=== PATIENT | male | born 1930 | race Caucasian/White ===

== ENCOUNTER 2017-02-18 16:49 | Inpatient (IN) ==
[2017-02-18] MEDS ORDERED: Aspirin 81 MG TAB.CHEW PO ONE (16:57)
[2017-02-18] MEDS ORDERED: *HR* Heparin 5,000 UNIT/ML VIAL ONE (17:02)
[2017-02-18] MEDS ORDERED: *HR* Ticagrelor 90 MG TABLET ONE (17:02)
[2017-02-18] MEDS ORDERED: 0.9 % Sodium Chloride 1,000 ML ONE ×3 (17:02→18:04)
[2017-02-18] MEDS ORDERED: *HR* Metoprolol 5 MG/5 ML VIAL IVP ONE (17:06)
[2017-02-18] MEDS ORDERED: 0.9 % Sodium Chloride 1,000 ML IVC ONE (17:07)
[2017-02-18 17:15] LABS: Basophils % 0.3 %; Eosinophils % 0.1 %; Hematocrit 43.7 % (37.5-50.1); Hemoglobin 13.9 g/dL (12.9-16.9); Immature Granulocytes % 0.3 % (0-4); Lymphocytes % 10.2 %; Mean Corpuscular HGB Conc 31.8 g/dL (31.6-35.5); Mean Corpuscular Hemoglobin 31.2 pg (28.0-33.3); Mean Platelet Volume 9.6 fL (9.4-12.4); Monocytes # 0.7 K/mcL (0.0-1.3); Monocytes % 7.3 %; Neutrophils # 8.2 K/mcL (1.6-8.9); Platelet Count 174 K/mcL (140-400); Red Blood Count 4.46 M/mcL (4.19-5.50); Red Cell Distribution Width 11.8 % (11.5-14.5); Segmented Neutrophils % 81.8 %
[2017-02-18 17:20] LABS: INR 1.4; Prothrombin Time 15.5 Seconds (9.4-12.1)
[2017-02-18 17:22] LABS: Activated Partial Thrombo Time 30.4 Seconds (26.0-36.0)
[2017-02-18 17:26] LABS: BUN/Creatinine Ratio 28 (6-26); Blood Urea Nitrogen 33 mg/dL (8-26); Carbon Dioxide 23 mEq/L (19-29); Chloride 110 mEq/L (98-109); Glucose 102 mg/dL (70-99); Osmolality,Calculated 299 (280-300); Potassium 4.6 mEq/L (3.5-4.5); Sodium 141 mEq/L (136-145); eGFR For African Americans > 60 (> 60); eGFR For Non-African Americans 60 (> 60)
[2017-02-18] MEDS ORDERED: Heparin 1,000 UNITS/500 mL NS 500 ML ONE (17:30)
[2017-02-18] MEDS ORDERED: *HR* Heparin 10,000 UNIT/10 ML VIAL ONE (17:30)
[2017-02-18] MEDS ORDERED: Nitroglycerin 1,000 MCG/10 ML VIAL IV ONE (17:39)
--- NOTE | 2017-02-18 17:52 | Emergency Department Note ---
Disposition Clinical Impression: Myocardial infarction Qualifiers: Myocardial infarction ST status: non-ST elevation myocardial infarction Qualified Code(s): I21.4 - Non-ST elevation (NSTEMI) myocardial infarction Disposition: Admitted As Inpatient Condition: Fair Chest Pain HPI - General Chief Complaint: ED Chest Pain Stated Complaint: chest pain Source: EMS Limitations: age Vital Signs Reviewed: Yes Nursing Notes Reviewed: Yes - History of Present Illness HPI Narrative: Patient here for evaluation of chest pain. Patient's chest pain started after proximally 2 hours of trying to weed eat his property. Patient went in the house and took a nitroglycerin with resolution of pain after approximately an hour and one half. Patient states the pain was described as a discomfort in his chest that was slightly different than his previous NV. Associated diaphoresis and radiation to both shoulders. Previous history of stent placement approximately 20 years ago. Patient has a history of A. fib and is on Eliquis. No history of diabetes or kidney disease. Severity scale (1-10): 0 - Related Data Home Medications Medication Instructions Recorded Confirmed Albuterol Neb [Proventil Neb] 2.5 mg IH Q4HR 07/30/15 05/31/16 Apixaban [Eliquis] 5 mg PO BID 07/30/15 05/31/16 Aspirin [Adult Low Dose Aspirin EC] 81 mg PO DAILY 07/30/15 05/31/16 B2/Vits A,C,E/Lut/Zeaxanth/Min 1 each PO DAILY 07/30/15 05/31/16 [Icaps Tablet] Calcium Carbonate/Vitamin D3 1 each PO DAILY 07/30/15 05/31/16 [Calcium 600 + Vit D Tablet] Cyclobenzaprine [Flexeril] 10 mg PO HS 07/30/15 05/31/16 Famotidine [Pepcid] 20 mg PO DAILY 07/30/15 05/31/16 Furosemide [Lasix] 20 mg PO Q48H 07/30/15 05/31/16 Gluc/Alan-MSM#1/C/Navdeep/Amandeep/Bor 1 each PO DAILY 07/30/15 05/31/16 [Osteo Bi-Flex Caplet] Metoprolol XL (24 HR) Succ [Toprol 75 mg PO DAILY 07/30/15 05/31/16 Xl] Multivitamin [Flintstones] 1 each PO DAILY 07/30/15 05/31/16 [place]-3S/Dha/Epa/Fish Oil [Fish 1 each PO DAILY 07/30/15 05/31/16 Oil 1,200 mg Softgel] Potassium Chloride [K-Tab ER] 20 meq PO Q48H 07/30/15 05/31/16 Pravastatin Sodium [Pravachol] 80 mg PO DAILY 07/30/15 05/31/16 Tiotropium [Spiriva] 18 mcg IH DAILY 07/30/15 05/31/16 Budesonide/Formoterol 160/4.5 1 puff IH BIDR 05/31/16 05/31/16 [Symbicort 160/4.5] Previous Rx's Medication Instructions Recorded Lactobacillus [Culturelle] 1 each PO BID #10 cap.sprink 01/18/16 Allergies Allergy/AdvReac Type Severity Reaction Status Date / Time No Known Allergies Allergy Unverified 07/19/15 10:47 Review of Systems: CONSTITUTIONAL: No weight loss, fever, chills, weakness or fatigue. HEENT: Eyes: No visual changes. Ears, Nose, Throat: No hearing loss, difficulty talking or unable to swallow. SKIN: No rash or itching. CARDIOVASCULAR: Chest pain resolved RESPIRATORY: No shortness of breath, cough or sputum. GASTROINTESTINAL: No anorexia, nausea, vomiting or diarrhea. No abdominal pain or blood. GENITOURINARY: No burning on urination or hematuria. NEUROLOGICAL: No headache, dizziness, syncope, paralysis, ataxia, numbness or tingling in the extremities. No change in bowel or bladder control. MUSCULOSKELETAL: No muscle pain, back pain, joint pain or stiffness. Chest Pain PMH - Past Medical History Medical history: Reports: COPD, coronary artery disease, GERD, hyperlipidemia, hypertension, myocardial infarction, other Surgical history: Reports: pacemaker/AICD Psychiatric history: Reports: no psych history - Social History Smoking Status: Former smoker Alcohol use: Reports: none Drug use: Reports: none Physical Exam General appearance: NAD, conversant Eyes: anicteric sclerae, moist conjunctivae; PERRL HENT: Atraumatic; oropharynx clear with moist mucous membranes and no mucosal ulcerations Neck: Normal inspection; Trachea midline; FROM, supple Lungs: CTA, with normal respiratory effort and no intercostal retractions CV: RRR, no MRGs Abdomen: Soft, non-tender; no rebound or gaurding Extremities: No peripheral edema or extremity lymphadenopathy Skin: Normal temperature; no rash, ulcers or lesions Psych: Appropriate mood and affect Neuro: alert and oriented to person, place and time - General Limitations: age General appearance: alert, in no apparent distress Course - Reevaluation(s) Reevaluation #1: Patient remains chest pain-free during his ED visit. - Consultations Consultation #1: Discussed with interventional cardiology. Initial EKGs sent to cardiology at 1705. Repeat EKGs at 1719 and 1731. Initial EKG with concern for significant ST elevation in the setting of hyperacute T waves and reciprocal depressions in the lateral leads. Peak T waves elevations have began resolving with initial fluids and beta dorian. Heart rate continues to be in the 130s after initial Lopressor dose of 5 mg. Discussed with cardiology Cardizem bolus as well as a IV drip. Vital Signs Temperature 98.8 F 02/18/17 16:55 Pulse Rate 131 02/18/17 16:55 Respiratory Rate 18 02/18/17 16:55 Blood Pressure 103/80 02/18/17 16:55 O2 Sat by Pulse Oximetry 95 02/18/17 16:55 Temperature 97.6 F 02/18/17 19:00 Pulse Rate 100 02/18/17 19:30 Respiratory Rate 16 02/18/17 19:30 Blood Pressure 111/92 02/18/17 19:30 O2 Sat by Pulse Oximetry 94 02/18/17 19:30 Oxygen Delivery Oxygen Delivery Nasal Cannula Chest Pain - Medical Records Medical records reviewed: Yes I reviewed the patient's medical records. - Lab Data Lab results reviewed: Yes I reviewed the patient's lab results. Result diagrams: 02/18/17 17:08 02/18/17 17:08 Lab Results 02/18/17 02/18/17 02/18/17 Range/Units 17:08 17:08 17:08 WBC 10.0 (4.3-11.1) K/mcL RBC 4.46 (4.19-5.50) M/mcL Hgb 13.9 (12.9-16.9) g/dL Hct 43.7 (37.5-50.1) % MCV 98.0 (83.0-100.0) fL MCH 31.2 (28.0-33.3) pg MCHC 31.8 (31.6-35.5) g/dL RDW 11.8 (11.5-14.5) % Plt Count 174 (140-400) K/mcL MPV 9.6 (9.4-12.4) fL Immature Gran % 0.3 (0-4) % Seg Neutrophils % 81.8 % Lymphocytes % 10.2 % Monocytes % 7.3 % Eosinophils % 0.1 % Basophils % 0.3 % Neutrophils # 8.2 (1.6-8.9) K/mcL Lymphocytes # 1.0 (0.6-4.6) K/mcL Monocytes # 0.7 (0.0-1.3) K/mcL Eosinophils # 0.0 (0.0-0.6) K/mcL Basophils # 0.0 (0.0-0.2) K/mcL PT 15.5 H (9.4-12.1) Seconds INR 1.4 APTT 30.4 (26.0-36.0) Seconds Sodium 141 (136-145) mEq/L Potassium 4.6 H (3.5-4.5) mEq/L Chloride 110 H (98-109) mEq/L Carbon Dioxide 23 (19-29) mEq/L BUN 33 H (8-26) mg/dL Creatinine 1.16 (0.72-1.25) mg/dL Est GFR ( Amer) > 60 (> 60) Est GFR (Non-Af Amer) 60 (> 60) BUN/Creatinine Ratio 28 H (6-26) Glucose 102 H (70-99) mg/dL Calculated Osmolality 299 (280-300) Calcium 10.0 (8.6-10.8) mg/dL Troponin I (0-0.03) ng/mL 02/18/17 Range/Units 17:08 WBC (4.3-11.1) K/mcL RBC (4.19-5.50) M/mcL Hgb (12.9-16.9) g/dL Hct (37.5-50.1) % MCV (83.0-100.0) fL MCH (28.0-33.3) pg MCHC (31.6-35.5) g/dL RDW (11.5-14.5) % Plt Count (140-400) K/mcL MPV (9.4-12.4) fL Immature Gran % (0-4) % Seg Neutrophils % % Lymphocytes % % Monocytes % % Eosinophils % % Basophils % % Neutrophils # (1.6-8.9) K/mcL Lymphocytes # (0.6-4.6) K/mcL Monocytes # (0.0-1.3) K/mcL Eosinophils # (0.0-0.6) K/mcL Basophils # (0.0-0.2) K/mcL PT (9.4-12.1) Seconds INR APTT (26.0-36.0) Seconds Sodium (136-145) mEq/L Potassium (3.5-4.5) mEq/L Chloride (98-109) mEq/L Carbon Dioxide (19-29) mEq/L BUN (8-26) mg/dL Creatinine (0.72-1.25) mg/dL Est GFR ( Amer) (> 60) Est GFR (Non-Af Amer) (> 60) BUN/Creatinine Ratio (6-26) Glucose (70-99) mg/dL Calculated Osmolality (280-300) Calcium (8.6-10.8) mg/dL Troponin I 9.03 H* (0-0.03) ng/mL - Radiology Data Radiology results reviewed: Yes I reviewed the patient's radiology results. - EKG Data EKG attestation: Yes I reviewed and interpreted this EKG. EKG results narrative: Initial EKG performed at 1649. A. fib with RVR in concern of ST elevation of approximately 3 mm in V2 and 3 as well as depressions in V6 and V5 of 2 mm. Inverted T waves in 1 and aVL. Significantly changed from previous EKG of . Repeat EKG at [address]16 with continued concern for ST elevations as well as continue depressions. Somewhat decreased from previous. EKG on 1728 shows continued mild improvements of elevations as well as depressions. Critical Care Time Critical Care Time: Yes Total Critical Care Time: 35 Attestation: Critical care time managing patient STEMI was 35 minutes. Attestation Statement - Attestation Attestation: Patient was seen with resident physician. I reviewed the history, physical, assessment and plan, and agree with the findings. I also personally evaluated this patient and had [id number] time with this patient. A 6-year-old male presents to the emergency department cute onset of chest pain. Patient was apparently tempted to weed at his house when he developed chest pain in the middle of his chest rating to both shoulders bilaterally. He took a nitroglycerin which resolved his discomfort but he came in for evaluation as well. He did have diaphoresis with the pain. He has a history of cardiac disease including a pacemaker atrial fibrillation for which he takes a blood thinner, and history stents which she thinks was about 20 years ago. She denies nausea vomiting or diarrhea. He is chest pain-free at time of evaluation. On examination vital signs patient is tachycardic with a heart rate in the 130s, blood pressure is low systolic in the upper 90s respiratory rate is normal. ENT is unremarkable. Heart tachycardic with regular rhythm lungs were clear to auscultation abdomen soft and nontender extremity show no swelling neurologically the patient is intact. ED course EKG showed STEMI and when compared with prior EKG was highly concerning as well. The interventional cardiology was contacted immediately. They wanted to try to reduce his heart rate repeated an EKG we attempted to do this with Lopressor with limited success. Repeat EKG was also very concerning he continued have some morphology changes that were consistent with acute myocardial infarction. 2 to be moving towards a left bundle branch block which was new for him. All the EKGs and cardiac management were incoordination in cooperation with interventional cardiology. Because his rate did not respond well with Lopressor. He was given Cardizem. Though it appeared to be working we did not have a formal vital sign set when the patient was taken to the catheter lab. In the process of trying to determine if his EKG changes were new or old his troponin came back at 9, which conclusively determined that he needed to be in the catheter lab. He was taken by the catheter team in guarded condition. He was alert and oriented at the time. He was chest pain-free throughout his stay. Critical care time for this patient was 35 minutes. Agree with the resident physician assessment and plan.
[2017-02-18] MEDS ORDERED: Verapamil 5 MG/2 ML VIAL ONE (17:55)
[2017-02-18] MEDS ORDERED: *HR* Midazolam HCl 2 MG/2 ML VIAL ONE (18:00)
[2017-02-18] MEDS ORDERED: *HR* FentaNYL (PF) 100 MCG/2 ML VIAL ONE (18:01)
--- NOTE | 2017-02-18 18:02 | Cardiology History & Physical ---
Date of Encounter: 02/18/17 Time of Encounter: 18:02 Assessment and Plan (1) CAD (coronary artery disease) Current Visit: No Status: Chronic History of CAD with remote stent. Presenting with acute myocardial infarction as evidenced by history and troponin. ECG with new abnormalities but not clearly diagnostic for STEMI. Due to the ECG (not clearly diagnostic for STEMI as well as A. 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 The assessment and plan as outlined above was discussed with the patient and/or family members who expressed understanding and agreement. All questions were answered. Qualifiers: Coronary Disease-Associated Artery/Lesion type: [place] artery [place] vs. transplanted heart: [place] heart Associated angina: with unstable angina Qualified Code(s): I25.110 - Atherosclerotic heart disease of [place] coronary artery with unstable angina pectoris (2) Non-STEMI (non-ST elevated myocardial infarction) Current Visit: Yes Status: Acute Presenting with acute myocardial infarction as evidenced by history and troponin. ECG with new abnormalities but not clearly diagnostic for STEMI. Due to the ECG (not clearly diagnostic for STEMI as well as A. 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 Patient at increased risk of bleeding due to Eliquis. The assessment and plan as outlined above was discussed with the patient and/or family members who expressed understanding and agreement. All questions were answered. History of Present Illness Chief complaint: Chest pain HPI: Mr. Almendarez is a 86 year old male who presents with complaints of chest discomfort. He has a history of CAD status post remote stent placement approximately 20 years ago per the patient. He also has a history of COPD, chronic atrial fibrillation and pacemaker placement. He was outside [employer] today when he experienced chest discomfort which he described as an ache with radiation into the arms. His arms became very heavy. This lasted for approximately an hour to an hour and a half and then resolved. He had another episode and took nitroglycerin. His family then called 911. In the ER he was noted to be in atrial fibrillation with rapid ventricular response. ECG does show new changes from 2016. There is concern for possible STEMI. The patient was chest discomfort free. Troponin did come back elevated in the range of 9. Past Med Surg Social Fam HX - Past Medical History Medical history: COPD, coronary artery disease, GERD, hyperlipidemia, hypertension, myocardial infarction, other Psychiatric history: no psych history - Past Surgical History Surgical History: pacemaker/AICD - Social History Smoking Status: Former smoker Smokeless Tobacco Status: Yes Alcohol use: none Drug use: none - Family History Brother Hx Family Cancer: Yes Medications and Allergies Albuterol Neb [Proventil Neb] 2.5 mg IH Q4HR 07/30/15 [History] Apixaban [Eliquis] 5 mg PO BID 07/30/15 [History] Aspirin [Adult Low Dose Aspirin EC] 81 mg PO DAILY 07/30/15 [History] B2/Vits A,C,E/Lut/Zeaxanth/Min [Icaps Tablet] 1 each PO DAILY 07/30/15 [History] Calcium Carbonate/Vitamin D3 [Calcium 600 + Vit D Tablet] 1 each PO DAILY [History] Cyclobenzaprine [Flexeril] 10 mg PO HS 07/30/15 [History] Famotidine [Pepcid] 20 mg PO DAILY 07/30/15 [History] Furosemide [Lasix] 20 mg PO Q48H 07/30/15 [History] Gluc/Alan-MSM#1/C/Navdeep/Amandeep/Bor [Osteo Bi-Flex Caplet] 1 each PO DAILY 07/30/15 [ History] Metoprolol XL (24 HR) Succ [Toprol Xl] 75 mg PO DAILY 07/30/15 [History] Multivitamin [Flintstones] 1 each PO DAILY 07/30/15 [History] [place]-3S/Dha/Epa/Fish Oil [Fish Oil 1,200 mg Softgel] 1 each PO DAILY 07/30/15 [ History] Potassium Chloride [K-Tab ER] 20 meq PO Q48H 07/30/15 [History] Pravastatin Sodium [Pravachol] 80 mg PO DAILY 07/30/15 [History] Tiotropium [Spiriva] 18 mcg IH DAILY 07/30/15 [History] Lactobacillus [Culturelle] 1 each PO BID #10 cap.sprink 01/18/16 [Rx] Budesonide/Formoterol 160/4.5 [Symbicort 160/4.5] 1 puff IH BIDR 05/31/16 [ History] Allergies No Known Allergies Allergy (Unverified 07/19/15 10:47) All Systems Review: A 10-system review of systems was performed and is negative for pertinent findings except as documented above in the HPI. Physical Examination Vital Signs, Last 4 Hours Temp Pulse Resp BP Pulse Ox 02/18/17 17:18 112 16 90/73 97 02/18/17 17:09 125 18 103/70 96 02/18/17 16:55 98.8 F 131 18 103/80 95 General: Conversant, No Apparent Distress HEENT: Atraumatic, Normocephaly, Mucus Membranes Moist Neck: No JVD, Normal carotid pulses Cardiac: Other (Tachycardic, Irregularly irregular S1-S2, no significant murmur) Lungs: Normal Breath Sounds, No Wheeze, Rales, Rhonchi Neuro: Alert and responsive, No focal deficits noted Abdomen: Soft, Non-Tender Skin: No rashes noted on visualized skin Musculoskeletal: No Chest Wall Tenderness Extremities: No Clubbing, No Cyanosis, No Edema, Normal Pulses Results 02/18/17 17:08 02/18/17 17:08 Lab Results 02/18/17 02/18/17 02/18/17 17:08 17:08 17:08 WBC 10.0 Hgb 13.9 Hct 43.7 Plt Count 174 INR 1.4 APTT 30.4 Sodium 141 Potassium 4.6 H Chloride 110 H Carbon Dioxide 23 BUN 33 H Creatinine 1.16 Glucose 102 H Calcium 10.0 Troponin I 02/18/17 17:08 WBC Hgb Hct Plt Count INR APTT Sodium Potassium Chloride Carbon Dioxide BUN Creatinine Glucose Calcium Troponin I 9.03 H* - EKG Interpretation EKG results cardiology: other (Atrial fibrillation with rapid ventricular response, IVCD, ST and T-wave abnormality consider ischemia)
--- NOTE | 2017-02-18 18:03 | Pre-Sedation Evaluation ---
Pre-sedation evaluation - Pre-sedation checklist Date of procedure: 02/18/17 Recent Vitals: Last Vital Signs Temp 98.8 F 02/18/17 16:55 Pulse 112 02/18/17 17:18 Resp 16 02/18/17 17:18 BP 90/73 02/18/17 17:18 Pulse Ox 97 02/18/17 17:18 H&P (including ROS) documented in medical record: Yes Previous reaction to sedatives/anesthetics: No Dietary Status: unknown Airway Assessment: Patient can open mouth completely, TMJ function normal Possible difficult airway: No ASA Classification *see protocol: CLASS II-Mild systemic disease Plan of Care: Pt appropriate candidate for procedure/moderate/conscious sedation
[2017-02-18] MEDS ORDERED: Tirofiban 12.5 MG/250ML 12.5 MG/250 ML BAG ONE (18:27)
--- NOTE | 2017-02-18 19:16 | Invasive Diagnostic Lab Proc ---
Name: Enmanuel Almendarez Date of Study: 02/18/2017 Date: 1930 Ht: 70.9in Medical Record#: [id number] Age: 86 Wt: 183.87lb Gender: Male BSA: 2.03 Order #: [id number] BMI: 25.74 Physicians Procedure Physician: Andi Alvarez MD Referring MD: Referring MD: Staff Name Position Time In [facility], [facility] RT (R) Monitor 06:01 PM Emir Spence RN Dry Cleaner 06:01 PM Rita Florence RT (R) Scrub 06:01 PM Adrienne Lagunas RN Dry Cleaner 06:01 PM Indications Indication Non-Stemi Procedures Performed Procedure L HRT ARTERY/VENTRICLE ANGIO PRQ CARD JOSE STENT W/ANGIO 1 VSL Pre-Procedure Checklist Informed consent is complete signed and on chart. H&P is on chart. ID band is on and ID verified with patient. Patient NPO for procedure The procedure was described for the patient and questions were answered. Blood Pressure: 114/62 ECG is on chart. Rhythm: Atrial Fibrillation Plan of Care Patient will tolerate the procedure without complications. Adequate level of comfort will be maintained. Hemodynamics will remain stable Patient will recover from procedure without complications. Respiratory function will be maintained. Cardiac rhythm will remain stable. Patient temperature will be maintained. Patient and/or family have verbalized understanding of the procedure. Patient Education Chief Complaint/Reason for Test: Cardiac Cath Developmental Category: Geriatric (65+ years) Developmentally Appropriate for Age: Yes Learning Barriers: None Education Needs: Procedure Education Method: Verbal Information Taught: Cardiac Cath Educational Evaluation: Able to repeat information Intravenous Access Time IV Size Location DC'd Fluid/Drip Rate Units RN 20g 1 1/4" Patent On Arrival Lt Antecubital 0.9NaCl 25 ml/hr Emir Spence RN 18g 1 1/4" Peripheral-Lock On Arrival Rt Antecubital Allergies No Known Allergies Vital Signs Time BP (mmHg) HR (bpm) O2 Sat. RR (bpm) LOC 114 / 62 77 97 % 16 5 = Fully awake and oriented or at pre-proc level 06:05 PM / % 4 = Oriented but drowsy 06:05 PM / % 4 = Oriented but drowsy 06:20 PM / % 4 = Oriented but drowsy 05:57 PM 114 / 62 77 98 % 20 06:02 PM 92 / 59 76 99 % 20 06:03 PM 96 / 66 66 98 % 16 06:07 PM 102 / 62 73 98 % 24 06:12 PM 105 / 61 86 96 % 22 06:17 PM 106 / 60 95 96 % 19 06:18 PM 109 / 60 106 96 % 21 06:22 PM 99 / 71 77 96 % 21 06:27 PM 97 / 63 102 96 % 21 06:31 PM 105 / 55 78 96 % 18 06:37 PM 116 / 74 90 96 % 10 06:42 PM 108 / 72 107 95 % 22 06:47 PM 115 / 77 96 96 % 19 Procedural Medications Time Medication Dose Units Method Given By 06:04 PM Oxygen 2 L/min nasal cannula Emir Spence RN 06:04 PM Versed 1 mg Intravenous Emir Spence RN 06:05 PM Fentanyl 25 mcg Intravenous Emir Spence RN 06:06 PM Lidocaine 2% 1 ml Subcutaneous Andi Alvarez MD 06:13 PM Lidocaine 2% 17 ml Subcutaneous Andi Alvarez MD 06:28 PM Aggrastat Bolus: 42 ml Intravenous Emir Spence RN 06:28 PM Aggrastat 5mg/100ml 7.5 ml Intravenous Emir Spence RN 06:54 PM Brilinta 180 mg Orally Emir Spence RN ASA Classification: Emergent Procedure: ASA score is assumed Ciera Score Preprocedure Postprocedure Activity 2- Moves 4 extremities sustained head lift Activity 2- Moves 4 extremities sustained head lift Circulation 2- SBP +/= 20 points of pre-anesthetic level Circulation 2- SBP +/= 20 points of pre-anesthetic level Consciousness 2- Awake and alert oriented x 3 Consciousness 2- Awake and alert oriented x 3 O2 Saturation 2- Able to maintain O2 satruation of 92% on room air O2 Saturation 2- Able to maintain O2 satruation of 92% on room air Respiratory 2- Able to deep breathe and cough well Respiratory 2- Able to deep breathe and cough well Total Score 10 Total Score 10 Contrast Agent: Isovue Diagnostic Contrast: 87 ml Total Contrast: 87 ml Fluoro Dose: 609 mGy Activated Clotting Time Time Seconds to Clot 06:38 PM 222 Procedure Log Time Note Enter By 05:29 PM CathStat 05:49 PM Pt arrived to film laboratory technician 2 at 17:49 [email or web address] 05:49 PM Rita Smith RT (R) Position: Monitor Time in: 17:49 [place] 05:49 PM Emir Spence RN Position: Dry Cleaner Time in: 17:49 [place] 05:49 PM Rita Florence RT (R) Position: Scrub [facility]:17:[email or web address] 05[facility] PM Adrienne Lagunas RN Position: Dry Cleaner Time in: 17:49 [place] 05:53 PM Physician arrived 17:53 [place] 05:53 PM Vitals capture started with the following parameters, Patient=Adult, Interval=5 min, Initial Acbvffun=920 mmHg, Deflation Rate=5 mmHg, Cuff placed on Left Arm 05:56 PM Vitals capture started with the following parameters, Patient=Adult, Interval=5 min, Initial Brnapzhy=725 mmHg, Deflation Rate=5 mmHg, Cuff placed on Left Arm 05:56 PM Recorded ECG: HR=88 Condition=Condition 1 05:57 PM HR=77 bpm, MIMQ=142/62 mmhg, SpO2=98 %, Resp=20 B/min 06:00 PM Meet and greet completed [facility] 06:00 PM Hair removed from procedure site in holding area using clippers. Right wrist and bilateral groin prepped with Chloraprep by Rita Smith (R), safety strap applied then patient was draped. Skin intact. ts 06:02 PM HR=76 bpm, NIBP=92/59 mmhg, SpO2=99 %, Resp=20 B/min 06:02 PM NIBP STAT measurement started. 06:02 PM Patient charges- Angio tray pack, Navilyst 3mm J, Pulse Oximetry and ACIST tubing and transducer [facility] 06:02 PM Case Delayed No allan 06:03 PM HR=66 bpm, NIBP=96/66 mmhg, SpO2=98.0 %, Resp=16 B/min 06:03 PM Recorded ECG: HR=77 Condition=Condition 1 06:04 PM Pressure channel 1 zeroed. 06:04 PM Time: 18:04 Oxygen on at 2 L/min per nasal cannula by Emir Spence RN 06:05 PM Time: 18:04 Versed 1 mg Intravenous Given by Emir Sepnce RN 06:05 PM Time: 18:05 Fentanyl 25 mcg Intravenous Given by Jordy, Emir RN tsites 06:05 PM Time: 18:05 Patient comfortable and pain free: Yes tsites 06:05 PM Time: 18:05LOC: 4 = Oriented but drowsy tsites 06:05 PM Clinical Presentation: STEMI or equivalent tsites 06:05 PM Time out performed according to hospital policy tsites 06:05 PM Procedure start 18:05 tsites 06:06 PM Time: 18:06 1 ml Lidocaine 2% to right radial Subcutaneous Given by Andi Alvarez MD tsites 06:07 PM HR=73 bpm, HUQH=066/62 mmhg, SpO2=98.0 %, Resp=24 B/min 06:07 PM Unsuccessful access attempt # 1 into the right Radial artery. Manual pressure applied to achieve hemostasis.. tsites 06:09 PM Unsuccessful access attempt # 2 into the right Radial artery. Manual pressure applied to achieve hemostasis.. tsites 06:12 PM HR=86 bpm, SZWY=355/61 mmhg, SpO2=96.0 %, Resp=22 B/min 06:13 PM unable to get radial access . tsites 06:13 PM Time: 18:13 17 ml Lidocaine 2% to right groin Subcutaneous Given by Andi Alvarez MD tsites 06:15 PM Micro-Introducer Kit utilized for sheath placement tsites 06:15 PM Access obtained by percutaneous puncture. 6Fr 10cm Terumo Gans sheath placed in right Femoral artery. [id number] tsites 06:16 PM Site status No bleeding/hematoma - Rt Wrist as reported by Adrienne Lagunas RN at 18:16 tsites 06:16 PM Manual pressure was held to Rt radial per Adrienne Lagunas Rn tsites 06:17 PM HR=95 bpm, IKMT=610/60 mmhg, SpO2=96 %, Resp=19 B/min 06:17 PM 5Fr FL 4 catheter inserted over the wire [facility] tsites 06:17 PM 0.035 145cm Navilyst 3mmJ wire [id number] tsites 06:17 PM LCA angiography performed in multiple views. tsites 06:17 PM Recorded Pressure: Ao, HR=82, Condition=Condition 1 (Aorta) Ao 74/51/62 06:17 PM NIBP STAT measurement started. 06:18 PM QC=081 bpm, ABTZ=256/60 mmhg, SpO2=96 %, Resp=21 B/min 06:19 PM wire reinserted catheter removed tsites 06:19 PM 5Fr FR 4 catheter inserted over the wire DNC tsites 06:20 PM RCA angiography performed in multiple views. tsites 06:20 PM Time: 18:05LOC: 4 = Oriented but drowsy tsites 06:21 PM wire reinserted catheter removed tsites 06:21 PM 5Fr Pigtail catheter inserted over the wire DNC tsites 06:22 PM HR=77 bpm, NIBP=99/71 mmhg, SpO2=96 %, Resp=21 B/min 06:22 PM Recorded Pressure: LV, HR=75, Condition=Condition 1 (Left Ventricle) LV 91/7/20 06:23 PM Recorded Pressure: LV, Ao, HR=74, Condition=Condition 1 (Left Ventricle) LV 97/6/18, (Aorta) Ao 96/52/70 06:26 PM Physician reviewing films looking at the prox LAD lesion CABG vs stent tsites 06:27 PM wire reinserted catheter removed tsites 06:27 PM PCI Status Emergency tsites 06:27 PM PCI Indication: Immediate PCI for STEMI tsites 06:27 PM PCI lesion in Mid RCA. tsites 06:27 PM 6Fr JR 4 Runway guide catheter was used to cannulate the PCI vessel successfully. reused? No tsites 06:27 PM Inflation device was opened. tsites 06:27 PM IY=640 bpm, NIBP=97/63 mmhg, SpO2=96.0 %, Resp=21 B/min 06:28 PM Time: 18:28 Aggrastat 5mg/100ml 7.5 ml Intravenous Given by Emir Spence RN Zarate pump tsites 06:28 PM Time: 18:28 Aggrastat Bolus: 42 ml Intravenous Given by Emir Spence RN Zarate pump tsites 06:29 PM Coronary Dominance: right tsites 06:29 PM Lesion found in Mid RCA. Pre Stenosis: 99 Pre YANETH Flow: tsites 06:29 PM Right Coronary, Right Posterior Descending Arteries with Right Posterolateral and Acute Marginal branches with 99 % stenosis. If graft is supplying this area, 0 % stenosis tsites 06:30 PM .014 [employer] [place] 190cm guide wire across target lesion- successful. reused? No tsites 06:30 PM 2.5 mm x 15 mm Emerge Monorail balloon across target lesion- successful. reused? No tsites 06:31 PM Balloon inflated @ 14 jennifer for 15 seconds tsites 06:31 PM NIBP STAT measurement started. 06:31 PM HR=78 bpm, ZFZV=904/55 mmhg, SpO2=96 %, Resp=18 B/min 06:32 PM Balloon catheter removed intact. tsites 06:34 PM 3.0mm x 28mm Synergy drug-eluting stent across target lesion- successful Lot #[id number] tsites 06:34 PM Stent deployed @ 16 jennifer for 15 seconds tsites 06:34 PM Stent delivery system removed intact. tsites 06:35 PM Time: 18:20LOC: 4 = Oriented but drowsy tsites 06:35 PM Time: 18:20 Patient comfortable and pain free: Yes tsites 06:36 PM 3.5 mm x 15mm NC Emerge balloon across target lesion- successful. reused? No tsites 06:36 PM ACT drawn tsites 06:37 PM HR=90 bpm, JKVY=703/74 mmhg, SpO2=96 %, Resp=10 B/min 06:37 PM Balloon inflated @ 12 jennifer for 8 seconds tsites 06:37 PM Balloon inflated @ 14 jennifer for 10 seconds tsites 06:37 PM Balloon inflated @ 14 jennifer for 8 seconds tsites 06:38 PM Recorded Pressure: Ao, HR=86, Condition=Condition 1 (Aorta) Ao 96/54/72 06:38 PM Balloon catheter removed intact. tsites 06:38 PM At 18:38 the ACT was 222 seconds. tsites 06:38 PM Guide wire removed intact. tsites 06:39 PM Lesion found in Proximal LAD. Pre Stenosis: 80 Pre YANETH Flow: tsites 06:39 PM Catheter removed tsites 06:40 PM Bolus angiogram of right Femoral complete: 2 ml/sec for a total of 4 mls tsites 06:41 PM sheath sutured into place tsites 06:41 PM Procedure completed at 18:41 tsites 06:41 PM Sign out completed: Radiation Dose 609 mGy Fluoro Time: 4.2 Isovue 370 - 500ml contrast 87 ml given by Andi Alvarez MD. Complications: NoneCardiac Rehab Consult needed: YesConfirmed administered medications: Yes tsites 06:41 PM Isovue 370 - 500ml,1 Bottle(s) used. tsites 06:41 PM Sheath left in place to be pulled on floor/holding areaV+Pad tsites 06:42 PM TQ=678 bpm, SYZG=633/72 mmhg, SpO2=95 %, Resp=22 B/min 06:42 PM Post ECG Atrial Fibrillation tsites 06:42 PM Post Blood Pressure 108/72 tsites 06:42 PM 18:42 Post Pulses Rt Radial 2+ tsites 06:42 PM 18:42 Post Pulses Bilateral DP & PT 1+ tsites 06:42 PM Information taught Cardiac Cath and PCI tsites 06:43 PM Education needs Procedure, Plan of Care, and Responsibilities of Patient in Care tsites 06:43 PM Learning barriers :None tsites 06:43 PM Education Methods Verbal tsites 06:43 PM Education evaluation Able to repeat information tsites 06:43 PM Site status No bleeding/hematoma - Rt Groin as reported by Rita Florence RT (R) at 18:43 tsites 06:43 PM Recorded ECG: HR=99 Condition=Condition 1 06:47 PM HR=96 bpm, CEKJ=585/77 mmhg, SpO2=96 %, Resp=19 B/min 06:55 PM Time: 18:54 Brilinta 180 mg Orally Given by Emir Spence RN tsites 06:57 PM Lesion found in Proximal LAD. Pre Stenosis: 80 Pre YANETH Flow: tsites 06:57 PM Lesion found in Mid Circumflex. Pre Stenosis: 50 Pre YANETH Flow: tsites 06:57 PM Lesion found in Mid LAD. Pre Stenosis: 50 Pre YANETH Flow: tsites 06:58 PM Proximal Left Anterior Descending Coronary Artery with 80% stenosis. If graft is supplying this territory, 0 % stenosis. tsites 06:58 PM Mid/Distal Left Anterior Descending Coronary Artery and diagonal branches with 50% stenosis. If graft is supplying this area, 0 % stenosis tsites 06:58 PM Circumflex, Obtuse Marginal, Left Posterior Descending, and Left Posterolateral Coronary Arteries with 50 % stenosis. If graft is supplying this area, 0 % stenosis tsites 06:59 PM Lesion found in LMCA. Pre Stenosis: 45 Pre YANETH Flow: tsites 06:59 PM Left Main Coronary Artery with 45% stenosis tsites 07:00 PM Report given to nikhil SERRANO Pt taken to ICU Room #5. 18:59 tsites 07:00 PM Plavix, Effient or Brilinta given Yes tsites 07:00 PM Delay to floor No tsites 07:00 PM Patient out of room: 19:00 tsites 07:00 PM Family placed in consult room. tsites Complications Complication None Hemodynamics Pressures Site Systolic/A Wave Diastolic/V Wave Mean AO 74 51 62 LV 91 7 20 LV 97 6 18 AO 96 52 70 AO 96 54 72 Post Procedure Information Blood Pressure: 108/72 mmHg Rhythm: Atrial Fibrillation Post procedural instructions were given Closure Device Time Device Success/Fail 02/18/2017 7:00:00 PM Manual Compression Site Checks Time Location Status Staff Sheath In? Note 06:16 PM Rt Wrist No bleeding/hematoma Adrienne Lagunas RN 06:43 PM Rt Groin No bleeding/hematoma Rita Florence RT (R) Pulses Time Site Pre-Procedure Post-Procedure Note 02/18/2017 5:59:00 PM Bilateral DP & PT 1+ Bilateral radial 2+ 6:42:00 PM Rt Radial 2+ 6:42:00 PM Bilateral DP & PT 1+ Updated by Riat Smith RT (R) on 02/18/2017 7:10:53 PM Rita Smith RT electronically signed on 02/18/2017 7:11:24 PM with status of Final
--- NOTE | 2017-02-18 19:56 | Procedure Note ---
Date of procedure: 02/18/17 Pre-op diagnosis: Acute myocardial infarction Post-op diagnosis: same Procedure: Cardiac cath: LM-40-50% proximal with proximal ectasia versus ulcerated plaque versus poststenotic dilatation? LAD-80% ostial, 50% mid, CX-50% mid, RCA-99% mid, LVEF-15-20% with global hypokinesis and 1+ to 2+ MR, PCI of RCA 99% to 0% with a 3.0 mm x 28 mm Synergy JOSE. Right external iliac artery 40-50%. Right radial artery attempted but not accessed and due to concerns regarding time it was aborted. Right femoral, femoral artery approach was used with a single front wall puncture. Impression: 1. Critical stenosis of the RCA with successful PCI using JOSE. 2. Severe stenosis of the proximal LAD estimated at 80%. 3. Borderline to severe stenosis of the left main. Certain views looked less significant and other views more significant. Dilatation concerning for ectasia , ulcerated plaque, poststenotic dilatation. 4. Severe LV systolic dysfunction. 5. Decision to proceed with PCI was made as patient would be high surgical risk given her advanced age, other comorbidities as well as severe cardiomyopathy. The LAD stenosis appears to likely have the ability to revascularize with PCI although would be high risk. The left main stenosis did not appear angiographically critical but may be underestimated. Plan: 1. Aspirin 81 mg by mouth daily. 2. Brilinta 90 mg by mouth twice daily. 3. Coreg and digoxin for rate control. May need to use Cardizem if rate control not adequately achieved with Coreg and digoxin. 4. Begin ELAINE inhibitor if renal function is stable tomorrow. 5. Discontinue Eliquis. 6. Will need further decision making regarding the left main and LAD (stress testing, repeat cath with IVUS, CABG). 7. Arterial sheath to remain until tomorrow given Eliquis today. Interventional cardiology to make further recommendations regarding its removal. 8. Aggrastat for 12 hours. 9. Discussed in detail with patient and family. Anesthesia: IV sedation Surgeon: Andi Alvarez Estimated blood loss (cc): 20 Pathology: none sent Condition: critical Disposition: ICU
[2017-02-18] MEDS ORDERED: *HR* HYDROcodone/Acet 5/325 mg TABLET PO PRN (19:57)
[2017-02-18] MEDS ORDERED: 0.9 % Sodium Chloride 1,000 ML IVC SCH (20:00)
[2017-02-18] MEDS ORDERED: Tirofiban 12.5 MG/250ML 12.5 MG/250 ML BAG IVC SCH (20:00)
--- NOTE | 2017-02-18 20:43 | Invasive Diagnostic Lab ---
Name: Enmanuel Almendarez Date of Study: 02/18/2017 Date: 1930 Ht: 180.0 cm /70.9 in Medical Record#: [id number] Age: 86 Wt: 83.4 kg / 183.87 lb Account/Order#: [id number] Gender: Male BSA: 2.03 Order #: [id number] Fluoro Dose: 609 mGy BMI: 25.74 Procedure Physician: Andi Alvarez MD Referring MD: Referring MD: Procedures Performed: LEFT HEART CATH Stent w/ PTCA Single Major Vessel Indications: Non-Stemi Impressions: There is severe two vessel coronary artery disease. LV- EF 15-20%, 1+ to 2+ MR Patient had successful PTCA/Drug-Eluting Stent placement in the mid RCA. Recommendations: Aggressive risk factor modification. Dual antiplatelet therapy. Patient recommended for possible PCI of the LAD after evaluation of Left Main History/Risk Factors: Hypertension CHF within 2 weeks Chronic Lung Disease Prior [place] Procedure Access obtained in the right Femoral artery by percutaneous puncture Patient had successful PTCA/Drug-Eluting Stent placement in the mid RCA. Complications: None Contrast: Isovue 87ml Closure Device: Manual Compression Hemodynamics: Pressures Site Systolic/ A Wave Diastolic/ V Wave End Diastolic/ Mean HR AO 74 51 62 82 LV 91 7 20 75 LV 97 6 18 51 AO 96 52 70 88 AO 96 54 72 86 LV Ventriculography Ejection Method: LV Gram Ejection Fraction: 15-20%, 1+ to 2+ MR Wall Motion: KIM Anterobasal Severe Hypokinesis Anterolateral Severe Hypokinesis Apical: Severe Hypokinesis Inferoapical Severe Hypokinesis Inferobasal Severe Hypokinesis Coronary Dominance: right Lesion Findings/Interventions * Left Main Coronary Artery There is a 40-50% stenosis in the LMCA. Ectasia vs ulcerated plaque vs poststenotic dilatation * Left Anterior Descending There is a 80% stenosis in the Proximal LAD. There is a 50% stenosis in the Mid LAD. * Circumflex There is a 50% stenosis in the Mid Circumflex. * Right Coronary Artery There is a 28 mm long, 99% stenosis in the Mid RCA. The lesion has a YANETH flow of 2 and has no thrombus present. An intervention was performed on the Mid RCA with a final stenosis of 0%. There were no lesion complications. The final YANETH flow was 3. Interventional Device(s) Vessel Segment Type Name Diameter (mm) Length (mm) Mid RCA Balloon Emerge Monorail 2.5 15 Mid RCA Drug Eluting Stent Synergy 3 28 Mid RCA Balloon NC Emerge 3.5 15 Updated by Rita Smith, RT (R) on 02/18/2017 7:09:29 PM Andi Alvarez MD electronically signed on 02/18/2017 8:38:08 PM with status of Final
[2017-02-18] MEDS: *HR* Morphine 2 MG/ML SYRINGE IVP PRN (22:25)
[2017-02-19] MEDS ORDERED: Ipratropium/Albuterol Neb 3 ML IH PRN (01:57)
[2017-02-19] MEDS: *HR* Morphine 2 MG/ML SYRINGE IVP PRN (01:59)
[2017-02-19 04:07] LABS: Basophils % 0.3 %; Eosinophils % 0.4 %; Hemoglobin 12.5 g/dL (12.9-16.9); Immature Granulocytes % 0.4 % (0-4); Lymphocytes # 0.9 K/mcL (0.6-4.6); Lymphocytes % 8.5 %; Mean Corpuscular HGB Conc 32.1 g/dL (31.6-35.5); Mean Corpuscular Hemoglobin 31.2 pg (28.0-33.3); Mean Corpuscular Volume 97.3 fL (83.0-100.0); Mean Platelet Volume 9.6 fL (9.4-12.4); Monocytes # 1.1 K/mcL (0.0-1.3); Monocytes % 10.7 %; Neutrophils # 8.2 K/mcL (1.6-8.9); Platelet Count 152 K/mcL (140-400); Red Blood Count 4.01 M/mcL (4.19-5.50); Segmented Neutrophils % 79.7 %
[2017-02-19 04:21] LABS: BUN/Creatinine Ratio 32 (6-26); Blood Urea Nitrogen 30 mg/dL (8-26); Calcium 9.1 mg/dL (8.6-10.8); Carbon Dioxide 20 mEq/L (19-29); Chloride 114 mEq/L (98-109); Glucose 105 mg/dL (70-99); Osmolality,Calculated 299 (280-300); Sodium 141 mEq/L (136-145); eGFR For African Americans > 60 (> 60); eGFR For Non-African Americans > 60 (> 60)
[2017-02-19] MEDS: Albuterol 2.5 MG/3 ML NEBULIZER IH PRN ×3 (05:31→22:11)
[2017-02-19] MEDS ORDERED: *HR* LORazepam 2 MG/ML VIAL IVP ONE (05:41)
[2017-02-19] MEDS: Tiotropium 18 MCG inhalation IH SCH (07:56)
[2017-02-19] MEDS: Budesonide/Formoterol 160/4.5 MDI IH SCH ×2 (07:56→22:09)
--- NOTE | 2017-02-19 08:47 | Pre-Sedation Evaluation ---
Pre-sedation evaluation - Pre-sedation checklist Date of procedure: 02/18/17 Procedure: [facility] Recent Vitals: Last Vital Signs Temp 97.8 F 02/19/17 04:15 Pulse 64 02/19/17 06:00 Resp 16 02/19/17 07:58 BP 105/90 02/19/17 06:00 Pulse Ox 94 02/19/17 07:58 H&P (including ROS) documented in medical record: Yes Previous reaction to sedatives/anesthetics: No Dietary Status: NPO after Midnight Airway Assessment: Patient can open mouth completely, TMJ function normal ASA Classification *see protocol: CLASS II-Mild systemic disease Plan of Care: Pt appropriate candidate for procedure/moderate/conscious sedation , Risks/benefits of procedure/sedation discussed w/ patient/family
[2017-02-19] MEDS: Aspirin 81 MG TAB.CHEW PO SCH (09:28)
[2017-02-19] MEDS: *HR* Ticagrelor 90 MG TABLET PO SCH ×4 (09:28→21:52)
--- NOTE | 2017-02-19 09:47 | Pulmonology Consult Note ---
<Asael Booker - Last Filed: 02/19/17 16:53> Date of Encounter: 02/19/17 Time of Encounter: 09:43 Assessment and Plan (1) COPD (chronic obstructive pulmonary disease) Current Visit: Yes Status: Acute Plan: We will continue the patient on Symbicort 160/4.5 2 puff BID, albuterol 2.5 every 4 hours prn and Spiriva 18mcq daily. Patient is currently on 3 L of oxygen at this time we will continue oxygen therapy and monitor the patients oxygen saturations. We will wean the patient from oxygen as tolerated. I spoke with cardiology regarding this patient due to his recent cath and chest x-ray showing patchiness in the lower lobes as well as possible effusion. They have recommended starting the patient on Lasix 40 q12h so we will begin this therapy. Qualifiers: COPD type: COPD with acute exacerbation Qualified Code(s): J44.1 - Chronic obstructive pulmonary disease with (acute) exacerbation (2) Non-STEMI (non-ST elevated myocardial infarction) Current Visit: Yes Status: Acute Patient has had a stent placed in the RCA and is being evaluated and followed by cardiology for this problem. Cardiology will be taking the patient to the Cloth Napping Supervisor again for further intervention. Patient did remove the sheath this morning and was reported to have a significant amount of bleeding. This bleeding has been controlled with pressure and currently has a sandbag placed over the catheter insertion site in the right groin (3) Anemia Current Visit: Yes Status: Acute Patient has developed a slight anemia could be due to receiving fluids as well as his recent cath. This will be followed closely by monitoring the patient's hemoglobin. Qualifiers: Anemia type: unspecified type Qualified Code(s): D64.9 - Anemia, unspecified (4) CAD (coronary artery disease) Current Visit: No Status: Chronic Currently being managed by cardiology Qualifiers: Coronary Disease-Associated Artery/Lesion type: [place] artery [place] vs. transplanted heart: [place] heart Associated angina: with unstable angina Qualified Code(s): I25.110 - Atherosclerotic heart disease of [place] coronary artery with unstable angina pectoris (5) CHF (congestive heart failure) Current Visit: No Status: Chronic Currently being managed by cardiology Qualifiers: Congestive heart failure type: systolic Congestive heart failure chronicity : chronic Qualified Code(s): I50.22 - Chronic systolic (congestive) heart failure (6) DVT prophylaxis Current Visit: Yes Status: Acute We have placed SCDs on the patient for DVT prophylaxis History of Present Illness Consult date: 02/18/17 Requesting physician: Andi Alvarez Reason for consult: dyspnea, COPD Chief complaint: Shortness of breath History of present illness: Patient is a 86-year-old male with a past medical history of CHF, CAD, CKD, anemia and myocardial infarction. We have been consulted by Dr. Alvarez for this patient's COPD. Mr. Almendarez was having chest pain while he was weed eating and presented to the emergency department on 02/18/17 and was determined to be having a myocardial infarction (NSTEMI) by history and elevated troponin. Patient was sent to the Cloth Napping Supervisor where he was found to have RCA stenosis of 99% and a JOSE was placed. The patient states that he is no longer having chest pain. He states that his breathing has improved since last night but he still feels a little short of breath. Patient states he is still not at his baseline for his breathing. Patient states that he normally takes Spiriva and Advair at home but has not taken these yesterday. Patient denies any use of home oxygen. Past Med Surg Social Fam HX - Past Medical History Attestation: Yes The following information was validated with the patient. Source: old records reviewed Medical history: COPD, coronary artery disease, GERD, hyperlipidemia, hypertension, myocardial infarction, other Psychiatric history: no psych history - Past Surgical History Surgical History: pacemaker/AICD - Social History Smoking Status: Former smoker Smokeless Tobacco Status: Yes Alcohol use: none Drug use: none - Family History Brother Hx Family Cancer: Yes Medications and Allergies Albuterol Neb [Proventil Neb] 2.5 mg IH Q4HR 07/30/15 [History] Apixaban [Eliquis] 5 mg PO BID 07/30/15 [History] Aspirin [Adult Low Dose Aspirin EC] 81 mg PO DAILY 07/30/15 [History] B2/Vits A,C,E/Lut/Zeaxanth/Min [Icaps Tablet] 1 tab PO DAILY 07/30/15 [History] Calcium Carbonate/Vitamin D3 [Calcium 600 + Vit D Tablet] 1 tab PO DAILY [History] Cyclobenzaprine [Flexeril] 10 mg PO HS 07/30/15 [History] Famotidine [Pepcid] 20 mg PO DAILY 07/30/15 [History] Furosemide [Lasix] 20 mg PO Q48H 07/30/15 [History] Gluc/Alan-MSM#1/C/Navdeep/Amandeep/Bor [Osteo Bi-Flex Caplet] 1 cap PO DAILY 07/30/15 [ History] Metoprolol XL (24 HR) Succ [Toprol Xl] 75 mg PO DAILY 07/30/15 [History] Multivitamin [Flintstones] 1 cap PO DAILY 07/30/15 [History] [place]-3S/Dha/Epa/Fish Oil [Fish Oil 1,200 mg Softgel] 1,200 mg PO DAILY [History] Potassium Chloride [K-Tab ER] 20 meq PO Q48H 07/30/15 [History] Pravastatin Sodium [Pravachol] 80 mg PO DAILY 07/30/15 [History] Tiotropium [Spiriva] 1 cap IH DAILY 07/30/15 [History] Budesonide/Formoterol 160/4.5 [Symbicort 160/4.5] 1 puff IH BIDR 05/31/16 [ History] Acetaminophen [Tylenol] 1,000 mg PO Q6HR PRN 02/19/17 [History] HYDROcodone/Acet 5/325 mg [[place] 5-325 mg] 1 tab PO Q6H PRN 02/19/17 [History] Lisinopril [Zestril] 5 mg PO DAILY 02/19/17 [History] Oxybutynin Chloride [Ditropan Xl] 5 mg PO DAILY 02/19/17 [History] Allergies No Known Allergies Allergy (Unverified 07/19/15 10:47) All Systems: A 10-system review of systems was performed and is negative for pertinent findings except as documented above in the HPI. - Respiratory Respiratory: dyspnea (improved from yesterday but still has some shortness of breath) Physical Examination Vital Signs: Vital Signs, Last 4 Hours Temp Pulse Pulse Resp BP Pulse Ox 02/19/17 09:15 67 68 94/63 02/19/17 09:00 73 67 16 131/69 94 02/19/17 08:54 64 94 02/19/17 08:45 66 66 96/55 02/19/17 08:35 69 02/19/17 08:00 97.8 F 68 71 18 113/68 93 02/19/17 07:58 16 94 02/19/17 06:00 64 18 105/90 94 General appearance: no acute distress, alert Eyes: nonicteric ENT: oropharynx moist Neck: supple, no JVD Effort: normal Inspection: normal Auscultation: bilateral: clear (In anterior [place]. Unable to listen posteriorly due to the patient having a sandbag on the groin to control bleeding ) Cardiovascular: irregular rhythm (With a regular rate) Gastrointestinal: normoactive bowel sounds, soft, non-tender, non-distended Integumentary: other (Diffuse ecchymosis of the upper extremities) Extremities: no edema, no clubbing, cool (Bilateral feet), other (Stasis dermatitis in the lower extremities, normal cap refill, toenail fungus bilateral ) Musculoskeletal: no deformities non-focal exam, pupils equal and round, other (He was oriented to time and person but was unsure of where he was) mood appropriate, affect normal Results - Laboratory Findings CBC and BMP: 02/19/17 03:55 02/19/17 03:55 PT/INR, D-dimer PT 15.5 Seconds (9.4-12.1) H 02/18/17 17:08 Abnormal lab findings: Abnormal lab results RBC 4.01 M/mcL (4.19-5.50) L 02/19/17 03:55 Hgb 12.5 g/dL (12.9-16.9) L 02/19/17 03:55 PT 15.5 Seconds (9.4-12.1) H 02/18/17 17:08 Chloride 114 mEq/L (98-109) H 02/19/17 03:55 BUN 30 mg/dL (8-26) H 02/19/17 03:55 BUN/Creatinine Ratio 32 (6-26) H 02/19/17 03:55 Glucose 105 mg/dL (70-99) H 02/19/17 03:55 Troponin I 38.66 ng/mL (0-0.03) H* 02/19/17 03:55 - Diagnostic Findings Chest x-ray: report reviewed, image reviewed - Clinical Findings Intake & Output: Intake & Output 02/18/17 02/19/17 02/19/17 23:59 07:59 15:59 Intake Total 0 / 0 237 / 237 Output Total 450 / 450 Balance 0 / 0 -213 / -213 Consult Discharge Plan - Plan Referrals: NONE,PCP [Primary Care Provider] - <JimmyshuphiMargarita - Last Filed: 02/19/17 17:19> Date of Encounter: 02/19/17 All Systems: A 10-system review of systems was performed and is negative for pertinent findings except as documented above in the HPI. Physical Examination Vital Signs: Vital Signs, Last 4 Hours Temp Pulse BP Pulse Ox 02/19/17 15:48 97.6 F 02/19/17 14:00 66 105/61 94 Results - Laboratory Findings CBC and BMP: 02/19/17 03:55 02/19/17 03:55 PT/INR, D-dimer PT 15.5 Seconds (9.4-12.1) H 02/18/17 17:08 Abnormal lab findings: Abnormal lab results RBC 4.01 M/mcL (4.19-5.50) L 02/19/17 03:55 Hgb 12.5 g/dL (12.9-16.9) L 02/19/17 03:55 PT 15.5 Seconds (9.4-12.1) H 02/18/17 17:08 Chloride 114 mEq/L (98-109) H 02/19/17 03:55 BUN 30 mg/dL (8-26) H 02/19/17 03:55 BUN/Creatinine Ratio 32 (6-26) H 02/19/17 03:55 Glucose 105 mg/dL (70-99) H 02/19/17 03:55 Troponin I 38.66 ng/mL (0-0.03) H* 02/19/17 03:55 - Clinical Findings Intake & Output: Intake & Output 02/19/17 02/19/17 02/19/17 07:59 15:59 23:59 Intake Total 237 / 237 Output Total 450 / 450 525 / 525 150 / 150 Balance -213 / -213 -525 / -525 -150 / -150 - Attending Attestation I examined this patient and my medical decision-making was reviewed with the Resident Physician. I agree with the documented findings, disposition and treatment plan as described except to the extent set forth below. Patient seen and examined. Labs, radiology, chart personally reviewed. Agree with resident's history and physical, assessment, plan with following comments: CLINICAL MANAGER: Patient follows commands, Pulmonary: Acceptable oxygenation and ventilation there is no evidence of COPD exacerbation and resume his bronchodilators. I feel he has pulmonary edema mainly from his underlying cardiomyopathy. Cardiovascular: Discussed with the jewelry jobber and patient will have repeat catheter. Prognosis overall is poor. GI: Nutrition per dietary and GI prophylaxis per routine Heme: DVT prophylaxis per routine ID: No evidence of infection Renal; urine out put and renal funtion reviewed Endorcine: blood glucose is monitored Lines: all lines checked and no evidence of infections Skin: skin care to prevent pressure ulcers per nursing routine care Thank you for the consultation.
[2017-02-19] MEDS: Pantoprazole 40 MG VIAL IVP SCH (12:26)
[2017-02-19] MEDS: Furosemide 40 MG/4 ML VIAL IVP SCH ×2 (12:26→17:59)
[2017-02-19] MEDS ORDERED: Heparin 1,000 UNITS/500 mL NS 500 ML ONE (15:41)
[2017-02-19] MEDS ORDERED: 0.9 % Sodium Chloride 1,000 ML ONE ×3 (15:41→21:10)
[2017-02-19] MEDS ORDERED: Nitroglycerin 1,000 MCG/10 ML VIAL IV ONE (15:41)
[2017-02-19] MEDS ORDERED: *HR* Heparin 10,000 UNIT/10 ML VIAL ONE (15:41)
[2017-02-19] MEDS ORDERED: *HR* FentaNYL (PF) 100 MCG/2 ML VIAL ONE (16:17)
[2017-02-19] MEDS ORDERED: *HR* Midazolam HCl 2 MG/2 ML VIAL ONE (16:17)
--- NOTE | 2017-02-19 17:20 | Invasive Diagnostic Lab Proc ---
Name: Enmanuel Almendarez Date of Study: 02/19/2017 Date: 1930 Ht: 70.9in Medical Record#: [id number] Age: 86 Wt: 182.98lb Gender: Male BSA: 2.03 Order #: [id number] BMI: 25.62 Physicians Procedure Physician: Bacilio Daley MD, [facility] Referring MD: Referring MD: Staff Name Position Time In Adrienne Lagunas RN Monitor 04:25 PM Brittanie Booker RN Meat Hanger 04:25 PM Rhona Ogden RT (R) Scrub 04:25 PM Maine Mendiola RN Meat Hanger 04:26 PM Emir Spence RN Meat Hanger 04:26 PM Indications Indication Coronary Artery Disease Procedures Performed Procedure IV Doppler BLD Flow 1st Vessel Pre-Procedure Checklist Informed consent is complete signed and on chart. H&P is on chart. ID band is on and ID verified with patient. Patient NPO for procedure The procedure was described for the patient and questions were answered. Blood Pressure: 103/58 ECG is on chart. Rhythm: Sr with PVCs Plan of Care Patient will tolerate the procedure without complications. Adequate level of comfort will be maintained. Hemodynamics will remain stable Patient will recover from procedure without complications. Respiratory function will be maintained. Cardiac rhythm will remain stable. Patient temperature will be maintained. Patient and/or family have verbalized understanding of the procedure. Patient Education Chief Complaint/Reason for Test: Cardiac Cath Developmental Category: Geriatric (65+ years) Developmentally Appropriate for Age: Yes Learning Barriers: None Education Needs: Procedure Education Method: Verbal Information Taught: Cardiac Cath Educational Evaluation: Able to repeat information Intravenous Access Time IV Size Location DC'd Fluid/Drip Rate Units RN 04:32 PM 18g 1 1/4" Patent On Arrival Rt upper arml 04:32 PM 20g 1 1/4" Patent On Arrival Lt Antecubital 0.9NaCl 25 ml/hr Brittanie Booker RN Allergies No Known Allergies Vital Signs Time BP (mmHg) HR (bpm) O2 Sat. RR (bpm) LOC 04:24 PM 161 / 82 76 96 % 16 5 = Fully awake and oriented or at pre-proc level 04:25 PM / % 4 = Oriented but drowsy 04:22 PM 161 / 82 76 96 % 16 04:27 PM 103 / 58 77 100 % 16 04:33 PM 142 / 75 68 100 % 16 04:37 PM 134 / 75 79 100 % 20 04:43 PM 153 / 78 67 100 % 18 04:47 PM 123 / 89 57 96 % 38 04:52 PM 137 / 62 75 98 % 39 Procedural Medications Time Medication Dose Units Method Given By 04:23 PM Oxygen 2 L/min nasal cannula Maine Mendiola RN 04:28 PM Versed 1 mg Intravenous Maine Mendiola RN 04:29 PM Fentanyl 25 mcg Intravenous Maine Mendiola RN 04:38 PM Fentanyl 25 mcg Intravenous Maine Mendiola RN 04:40 PM Lidocaine 2% 13 ml Subcutaneous Bacilio Daley MD, FAC 04:44 PM Nitroglycerin 200 mcg Intracoronary Bacilio Daley MD 04:47 PM Heparin 4000 units Intravenous Maine Mendiola RN ASA Classification: CLASS II- Mild systemic disease (i.e. well-controlled diabetes, hypertension, asthma, cigarette smoking) Ciera Score Preprocedure Postprocedure Activity 2- Moves 4 extremities sustained head lift Activity 2- Moves 4 extremities sustained head lift Circulation 2- SBP +/= 20 points of pre-anesthetic level Circulation 2- SBP +/= 20 points of pre-anesthetic level Consciousness 2- Awake and alert oriented x 3 Consciousness 2- Awake and alert oriented x 3 O2 Saturation 2- Able to maintain O2 satruation of 92% on room air O2 Saturation 2- Able to maintain O2 satruation of 92% on room air Respiratory 2- Able to deep breathe and cough well Respiratory 2- Able to deep breathe and cough well Total Score 10 Total Score 10 Contrast Agent: Isovue Diagnostic Contrast: 29 ml Total Contrast: 29 ml Fluoro Dose: 180 mGy Activated Clotting Time Time Seconds to Clot 05:03 PM 236 Procedure Log Time Note Enter By 04:22 PM CathStat 04:22 PM Vitals capture started with the following parameters, Patient=Adult, Interval=5 min, Initial Gxxlxbag=608 mmHg, Deflation Rate=5 mmHg, Cuff placed on Left Arm 04:22 PM HR=76 bpm, JWOL=752/82 mmhg, SpO2=96.0 %, Resp=16 B/min, Comment=sr w/ pvcs 04:23 PM Pt arrived to laboratory sample carrier 2 at 16:23 scoates 04:23 PM Physician arrived 16:23 scoates 04:23 PM ASA Class CLASS II- Mild systemic disease (i.e. well-controlled diabetes, hypertension, asthma, cigarette smoking) scoates 04:23 PM Meet and greet completed scoates 04:23 PM Sign in performed according to hospital policy. scoates 04:23 PM Procedure start 16:23 scoates 04:24 PM Time: 16:23 Oxygen on at 2 L/min per nasal cannula by Maine Mendiola RN scoates 04:24 PM Time: 16:24 Patient comfortable and pain free: Yes scoates 04:25 PM Time: 16:24LOC: 5 = Fully awake and oriented or at pre-proc level scoates 04:25 PM Adrienne Lagunas RN Position: Monitor Time in: 16: scoates 04:25 PM Brittanie Booker RN Position: Meat Hanger Time in: 16: scoates 04: PM Rhona Ogden RT (R) Position: Scrub Time in: 16: scoates 04: PM Maine Mendiola RN Position: Meat Hanger Time in: 16: scoates 04: PM Emir Spence RN Position: Meat Hanger Time in: 16: scoates 04: PM Patient charges- Angio tray pack, Navilyst 3mm J, Pulse Oximetry and ACIST tubing and transducer scoates 04: PM Case Delayed No, inpatient scoates 04: PM Hair removed from procedure site in procedure lab using clippers. Left groin and rt groin prepped with Chloraprep by Emir Spence RN, patient was draped. Skin intact. scoates 04:27 PM HR=77 bpm, NAYP=374/58 mmhg, OvC1=639.0 %, Resp=16 B/min, Comment=sr w/ pvcs 04:29 PM Time: 16:28 Versed 1 mg Intravenous Given by Maine Mendiola RN scoates 04:29 PM Time: 16:29 Fentanyl 25 mcg Intravenous Given by Maine Mendiola RN scoates 04:33 PM HR=68 bpm, YIMT=599/75 mmhg, MpT8=840.0 %, Resp=16 B/min, Comment=sr w/ pvcs 04:37 PM HR=79 bpm, AVLM=654/75 mmhg, VdW1=051.0 %, Resp=20 B/min, Comment=sr w/ pvcs 04:38 PM Time: 16:38 Fentanyl 25 mcg Intravenous Given by Maine Mendiola RN scoates 04:39 PM Time out performed according to hospital policy scoates 04:39 PM Time: 16:24 Patient comfortable and pain free: Yes scoates 04:40 PM Time: 16:25LOC: 4 = Oriented but drowsy scoates 04:40 PM Clinical Presentation: Non-STEMI scoates 04:40 PM Time: 16:40 13 ml Lidocaine 2% to left groin Subcutaneous Given by Bacilio Daley MD, [facility] scoates 04:41 PM Access obtained by percutaneous puncture. 5Fr 10cm Terumo Fisher sheath placed in left Femoral artery. [id number] scoates 04:42 PM 5Fr JL4 Convey guide catheter was used to cannulate the PCI vessel successfully. reused? No scoates 04:42 PM .014 PT Graphix 182cm guide wire across target lesion- successful. reused? No scoates 04:43 PM HR=67 bpm, PQXR=537/78 mmhg, UfK5=293.0 %, Resp=18 B/min, Comment=sr w/ pvcs 04:44 PM Time: 16:44 Nitroglycerin 200 mcg Intracoronary Given by Bacilio Daley MD scoates 04:44 PM Recorded Pressure: Ao, HR=83, Condition=Condition 1 (Aorta) Ao 113/56/78 04:46 PM 3.0Fr/40mHz [employer] Opt[employer] Cross IVUS catheter was inserted into guide catheter and advanced to lesion. IVUS study was done and the catheter was removed. scoates 04:47 PM Time: 16:47 Heparin 4000 units Intravenous Given by Maine Mendiola RN scoates 04:47 PM HR=57 bpm, FGPZ=205/89 mmhg, SpO2=96.0 %, Resp=38 B/min, Comment=sr w/ pvcs 04:49 PM Recorded Pressure: Ao, HR=72, Condition=Condition 1 (Aorta) Ao 71/62/66 04:52 PM IVUS catheter removed intact scoates 04:52 PM Guide wire removed intact. scoates 04:52 PM Guide catheter removed intact. scoates 04:52 PM HR=75 bpm, IMIR=862/62 mmhg, SpO2=98.0 %, Resp=39 B/min 04:53 PM Bolus angiogram of left Femoral complete: 4 ml/sec for a total of 7 mls scoates 04:54 PM Procedure completed at 16:54 scoates 04:54 PM Isovue 370 - 200ml,1 Bottle(s) used. scoates 04:55 PM Time: 16:39 Patient comfortable and pain free: Yes scoates 04:55 PM Sign out completed: Radiation Dose 180 mGy Fluoro Time: 2.5 Isovue 370 - 200ml contrast 29 ml given by Bacilio Daley MD, FACC. Complications: NoneCardiac Rehab Consult needed: YesConfirmed administered medications: Yes scoates 04:55 PM Sheath left in place to be pulled on floor/holding area scoates 04:55 PM Post ECG Sr with PVCs scoates 04:55 PM Post Blood Pressure 137/62 scoates 04:55 PM 16:55 Post Pulses Bilateral DP & PT 1+ scoates 04:55 PM Information taught Cardiac Cath and IVUS/Flowire scoates 04:56 PM Education needs Procedure, Plan of Care, and Responsibilities of Patient in Care scoates 04:56 PM Learning barriers :None scoates 04:56 PM Education Methods Verbal scoates 04:56 PM Education evaluation Able to repeat information scoates 04:56 PM Site status No bleeding/hematoma - Lt Groin as reported by Rhona Ogden RT (R) at 16:56 scoates 04:57 PM Opsite applied scoates 04:57 PM Plavix, Effient or Brilinta given No scoates 04:57 PM Delay to floor No scoates 04:57 PM Family placed in consult room. scoates 05:02 PM Complications: None scoates 05:02 PM Fluoro Time: 2.5 scoates 05:02 PM Isovue 370 - 200ml contrast 29 ml given by Bacilio Daley MD, FACC. scoates 05:03 PM At 17:03 the ACT was 236 seconds. scoates 05:04 PM Patient out of room: 17:04 scoates 05:09 PM Report given to Adrienne SERRANO Pt taken to ICU Room #5. 17:09 scoates 05:09 PM Plavix, Effient or Brilinta given No scoates Complications Complication None None Hemodynamics Pressures Site Systolic/A Wave Diastolic/V Wave Mean AO 113 56 78 AO 71 62 66 Post Procedure Information Blood Pressure: 137/62 mmHg Rhythm: Sr with PVCs Post procedural instructions were given Closure Device Time Device Success/Fail 02/19/2017 5:04:00 PM Manual Compression - sheath to be pulled in ICU Site Checks Time Location Status Staff Sheath In? Note 04:56 PM Lt Groin No bleeding/hematoma Rhona Ogden RT (R) Pulses Time Site Pre-Procedure Post-Procedure Note 02/19/2017 4:32:00 PM Bilateral DP & PT 1+ 4:55:00 PM Bilateral DP & PT 1+ Updated by Adrienne Sher RN on 02/19/2017 5:10:57 PM electronically signed on 02/19/2017 5:13:33 PM with status of Final
--- NOTE | 2017-02-19 17:20 | Invasive Diagnostic Lab Proc ---
Name: Enmanuel Almendarez Date of Study: 02/19/2017 Date: 1930 Ht: 70.9in Medical Record#: [id number] Age: 86 Wt: 182.98lb Gender: Male BSA: 2.03 Order #: [id number] BMI: 25.62 Physicians Procedure Physician: Bacilio Daley MD, [facility] Referring MD: Referring MD: Staff Name Position Time In Adrienne Lagunas RN Monitor 04:25 PM Brittanie Booker RN Manager Ambulatory 04:25 PM Rhona Ogden RT (R) Scrub 04:25 PM Maine Mendiola RN Manager Ambulatory 04:26 PM Emir Spence RN Manager Ambulatory 04:26 PM Indications Indication Coronary Artery Disease Procedures Performed Procedure IV Doppler BLD Flow 1st Vessel Pre-Procedure Checklist Informed consent is complete signed and on chart. H&P is on chart. ID band is on and ID verified with patient. Patient NPO for procedure The procedure was described for the patient and questions were answered. Blood Pressure: 103/58 ECG is on chart. Rhythm: Sr with PVCs Plan of Care Patient will tolerate the procedure without complications. Adequate level of comfort will be maintained. Hemodynamics will remain stable Patient will recover from procedure without complications. Respiratory function will be maintained. Cardiac rhythm will remain stable. Patient temperature will be maintained. Patient and/or family have verbalized understanding of the procedure. Patient Education Chief Complaint/Reason for Test: Cardiac Cath Developmental Category: Geriatric (65+ years) Developmentally Appropriate for Age: Yes Learning Barriers: None Education Needs: Procedure Education Method: Verbal Information Taught: Cardiac Cath Educational Evaluation: Able to repeat information Intravenous Access Time IV Size Location DC'd Fluid/Drip Rate Units RN 04:32 PM 18g 1 1/4" Patent On Arrival Rt upper arml 04:32 PM 20g 1 1/4" Patent On Arrival Lt Antecubital 0.9NaCl 25 ml/hr Brittanie Booker RN Allergies No Known Allergies Vital Signs Time BP (mmHg) HR (bpm) O2 Sat. RR (bpm) LOC 04:24 PM 161 / 82 76 96 % 16 5 = Fully awake and oriented or at pre-proc level 04:25 PM / % 4 = Oriented but drowsy 04:22 PM 161 / 82 76 96 % 16 04:27 PM 103 / 58 77 100 % 16 04:33 PM 142 / 75 68 100 % 16 04:37 PM 134 / 75 79 100 % 20 04:43 PM 153 / 78 67 100 % 18 04:47 PM 123 / 89 57 96 % 38 04:52 PM 137 / 62 75 98 % 39 Procedural Medications Time Medication Dose Units Method Given By 04:23 PM Oxygen 2 L/min nasal cannula Maine Mendiola RN 04:28 PM Versed 1 mg Intravenous Maine Mendiola RN 04:29 PM Fentanyl 25 mcg Intravenous Maine Mendiola RN 04:38 PM Fentanyl 25 mcg Intravenous Maine Mendiola RN 04:40 PM Lidocaine 2% 13 ml Subcutaneous Bacilio Daley MD, FAC 04:44 PM Nitroglycerin 200 mcg Intracoronary Bacilio Daley MD 04:47 PM Heparin 4000 units Intravenous Maine Mendiola RN ASA Classification: CLASS II- Mild systemic disease (i.e. well-controlled diabetes, hypertension, asthma, cigarette smoking) Ciera Score Preprocedure Postprocedure Activity 2- Moves 4 extremities sustained head lift Activity 2- Moves 4 extremities sustained head lift Circulation 2- SBP +/= 20 points of pre-anesthetic level Circulation 2- SBP +/= 20 points of pre-anesthetic level Consciousness 2- Awake and alert oriented x 3 Consciousness 2- Awake and alert oriented x 3 O2 Saturation 2- Able to maintain O2 satruation of 92% on room air O2 Saturation 2- Able to maintain O2 satruation of 92% on room air Respiratory 2- Able to deep breathe and cough well Respiratory 2- Able to deep breathe and cough well Total Score 10 Total Score 10 Contrast Agent: Isovue Diagnostic Contrast: 29 ml Total Contrast: 29 ml Fluoro Dose: 180 mGy Activated Clotting Time Time Seconds to Clot 05:03 PM 236 Procedure Log Time Note Enter By 04:22 PM CathStat 04:22 PM Vitals capture started with the following parameters, Patient=Adult, Interval=5 min, Initial Cevahhdo=697 mmHg, Deflation Rate=5 mmHg, Cuff placed on Left Arm 04:22 PM HR=76 bpm, MIGF=545/82 mmhg, SpO2=96.0 %, Resp=16 B/min, Comment=sr w/ pvcs 04:23 PM Pt arrived to computer laboratory technician 2 at 16:23 scoates 04:23 PM Physician arrived 16:23 scoates 04:23 PM ASA Class CLASS II- Mild systemic disease (i.e. well-controlled diabetes, hypertension, asthma, cigarette smoking) scoates 04:23 PM Meet and greet completed scoates 04:23 PM Sign in performed according to hospital policy. scoates 04:23 PM Procedure start 16:23 scoates 04:24 PM Time: 16:23 Oxygen on at 2 L/min per nasal cannula by Maine Mendiola RN scoates 04:24 PM Time: 16:24 Patient comfortable and pain free: Yes scoates 04:25 PM Time: 16:24LOC: 5 = Fully awake and oriented or at pre-proc level scoates 04:25 PM Adrienne Lagunas RN Position: Monitor Time in: 16: scoates 04:25 PM Brittanie Booker RN Position: Manager Ambulatory Time in: 16: scoates 04: PM Rhona Ogden RT (R) Position: Scrub Time in: 16: scoates 04: PM Maine Mendiola RN Position: Manager Ambulatory Time in: 16: scoates 04: PM Emir Spence RN Position: Manager Ambulatory Time in: 16: scoates 04: PM Patient charges- Angio tray pack, Navilyst 3mm J, Pulse Oximetry and ACIST tubing and transducer scoates 04: PM Case Delayed No, inpatient scoates 04: PM Hair removed from procedure site in procedure lab using clippers. Left groin and rt groin prepped with Chloraprep by Emir Spence RN, patient was draped. Skin intact. scoates 04:27 PM HR=77 bpm, WVVW=500/58 mmhg, MpZ0=463.0 %, Resp=16 B/min, Comment=sr w/ pvcs 04:29 PM Time: 16:28 Versed 1 mg Intravenous Given by Maine Mendiola RN scoates 04:29 PM Time: 16:29 Fentanyl 25 mcg Intravenous Given by Maine Mendiola RN scoates 04:33 PM HR=68 bpm, SMLL=890/75 mmhg, AaY8=796.0 %, Resp=16 B/min, Comment=sr w/ pvcs 04:37 PM HR=79 bpm, WJLJ=238/75 mmhg, UhT8=392.0 %, Resp=20 B/min, Comment=sr w/ pvcs 04:38 PM Time: 16:38 Fentanyl 25 mcg Intravenous Given by Maine Mendiola RN scoates 04:39 PM Time out performed according to hospital policy scoates 04:39 PM Time: 16:24 Patient comfortable and pain free: Yes scoates 04:40 PM Time: 16:25LOC: 4 = Oriented but drowsy scoates 04:40 PM Clinical Presentation: Non-STEMI scoates 04:40 PM Time: 16:40 13 ml Lidocaine 2% to left groin Subcutaneous Given by Bacilio Daley MD, [facility] scoates 04:41 PM Access obtained by percutaneous puncture. 5Fr 10cm Terumo Mereta sheath placed in left Femoral artery. [id number] scoates 04:42 PM 5Fr JL4 Convey guide catheter was used to cannulate the PCI vessel successfully. reused? No scoates 04:42 PM .014 PT Graphix 182cm guide wire across target lesion- successful. reused? No scoates 04:43 PM HR=67 bpm, EEXW=710/78 mmhg, XiA0=436.0 %, Resp=18 B/min, Comment=sr w/ pvcs 04:44 PM Time: 16:44 Nitroglycerin 200 mcg Intracoronary Given by Bacilio Daley MD scoates 04:44 PM Recorded Pressure: Ao, HR=83, Condition=Condition 1 (Aorta) Ao 113/56/78 04:46 PM 3.0Fr/40mHz [employer] Opti Cross IVUS catheter was inserted into guide catheter and advanced to lesion. IVUS study was done and the catheter was removed. scoates 04:47 PM Time: 16:47 Heparin 4000 units Intravenous Given by Maine Mendiola RN scoates 04:47 PM HR=57 bpm, CZUC=616/89 mmhg, SpO2=96.0 %, Resp=38 B/min, Comment=sr w/ pvcs 04:49 PM Recorded Pressure: Ao, HR=72, Condition=Condition 1 (Aorta) Ao 71/62/66 04:52 PM IVUS catheter removed intact scoates 04:52 PM Guide wire removed intact. scoates 04:52 PM Guide catheter removed intact. scoates 04:52 PM HR=75 bpm, FGFF=310/62 mmhg, SpO2=98.0 %, Resp=39 B/min 04:53 PM Bolus angiogram of left Femoral complete: 4 ml/sec for a total of 7 mls scoates 04:54 PM Procedure completed at 16:54 scoates 04:54 PM Isovue 370 - 200ml,1 Bottle(s) used. scoates 04:55 PM Time: 16:39 Patient comfortable and pain free: Yes scoates 04:55 PM Sign out completed: Radiation Dose 180 mGy Fluoro Time: 2.5 Isovue 370 - 200ml contrast 29 ml given by Bacilio Daley MD, FACC. Complications: NoneCardiac Rehab Consult needed: YesConfirmed administered medications: Yes scoates 04:55 PM Sheath left in place to be pulled on floor/holding area scoates 04:55 PM Post ECG Sr with PVCs scoates 04:55 PM Post Blood Pressure 137/62 scoates 04:55 PM 16:55 Post Pulses Bilateral DP & PT 1+ scoates 04:55 PM Information taught Cardiac Cath and IVUS/Flowire scoates 04:56 PM Education needs Procedure, Plan of Care, and Responsibilities of Patient in Care scoates 04:56 PM Learning barriers :None scoates 04:56 PM Education Methods Verbal scoates 04:56 PM Education evaluation Able to repeat information scoates 04:56 PM Site status No bleeding/hematoma - Lt Groin as reported by Rhona Ogden RT (R) at 16:56 scoates 04:57 PM Opsite applied scoates 04:57 PM Plavix, Effient or Brilinta given No scoates 04:57 PM Delay to floor No scoates 04:57 PM Family placed in consult room. scoates 05:02 PM Complications: None scoates 05:02 PM Fluoro Time: 2.5 scoates 05:02 PM Isovue 370 - 200ml contrast 29 ml given by Bacilio Daley MD, FACC. scoates 05:03 PM At 17:03 the ACT was 236 seconds. scoates 05:04 PM Patient out of room: 17:04 scoates 05:09 PM Report given to Adrienne SERRANO Pt taken to ICU Room #5. 17:09 scoates 05:09 PM Plavix, Effient or Brilinta given No scoates Complications Complication None None Hemodynamics Pressures Site Systolic/A Wave Diastolic/V Wave Mean AO 113 56 78 AO 71 62 66 Post Procedure Information Blood Pressure: 137/62 mmHg Rhythm: Sr with PVCs Post procedural instructions were given Closure Device Time Device Success/Fail 02/19/2017 5:04:00 PM Manual Compression - sheath to be pulled in ICU Site Checks Time Location Status Staff Sheath In? Note 04:56 PM Lt Groin No bleeding/hematoma Rhona Ogden RT (R) Pulses Time Site Pre-Procedure Post-Procedure Note 02/19/2017 4:32:00 PM Bilateral DP & PT 1+ 4:55:00 PM Bilateral DP & PT 1+ Updated by Adrienne Sher RN on 02/19/2017 5:12:10 PM electronically signed on 02/19/2017 5:13:46 PM with status of Final
--- NOTE | 2017-02-19 17:49 | Electrocardiograph Report ---
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
--- NOTE | 2017-02-19 17:50 | Electrocardiograph Report ---
[address] [address] Test Date: 2017-02-18 Pat Name: Enmanuel Almendarez Department: 104 Room: [facility] Gender: M Nurse General Duty: PAULINA : 1930 Requested By: Vinicius Maldonado Order Number: [id number] Reading MD: Eva Escalera Measurements Intervals [place] Rate: 133 P: [place]: 0 QRS: -52 QRSD: 126 T: 114 QT: 331 QTc: 409 Interpretive Statements ATRIAL FIBRILLATION WITH RAPID VENTRICULAR RESPONSE LEFT BUNDLE BRANCH BLOCK Electronically Signed On 02-19-2017 17:48:32 EDT by Eva Escalera
--- NOTE | 2017-02-19 17:50 | Electrocardiograph Report ---
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
--- NOTE | 2017-02-19 17:52 | Electrocardiograph Report ---
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
--- NOTE | 2017-02-19 18:28 | Electrocardiograph Report ---
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
[2017-02-19] MEDS ORDERED: *HR* Atropine Sulfate 1 MG/10 ML SYRINGE ONE (21:10)
[2017-02-20 07:04] LABS: Basophils % 0.3 %; Hematocrit 39.5 % (37.5-50.1); Hemoglobin 12.7 g/dL (12.9-16.9); Immature Granulocytes % 0.3 % (0-4); Lymphocytes # 0.8 K/mcL (0.6-4.6); Lymphocytes % 6.8 %; Mean Corpuscular HGB Conc 32.2 g/dL (31.6-35.5); Mean Corpuscular Hemoglobin 31.6 pg (28.0-33.3); Mean Corpuscular Volume 98.3 fL (83.0-100.0); Mean Platelet Volume 10.2 fL (9.4-12.4); Monocytes # 1.4 K/mcL (0.0-1.3); Monocytes % 11.9 %; Neutrophils # 9.3 K/mcL (1.6-8.9); Platelet Count 146 K/mcL (140-400); Red Blood Count 4.02 M/mcL (4.19-5.50); Red Cell Distribution Width 11.9 % (11.5-14.5); Segmented Neutrophils % 80.7 %
[2017-02-20 07:09] LABS: BUN/Creatinine Ratio 29 (6-26); Blood Urea Nitrogen 34 mg/dL (8-26); Calcium 9.5 mg/dL (8.6-10.8); Carbon Dioxide 22 mEq/L (19-29); Chloride 110 mEq/L (98-109); Glucose 111 mg/dL (70-99); Osmolality,Calculated 302 (280-300); Sodium 142 mEq/L (136-145); eGFR For African Americans > 60 (> 60); eGFR For Non-African Americans 60 (> 60)
--- NOTE | 2017-02-20 07:41 | Pulmonology Progress Note ---
<Asael Booker - Last Filed: 02/20/17 13:10> Date of Encounter: 02/20/17 Time of Encounter: 07:37 Assessment and Plan (1) COPD (chronic obstructive pulmonary disease) Current Visit: Yes Status: Acute From a pulmonology standpoint the patients respiratory status has been improving. Patient is no longer requiring oxygen and is maintaining his oxygen saturations at 99-100%. We will be signing off on this case and recommended that the patient continue on his home medications for his COPD. We believe that the pulmonary edema seen on chest x-ray is likely due to congestive heart failure rather than COPD and be managed by cardiology. Cardiology has been notified that we will be signing off and they will continue to manage the patient and determine when to discharge. (2) Non-STEMI (non-ST elevated myocardial infarction) Current Visit: Yes Status: Acute This is being managed by cardiology (3) Anemia Current Visit: Yes Status: Acute Patient's hemoglobin is now 12.7 up from 12.5 yesterday. Patient's hemoglobin appears to be stable at this time. (4) CAD (coronary artery disease) Current Visit: No Status: Chronic This is being managed by cardiology (5) CHF (congestive heart failure) Current Visit: No Status: Chronic This is being managed by cardiology (6) DVT prophylaxis Current Visit: Yes Status: Acute We have ordered SCDs for the patient for DVT prophylaxis Subjective Principal diagnosis: COPD Interval history: Patient states that he is feeling better this morning but has improved since yesterday. He said he is not quite back to his base line but his shortness of breath is significantly decreased. According to the nursing staff the patient has been tolerating not wearing any oxygen and is being on room air. He is maintaining his oxygen saturations at 99-100%. He also had his sheath removed from his catheter yesterday. Patient's also mentioned that there is some slight confusion during the night but has been very pleasant. Objective PUL Vital signs: Last Vital Signs Temp 98.4 F 02/19/17 23:00 Pulse 76 02/20/17 07:00 Resp 16 02/20/17 07:00 BP 147/82 02/20/17 07:00 Pulse Ox 100 02/20/17 07:00 General appearance: no acute distress, alert Eyes: nonicteric ENT: oropharynx moist Neck: supple, no lymphadenopathy, no JVD Auscultation: left: clear, right: other (Mild crackles in the right lower lobe) Cardiovascular: irregular rhythm (With a regular rate) Gastrointestinal: normoactive bowel sounds, soft, non-tender, non-distended Integumentary: other (Diffuse ecchymosis of the upper extremities. Appears to be stasis dermatitis on the lower extremities bilaterally) Extremities: no cyanosis, no edema, no clubbing, cool (Bilateral feet) Musculoskeletal: no deformities normal mental status, non-focal exam, pupils equal and round mood appropriate, affect normal Results - Laboratory Findings CBC and BMP: 02/20/17 06:33 02/20/17 06:33 PT/INR, D-dimer PT 15.5 Seconds (9.4-12.1) H 02/18/17 17:08 Abnormal lab findings: Abnormal lab results WBC 11.5 K/mcL (4.3-11.1) H 02/20/17 06:33 RBC 4.02 M/mcL (4.19-5.50) L 02/20/17 06:33 Hgb 12.7 g/dL (12.9-16.9) L 02/20/17 06:33 Neutrophils # 9.3 K/mcL (1.6-8.9) H 02/20/17 06:33 Monocytes # 1.4 K/mcL (0.0-1.3) H 02/20/17 06:33 PT 15.5 Seconds (9.4-12.1) H 02/18/17 17:08 Chloride 110 mEq/L (98-109) H 02/20/17 06:33 BUN 34 mg/dL (8-26) H 02/20/17 06:33 BUN/Creatinine Ratio 29 (6-26) H 02/20/17 06:33 Glucose 111 mg/dL (70-99) H 02/20/17 06:33 Calculated Osmolality 302 (280-300) H 02/20/17 06:33 Troponin I 20.38 ng/mL (0-0.03) H* 02/20/17 06:33 - Diagnostic Findings Chest x-ray: report reviewed, image reviewed - Clinical Findings Intake & Output: Intake & Output 02/19/17 02/19/17 02/20/17 15:59 23:59 07:59 Intake Total 0 / 0 0 / 0 Output Total 525 / 525 900 / 900 500 / 500 Balance -525 / -525 -900 / -900 -500 / -500 Weight 81.448 kg Consult Discharge Plan - Plan Instructions: Heart Failure (DC), Left Heart Catheterization (DC) Additional Instructions: RISK FACTORS: STOP SMOKING: If you smoke, STOP. Smoking or tobacco use significantly increases your risk of heart disease because nicotine causes the arteries to narrow or constrict. It also causes fats to stick to the artery. Your chances of having a heart attack are greatly increased if you continue to smoke. For more information, call the education line for smoking cessation 9-305-QOYWDTD EAT A LOW FAT/CHOLESTEROL/SODIUM DIET: This diet may help reduce your chances of having a heart attack. LIFTING: Avoid lifting anything more than 10 pounds for 5-7 days Prior to straining, laughing, sneezing and/or coughing, apply manual pressure directly over insertion site. ACTIVITY: You may walk or climb stairs as tolerated You can resume sexual activity as tolerated In general, you are encouraged to engage in a minimum of 30 minutes or more of moderate intensity physical activity, such as brisk walking, daily or at least 3 -4 times weekly BATHING Do not submerge the site into water (bath tub, hot tub, swimming pool) for 1 week. This can be a source for infection into the blood stream. You may shower after 24 hours SITE CARE: After 24 hours, you may remove the dressing and leave the site open to air. Keep the site clean and dry. Clean gently and pat dry. You can expect bruising and tenderness that gradually resolve within a week or two. Return to work as instructed per your physician Resume driving as instructed per physician Keep all scheduled follow up appointments Resume medications as instructed IMPORTANT: If prescribed a Platelet Aggregation Inhibitor such as, Plavix, Brilinta or Effient: Duration of therapy is minimum one year These medications are often used in combination with Aspirin in prevention of future heart attacks Never discontinue unless consult with your Automatic Splicing Machine Operator STROKE (CVA) Risk factors for a stroke are: Age, cigarette smoking, diabetes, excessive alcohol consumption, family history, high blood pressure, overweight, physical inactivity, prior stroke, heart attack, diagnosis of carotid artery stenosis or other artery disease. Warning signs: Sudden numbness or weakness of the face, arm or leg; especially on one side of the body, sudden confusion, trouble speaking or understanding, sudden trouble seeing in one or both eyes, sudden trouble walking, dizziness, loss of balance or coordination, sudden severe headache with no cause. Call 911 or go to the Emergency Room. CONGESTIVE HEART FAILURE: If you have been diagnosed with Congestive Heart Failure (CHF) and your symptoms return, make an appointment with your physician Weigh yourself daily. Notify your physician if you have a weight gain of two or more pounds in one day or five or more pounds in one week. If you experience any difficulty breathing, please call 911 BLEEDING: Although the risk of bleeding is minimal, it can happen. If you have any bleeding from the site, apply firm pressure above the puncture site for 10-15 minutes. If the bleeding does not stop, continue manual pressure and call 911 Contact your physician if: You develop a fever greater than 101 degrees Fahrenheit Your site becomes reddened or has any drainage You have an increase in pain or burning at the site or if a large knot forms at the site. If you experience chest pain, shortness of breath, dizziness, or extreme tiredness, stop the activity and rest. Please notify your physicians office if you experience any of these symptoms and they are not relieved by rest please call 911! Referrals: NONE,PCP [Primary Care Provider] - Prescriptions: Atorvastatin [Lipitor] 40 mg PO HS #30 tab Carvedilol [Coreg] 3.125 mg PO BIDWM #60 tab Furosemide [Lasix] 20 mg PO DAILY #30 tablet Ticagrelor [Brilinta] 90 mg PO BID #60 tab <Margarita Skinner M - Last Filed: 02/20/17 15:29> Date of Encounter: 02/20/17 Objective PUL Vital signs: Last Vital Signs Temp 97.5 F L 02/20/17 12:25 Pulse 73 02/20/17 12:00 Resp 16 02/20/17 07:54 BP 128/80 02/20/17 12:00 Pulse Ox 100 02/20/17 12:00 Results - Laboratory Findings CBC and BMP: 02/20/17 06:33 02/20/17 06:33 PT/INR, D-dimer PT 15.5 Seconds (9.4-12.1) H 02/18/17 17:08 Abnormal lab findings: Abnormal lab results WBC 11.5 K/mcL (4.3-11.1) H 02/20/17 06:33 RBC 4.02 M/mcL (4.19-5.50) L 02/20/17 06:33 Hgb 12.7 g/dL (12.9-16.9) L 02/20/17 06:33 Neutrophils # 9.3 K/mcL (1.6-8.9) H 02/20/17 06:33 Monocytes # 1.4 K/mcL (0.0-1.3) H 02/20/17 06:33 PT 15.5 Seconds (9.4-12.1) H 02/18/17 17:08 Chloride 110 mEq/L (98-109) H 02/20/17 06:33 BUN 34 mg/dL (8-26) H 02/20/17 06:33 BUN/Creatinine Ratio 29 (6-26) H 02/20/17 06:33 Glucose 111 mg/dL (70-99) H 02/20/17 06:33 Calculated Osmolality 302 (280-300) H 02/20/17 06:33 Troponin I 20.38 ng/mL (0-0.03) H* 02/20/17 06:33 - Clinical Findings Intake & Output: Intake & Output 02/19/17 02/20/17 02/20/17 23:59 07:59 15:59 Intake Total 0 / 0 0 / 0 520 / 520 Output Total 900 / 900 500 / 500 1050 / 1050 Balance -900 / -900 -500 / -500 -530 / -530 Weight 81.448 kg - Attending Attestation I examined this patient and my medical decision-making was reviewed with the Resident Physician. I agree with the documented findings, disposition and treatment plan as described except to the extent set forth below. Patient seen and examined. Labs, radiology, chart personally reviewed. Agree with resident's history and physical, assessment, plan with following comments: MANAGER HYDRAULIC: Patient follows commands, Pulmonary: Acceptable oxygenation and ventilation Cardiovascular: per wash house worker management GI: Nutrition per dietary and GI prophylaxis per routine Heme: DVT prophylaxis per routine Patient is clear from pulmonary standpoint to be transferred to the floor or even discharged home. Thank you for the consultation.
[2017-02-20] MEDS: Tiotropium 18 MCG inhalation IH SCH (07:51)
[2017-02-20] MEDS: Budesonide/Formoterol 160/4.5 MDI IH SCH (07:52)
[2017-02-20] MEDS: Aspirin 81 MG TAB.CHEW PO SCH (09:07)
[2017-02-20] MEDS: Furosemide 40 MG/4 ML VIAL IVP SCH (09:08)
[2017-02-20] MEDS: Pantoprazole 40 MG VIAL IVP SCH (09:08)
[2017-02-20] MEDS: *HR* Ticagrelor 90 MG TABLET PO SCH (09:08)
--- NOTE | 2017-02-20 12:45 | Discharge Summary ---
Date of Encounter: 02/20/17 Time of Encounter: 12:36 - Discharge Diagnosis (1) NSTEMI (non-ST elevated myocardial infarction) Priority: Primary Status: Acute (2) Coronary artery disease Priority: Secondary Status: Acute Qualifiers: Qualified Code(s): I25.10 - Atherosclerotic heart disease of [place] coronary artery without angina pectoris (3) Cardiomyopathy Priority: Secondary Status: Acute Qualifiers: Qualified Code(s): I42.9 - Cardiomyopathy, unspecified - Discharge Medications Prescriptions: Atorvastatin [Lipitor] 40 mg PO HS #30 tab Carvedilol [Coreg] 3.125 mg PO BIDWM #60 tab Furosemide [Lasix] 20 mg PO DAILY #30 tablet Ticagrelor [Brilinta] 90 mg PO BID #60 tab Home Medications: Albuterol Neb [Proventil Neb] 2.5 mg IH Q4HR 07/30/15 [History] Apixaban [Eliquis] 5 mg PO BID 07/30/15 [History] Aspirin [Adult Low Dose Aspirin EC] 81 mg PO DAILY 07/30/15 [History] B2/Vits A,C,E/Lut/Zeaxanth/Min [Icaps Tablet] 1 tab PO DAILY 07/30/15 [History] Calcium Carbonate/Vitamin D3 [Calcium 600 + Vit D Tablet] 1 tab PO DAILY [History] Cyclobenzaprine [Flexeril] 10 mg PO HS 07/30/15 [History] Famotidine [Pepcid] 20 mg PO DAILY 07/30/15 [History] Gluc/Alan-MSM#1/C/Navdeep/Amandeep/Bor [Osteo Bi-Flex Caplet] 1 cap PO DAILY 07/30/15 [ History] [place]-3S/Dha/Epa/Fish Oil [Fish Oil 1,200 mg Softgel] 1,200 mg PO DAILY [History] Potassium Chloride [K-Tab ER] 20 meq PO Q48H 07/30/15 [History] Tiotropium [Spiriva] 1 cap IH DAILY 07/30/15 [History] Acetaminophen [Tylenol] 1,000 mg PO Q6HR PRN 02/19/17 [History] HYDROcodone/Acet 5/325 mg [[place] 5-325 mg] 1 tab PO Q6H PRN 02/19/17 [History] Lisinopril [Zestril] 5 mg PO DAILY 02/19/17 [History] Oxybutynin Chloride [Ditropan Xl] 5 mg PO DAILY 02/19/17 [History] Albuterol Neb [Proventil Neb] 2.5 mg IH [id number] PRN inh 02/20/17 [Rx] Aspirin 81 mg PO DAILY 02/20/17 [Rx] Atorvastatin [Lipitor] 40 mg PO HS #30 tab 02/20/17 [Rx] Budesonide/Formoterol 160/4.5 [Symbicort 160/4.5] 2 puff IH BIDR 02/20/17 [Rx] Carvedilol [Coreg] 3.125 mg PO BIDWM #60 tab 02/20/17 [Rx] Furosemide [Lasix] 20 mg PO DAILY #30 tablet 02/20/17 [Rx] Ticagrelor [Brilinta] 90 mg PO BID #60 tab 02/20/17 [Rx] Allergies/Adverse Reactions: Allergies No Known Allergies Allergy (Unverified 07/19/15 10:47) Procedures/tests Complete & Pending: Procedures Performed prior 72 hours Category Date Time Status Left Heart Cath [CL Cardiac Catheterization] [CL] Concrete Laborer 02/19/17 15:48 Ordered Routine ECG 12 lead ECG [ECG] Routine Y 02/18/17 17:28 Completed ECG 12 lead ECG [ECG] Routine Y 02/18/17 20:14 Completed ECG 12 lead ECG [ECG] Routine Y 02/19/17 07:00 Completed ECG 12 lead ECG [ECG] Stat Y 02/18/17 20:14 Completed EV echocardiogram Routine Y 02/19/17 20:14 Completed Date of admission: 02/18/17 18:24 Primary care physician: PCP NONE Consults: 02/18/17 20:14 Consult to Cardiac Rehabilitation-Phase1 [CONS] Routine Comment: Reason for Consult: AMI Call Completed: Yes Consult to Nurse Navigator [CONS] Routine Comment: 02/18/17 20:28 Consult to Pulmonology [CONS] Routine Consulting Provider: Pulm [facility] Reason for Consult: COPD and severe cardiomyopathy admitted with myocardial infarction Call Completed: No 02/19/17 11:12 Consult to Invasive Line Access Team [CONS] Routine Reason for Consult: poor access Line Type: Midline 02/20/17 08:46 Consult to Occupational Therapy [CONS] Routine Comment: Evaluate, develop and implement POC Reason for Consult: PAtietn with recent LHC and repeat LHC. Lives alone with at home. Please evaluate ability to ambulate and transfer and conduct ADL safely. Consult to Physical Therapy [CONS] Routine Comment: Evaluate, develop and implement POC Reason for Consult: PAtietn with recent LHC and repeat LHC. Lives alone with at home. Please evaluate ability to ambulate and transfer safely. Consult to Licensed Prosthetist/Orthotist [CONS] Routine Reason for SW Consult: discharge planning. Discharging clinician: Jose Guzmán Anticipated date of discharge: 02/20/17 - Patient Status Disposition: Home, Self-Care Condition: Fair Functional capacity at discharge: independent ambulation Overall status at discharge: patient is progressing back to baseline - Ambulatory Orders Ambulatory Orders: Basic Metabolic Panel [CHEM] Time Frame: 1 Week, Location: Any lab Magnesium [CHEM] Time Frame: 1 Week, Location: any locations - Discharge Instructions Instructions: Heart Failure (DC), Left Heart Catheterization (DC) Follow Up With: NONE,PCP [Primary Care Provider] - Additional Instructions: RISK FACTORS: STOP SMOKING: If you smoke, STOP. Smoking or tobacco use significantly increases your risk of heart disease because nicotine causes the arteries to narrow or constrict. It also causes fats to stick to the artery. Your chances of having a heart attack are greatly increased if you continue to smoke. For more information, call the education line for smoking cessation 7-830-[id number] EAT A LOW FAT/CHOLESTEROL/SODIUM DIET: This diet may help reduce your chances of having a heart attack. LIFTING: Avoid lifting anything more than 10 pounds for 5-7 days Prior to straining, laughing, sneezing and/or coughing, apply manual pressure directly over insertion site. ACTIVITY: You may walk or climb stairs as tolerated You can resume sexual activity as tolerated In general, you are encouraged to engage in a minimum of 30 minutes or more of moderate intensity physical activity, such as brisk walking, daily or at least 3 -4 times weekly BATHING Do not submerge the site into water (bath tub, hot tub, swimming pool) for 1 week. This can be a source for infection into the blood stream. You may shower after 24 hours SITE CARE: After 24 hours, you may remove the dressing and leave the site open to air. Keep the site clean and dry. Clean gently and pat dry. You can expect bruising and tenderness that gradually resolve within a week or two. Return to work as instructed per your physician Resume driving as instructed per physician Keep all scheduled follow up appointments Resume medications as instructed IMPORTANT: If prescribed a Platelet Aggregation Inhibitor such as, Plavix, Brilinta or Effient: Duration of therapy is minimum one year These medications are often used in combination with Aspirin in prevention of future heart attacks Never discontinue unless consult with your Heavy Equipment Service Technician STROKE (CVA) Risk factors for a stroke are: Age, cigarette smoking, diabetes, excessive alcohol consumption, family history, high blood pressure, overweight, physical inactivity, prior stroke, heart attack, diagnosis of carotid artery stenosis or other artery disease. Warning signs: Sudden numbness or weakness of the face, arm or leg; especially on one side of the body, sudden confusion, trouble speaking or understanding, sudden trouble seeing in one or both eyes, sudden trouble walking, dizziness, loss of balance or coordination, sudden severe headache with no cause. Call 911 or go to the Emergency Room. CONGESTIVE HEART FAILURE: If you have been diagnosed with Congestive Heart Failure (CHF) and your symptoms return, make an appointment with your physician Weigh yourself daily. Notify your physician if you have a weight gain of two or more pounds in one day or five or more pounds in one week. If you experience any difficulty breathing, please call 911 BLEEDING: Although the risk of bleeding is minimal, it can happen. If you have any bleeding from the site, apply firm pressure above the puncture site for 10-15 minutes. If the bleeding does not stop, continue manual pressure and call 911 Contact your physician if: You develop a fever greater than 101 degrees Fahrenheit Your site becomes reddened or has any drainage You have an increase in pain or burning at the site or if a large knot forms at the site. If you experience chest pain, shortness of breath, dizziness, or extreme tiredness, stop the activity and rest. Please notify your physicians office if you experience any of these symptoms and they are not relieved by rest please call 911! - Diet and Activity Activity: increase activity as tolerated Diet: low fat, low cholesterol - Hospital Course Hospital course: Mr. Almendarez is a 86 year old male who was admitted to [facility] to the cardiology service on 02/18/17 for a NSTEMI. He would undergoe a LHC on 02/18/17 and was found to have severe 2 vessel disease. He would have a JOSE plced to the mid RCA. He was also found to have severe vessel disease to the LAD. A stage PTCA was performed and patietn would have a stent placed on 02/19/17. Patient did have some some mild confusion during his hospitalization with some hallucinations. However this has resolved and today he is alert and orientated to person place time and situation. Patient will need to follow up with cardiology in 5-7 days. He had JOSE paced and will need to be on dual antiplatet therapy at least for one year. We will hav him resume his eliquis for anticoagulation for atrial fribrilation. He will be discharged on a beta dorian, lisinopril, high intensity statin as well. I did discuss possible rehab with the patient. He states he has been through this before and would like to go home. He was seen and evaluated by PT/OT who stated he did not have any home requirements. Discharge plan was discussed with patient and his daughter who are in agreement with the above plan. I did provide a discount card for brilinta and asked them t fill it today to avoid missed dosages. Currently the patient is on room air. No major lab or vital signs at this time ( other than expected TN elevation which is trending down.). He is tolerating a diet as well. We will discharge him home today to follow up with cardiology in 5-7 days. - Time Spent with Patient Total time spent providing and/or coordinating discharge services: Greater than 30 minutes Physical Examination Vital Signs, Last 4 Hours Temp Pulse BP Pulse Ox 02/20/17 12:25 97.5 F L 02/20/17 09:00 91 167/67 100 General: Conversant, No Apparent Distress, Other (patient is alert he can tell me his date of , todays date and time, season and that we are currently in the ICU at [facility]. ) HEENT: Atraumatic, Normocephaly, Mucus Membranes Moist Neck: No JVD, Normal carotid pulses Cardiac: Reg Rate and Rhythm, Normal S1 and S2, Other (irrgular irregular ) Lungs: Normal Breath Sounds, No Wheeze, Rales, Rhonchi Neuro: Alert and responsive, No focal deficits noted Abdomen: Soft, Non-Tender Skin: No rashes noted on visualized skin, Other (The cath site in the right groin has some mild echymosis small hematoma. No bruit or mass present. No erythema or signs of infection at this time. The left groin is clean and well dressed. No mass or bruit present. the right wrist is clean and well dressed ) Musculoskeletal: No Chest Wall Tenderness Extremities: No Clubbing, No Cyanosis, No Edema, Normal Pulses
[2017-02-20 12:49] VITALS: BP 128/80
--- NOTE | 2017-02-21 18:44 | Invasive Diagnostic Lab ---
Name: Enmanuel Almendarez Date of Study: 02/19/2017 Date: 1930 Ht: 180.0 cm /70.9 in Medical Record#: [id number] Age: 86 Wt: 83. kg / 182.98 lb Account/Order#: [id number] Gender: Male BSA: 2.03 Order #: [id number] Fluoro Dose: 180 mGy BMI: 25.62 Procedure Physician: Bacilio Daley MD, FACC Referring MD: Referring MD: Procedures Performed: IVUS left main Selective coronary angiography Indications: Coronary Artery Disease s/p STEMI. Evaluation of left main Impressions: There is severe one vessel coronary artery disease - ostial proximal LAD Left main not significant by IVUS - 8.3mm2 JOHNATHAN Recommendations: Optimal medical therapy of patient's disease. Aggressive risk factor modification. History/Risk Factors: STEMI 02/18/17 AICD/Pacer Hypertension Dyslipidemia Family History of CAD Chronic Lung Disease Procedure Access obtained in the left Femoral artery by percutaneous puncture A intravascular ultrasound catheter was fully inserted through the sheath into the distal part of the vessel. Image recording was initiated and coronary ultrasound images were acquired during slow pullback. Complications: None, None Contrast: Isovue 29ml Closure Device: Manual Compression - sheath to be pulled in ICU Hemodynamics: Pressures Site Systolic/ A Wave Diastolic/ V Wave End Diastolic/ Mean HR AO 113 56 78 83 AO 71 62 66 72 Coronary Dominance: right Lesion Findings/Interventions See cath from 02/18/17 * Left Main Coronary Artery There is a 40-50% stenosis in the LMCA. * Left Anterior Descending There is a 80% stenosis in the Proximal LAD. There is a 50% stenosis in the Mid LAD. * Circumflex There is a 50% stenosis in the Mid Circumflex. RCA -Sp PCI with no severe residual stenosis. angiographic evaluation yesterday. Updated by Adrienne Sher RN on 02/19/2017 5:12:39 PM Bacilio Daley MD, FACC electronically signed on 02/21/2017 6:41:13 PM with status of Final
== END 2017-02-20 16:01 | disposition home or self-care (01) | DRG 247 ==
LOC: EMEROO 16:49 → ICNU 17:44
PROVIDERS: ADMIT Internal Medicine Interventional Cardiology; ATTEND Internal Medicine Interventional Cardiology

== ENCOUNTER 2017-02-25 13:15 | Inpatient (IN) ==
--- NOTE | 2017-02-25 14:03 | Emergency Department Note ---
Disposition Clinical Impression: Pulmonary embolism Qualifiers: Pulmonary embolism type: other Chronicity: acute Acute cor pulmonale presence: with acute cor pulmonale Qualified Code(s): I26.09 - Other pulmonary embolism with acute cor pulmonale Disposition: Admitted As Inpatient Condition: Fair General Adult HPI - General Chief complaint: ED Shortness of Breath/Dyspnea Stated complaint: Coughing up Blood Time Seen by Provider: 02/25/17 13:21 Source: patient, family, EMS Limitations: no limitations Nursing Notes Reviewed: Yes Vital Signs Reviewed: Yes - History of Present Illness HPI Narrative: Patient has a recent history of 2 stents placed from a IN. States that since then he has been short of breath and having hemoptysis. The hemoptysis, worse today. It is a rust colored sputum. Denies any chest pain. States he is taking his medication as prescribed. Has not missed any Plavix or aspirin doses. He is on oxygen chronically for COPD. Pain Scale: 0 - Related Data Home Medications Medication Instructions Recorded Confirmed Albuterol Neb [Proventil Neb] 2.5 mg IH Q4HR 07/30/15 02/25/17 Apixaban [Eliquis] 5 mg PO BID 07/30/15 02/25/17 Aspirin [Adult Low Dose Aspirin EC] 81 mg PO DAILY 07/30/15 02/25/17 B2/Vits A,C,E/Lut/Zeaxanth/Min 1 tab PO DAILY 07/30/15 02/25/17 [Icaps Tablet] Calcium Carbonate/Vitamin D3 1 tab PO DAILY 07/30/15 02/25/17 [Calcium 600 + Vit D Tablet] Cyclobenzaprine [Flexeril] 10 mg PO HS 07/30/15 02/25/17 Famotidine [Pepcid] 20 mg PO DAILY 07/30/15 02/25/17 Gluc/Alan-MSM#1/C/Navdeep/Amandeep/Bor 1 cap PO DAILY 07/30/15 02/25/17 [Osteo Bi-Flex Caplet] [place]-3S/Dha/Epa/Fish Oil [Fish 1,200 mg PO DAILY 07/30/15 02/25/17 Oil 1,200 mg Softgel] Potassium Chloride [K-Tab ER] 20 meq PO DAILY 07/30/15 02/25/17 Tiotropium [Spiriva] 18 mcg IH DAILY 07/30/15 02/25/17 Acetaminophen [Tylenol] 500 mg PO BID PRN 02/19/17 02/25/17 Lisinopril [Zestril] 5 mg PO DAILY 02/19/17 02/25/17 Metoprolol XL (24 HR) Succ [Toprol 75 mg PO DAILY 02/25/17 02/25/17 XL] Previous Rx's Medication Instructions Recorded Atorvastatin [Lipitor] 40 mg PO HS #30 tab 02/20/17 Budesonide/Formoterol 160/4.5 2 puff IH BIDR 02/20/17 [Symbicort 160/4.5] Furosemide [Lasix] 20 mg PO DAILY #30 tablet 02/20/17 Ticagrelor [Brilinta] 90 mg PO BID #60 tab 02/20/17 Allergies Allergy/AdvReac Type Severity Reaction Status Date / Time No Known Allergies Allergy Unverified 07/19/15 10:47 All systems ED: reviewed and negative except as stated. Constitutional: Denies: fever, chills Cardiovascular: Reports: dyspnea on exertion. Denies: chest pain, palpitations , syncope Respiratory: Reports: cough, dyspnea, hemoptysis. Denies: wheezes Gastrointestinal: Denies: abdominal pain, nausea, vomiting, diarrhea, hematemesis, melena, hematochezia Genitourinary: Denies: urgency, dysuria, frequency Musculoskeletal: Denies: back pain, neck pain Integumentary: Denies: rash, abrasion Neurological: Denies: headache, weakness Past Medical History - Past Medical History Attestation: Yes The following information was validated with the patient. Source: patient Medical history: Reports: COPD, coronary artery disease, GERD, hyperlipidemia, hypertension, myocardial infarction, other Surgical history: Reports: pacemaker/AICD Psychiatric history: Reports: no psych history - Social History Smoking Status: Former smoker Smokeless Tobacco Status: Yes Alcohol use: Reports: none Drug use: Reports: none Physical Exam - General Limitations: no limitations General appearance: alert, in distress (Does appear mildly dyspneic.) - Head Head exam: atraumatic, normocephalic, normal inspection - Eye Eye exam: Present: normal appearance, PERRL, EOMI. Absent: scleral icterus - ENT ENT exam: normal exam, normal oropharynx, mucous membranes moist - Neck Neck exam: Present: normal inspection, full ROM, trachea midline. Absent: tenderness - Chest Chest inspection: Present: normal inspection, symmetric chest wall rise. Absent : tenderness - Respiratory Respiratory exam: Present: normal lung sounds bilaterally, respiratory distress (Patient is not using accessory muscles is on oxygen.) - Cardiovascular Cardiovascular exam: Present: irregular rhythm, normal heart sounds - Abdominal Exam Abdominal exam: Present: soft, Non-Tender. Absent: organomegaly - Extremities Exam Extremities exam: Present: normal inspection, full ROM, other (Ecchymosis to bilateral arms. Appears chronic.). Absent: tenderness, pedal edema - Back Exam Back exam: Present: normal inspection - Neurological Exam Neurological exam: Present: alert, oriented X3 - Psychiatric Psychiatric exam: Present: normal affect, normal mood - Skin Skin exam: Present: warm, dry, intact, normal color Course Course Narrative: The patient presents immersed from complaining of a several-day history of shortness of breath. He recently had stents placed in his chest and states he has been short of breath since. States that he has had some mild hemoptysis. He does have some sputum with him that is a rust colored. Never had this happen to him before. He has a COPD patient is chronically on oxygen. He states he is taking his Plavix and aspirin as prescribed. He denies any chest pain at this time but states he is mildly short of breath. His lung sounds are relatively clear. He does have a pacemaker. His EKG shows multifocal QRS complexes. He is perfusing throughout all of these complexes. There is an irregular rhythm at a rate of 90. QRS duration is 164. QT is 410. QTC is 457. His previous EKG dated 02/19/2017 is very similar. We will get a cardiac workup on patient and a CTA of patient's chest. I anticipate admission for the patient. - Reevaluation(s) Reevaluation #1: Patient has bilateral pulmonary embolism. He has signs of cardiac strain. His BNP is elevated. His EKG is a paced rhythm. He did have some episodes on the monitor where it appeared he was bradycardic however on a repeat EKG his rate was 78. He is still atrially and ventricularly paced. Although the heart rate was reading low his pressure has been stable and the patient has been mentating appropriately. Start patient on heparin drip for his PEs. Will admit patient to the floor. We have recommended ICU however the hospitalist will come down and evaluate patient for placement. - Consultations Consultation #1: Dr Rojas accepted Pt in stable condition Time: 16:46 Vital Signs Temperature 97.9 F 02/25/17 13:17 Pulse Rate 80 02/25/17 13:17 Respiratory Rate 20 02/25/17 13:17 Blood Pressure 128/60 02/25/17 13:17 O2 Sat by Pulse Oximetry 97 02/25/17 13:17 Temperature 97.9 F 02/25/17 13:17 Pulse Rate 66 02/25/17 16:16 Respiratory Rate 20 02/25/17 17:19 Blood Pressure 136/68 02/25/17 17:19 O2 Sat by Pulse Oximetry 93 02/25/17 16:16 Oxygen Delivery Oxygen Delivery Nasal Cannula Medical Decision Making - Medical Records Medical records reviewed: Yes I reviewed the patient's medical records. - Lab Data Lab results reviewed: Yes I reviewed the patient's lab results. Result diagrams: 02/25/17 14:06 02/25/17 14:06 Lab Results 02/25/17 02/25/17 02/25/17 Range/Units 14:06 14:06 14:06 WBC 9.6 (4.3-11.1) K/mcL RBC 3.87 L (4.19-5.50) M/mcL Hgb 12.0 L (12.9-16.9) g/dL Hct 38.3 (37.5-50.1) % MCV 99.0 (83.0-100.0) fL MCH 31.0 (28.0-33.3) pg MCHC 31.3 L (31.6-35.5) g/dL RDW 11.9 (11.5-14.5) % Plt Count 213 (140-400) K/mcL MPV 10.0 (9.4-12.4) fL Immature Gran % 0.3 (0-4) % Seg Neutrophils % 78.2 % Lymphocytes % 9.0 % Monocytes % 9.9 % Eosinophils % 2.2 % Basophils % 0.4 % Neutrophils # 7.5 (1.6-8.9) K/mcL Lymphocytes # 0.9 (0.6-4.6) K/mcL Monocytes # 1.0 (0.0-1.3) K/mcL Eosinophils # 0.2 (0.0-0.6) K/mcL Basophils # 0.0 (0.0-0.2) K/mcL Immature Plt Fraction 3.1 (1.1-6.1) % PT (9.4-12.1) Seconds INR APTT (26.0-36.0) Seconds Sodium 140 (136-145) mEq/L Potassium 4.6 H (3.5-4.5) mEq/L Chloride 112 H (98-109) mEq/L Carbon Dioxide 19 (19-29) mEq/L BUN 47 H (8-26) mg/dL Creatinine 1.14 (0.72-1.25) mg/dL Est GFR ( Amer) > 60 (> 60) Est GFR (Non-Af Amer) > 60 (> 60) BUN/Creatinine Ratio 41 H (6-26) Glucose 97 (70-99) mg/dL Calculated Osmolality 302 H (280-300) Lactic Acid 1.0 (0.5-2.2) mmol/L Calcium 9.7 (8.6-10.8) mg/dL Troponin I (0-0.03) ng/mL B-Natriuretic Peptide (0-100) pg/mL 02/25/17 02/25/17 02/25/17 Range/Units 14:06 14:06 14:06 WBC (4.3-11.1) K/mcL RBC (4.19-5.50) M/mcL Hgb (12.9-16.9) g/dL Hct (37.5-50.1) % MCV (83.0-100.0) fL MCH (28.0-33.3) pg MCHC (31.6-35.5) g/dL RDW (11.5-14.5) % Plt Count (140-400) K/mcL MPV (9.4-12.4) fL Immature Gran % (0-4) % Seg Neutrophils % % Lymphocytes % % Monocytes % % Eosinophils % % Basophils % % Neutrophils # (1.6-8.9) K/mcL Lymphocytes # (0.6-4.6) K/mcL Monocytes # (0.0-1.3) K/mcL Eosinophils # (0.0-0.6) K/mcL Basophils # (0.0-0.2) K/mcL Immature Plt Fraction (1.1-6.1) % PT 21.3 H (9.4-12.1) Seconds INR 1.9 APTT 35.8 (26.0-36.0) Seconds Sodium (136-145) mEq/L Potassium (3.5-4.5) mEq/L Chloride (98-109) mEq/L Carbon Dioxide (19-29) mEq/L BUN (8-26) mg/dL Creatinine (0.72-1.25) mg/dL Est GFR ( Amer) (> 60) Est GFR (Non-Af Amer) (> 60) BUN/Creatinine Ratio (6-26) Glucose (70-99) mg/dL Calculated Osmolality (280-300) Lactic Acid (0.5-2.2) mmol/L Calcium (8.6-10.8) mg/dL Troponin I 1.04 H* (0-0.03) ng/mL B-Natriuretic Peptide 1947 H (0-100) pg/mL - Radiology Data Radiology results reviewed: Yes I reviewed the patient's radiology results. Chest X-Ray 02/25/17 13:36 IMPRESSION: 1. No significant change. D/ / Jesus Bonilla MD / Jesus Bonilla MD Interpreting Provider: Jesus Bonilla MD - EKG Data EKG #1 EKG attestation: Yes I reviewed and interpreted this EKG. EKG results narrative: There is an irregular rhythm at a rate of 90. QRS duration is 164. QT is 410. QTC is 457. His previous EKG dated 02/19/2017 is very similar. Attestation Statement - Attestation Attestation: I examined this patient and my medical decision-making was reviewed with the Resident Physician. I agree with the documented findings, disposition and treatment plan as described except to the extent set forth below. In summary 86 -year-old male with history of recent cardiac catheterization and ultimately found today to have arrhythmia with concurrent hypoxia. Also reports mild hemoptysis. On a bilateral pulmonary embolisms with concurrent elevation of proBNP as well as troponin. This concern for right heart strain. The patient will be admitted to the intensive care unit. Discussed case with the hospitalist team. Patient was stable time of admission after initiation of heparin drip. Greater than 35 minutes of critical care time was spent providing resuscitation to this acutely male patient suffering from pulmonary embolism with heart strain and concurrent hypoxia. This is excluding billable procedures.
[2017-02-25 14:13] LABS: Basophils % 0.4 %; Eosinophils # 0.2 K/mcL (0.0-0.6); Eosinophils % 2.2 %; Hematocrit 38.3 % (37.5-50.1); Immature Granulocytes % 0.3 % (0-4); Immature Platelets 3.1 % (1.1-6.1); Lymphocytes # 0.9 K/mcL (0.6-4.6); Mean Corpuscular HGB Conc 31.3 g/dL (31.6-35.5); Monocytes % 9.9 %; Neutrophils # 7.5 K/mcL (1.6-8.9); Platelet Count 213 K/mcL (140-400); Red Blood Count 3.87 M/mcL (4.19-5.50); Red Cell Distribution Width 11.9 % (11.5-14.5); Segmented Neutrophils % 78.2 %
[2017-02-25 14:24] LABS: BUN/Creatinine Ratio 41 (6-26); Blood Urea Nitrogen 47 mg/dL (8-26); Calcium 9.7 mg/dL (8.6-10.8); Carbon Dioxide 19 mEq/L (19-29); Chloride 112 mEq/L (98-109); Glucose 97 mg/dL (70-99); Osmolality,Calculated 302 (280-300); Potassium 4.6 mEq/L (3.5-4.5); Sodium 140 mEq/L (136-145); eGFR For African Americans > 60 (> 60); eGFR For Non-African Americans > 60 (> 60)
[2017-02-25 14:39] LABS: INR 1.9; Prothrombin Time 21.3 Seconds (9.4-12.1)
[2017-02-25 14:41] LABS: Activated Partial Thrombo Time 35.8 Seconds (26.0-36.0)
[2017-02-25] MEDS ORDERED: *HR* Heparin 5,000 UNIT/ML VIAL IVP PRN ×2 (15:43)
[2017-02-25] MEDS ORDERED: *HR* Heparin 5,000 UNIT/ML VIAL IVP ONE (15:43)
[2017-02-25] MEDS: Heparin 25,000 UNIT/500 ML D5W 25,000 UNIT/500 ML MLS IVC SCH (16:13)
--- NOTE | 2017-02-25 19:13 | Internal Med History&Physical ---
Date of Encounter: 02/25/17 Time of Encounter: 19:11 Assessment and Plan (1) Pulmonary embolism Current visit: Yes Status: Acute Patient has sub massive pulmonary embolism. As evidence of right parts train. His appointment is also elevated. His blood pressure is stable. It is surprising that the patient had pulmonary embolism despite being on eliquis for at least a year according to daughter. No prior history of DVT/PE Tory suspicion or HyperCard. And he is also 86 years old. We will start the patient on anticoagulation with heparin drip. Consider changing anticoagulant on discharge. Watch for worsening hemoptysis while he is on anticoagulation. Amount of blood in hemoptysis is minimal. Cardiology consultation Qualifiers: Pulmonary embolism type: other Chronicity: acute Acute cor pulmonale presence: with acute cor pulmonale Qualified Code(s): I26.09 - Other pulmonary embolism with acute cor pulmonale (2) Non-STEMI (non-ST elevated myocardial infarction) Current visit: No Status: Acute Likely due to pulmonary embolism. He denies any chest pain. (3) Bradycardia Current visit: Yes Status: Acute Episodes of bradycardia and emergency room likely related to the frequency of PVCs is having frequent PVCs and couplets. His pacemaker was actually interrogated in the emergency room and pacemaker well functional. He has been having non-sustained ventricular tachycardia episodes up till 02/18. I will continue his beta blockers. Check magnesium and replace accordingly. Internal Medicine - H&P: HPI Chief complaint: sob, hemoptysis History of present illness: Mr. Almendarez is a 86 year old male patient with history of coronary artery disease status post PCI most recent was a week ago with PCI to the RCA on dual antiplatelet therapy aspirin and Berlinta, on into correlation with eliquis ( doesnt recall cause) recently discharged from the hospital 5 days ago presents with emergency room today with incomplete shortness of breath coughing up blood. Since hospital discharge patient has been having shortness of breath with minimal exertion. Has been coughing dark blood. He started coughing small amounts of fresh blood and was therefore advised to come to emergency room. Imaging in the emergency room was suggestive of some massive pulmonary embolism. Patient denies any prior history of PE. Patient has been pretty functional and was forming his land up until he had the recent heart attack a week ago. Denies any fevers chills. He denies any lower extremity swelling. Past Med Surg Social Fam HX - Past Medical History Medical history: atrial fibrillation, COPD, coronary artery disease, GERD, hyperlipidemia, hypertension, myocardial infarction, other Psychiatric history: no psych history - Past Surgical History Surgical History: cholecystectomy, pacemaker/AICD - Social History Smoking Status: Former smoker Smokeless Tobacco Status: Yes (CHEW) Alcohol use: none Drug use: none - Family History Mother Hx Family Cancer: Yes Hx Family Neurologic Disorders: Yes (CVA) Brother Hx Family Cancer: Yes Internal Medicine - H&P: Meds Albuterol Neb [Proventil Neb] 2.5 mg IH Q4HR 07/30/15 [History] Apixaban [Eliquis] 5 mg PO BID 07/30/15 [History] Aspirin [Adult Low Dose Aspirin EC] 81 mg PO DAILY 07/30/15 [History] B2/Vits A,C,E/Lut/Zeaxanth/Min [Icaps Tablet] 1 tab PO DAILY 07/30/15 [History] Calcium Carbonate/Vitamin D3 [Calcium 600 + Vit D Tablet] 1 tab PO DAILY [History] Cyclobenzaprine [Flexeril] 10 mg PO HS 07/30/15 [History] Famotidine [Pepcid] 20 mg PO DAILY 07/30/15 [History] Gluc/Alan-MSM#1/C/Navdeep/Amandeep/Bor [Osteo Bi-Flex Caplet] 1 cap PO DAILY 07/30/15 [ History] [place]-3S/Dha/Epa/Fish Oil [Fish Oil 1,200 mg Softgel] 1,200 mg PO DAILY [History] Potassium Chloride [K-Tab ER] 20 meq PO DAILY 07/30/15 [History] Tiotropium [Spiriva] 18 mcg IH DAILY 07/30/15 [History] Acetaminophen [Tylenol] 500 mg PO BID PRN 02/19/17 [History] Lisinopril [Zestril] 5 mg PO DAILY 02/19/17 [History] Atorvastatin [Lipitor] 40 mg PO HS #30 tab 02/20/17 [Rx] Budesonide/Formoterol 160/4.5 [Symbicort 160/4.5] 2 puff IH BIDR 02/20/17 [Rx] Furosemide [Lasix] 20 mg PO DAILY #30 tablet 02/20/17 [Rx] Ticagrelor [Brilinta] 90 mg PO BID #60 tab 02/20/17 [Rx] Metoprolol XL (24 HR) Succ [Toprol XL] 75 mg PO DAILY 02/25/17 [History] Allergies No Known Allergies Allergy (Unverified 07/19/15 10:47) All Systems PM: A 10-system review of systems was performed and is negative for pertinent findings except as documented above in the HPI. Review of systems: 10 point review systems is negative except for HPI - Constitutional Vitals: Temp Pulse Resp BP Pulse Ox 97.8 F 78 18 152/74 98 02/25/17 17:46 02/25/17 17:46 02/25/17 17:46 02/25/17 17:46 02/25/17 17:49 Exam: Gen.: patient is alert oriented times 3 cardiac: normal S1 S2 no additional sounds or murmurs chest: few crackles in bases abdomen soft nontender nondistended normal bowel sounds lower extremity no swelling. Neuro: no new focal deficits Internal Med - H&P Results - Labs CBC & Chem 7: 02/25/17 14:06 02/25/17 14:06
[2017-02-25] MEDS: Albuterol 2.5 MG/3 ML NEBULIZER IH SCH ×2 (20:16→23:19)
[2017-02-25] MEDS: Budesonide/Formoterol 160/4.5 MDI IH SCH (20:16)
[2017-02-25 20:25] LABS: Magnesium 1.9 mg/dL (1.6-2.6)
[2017-02-25] MEDS ORDERED: Furosemide 20 MG/2 ML VIAL IVP SCH (21:00)
[2017-02-25] MEDS: *HR* Ticagrelor 90 MG TABLET PO SCH (21:04)
[2017-02-26 01:11] LABS: Basophils # 0.1 K/mcL (0.0-0.2); Basophils % 0.6 %; Eosinophils # 0.2 K/mcL (0.0-0.6); Eosinophils % 2.1 %; Hematocrit 40.5 % (37.5-50.1); Hemoglobin 12.7 g/dL (12.9-16.9); Immature Granulocytes % 0.3 % (0-4); Lymphocytes # 1.1 K/mcL (0.6-4.6); Lymphocytes % 11.7 %; Mean Corpuscular HGB Conc 31.4 g/dL (31.6-35.5); Mean Corpuscular Volume 98.8 fL (83.0-100.0); Mean Platelet Volume 10.1 fL (9.4-12.4); Monocytes # 0.8 K/mcL (0.0-1.3); Monocytes % 8.3 %; Platelet Count 204 K/mcL (140-400); Red Cell Distribution Width 11.8 % (11.5-14.5)
[2017-02-26 01:24] LABS: BUN/Creatinine Ratio 35 (6-26); Blood Urea Nitrogen 43 mg/dL (8-26); Calcium 10.1 mg/dL (8.6-10.8); Carbon Dioxide 23 mEq/L (19-29); Chloride 107 mEq/L (98-109); Glucose 99 mg/dL (70-99); Magnesium 2.3 mg/dL (1.6-2.6); Osmolality,Calculated 301 (280-300); Sodium 140 mEq/L (136-145); eGFR For African Americans > 60 (> 60); eGFR For Non-African Americans 56 (> 60)
[2017-02-26 01:25] LABS: Potassium 4.8 mEq/L (3.5-4.5)
[2017-02-26] MEDS ORDERED: Magnesium Sulfate 1 GM in D5% in Water 100 ML IVPB ONE (01:32)
[2017-02-26] MEDS: Albuterol 2.5 MG/3 ML NEBULIZER IH SCH ×5 (03:47→20:16)
[2017-02-26] MEDS: Budesonide/Formoterol 160/4.5 MDI IH SCH ×2 (07:46→20:16)
[2017-02-26] MEDS: Tiotropium 18 MCG inhalation IH SCH (07:46)
[2017-02-26] MEDS ORDERED: *HR* Morphine 2 MG/ML SYRINGE IVP PRN (08:53)
[2017-02-26] MEDS ORDERED: *HR* OxyCODONE/APAP 5/325 TABLET PO PRN (08:54)
[2017-02-26] MEDS ORDERED: Nitroglycerin 0.4 MG TAB.SUBL SL PRN (08:56)
[2017-02-26] MEDS ORDERED: Furosemide 20 MG TABLET PO SCH (09:00)
[2017-02-26] MEDS ORDERED: Metoprolol XL (24 HR) Succ 50 MG TAB.ER.24H PO SCH (09:00)
[2017-02-26] MEDS ORDERED: Furosemide 40 MG/4 ML VIAL IVP ONE (09:10)
--- NOTE | 2017-02-26 09:13 | Cardiology Consult Note ---
Addendum entered and electronically signed by Jose Guzmán DO 14:43: In addition to the below Assessment and plan would add the following: Hemoptysis: This appears to be only minimal. Patient did have some blood tinged sputum at bedside. Hg is stable Patient is hemodynamically stable. Continue to monitor closely. Consider pulmonology consult as he is on both anticoagulation and DAPT. Original Note: <Jose Guzmán - Last Filed: 02/26/17 10:07> Date of Encounter: 02/26/17 Time of Encounter: 09:11 Assessment and Plan (1) Pulmonary embolism Current Visit: Yes Status: Acute CTA of the chest reveals: "Acute pulmonary emboli within right and left lower lobe segmental and subsegmental pulmonary arteries. RV:LV ratio is approximately 0.9. Mild reflux of contrast within the IVC and dilation of the main pulmonary artery is present concerning for some degree of right heart strain, however, no evidence for paradoxical interventricular septal bowing." Patient was on eliquis at home. 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 During last admission patient had some confusion and hallucinations. Questionable as to whether he has been compliant with his medications. Currently he is comfortable on 4L of oxygen via NC. He is hemodynamically stable. Questionable Right heart strain. Elevated troponins but these are trending down significantly from previous labs. He dose have an elevated BNP but has a history of systolic heart failure as well. TTE is pending. PESI score is 137. currently on heparin gtt. We Will defer which oral anticoagulation patient will be discharged on to primary team. Recent JOSE placed. Recommend continuing DAPT. Would also consider consulting pulmonary as he is having hemoptysis in the setting of anticoagulation and DAPT. Thank you for the consultation and the opportunity to participate in this patients care. Qualifiers: Qualified Code(s): I26.99 - Other pulmonary embolism without acute cor pulmonale (2) Elevated troponin Current Visit: Yes Status: Acute Trending down significantly since last admission. Patient had recent admission for NSTEMI. Patient had recent PTCA on 02/18/17 with JOSE placed to RCA. This was followed by selective coronary angiography with IVUS on 02/19/17 Tn on 02/20/17 was 20.36. On readmission 02/25/17 it was 1.04 and continues to trend down. Patient has had no chest pain. I would not classify this as NSTEMI but rather his troponin elevation is from prior NSTEMI and trending down. Patient is asymptomatic. Patient declined cardiac rehab at last visit and continues to decline rehab at this time. (3) CAD (coronary artery disease) Current Visit: Yes Status: Acute From [facility] on 02/18/17 adn selective angiography from 02/19/17 * Left Main Coronary Artery There is a 40-50% stenosis in the LMCA. * Left Anterior Descending There is a 80% stenosis in the Proximal LAD. There is a 50% stenosis in the Mid LAD. * Circumflex There is a 50% stenosis in the Mid Circumflex. There was 28mm long 99% stenosis of the mid RCA prior to JOSE being placed. YANETH flow was 3 after inervention. Recommend continuing DAPT. He will need at least a year prior to interruption. continue Lipitor. Qualifiers: Qualified Code(s): I25.10 - Atherosclerotic heart disease of [place] coronary artery without angina pectoris (4) Paroxysmal atrial fibrillation Current Visit: Yes Status: Acute Currently patient is rate controlled. Continue Toprol. CHADSVASC score is 5 ( age, CHF, HTN, CAD) currently on heparin gtt. Will need nursing home AC for stroke prevention. Will defer which oral anticoagulation to discharge patient on to primary team. (5) Non-sustained ventricular tachycardia Current Visit: Yes Status: Acute Reviewed Telemetry. longest run of SVT was 10 beats. Total PVCs were 3394 so he is not in PVC storm. This is in the setting of recent NSTEMI and PE. Recommendations: increase Toprol to 100 mg daily. continue telemetry. (6) Systolic heart failure Current Visit: Yes Status: Acute HFrEF Last echo shows EF of 30%. Mildly volume overloaded with pleurel effusions seen on CTA. increase Lasix to 40 mg IV. we will reassess his volume status in the AM. He dose have a eMar BVICD in place. continue beta dorian. Lisinopril currently being held. patient did have some hyperkalemia on admission. recommend restarting Lisinopril at lower dose. Increased dosage of lasix should also help to lower potassium. Qualifiers: Heart failure chronicity: acute on chronic Qualified Code(s): I50.23 - Acute on chronic systolic (congestive) heart failure (7) Acute on chronic respiratory failure with hypoxemia Current Visit: Yes Status: Acute patient is on chronic O2 at home for COPD. Now patient has increased O2 requirements with his PE. Also has some pleural effusions as well. We will increase lasix dosage. Patient currently on Heparin gtt. patient is currently comfortable on 4L NC. (8) Hyperkalemia Current Visit: Yes Status: Acute Mild. We will decrease dosage of Lisinopril. should also improve with increased dose of lasix. continue to monitor. (9) Presence of biventricular cardiac pacemaker Current Visit: Yes Status: Acute patient has BVICD This was interrogated at 1341 on 02/25/17. device appears to be functioning properly at this time. 43 episodes of NSVT were noted. Average rate was 100. Discussion w patient/family: The assessment and plan as outlined above was discussed with the patient and/or family members who expressed understanding and agreement. All questions were answered. Thank you for involving us in the care of your patient. Please call with any questions. History of Present Illness Consult date: 02/26/17 Requesting physician: Domo Rojas Consult reason: NSVT adn frequent PVCs Chief complaint: dyspnea. History of present illness: Mr. Almendarez is a 86 year old male who is known to the cardiology service. He was admitted to [facility] recently for NSTEMI and had JOSE placed to RCA on 02/18/17. He would also have selective coronary angiography with IVUS on 02/19/17. He was admitted on 02/25/17 with a right lower lobe PE. Cardiology is consulted on 02/05 for NSVT and frequent PVCs. Today Mr. Almendarez states he came to the hospital for dyspnea and hemoptyisis. He states that he has had streaking of blood in his sputum. He describes the color as brown/red. He has not had any larger amounts of hemoptysis. He states he has developed dypnea at rest as well. He denies leg swelling or calf pain. He admits to recent hospitalization. He denies chest pain, syncope, presyncope, orthopnea, lower extremity edema, or weight gain. He has had no chest pain or discomfort. He denies any palpitations. He states that he feels much better after having placed on oxygen. At this time he has no further complaints or concerns. Past Med Surg Social Fam HX - Past Medical History Medical history: atrial fibrillation, COPD, coronary artery disease, GERD, hyperlipidemia, hypertension, myocardial infarction, other Psychiatric history: no psych history - Past Surgical History Surgical History: cholecystectomy, pacemaker/AICD - Social History Smoking Status: Former smoker Smokeless Tobacco Status: Yes (CHEW) Alcohol use: none Drug use: none - Family History Mother Hx Family Cancer: Yes Hx Family Neurologic Disorders: Yes (CVA) Brother Hx Family Cancer: Yes Medications and Allergies Albuterol Neb [Proventil Neb] 2.5 mg IH Q4HR 07/30/15 [History] Apixaban [Eliquis] 5 mg PO BID 07/30/15 [History] Aspirin [Adult Low Dose Aspirin EC] 81 mg PO DAILY 07/30/15 [History] B2/Vits A,C,E/Lut/Zeaxanth/Min [Icaps Tablet] 1 tab PO DAILY 07/30/15 [History] Calcium Carbonate/Vitamin D3 [Calcium 600 + Vit D Tablet] 1 tab PO DAILY [History] Cyclobenzaprine [Flexeril] 10 mg PO HS 07/30/15 [History] Famotidine [Pepcid] 20 mg PO DAILY 07/30/15 [History] Gluc/Alan-MSM#1/C/Navdeep/Amandeep/Bor [Osteo Bi-Flex Caplet] 1 cap PO DAILY 07/30/15 [ History] Leonard-3S/Dha/Epa/Fish Oil [Fish Oil 1,200 mg Softgel] 1,200 mg PO DAILY [History] Potassium Chloride [K-Tab ER] 20 meq PO DAILY 07/30/15 [History] Tiotropium [Spiriva] 18 mcg IH DAILY 07/30/15 [History] Acetaminophen [Tylenol] 500 mg PO BID PRN 02/19/17 [History] Lisinopril [Zestril] 5 mg PO DAILY 02/19/17 [History] Atorvastatin [Lipitor] 40 mg PO HS #30 tab 02/20/17 [Rx] Budesonide/Formoterol 160/4.5 [Symbicort 160/4.5] 2 puff IH BIDR 02/20/17 [Rx] Furosemide [Lasix] 20 mg PO DAILY #30 tablet 02/20/17 [Rx] Ticagrelor [Brilinta] 90 mg PO BID #60 tab 02/20/17 [Rx] Metoprolol XL (24 HR) Succ [Toprol XL] 75 mg PO DAILY 02/25/17 [History] Allergies No Known Allergies Allergy (Unverified 07/19/15 10:47) All Systems Review: A 10-system review of systems was performed and is negative for pertinent findings except as documented above in the HPI. - Constitutional Constitutional: no anorexia, no chills, no fever(s), no frequent falls, no malaise, no weight gain, no weight loss - EENT Eyes: no blurred vision, no loss of vision - Cardiovascular Cardiovascular: as per HPI, dyspnea at rest, dyspnea on exertion, no chest pain at rest, no chest pain with exertion, no leg edema, no lightheadedness, no orthopnea, no palpitations, no paroxysmal nocturnal dyspnea, no rapid heart rate , no syncope - Respiratory Respiratory: cough, dyspnea, hemoptysis, no wheezing - Gastrointestinal Gastrointestinal: no abdominal pain, no diarrhea, no dysphagia, no hematemesis, no hematochezia, no melena, no nausea - Genitourinary Genitourinary: no dysuria, no hematuria - Musculoskeletal Musculoskeletal: no arthralgias, no muscle weakness, no myalgias - Integumentary Integumentary: unusual bruising (uper extremitites. states it is chronic with his eliquis), no erythema, no rash - Neurological Neurological: no abnormal speech, no dizziness, no focal weakness - Hematological/Lymphatic Hematologic/Lymphatic: easy bruising, no easy bleeding Physical Examination Vital Signs, Last 4 Hours Temp Pulse Resp BP Pulse Ox 02/26/17 07:47 16 100 02/26/17 07:42 98 F 74 18 135/58 95 General: Conversant, No Apparent Distress, Other (patient is aware of person place time and situation) HEENT: Atraumatic, Normocephaly, Mucus Membranes Moist Neck: No JVD, Normal carotid pulses Cardiac: Reg Rate and Rhythm, Normal S1 and S2, No Murmur, Other (BVICD in place in left upper chest wall. No swelling or tenderness. ) Lungs: Normal Breath Sounds, No Wheeze, Rales, Rhonchi, Other (on 4L NC at this time. ) Neuro: Alert and responsive, No focal deficits noted Abdomen: Soft, Non-Tender, Other (He dose have bruising and a small hematoma of the right groin. Mild echymosis of the left groin. ) Skin: No rashes noted on visualized skin Musculoskeletal: No Chest Wall Tenderness Extremities: No Clubbing, No Cyanosis, No Edema, Normal Pulses, Other (He has echymosis of the upper extremitites bilaterally. ) Results 02/26/17 01:03 02/26/17 01:03 Lab Results 02/25/17 02/25/17 02/26/17 19:55 19:55 01:03 WBC Hgb Hct Plt Count APTT 64.1 H D Sodium Potassium Chloride Carbon Dioxide BUN Creatinine Glucose Calcium Magnesium 1.9 Troponin I 0.91 H* 02/26/17 02/26/17 02/26/17 01:03 01:03 01:23 WBC 9.1 Hgb 12.7 L Hct 40.5 Plt Count 204 APTT Sodium 140 Potassium 4.8 H Chloride 107 Carbon Dioxide 23 BUN 43 H Creatinine 1.23 Glucose 99 Calcium 10.1 Magnesium 2.3 Troponin I 0.73 H* - Imaging and Cardiology Chest Xray: report reviewed, image reviewed - EKG Interpretation EKG results cardiology: personally reviewed, ventricular paced rhythm, other ( Multiple PVCs) Consult Discharge Plan - Plan Referrals: Homero Love MD [Primary Care Provider] - 03/07/17 11:30 am <Eva Escalera - Last Filed: 02/26/17 15:30> Date of Encounter: 02/26/17 Assessment and Plan Discussion w patient/family: The assessment and plan as outlined above was discussed with the patient and/or family members who expressed understanding and agreement. All questions were answered. Thank you for involving us in the care of your patient. Please call with any questions. History of Present Illness History of present illness: Mr. Almendarez is a 86 year old male All Systems Review: A 10-system review of systems was performed and is negative for pertinent findings except as documented above in the HPI. Physical Examination Vital Signs, Last 4 Hours Temp Pulse Resp BP Pulse Ox 02/26/17 12:05 98 F 113 18 121/67 97 02/26/17 11:16 12 98 Results 02/26/17 01:03 02/26/17 01:03 Lab Results 02/25/17 02/25/17 02/26/17 19:55 19:55 01:03 WBC Hgb Hct Plt Count APTT 64.1 H D Sodium Potassium Chloride Carbon Dioxide BUN Creatinine Glucose Calcium Magnesium 1.9 Troponin I 0.91 H* 02/26/17 02/26/17 02/26/17 01:03 01:03 01:23 WBC 9.1 Hgb 12.7 L Hct 40.5 Plt Count 204 APTT Sodium 140 Potassium 4.8 H Chloride 107 Carbon Dioxide 23 BUN 43 H Creatinine 1.23 Glucose 99 Calcium 10.1 Magnesium 2.3 Troponin I 0.73 H* 02/26/17 09:35 WBC Hgb Hct Plt Count APTT 108.5 H D Sodium Potassium Chloride Carbon Dioxide BUN Creatinine Glucose Calcium Magnesium Troponin I - Attending Attestation I examined this patient and my medical decision-making was reviewed with the Resident Physician. I agree with the documented findings, disposition and treatment plan. Mr. Almendarez presents with dyspnea and hemoptysis and had a CTA suspicious for PE. He was recently hospitalized last week for NSTEMI and underwent PCI with JOSE to RCA. He was placed on Brilinta in addition to aspirin. He also was on eliquis for anticoagulation in setting of AFIB. Presently, eliquis was stopped and primary team placed patient on heparin. We've been asked to evaluate the patient and make recommendations. 1. Pulmonary embolism: It is reasonable to have the patient evaluated by Pulmonary to help determine whether findings on CT are a confirmed PE. This will help guide management of blood thinners. If no evidence for PE, recommend stopping heparin. 2. Systolic heart failure: Recommend gentle diuresis. Continue ACEI, BB. 3. CAD: Recent PCI. Recommend continuing asa/brilinta at this time. Pulmonary to evaluate symptoms of hemoptysis. Blood count is stable. 4. Troponin elevation: Represents a downtrend from last week (was ~20 last week, now 0.94). No further troponins are needed. If patient were to have an in stent thrombosis, his presentation would be more dramatic. 5. PVCs: Frequent PVCs noted on monitor and short runs of NSVT (10 beats overnight). Recommend increasing Toprol to 100mg daily. 6. PAF: On BB for rate control. Await pulmonary findings before making further recommendations for eliquis. The clinical presentation and plan of care was discussed with the patient and his 2 daughters present in the room. They expressed understanding.
[2017-02-26] MEDS: Aspirin Enteric Coated 81 MG Tablet PO SCH (09:32)
[2017-02-26] MEDS: *HR* Ticagrelor 90 MG TABLET PO SCH ×2 (09:32→21:13)
[2017-02-26] MEDS: Famotidine 20 MG TABLET PO SCH (09:32)
--- NOTE | 2017-02-26 12:18 | Internal Med Progress Note ---
Date of Encounter: 02/26/17 Time of Encounter: 12:15 - Assessment and plan (1) Pulmonary embolism Current Visit: Yes Status: Acute Assessment and plan: Reviewed CTA of chest showing Rt and Left lower lobe segmental and sub segmental PE Unclear etiology will get venous doppler of Legs holding Eliquis for now con Heparin gtt ordered 2 D echo - to assess RV strain cont duoneb and O2 cont pain meds PRN consulted Pulmonary for further evaluation regarding his PE and Hemoptysis Consulted Heme Onc to help us regarding PO meds Qualifiers: Qualified Code(s): I26.99 - Other pulmonary embolism without acute cor pulmonale (2) Acute on chronic respiratory failure with hypoxemia Current Visit: Yes Status: Acute Assessment and plan: Due to b/l PE no signs of inf no need of abx cont duoneb and o2 (3) Cough with hemoptysis Current Visit: Yes Status: Acute Assessment and plan: Cont close monitoring stable Hb no gross bleeding noticed (4) NSTEMI (non-ST elevated myocardial infarction) Current Visit: No Status: Acute Assessment and plan: Elevated troponin due to demand ischemia with PE no acute EKG changes 2 D Echo ordered Troponin started trending down Card is on board (5) CAD (coronary artery disease) Current Visit: Yes Status: Acute Assessment and plan: recent LHC on 02/18/17 and selective angioplasty from 02/19/17- 40-50% stenosis in the LMCA. 80% stenosis in the Proximal LAD. 50% stenosis in the Mid LAD. 50% stenosis in the Mid Circumflex. There was 28mm long 99% stenosis of the mid RCA prior to JOSE being placed Cont ASA and Brilinta ( DAPT ) as per card recommendation he does have frequent PVC Card inc his Metoprolol dose to 100mg cont close monitoring Qualifiers: Qualified Code(s): I25.10 - Atherosclerotic heart disease of [place] coronary artery without angina pectoris (6) Paroxysmal atrial fibrillation Current Visit: Yes Status: Chronic Assessment and plan: not in RVR rate controlled cont home med Metoprolol on heparin gtt for anticoag (7) COPD (chronic obstructive pulmonary disease) Current Visit: No Status: Chronic Assessment and plan: not in exacerbation Qualifiers: COPD type: COPD with acute exacerbation Qualified Code(s): J44.1 - Chronic obstructive pulmonary disease with (acute) exacerbation (8) Systolic heart failure Current Visit: Yes Status: Chronic Assessment and plan: not in exacerbation cont close monitoring Qualifiers: Heart failure chronicity: acute on chronic Qualified Code(s): I50.23 - Acute on chronic systolic (congestive) heart failure - Subjective Interval history: Mr. Almendarez is a 86 year old male patient with history of coronary artery disease status post PCI most recent was a week ago with PCI to the RCA on dual anti platelet therapy aspirin and Brilinta, with eliquis for A fib recently discharged from the hospital 5 days ago, now he presented to emergency room on 02/25/17 with worsening shortness of breath, Left pleurisy chest pain and coughing up blood. He was admitted for b/l PE and elevated troponin. Pt denied any active chest pain at this moment. Pt is alert, awake and O x 3. Denied any leg pain b/l - Constitutional Vitals: Temp Pulse Resp BP Pulse Ox 98 F 113 18 121/67 97 02/26/17 12:05 02/26/17 12:05 02/26/17 12:05 02/26/17 12:05 02/26/17 12:05 General appearance: Present: A&O X 3, no acute distress, answers questions appropriately - Head Head exam: Present: atraumatic, normal inspection - Respiratory Respiratory exam: Present: decreased breath sounds, wheezes. Absent: rales, respiratory distress, rhonchi, tachypnea - Cardiovascular Cardiovascular exam: Present: RRR, +S1, +S2, systolic murmur - GI/Abdominal GI/Abdominal exam: Present: soft. Absent: distended, guarding, rebound, rigid, tenderness - Additional comments: large echymosis area over Rt groin region extending into scrotum - from recent cardiac cath - Extremities Exam Extremities exam: Absent: calf tenderness, pedal edema, tenderness - Neurological Exam Neurological exam: Present: alert, oriented X3 Internal Medicine: Result - Labs CBC & Chem 7: 02/26/17 01:03 02/26/17 01:03 Labs: Short CBC 02/26/17 Range/Units 01:03 WBC 9.1 (4.3-11.1) K/mcL Hgb 12.7 L (12.9-16.9) g/dL Hct 40.5 (37.5-50.1) % Plt Count 204 (140-400) K/mcL Neutrophils # 7.0 (1.6-8.9) K/mcL BMP 02/26/17 01:03 Sodium 140 Potassium 4.8 H Chloride 107 Carbon Dioxide 23 BUN 43 H Creatinine 1.23 Glucose 99 Calcium 10.1 Cardiac Enzymes 02/25/17 02/26/17 Range/Units 19:55 01:23 Troponin I 0.91 H* 0.73 H* (0-0.03) ng/mL - ABG Interpretation ABG results: PT/INR, D-dimer PT 21.3 Seconds (9.4-12.1) H 02/25/17 14:06 Consult Discharge Plan - Plan Referrals: Homero Love MD [Primary Care Provider] -
--- NOTE | 2017-02-26 13:41 | Pulmonology Consult Note ---
Date of Encounter: 02/26/17 Time of Encounter: 13:35 Assessment and Plan (1) Acute on chronic respiratory failure with hypoxemia Current Visit: Yes Status: Acute This 86-year-old patient with a history of chronic systolic heart failure atrial fibrillation on long-term anticoagulation therapy coronary artery disease status post recent and STEMI on dual antiplatelet therapy who presents with increasing shortness of breath and cough along with evidence of minor hemoptysis. CT angiogram was initially remarkable for concern of right segmental and subsegmental pulmonary embolus. I personally reviewed reviewed the films and I did not see evidence of clear filling defect on as is the right or left side but it appears that the bolus itself did not does not extend (and this is demonstrated bilaterally) into the segmental or subsegmental pulmonary arteries. There is no large central filling defects that were notable I think that a diagnosis of acute pulmonary embolus is equivocal at best I did discuss the case with the on-call radiologist who had a similar opinion. What I feel is an alternative and likely more likely explanation is a gentleman on long- term anticoagulation with dual antiplatelet therapy with mild bronchitis and volume overload secondary to CHF as the most likely etiology to both shortness of breath and minor hemoptysis My recommendations would be to continue to treat CHF with loop diuretic for goal -1-2 L over next 24-48 hours with daily monitoring of renal function and electrolyte replacement including potassium and magnesium as needed Ideally patient could not be kept on dual antiplatelet therapy and heparin anticoagulation (or other anticoagulation) could be held. To further buttress diagnosis and make need for acute anticoagulation less likely would recommend b/ l LE Duplex. I understand and agree with Hematology consultation. I would treat underlying airway disease with doxycycline 100 mg twice a day 5 days and would give him 40 mg prednisone for at least the next 48 hours. Cont scheduled MDIs and can continue Duonebs on an as needed basis. Patient will need to have quantification of hemoptysis recommend bedside basin or urinalysis cup to aid with this. While reviewing his CT scan I did not see any clear evidence of malignancy or lymphadenopathy although he has had unexplained weight loss. If hemoptysis were continuing after treatment as above for the next 24-48 hrs. after stopping anticoagulation I would advise proceeding with bronchoscopy for airway examination given his high risk for malignancy underlying age and smoking history. To this and I feel that is reasonable keep patient nothing by mouth at midnight (2) CAD (coronary artery disease) Current Visit: Yes Status: Acute Qualifiers: Qualified Code(s): I25.10 - Atherosclerotic heart disease of [place] coronary artery without angina pectoris (3) Cough with hemoptysis Current Visit: Yes Status: Acute (4) Pulmonary embolism Current Visit: Yes Status: Acute Qualifiers: Pulmonary embolism type: other Chronicity: acute Acute cor pulmonale presence: with acute cor pulmonale Qualified Code(s): I26.09 - Other pulmonary embolism with acute cor pulmonale (5) Paroxysmal atrial fibrillation Current Visit: Yes Status: Chronic (6) Systolic heart failure Current Visit: Yes Status: Chronic Qualifiers: Heart failure chronicity: acute on chronic Qualified Code(s): I50.23 - Acute on chronic systolic (congestive) heart failure (7) COPD (chronic obstructive pulmonary disease) Current Visit: No Status: Chronic Qualifiers: COPD type: COPD with acute exacerbation Qualified Code(s): J44.1 - Chronic obstructive pulmonary disease with (acute) exacerbation History of Present Illness Consult date: 02/26/17 Requesting physician: Polo Esposito Reason for consult: pulmonary embolism Chief complaint: Shortness of Breath History of present illness: This is an 86-year-old gentleman with a history of CHF COPD recent diagnosis of CAD status post PCI last week on dual antiplatelet therapy for this also atrial fibrillation and apparently receiving long-term anticoagulation in the form of a NOAC (eliquis). He presented with shortness of breath and minor hemoptysis had CTA performed which was initially read as positive for right-sided filling defects consistent with pulmonary embolism and was started on heparin infusion as a result of this. Patient is a bit hard of hearing and is a we will full but at times incomplete historian encouragingly his family which include daughters who are registered nurses and other family members in the room or able to fill in some of the details of what has been going on for sounds like he was coughing up "brown phlegm for a few days prior to admission to the hospital. This seemed to started with increasing dyspnea and productive cough after discharge and got worse to the point that he was having difficulty breathing and so they brought him to the emergency department. Yesterday he had several episodes of coughing up increasingly reddish clots mixed with phlegm. He denies fevers chills he has had a weight loss over the last 6 months or so that has been unintentional. 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 He denies sick contacts or recent travel. During the course of our conversation he was very comfortable and had quite acceptable oxygen saturation in the mid 90s on couple of liters O2 via nasal cannula Past Med Surg Social Fam HX - Past Medical History Medical history: atrial fibrillation, COPD, coronary artery disease, GERD, hyperlipidemia, hypertension, myocardial infarction, other Psychiatric history: no psych history - Past Surgical History Surgical History: cholecystectomy, pacemaker/AICD - Social History Smoking Status: Former smoker Smokeless Tobacco Status: Yes (CHEW) Alcohol use: none Drug use: none - Family History Mother Hx Family Cancer: Yes Hx Family Neurologic Disorders: Yes (CVA) Brother Hx Family Cancer: Yes Medications and Allergies Albuterol Neb [Proventil Neb] 2.5 mg IH Q4HR 07/30/15 [History] Apixaban [Eliquis] 5 mg PO BID 07/30/15 [History] Aspirin [Adult Low Dose Aspirin EC] 81 mg PO DAILY 07/30/15 [History] B2/Vits A,C,E/Lut/Zeaxanth/Min [Icaps Tablet] 1 tab PO DAILY 07/30/15 [History] Calcium Carbonate/Vitamin D3 [Calcium 600 + Vit D Tablet] 1 tab PO DAILY [History] Cyclobenzaprine [Flexeril] 10 mg PO HS 07/30/15 [History] Famotidine [Pepcid] 20 mg PO DAILY 07/30/15 [History] Gluc/Alan-MSM#1/C/Navdeep/Amandeep/Bor [Osteo Bi-Flex Caplet] 1 cap PO DAILY 07/30/15 [ History] [place]-3S/Dha/Epa/Fish Oil [Fish Oil 1,200 mg Softgel] 1,200 mg PO DAILY [History] Potassium Chloride [K-Tab ER] 20 meq PO DAILY 07/30/15 [History] Tiotropium [Spiriva] 18 mcg IH DAILY 07/30/15 [History] Acetaminophen [Tylenol] 500 mg PO BID PRN 02/19/17 [History] Lisinopril [Zestril] 5 mg PO DAILY 02/19/17 [History] Atorvastatin [Lipitor] 40 mg PO HS #30 tab 02/20/17 [Rx] Budesonide/Formoterol 160/4.5 [Symbicort 160/4.5] 2 puff IH BIDR 02/20/17 [Rx] Furosemide [Lasix] 20 mg PO DAILY #30 tablet 02/20/17 [Rx] Ticagrelor [Brilinta] 90 mg PO BID #60 tab 02/20/17 [Rx] Metoprolol XL (24 HR) Succ [Toprol XL] 75 mg PO DAILY 02/25/17 [History] Allergies No Known Allergies Allergy (Unverified 07/19/15 10:47) All Systems: A 10-system review of systems was performed and is negative for pertinent findings except as documented above in the HPI. Physical Examination Vital Signs: Vital Signs, Last 4 Hours Temp Pulse Resp BP Pulse Ox 02/26/17 12:05 98 F 113 18 121/67 97 02/26/17 11:16 12 98 General appearance: no acute distress Eyes: nonicteric ENT: oropharynx moist Neck: supple Auscultation: bilateral: rales, rhonchi Cardiovascular: irregular rhythm Gastrointestinal: normoactive bowel sounds, non-tender Integumentary: normal Extremities: no edema, pink and warm, other (Scattered areas of purpura related to anticoagulation) Musculoskeletal: no deformities normal mental status, non-focal exam mood appropriate Results - Laboratory Findings CBC and BMP: 02/26/17 01:03 02/26/17 01:03 PT/INR, D-dimer PT 21.3 Seconds (9.4-12.1) H 02/25/17 14:06 Abnormal lab findings: Abnormal lab results RBC 4.10 M/mcL (4.19-5.50) L 02/26/17 01:03 Hgb 12.7 g/dL (12.9-16.9) L 02/26/17 01:03 MCHC 31.4 g/dL (31.6-35.5) L 02/26/17 01:03 PT 21.3 Seconds (9.4-12.1) H 02/25/17 14:06 APTT 108.5 Seconds (26.0-36.0) H D 02/26/17 09:35 Potassium 4.8 mEq/L (3.5-4.5) H 02/26/17 01:03 BUN 43 mg/dL (8-26) H 02/26/17 01:03 Est GFR (Non-Af Amer) 56 (> 60) L 02/26/17 01:03 BUN/Creatinine Ratio 35 (6-26) H 02/26/17 01:03 Calculated Osmolality 301 (280-300) H 02/26/17 01:03 Troponin I 0.73 ng/mL (0-0.03) H* 02/26/17 01:23 B-Natriuretic Peptide 1947 pg/mL (0-100) H 02/25/17 14:06 - Diagnostic Findings Chest x-ray: report reviewed, image reviewed CT scan - chest: report reviewed, image reviewed - Clinical Findings Intake & Output: Intake & Output 02/25/17 02/26/17 02/26/17 23:59 07:59 15:59 Intake Total 0 / 0 260 / 260 220 / 220 Output Total 520 / 520 500 / 500 400 / 400 Balance -520 / -520 -240 / -240 -180 / -180 Weight 76 kg Consult Discharge Plan - Plan Referrals: Homero Love MD [Primary Care Provider] -
--- NOTE | 2017-02-26 15:23 | Electrocardiograph Report ---
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
--- NOTE | 2017-02-26 18:35 | Oncology Inp Consult Note ---
Date of Encounter: 02/26/17 Time of Encounter: 17:00 Assessment and Plan (1) Pulmonary embolism Status: Acute Assessment and plan: 86-year-old male with history of CAD, low ejection fraction, atrial fibrillation on long-term anticoagulation, and antiplatelet therapy reports compliance with medications at home, hospitalized with acute shortness of breath with hypoxemia CT imaging. Acute pulmonary embolism, wedge shaped consolidative changes, questionable as contrast not extended distally-per Pulmonary-shown improvement with diuresis, treatment of COPD. Due to hemoptysis, possible bronchoscopy to rule out acute bleeding, other abnormalities prior to resuming anticoagulation seems reasonable. He appears comfortable on oxygen currently. Echo from 02/19/17 reviewed, may need to rpt to r/o cardiac thrombus in the interim and nasreen venous doppler. For the snf he is at risk for PE and stroke and continued anticoagulation with eliquis suggested at dose recommended by cardiology/+- anti platelet therapy. Paln is discussed with aptient and family bedside. Qualifiers: Qualified Code(s): I26.99 - Other pulmonary embolism without acute cor pulmonale - Data of Consult Requesting Physician: Royce Lee DO Primary Care Provider: Homero Love MD - Consult Narrative Reason for consult: pe, a fib, hemoptysis History of present illness: Mr. Almendarez is a 86 year old male with medical history significant for COPD, atrial fibrillation, coronary artery disease, gastroesophageal reflux disease, myocardial infarction, hypertension, hospitalization and discharge for STEMI recently has been on antiplatelet therapy, this is an outpatient, hospitalized with acute shortness of breath and hypoxemia, CT angiogram showed filling defect in bilateral segmental, subsegmental pulmonary arteries, read as acute pulmonary embolism, patient hospitalized and started heparin. Patient reports blood mixed with sputum when he coughs. Heparin has been held hemoptysis was more pronounced this AM. Cardiogram in June 2016 and repeat echo test January 2017 did not show any cardiac thrombus. Patient reports his breathing has improved since he has been admitted, after diuresis, breathing Rx. Pulmonary note reviewed, possible bronchitis exacerbating SOB. Patient has COPD on home oxygen. He reports compliance with eliquis. Past Med Surg Social Fam HX - Past Medical History Medical history: atrial fibrillation, COPD, coronary artery disease, GERD, hyperlipidemia, hypertension, myocardial infarction, other Psychiatric history: no psych history - Past Surgical History Surgical History: cholecystectomy, pacemaker/AICD - Social History Smoking Status: Former smoker Smokeless Tobacco Status: Yes (CHEW) Alcohol use: none Drug use: none - Family History Mother Hx Family Cancer: Yes Hx Family Neurologic Disorders: Yes (CVA) Brother Hx Family Cancer: Yes Medications and Allergies Albuterol Neb [Proventil Neb] 2.5 mg IH Q4HR 07/30/15 [History] Apixaban [Eliquis] 5 mg PO BID 07/30/15 [History] Aspirin [Adult Low Dose Aspirin EC] 81 mg PO DAILY 07/30/15 [History] B2/Vits A,C,E/Lut/Zeaxanth/Min [Icaps Tablet] 1 tab PO DAILY 07/30/15 [History] Calcium Carbonate/Vitamin D3 [Calcium 600 + Vit D Tablet] 1 tab PO DAILY [History] Cyclobenzaprine [Flexeril] 10 mg PO HS 07/30/15 [History] Famotidine [Pepcid] 20 mg PO DAILY 07/30/15 [History] Gluc/Alan-MSM#1/C/Navdeep/Amandeep/Bor [Osteo Bi-Flex Caplet] 1 cap PO DAILY 07/30/15 [ History] [place]-3S/Dha/Epa/Fish Oil [Fish Oil 1,200 mg Softgel] 1,200 mg PO DAILY [History] Potassium Chloride [K-Tab ER] 20 meq PO DAILY 07/30/15 [History] Tiotropium [Spiriva] 18 mcg IH DAILY 07/30/15 [History] Acetaminophen [Tylenol] 500 mg PO BID PRN 02/19/17 [History] Lisinopril [Zestril] 5 mg PO DAILY 02/19/17 [History] Atorvastatin [Lipitor] 40 mg PO HS #30 tab 02/20/17 [Rx] Budesonide/Formoterol 160/4.5 [Symbicort 160/4.5] 2 puff IH BIDR 02/20/17 [Rx] Furosemide [Lasix] 20 mg PO DAILY #30 tablet 02/20/17 [Rx] Ticagrelor [Brilinta] 90 mg PO BID #60 tab 02/20/17 [Rx] Metoprolol XL (24 HR) Succ [Toprol XL] 75 mg PO DAILY 02/25/17 [History] Allergies No Known Allergies Allergy (Unverified 07/19/15 10:47) Review of systems: as in HPI Oncology - Exam - Constitutional Vitals: Temp Pulse Resp BP Pulse Ox 97.8 F 73 16 131/62 99 02/26/17 16:31 02/26/17 16:31 02/26/17 16:48 02/26/17 16:31 02/26/17 16:48 General appearance: average body habitus, no acute distress - Head Head exam: Present: atraumatic, normal inspection - Eye Eye exam: Present: sclera anicteric - ENT Additional comments: On O2 NC, no bleeding - Neck Neck exam: Present: full ROM - Respiratory Respiratory exam: Present: CTAB - Cardiovascular Cardiovascular exam: Present: +S1, +S2 - GI/Abdominal GI/Abdominal exam: Present: normal bowel sounds, soft - Extremities Exam Extremities exam: Present: normal inspection - Neurological Exam Neurological exam: Present: alert, CN II-XII intact, oriented X3 Oncology - Results - Labs Labs: Short CBC 02/26/17 Range/Units 01:03 WBC 9.1 (4.3-11.1) K/mcL Hgb 12.7 L (12.9-16.9) g/dL Hct 40.5 (37.5-50.1) % Plt Count 204 (140-400) K/mcL Neutrophils # 7.0 (1.6-8.9) K/mcL BMP 02/26/17 01:03 Sodium 140 Potassium 4.8 H Chloride 107 Carbon Dioxide 23 BUN 43 H Creatinine 1.23 Glucose 99 Calcium 10.1 Cardiac Enzymes 02/25/17 02/26/17 Range/Units 19:55 01:23 Troponin I 0.91 H* 0.73 H* (0-0.03) ng/mL - Imaging and Cardiology CT scan - chest Status: image reviewed by me Consult Discharge Plan - Plan Referrals: Homero Love MD [Primary Care Provider] - 03/07/17 11:30 am
[2017-02-26 18:56] LABS: BUN/Creatinine Ratio 35 (6-26); Blood Urea Nitrogen 46 mg/dL (8-26); Calcium 9.9 mg/dL (8.6-10.8); Carbon Dioxide 27 mEq/L (19-29); Chloride 104 mEq/L (98-109); Glucose 110 mg/dL (70-99); Osmolality,Calculated 305 (280-300); Sodium 141 mEq/L (136-145); eGFR For African Americans > 60 (> 60); eGFR For Non-African Americans 52 (> 60)
--- NOTE | 2017-02-26 20:43 | Electrocardiograph Report ---
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
--- NOTE | 2017-02-26 20:52 | Electrocardiograph Report ---
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
[2017-02-26] MEDS: Heparin 25,000 UNIT/500 ML D5W 25,000 UNIT/500 ML MLS IVC SCH (21:13)
[2017-02-27] MEDS: Albuterol 2.5 MG/3 ML NEBULIZER IH SCH ×7 (00:08→23:41)
[2017-02-27 00:41] LABS: Basophils % 0.5 %; Eosinophils # 0.2 K/mcL (0.0-0.6); Hematocrit 37.4 % (37.5-50.1); Immature Granulocytes % 0.6 % (0-4); Immature Platelets 3.7 % (1.1-6.1); Lymphocytes # 0.9 K/mcL (0.6-4.6); Lymphocytes % 10.1 %; Mean Corpuscular HGB Conc 32.1 g/dL (31.6-35.5); Mean Corpuscular Hemoglobin 31.5 pg (28.0-33.3); Mean Corpuscular Volume 98.2 fL (83.0-100.0); Mean Platelet Volume 10.3 fL (9.4-12.4); Monocytes # 0.8 K/mcL (0.0-1.3); Monocytes % 9.3 %; Neutrophils # 6.7 K/mcL (1.6-8.9); Platelet Count 219 K/mcL (140-400); Red Blood Count 3.81 M/mcL (4.19-5.50); Red Cell Distribution Width 11.8 % (11.5-14.5); Segmented Neutrophils % 77.5 %
[2017-02-27 00:53] LABS: Calcium 9.3 mg/dL (8.6-10.8); Magnesium 2.2 mg/dL (1.6-2.6)
[2017-02-27 00:54] LABS: Potassium 4.3 mEq/L (3.5-4.5)
--- NOTE | 2017-02-27 06:45 | Pulmonology Progress Note ---
Date of Encounter: 02/27/17 Time of Encounter: 06:45 Assessment and Plan (1) Acute on chronic respiratory failure with hypoxemia Current Visit: Yes Status: Acute Impression: 1. Acute Hypoxic Respiratory Failure 2. Minor Hemoptysis 3. Possible VTE 4. CAD with Recent PCI on DAPT 5. HFrEF 6. COPD with bronchitis Recs. -Wean Fio2 to keep Sao2 >88%, OOBTC , Incentive [place] -Resolving. Likely s/t to bronchitis while on LA and DAPT, Will d/w Patient but tentatively plan on Bronchoscopy tomorrow AM KEEP NPO at [place]. -Equivocal CTA for PE LE duplex pending read prelim negative. If negative would favor holding anticoagulation until at least bronchoscopy performed. Subseqeunt to that if no further hemoptysis defer to cardiology and hematology regarding absolute need for LTA and DAPT. -Cardiology following cont DAPT at present -Slight elevation in creatinine today. Would favor holding additional aggressive diuresis and consider holding ACEi -Cont MDIs recommend short course of enteral steroids and ABx as outlined in yesterday's note. (2) CAD (coronary artery disease) Current Visit: Yes Status: Acute Qualifiers: Coronary Disease-Associated Artery/Lesion type: unspecified vessel or lesion type [place] vs. transplanted heart: unspecified whether [place] or transplanted heart Associated angina: angina presence unspecified Qualified Code(s): I25.10 - Atherosclerotic heart disease of [place] coronary artery without angina pectoris (3) Cough with hemoptysis Current Visit: Yes Status: Acute (4) Pulmonary embolism Current Visit: Yes Status: Acute Qualifiers: Pulmonary embolism type: other Chronicity: acute Acute cor pulmonale presence: with acute cor pulmonale Qualified Code(s): I26.09 - Other pulmonary embolism with acute cor pulmonale (5) Paroxysmal atrial fibrillation Current Visit: Yes Status: Chronic (6) Systolic heart failure Current Visit: Yes Status: Chronic Qualifiers: Heart failure chronicity: acute on chronic Qualified Code(s): I50.23 - Acute on chronic systolic (congestive) heart failure (7) COPD (chronic obstructive pulmonary disease) Current Visit: No Status: Chronic Qualifiers: COPD type: COPD with acute exacerbation Qualified Code(s): J44.1 - Chronic obstructive pulmonary disease with (acute) exacerbation Subjective Principal diagnosis: Acute Respiratory Failure Interval history: Patient did well overnight much less short of breath and one more episode of minor hemoptysis last evening otherwise no further hemoptysis overnight heparin infusion continues to run pending official lower extremity duplex interpretation. Objective PUL Vital signs: Last Vital Signs Temp 98.2 F 02/27/17 04:00 Pulse 71 02/27/17 04:10 Resp 15 02/27/17 04:00 BP 106/50 02/27/17 04:00 Pulse Ox 92 02/27/17 04:00 General appearance: no acute distress Eyes: nonicteric Neck: supple Auscultation: bilateral: diminished breath sounds Cardiovascular: irregular rhythm Gastrointestinal: normoactive bowel sounds Extremities: edema normal mental status, non-focal exam Results - Laboratory Findings CBC and BMP: 02/27/17 00:28 02/27/17 00:28 PT/INR, D-dimer PT 21.3 Seconds (9.4-12.1) H 02/25/17 14:06 Abnormal lab findings: Abnormal lab results RBC 3.81 M/mcL (4.19-5.50) L 02/27/17 00:28 Hgb 12.0 g/dL (12.9-16.9) L 02/27/17 00:28 Hct 37.4 % (37.5-50.1) L 02/27/17 00:28 PT 21.3 Seconds (9.4-12.1) H 02/25/17 14:06 APTT 61.4 Seconds (26.0-36.0) H 02/27/17 00:28 BUN 49 mg/dL (8-26) H 02/27/17 00:28 Creatinine 1.52 mg/dL (0.72-1.25) H 02/27/17 00:28 Est GFR ( Amer) 53 (> 60) L 02/27/17 00:28 Est GFR (Non-Af Amer) 44 (> 60) L 02/27/17 00:28 BUN/Creatinine Ratio 32 (6-26) H 02/27/17 00:28 Glucose 116 mg/dL (70-99) H 02/27/17 00:28 Calculated Osmolality 302 (280-300) H 02/27/17 00:28 Troponin I 0.35 ng/mL (0-0.03) H* 02/27/17 00:28 B-Natriuretic Peptide 1947 pg/mL (0-100) H 02/25/17 14:06 - Diagnostic Findings U/S of Legs: pending (Prelim Negative for DVT ) - Clinical Findings Intake & Output: Intake & Output 02/26/17 02/26/17 02/27/17 15:59 23:59 07:59 Intake Total 460 / 460 500 / 500 Output Total 400 / 400 120 / 120 Balance 60 / 60 380 / 380 Weight 75.8 kg Consult Discharge Plan - Plan Referrals: Homero Love MD [Primary Care Provider] - 03/07/17 11:30 am
[2017-02-27] MEDS: Budesonide/Formoterol 160/4.5 MDI IH SCH ×2 (08:20→19:45)
[2017-02-27] MEDS: Metoprolol XL (24 HR) Succ 50 MG TAB.ER.24H PO SCH (08:52)
[2017-02-27] MEDS: Famotidine 20 MG TABLET PO SCH (08:52)
[2017-02-27] MEDS: Aspirin Enteric Coated 81 MG Tablet PO SCH (08:52)
[2017-02-27] MEDS: *HR* Ticagrelor 90 MG TABLET PO SCH ×2 (08:52→20:03)
--- NOTE | 2017-02-27 09:55 | Cardiology Progress Note ---
<Jose Guzmán - Last Filed: 02/27/17 13:00> Date of Encounter: 02/27/17 Time of Encounter: 09:15 Assessment and Plan (1) Pulmonary embolism Current Visit: Yes Status: Acute Discussed the case with pulmonology and reviewed there note. Appears patient may not have had a PE. Defect noted by radiologist may have been from timing of contrast. US of the LE preliminarily is negative for DVT. There is a superficial venous thrombosis present. I have also reviewed hematologies recommendations. Currently he is comfortable on 4L of oxygen via NC. He is hemodynamically stable. Echo reveals EF of 30 %. Normal size and function of the RV. Patient will have bronchoscopy in the AM. Recomendations: Discontinue heparin gtt. Recent JOSE placed. Recommend continuing DAPT. Qualifiers: Qualified Code(s): I26.99 - Other pulmonary embolism without acute cor pulmonale (2) Hemoptysis Current Visit: Yes Status: Acute continues to have mild hemoptysis. Hg trended down slightly. Hemodynamically stable. Likley from bronchitis in the setting of triple therapy. Recommend discontinuing Heparin gtt. continue DAPT. He will need snf anticoagulation for Atrial fibrillation and stroke prevention. Given that it is unlikely a PE could resume eliquis after bronchoscopy and hemoptyisis have resolved. (3) Elevated troponin Current Visit: Yes Status: Acute Trending down significantly since last admission. Patient had recent admission for NSTEMI. Patient had recent PTCA on 02/18/17 with JOSE placed to RCA. This was followed by selective coronary angiography with IVUS on 02/19/17 Tn on 02/20/17 was 20.36. On readmission 02/25/17 it was 1.04 and continues to trend down. Patient has had no chest pain. I would not classify this as NSTEMI but rather his troponin elevation is from prior NSTEMI and trending down. Patient is asymptomatic. Patient declined cardiac rehab at last visit and continues to decline rehab at this time. (4) CAD (coronary artery disease) Current Visit: Yes Status: Acute From [facility] on 02/18/17 and selective angiography from 02/19/17 * Left Main Coronary Artery There is a 40-50% stenosis in the LMCA. * Left Anterior Descending There is a 80% stenosis in the Proximal LAD. There is a 50% stenosis in the Mid LAD. * Circumflex There is a 50% stenosis in the Mid Circumflex. There was 28mm long 99% stenosis of the mid RCA prior to JOSE being placed. YANETH flow was 3 after inervention. Recommend continuing DAPT. He will need at least a year prior to interruption. continue Lipitor. Qualifiers: Coronary Disease-Associated Artery/Lesion type: unspecified vessel or lesion type [place] vs. transplanted heart: unspecified whether [place] or transplanted heart Associated angina: angina presence unspecified Qualified Code(s): I25.10 - Atherosclerotic heart disease of [place] coronary artery without angina pectoris (5) Paroxysmal atrial fibrillation Current Visit: Yes Status: Chronic Currently patient is rate controlled. Continue Toprol. CHADSVASC score is 5 ( age, CHF, HTN, CAD) currently on heparin gtt. recommend discontinuing for hemoptysis. Can resume eliquis once resolved. Will need snf AC for stroke prevention. (6) Non-sustained ventricular tachycardia Current Visit: Yes Status: Acute Reviewed 24 hour Telemetry. lpatient continues to have numerous PVCs. He had just over 5000 in the past 24 hours. Spoke with daughter. Patient also has long history of PVCs patient also has recent NSTEMI and hypoxemia. Recommendations: continue Toprol to 100 mg daily. continue telemetry. (7) Systolic heart failure Current Visit: Yes Status: Chronic HFrEF Last echo shows EF of 30%. Mildly volume overloaded with pleurel effusions seen on CTA. continue duresis. He dose have a [employer] BVICD in place. continue beta dorian. continue lisinopril. patient developing Nia. May be secondary to volume overload. Would continue diuresis. Repeat renal function studies in AM. Qualifiers: Heart failure chronicity: acute on chronic Qualified Code(s): I50.23 - Acute on chronic systolic (congestive) heart failure (8) Acute on chronic respiratory failure with hypoxemia Current Visit: Yes Status: Acute patient is on chronic O2 at home for COPD. patient currently on 4L but saturating 100%. would recommend titrating O2 down if tolerated. (9) Hyperkalemia Current Visit: Yes Status: Acute resolved (10) Presence of biventricular cardiac pacemaker Current Visit: Yes Status: Acute patient has BVICD This was interrogated at 1341 on 02/25/17. device appears to be functioning properly at this time. 43 episodes of NSVT were noted. Average rate was 100. Discussion w patient/family: The assessment and plan as outlined above was discussed with the patient and/or family members who expressed understanding and agreement. All questions were answered. Thank you for involving us in the care of your patient. Please call with any questions. Subjective Principal diagnosis: Acute Respiratory Failure Interval history: No major events overnight. Patient continues to have small amounts of hemoptysis. PAtietn and daughter states that it is " slowing down". He has a container at the bed side with 3 small blood clots ( dime size) present. He states that his dyspnea is improving. He denies any chest pain or discomfort. No syncope presyncope of palpitations. He has no further complaints at this time. Objective Vital Signs, Last 4 Hours Temp Pulse Resp BP Pulse Ox 02/27/17 08:22 16 100 02/27/17 08:00 90 02/27/17 07:23 98.3 F 83 16 145/63 100 General: Conversant, No Apparent Distress HEENT: Atraumatic, Normocephaly, Mucus Membranes Moist Neck: No JVD, Normal carotid pulses Cardiac: Reg Rate and Rhythm, Normal S1 and S2, Other (He has a 2/6 systolic murmur heard at the left lower sternal border. ) Lungs: Normal Breath Sounds, No Wheeze, Rales, Rhonchi Neuro: Alert and responsive, No focal deficits noted Abdomen: Soft, Non-Tender Skin: No rashes noted on visualized skin Musculoskeletal: No Chest Wall Tenderness Extremities: No Clubbing, No Cyanosis, No Edema Results 02/27/17 00:28 02/27/17 00:28 Lab Results 02/26/17 02/26/17 02/26/17 09:35 18:07 18:07 WBC Hgb Hct Plt Count APTT 108.5 H D 89.4 H Sodium 141 Potassium 4.0 Chloride 104 Carbon Dioxide 27 BUN 46 H Creatinine 1.31 H Glucose 110 H Calcium 9.9 Magnesium 2.0 Troponin I 02/27/17 02/27/17 02/27/17 00:28 00:28 00:28 WBC 8.6 Hgb 12.0 L Hct 37.4 L Plt Count 219 APTT Sodium 139 Potassium 4.3 Chloride 106 Carbon Dioxide 23 BUN 49 H Creatinine 1.52 H Glucose 116 H Calcium 9.3 Magnesium 2.2 Troponin I 0.35 H* 02/27/17 00:28 WBC Hgb Hct Plt Count APTT 61.4 H Sodium Potassium Chloride Carbon Dioxide BUN Creatinine Glucose Calcium Magnesium Troponin I Consult Discharge Plan - Plan Referrals: Homero Love MD [Primary Care Provider] - 03/07/17 11:30 am <LaliEva - Last Filed: 02/27/17 15:15> Date of Encounter: 02/27/17 Assessment and Plan Discussion w patient/family: Mr. Almendarez has no new symptoms to report. He is accompanied by his daughter. His CT scan is not definitive of a PE and hospitalist is waiting for LE US to return to stop heparin. He continues to have hemoptysis and there is plan for bronchoscopy tomorrow. Hgb is stable. I recommend continuing DAPT for recent PCI. Once heparin is hemoptysis workup is complete, will need to consider and discuss anticoagulation with the patient and family for AFIB. Otherwise, he would benefit from diuresis - renal function declining and home lasix has been stopped. Daughters questions were answered. Objective Vital Signs, Last 4 Hours Temp Pulse Resp BP Pulse Ox 02/27/17 11:39 16 100 02/27/17 11:29 77 02/27/17 11:28 97.7 F 76 16 128/59 97 Results 02/27/17 00:28 02/27/17 00:28 Lab Results 02/26/17 02/26/17 02/27/17 18:07 18:07 00:28 WBC 8.6 Hgb 12.0 L Hct 37.4 L Plt Count 219 APTT 89.4 H Sodium 141 Potassium 4.0 Chloride 104 Carbon Dioxide 27 BUN 46 H Creatinine 1.31 H Glucose 110 H Calcium 9.9 Magnesium 2.0 Troponin I 02/27/17 02/27/17 02/27/17 00:28 00:28 00:28 WBC Hgb Hct Plt Count APTT 61.4 H Sodium 139 Potassium 4.3 Chloride 106 Carbon Dioxide 23 BUN 49 H Creatinine 1.52 H Glucose 116 H Calcium 9.3 Magnesium 2.2 Troponin I 0.35 H*
--- NOTE | 2017-02-27 10:53 | Internal Med Progress Note ---
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 There is global hypokinesis with regional variations. Mild left ventricular diastolic dysfunction. cont duoneb and O2 cont pain meds PRN Pulmonary and Hem Onc on board Qualifiers: Qualified Code(s): I26.99 - Other pulmonary embolism without acute cor pulmonale (2) Acute on chronic respiratory failure with hypoxemia Current Visit: Yes Status: Acute Assessment and plan: Improving no signs of inf no need of abx cont duoneb and o2 (3) Cough with hemoptysis Current Visit: Yes Status: Acute Assessment and plan: Cont close monitoring stable Hb no gross bleeding noticed Will hold Heparin if venous doppler negative (4) NSTEMI (non-ST elevated myocardial infarction) Current Visit: No Status: Acute Assessment and plan: Elevated troponin due to demand ischemia with PE no acute EKG changes Troponin started trending down Card is on board (5) CAD (coronary artery disease) Current Visit: Yes Status: Acute Assessment and plan: recent LHC on 02/18/17 and selective angioplasty from 02/19/17- 40-50% stenosis in the LMCA. 80% stenosis in the Proximal LAD. 50% stenosis in the Mid LAD. 50% stenosis in the Mid Circumflex. There was 28mm long 99% stenosis of the mid RCA prior to JOSE being placed Cont ASA and Brilinta ( DAPT ) as per card recommendation he does have frequent PVC Currently on Metoprolol dose to 100mg cont close monitoring Qualifiers: Coronary Disease-Associated Artery/Lesion type: unspecified vessel or lesion type [place] vs. transplanted heart: unspecified whether [place] or transplanted heart Associated angina: angina presence unspecified Qualified Code(s): I25.10 - Atherosclerotic heart disease of [place] coronary artery without angina pectoris (6) Paroxysmal atrial fibrillation Current Visit: Yes Status: Chronic Assessment and plan: not in RVR rate controlled cont home med Metoprolol on heparin gtt for anticoag (7) COPD (chronic obstructive pulmonary disease) Current Visit: No Status: Chronic Assessment and plan: not in exacerbation Qualifiers: COPD type: COPD with acute exacerbation Qualified Code(s): J44.1 - Chronic obstructive pulmonary disease with (acute) exacerbation (8) Systolic heart failure Current Visit: Yes Status: Chronic Assessment and plan: started him IV lasix 20mg BID resumed other medications cont close monitoring Qualifiers: Heart failure chronicity: acute on chronic Qualified Code(s): I50.23 - Acute on chronic systolic (congestive) heart failure (9) DENNIS (acute kidney injury) Current Visit: Yes Status: Acute Assessment and plan: ?? Cardio renal syndrome will start him on low dose of Lasix cont close monitoring - Subjective Interval history: Mr. Almendarez is a 86 year old male patient with history of coronary artery disease status post PCI most recent was a week ago with PCI to the RCA on dual anti platelet therapy aspirin and Brilinta, with eliquis for A fib recently discharged from the hospital 5 days ago, now he presented to emergency room on 02/25/17 with worsening shortness of breath, Left pleurisy chest pain and coughing up blood. He was admitted for b/l PE and elevated troponin. Pt denied any active chest pain at this moment. Pt is alert, awake and O x 3. Denied any leg pain b/l. He still has hemoptysis but over all better today. - Constitutional Vitals: Temp Pulse Resp BP Pulse Ox 98.3 F 90 16 145/63 94 02/27/17 07:23 02/27/17 08:00 02/27/17 08:22 02/27/17 07:23 02/27/17 10:08 General appearance: Present: A&O X 3, no acute distress, answers questions appropriately - Head Head exam: Present: atraumatic, normal inspection - Neck Neck exam general surgery: Present: supple. Absent: tenderness - Respiratory Respiratory exam: Present: decreased breath sounds, wheezes. Absent: rales, respiratory distress, rhonchi - Cardiovascular Cardiovascular exam: Present: RRR, +S1, +S2. Absent: systolic murmur - GI/Abdominal GI/Abdominal exam: Present: normal bowel sounds, soft. Absent: distended, guarding, rebound, rigid, tenderness - Extremities Exam Extremities exam: Absent: calf tenderness, pedal edema, tenderness - Neurological Exam Neurological exam: Present: alert, oriented X3 - Psychiatric Psychiatric exam: Present: normal affect, normal mood Internal Medicine: Result - Labs CBC & Chem 7: 02/27/17 00:28 02/27/17 00:28 Labs: Short CBC 02/27/17 Range/Units 00:28 WBC 8.6 (4.3-11.1) K/mcL Hgb 12.0 L (12.9-16.9) g/dL Hct 37.4 L (37.5-50.1) % Plt Count 219 (140-400) K/mcL Neutrophils # 6.7 (1.6-8.9) K/mcL BMP 02/26/17 02/27/17 18:07 00:28 Sodium 141 139 Potassium 4.0 4.3 Chloride 104 106 Carbon Dioxide 27 23 BUN 46 H 49 H Creatinine 1.31 H 1.52 H Glucose 110 H 116 H Calcium 9.9 9.3 Cardiac Enzymes 02/27/17 Range/Units 00:28 Troponin I 0.35 H* (0-0.03) ng/mL - ABG Interpretation ABG results: PT/INR, D-dimer PT 21.3 Seconds (9.4-12.1) H 02/25/17 14:06 Consult Discharge Plan - Plan Referrals: Homero Love MD [Primary Care Provider] - 03/07/17 11:30 am
[2017-02-27] MEDS: Furosemide 20 MG/2 ML VIAL IVP SCH ×2 (11:18→17:08)
[2017-02-27] MEDS: Tiotropium 18 MCG inhalation IH SCH (11:37)
[2017-02-27] MEDS: Heparin 25,000 UNIT/500 ML D5W 25,000 UNIT/500 ML MLS IVC SCH (18:37)
--- NOTE | 2017-02-27 21:40 | Venous Imaging Report ---
LE Venous Duplex Patient Name:Enmanuel Almendarez Order Number:[id number] Procedure Date:02/26/2017 Date:1930ge:86 yrs Gender:Male Location:[facility] Room #: 2N12 Pin Worker:Marquita Sanchez RDCS Referring MD:Polo Esposito MD ship scaler:Homero Love MD Reading MD:Mamadou Galeas MD , FACS Primary Indications:Pulmonary embolus Secondary Indications: Impressions: Lower extremity abnormal superficial exam: right lesser saphenous vein demonstrates acute thrombosis. Right lower extremity: normal deep exam. Left lower extremity: normal superficial and deep exam. Recommendations: Preliminary noted in pt EMR. Findings Venous Duplex Results: Right: Venous imaging of the lower extremity reveals full patency and normal vessel compressibility of the right distal iliac, right common femoral, right superficial femoral, right popliteal, right posterior tibial, right peroneal and right great saphenous. Doppler signals in the evaluated veins were normal. The right lesser saphenous demonstrates an incompressible vein. Flow was continuous and it did not augment. Left: Venous imaging of the lower extremity reveals full patency and normal vessel compressibility of the left distal iliac, left common femoral, left superficial femoral, left popliteal, left posterior tibial, left peroneal, left great saphenous and left lesser saphenous. Doppler signals in the evaluated veins were normal. Prior Study: No prior study available for comparison. Lower Extremity Venous Duplex Side Vein Compress Spontaneous Flow Augment Diameter (cm) Depth (cm) Right Distal Iliac Normal Yes Phasic Yes Right Common Femoral Normal Yes Phasic Yes Right Superficial Femoral Normal Yes Phasic Yes Right Popliteal Normal Yes Phasic Yes Right Posterior Tibial Normal Yes Phasic Yes Right Peroneal Normal Yes Phasic Yes Right Great Saphenous Normal Yes Phasic Yes Right Lesser Saphenous None no Continuous no Left Distal Iliac Normal Yes Phasic Yes Left Common Femoral Normal Yes Phasic Yes Left Superficial Femoral Normal Yes Phasic Yes Left Popliteal Normal Yes Phasic Yes Left Posterior Tibial Normal Yes Phasic Yes Left Peroneal Normal Yes Phasic Yes Left Great Saphenous Normal Yes Phasic Yes Left Lesser Saphenous Normal Yes Phasic Yes Updated by Mamadou Galeas MD, FACS on 02/27/2017 9:34:42 PM Mamadou Galeas MD electronically signed on 02/27/2017 9:35:04 PM with status of Final
[2017-02-28] MEDS: Albuterol 2.5 MG/3 ML NEBULIZER IH SCH ×6 (03:53→23:59)
--- NOTE | 2017-02-28 06:45 | Pulmonology Progress Note ---
Date of Encounter: 02/28/17 Time of Encounter: 06:45 Assessment and Plan (1) Acute on chronic respiratory failure with hypoxemia Current Visit: Yes Status: Acute Impression: 1. Acute Hypoxic Respiratory Failure 2. Minor Hemoptysis 3. Acute Pulmonary Embolus 4. CAD with Recent PCI on DAPT 5. HFrEF 6. COPD with bronchitis Recs. 1. This is multifactorial continue to wean FiO2 to keep saturation around 89-92 % would encourage out of bed to chair and ambulation as the patient tolerates under monitored supervision 2. This is likely secondary to acute pulmonary embolus with possible infarct versus bronchitis while on dual antiplatelet therapy and anticoagulation we will continue to monitor favor continuation of anticoagulation for acute pulmonary embolism if increasing amounts of hemoptysis or massive hemoptysis clearly anticoagulation should be held patient should receive a IVC filter 3. Continue heparin infusion; recommend Heme/Onc determine if this represents a failure of [place] or medication noncompliance can be invoked defer to their judgment about home-going anticoagulant 4. Cardiology following the patient defer to their management for this issue 5. slight bump in creatinine during course of hospitalization given the stability of respiratory status would favor against ongoing aggressive diuresis 6. Recommend prednisone 5 days with antimicrobial for bronchitis for 5 days as outlined in previous note. Continue metered-dose inhalers as scheduled and as needed albuterol (2) CAD (coronary artery disease) Current Visit: Yes Status: Acute Qualifiers: Coronary Disease-Associated Artery/Lesion type: unspecified vessel or lesion type [place] vs. transplanted heart: unspecified whether [place] or transplanted heart Associated angina: angina presence unspecified Qualified Code(s): I25.10 - Atherosclerotic heart disease of [place] coronary artery without angina pectoris (3) Cough with hemoptysis Current Visit: Yes Status: Acute (4) Pulmonary embolism Current Visit: Yes Status: Acute Qualifiers: Pulmonary embolism type: other Chronicity: acute Acute cor pulmonale presence: with acute cor pulmonale Qualified Code(s): I26.09 - Other pulmonary embolism with acute cor pulmonale (5) Paroxysmal atrial fibrillation Current Visit: Yes Status: Chronic (6) Systolic heart failure Current Visit: Yes Status: Chronic Qualifiers: Heart failure chronicity: acute on chronic Qualified Code(s): I50.23 - Acute on chronic systolic (congestive) heart failure (7) COPD (chronic obstructive pulmonary disease) Current Visit: No Status: Chronic Qualifiers: COPD type: COPD with acute exacerbation Qualified Code(s): J44.1 - Chronic obstructive pulmonary disease with (acute) exacerbation Subjective Principal diagnosis: Acute Respiratory Failure Interval history: Was restarted on heparin drip yesterday evening, not hemoptysis has nearly resolved he had about a half a teaspoon of old blood that he coughed up next to his bedside. He generally feels okay and denies shortness of breath. Objective PUL Vital signs: Last Vital Signs Temp 97.2 F L 02/28/17 04:03 Pulse 71 02/28/17 04:24 Resp 18 02/28/17 04:03 BP 104/58 02/28/17 04:03 Pulse Ox 98 02/28/17 04:03 General appearance: no acute distress Auscultation: bilateral: diminished breath sounds, rales Cardiovascular: regular rate and rhythm normal mental status, non-focal exam mood appropriate Results - Laboratory Findings CBC and BMP: 02/27/17 00:28 02/27/17 00:28 PT/INR, D-dimer PT 21.3 Seconds (9.4-12.1) H 02/25/17 14:06 Abnormal lab findings: Abnormal lab results RBC 3.81 M/mcL (4.19-5.50) L 02/27/17 00:28 Hgb 12.0 g/dL (12.9-16.9) L 02/27/17 00:28 Hct 37.4 % (37.5-50.1) L 02/27/17 00:28 PT 21.3 Seconds (9.4-12.1) H 02/25/17 14:06 APTT 58.3 Seconds (26.0-36.0) H 02/28/17 00:35 BUN 49 mg/dL (8-26) H 02/27/17 00:28 Creatinine 1.52 mg/dL (0.72-1.25) H 02/27/17 00:28 Est GFR ( Amer) 53 (> 60) L 02/27/17 00:28 Est GFR (Non-Af Amer) 44 (> 60) L 02/27/17 00:28 BUN/Creatinine Ratio 32 (6-26) H 02/27/17 00:28 Glucose 116 mg/dL (70-99) H 02/27/17 00:28 Calculated Osmolality 302 (280-300) H 02/27/17 00:28 Troponin I 0.35 ng/mL (0-0.03) H* 02/27/17 00:28 B-Natriuretic Peptide 1947 pg/mL (0-100) H 02/25/17 14:06 - Clinical Findings Intake & Output: Intake & Output 02/27/17 02/27/17 02/28/17 15:59 23:59 07:59 Intake Total 740 / 740 240 / 240 0 / 0 Output Total 450 / 450 Balance 740 / 740 -210 / -210 0 / 0 Weight 75.7 kg Consult Discharge Plan - Plan Referrals: Homero Love MD [Primary Care Provider] - 03/07/17 11:30 am
[2017-02-28] MEDS: Famotidine 20 MG TABLET PO SCH (07:37)
[2017-02-28] MEDS: Metoprolol XL (24 HR) Succ 50 MG TAB.ER.24H PO SCH (07:37)
[2017-02-28] MEDS: Aspirin Enteric Coated 81 MG Tablet PO SCH (07:37)
[2017-02-28] MEDS: *HR* Ticagrelor 90 MG TABLET PO SCH ×2 (07:37→20:35)
[2017-02-28] MEDS: Furosemide 20 MG/2 ML VIAL IVP SCH (07:37)
[2017-02-28] MEDS: Budesonide/Formoterol 160/4.5 MDI IH SCH ×2 (07:38→20:14)
[2017-02-28] MEDS: Tiotropium 18 MCG inhalation IH SCH (07:39)
[2017-02-28 08:09] LABS: INR 1.3; Prothrombin Time 13.6 Seconds (9.4-12.1)
[2017-02-28 08:11] LABS: Activated Partial Thrombo Time 72.1 Seconds (26.0-36.0)
[2017-02-28 08:17] LABS: BUN/Creatinine Ratio 36 (6-26); Blood Urea Nitrogen 49 mg/dL (8-26); Calcium 9.2 mg/dL (8.6-10.8); Carbon Dioxide 28 mEq/L (19-29); Chloride 106 mEq/L (98-109); Glucose 101 mg/dL (70-99); Osmolality,Calculated 305 (280-300); Potassium 4.1 mEq/L (3.5-4.5); Sodium 141 mEq/L (136-145); eGFR For African Americans > 60 (> 60); eGFR For Non-African Americans 50 (> 60)
[2017-02-28 08:33] LABS: Basophils # 0.1 K/mcL (0.0-0.2); Basophils % 0.6 %; Eosinophils # 0.3 K/mcL (0.0-0.6); Eosinophils % 4.1 %; Hematocrit 36.1 % (37.5-50.1); Hemoglobin 11.5 g/dL (12.9-16.9); Immature Granulocytes % 0.5 % (0-4); Lymphocytes % 12.8 %; Mean Corpuscular HGB Conc 31.9 g/dL (31.6-35.5); Mean Corpuscular Hemoglobin 31.4 pg (28.0-33.3); Mean Corpuscular Volume 98.6 fL (83.0-100.0); Mean Platelet Volume 10.1 fL (9.4-12.4); Monocytes # 0.7 K/mcL (0.0-1.3); Monocytes % 9.5 %; Neutrophils # 5.7 K/mcL (1.6-8.9); Platelet Count 200 K/mcL (140-400); Red Blood Count 3.66 M/mcL (4.19-5.50); Red Cell Distribution Width 11.9 % (11.5-14.5); Segmented Neutrophils % 72.5 %
--- NOTE | 2017-02-28 09:03 | Internal Med Progress Note ---
Date of Encounter: 02/28/17 Time of Encounter: 09:01 - Assessment and plan (1) Pulmonary embolism Current Visit: Yes Status: Acute Assessment and plan: Spoke to pulmonologst - who confirmed that pt did have Rt and Left lower lobe segmental and sub segmental PE His current hemoptysis also due to PE and possible pulmonary infarction So will cont heparin at low dose now..to keep PTT @ 50-60 Venous doppler in both legs -showed No DVT, however he does superficial thrombus in Rt lesser saphenous vein 2 D echo - severe LV systolic dysfunction, LVEF 30%. There is global hypokinesis with regional variations. Mild left ventricular diastolic dysfunction. cont duoneb and O2 cont pain meds PRN Will talk to Heme Onc about home anti coag options Met with pt's daughter at bed side and explained to her about current care and answered all her questions Qualifiers: Qualified Code(s): I26.99 - Other pulmonary embolism without acute cor pulmonale (2) Acute on chronic respiratory failure with hypoxemia Current Visit: Yes Status: Acute Assessment and plan: Improving no signs of inf - normal WBC, remained afebrile no need of abx he does have moderate wheezing will start him steroids today cont duoneb and o2 (3) Cough with hemoptysis Current Visit: Yes Status: Acute Assessment and plan: Cont close monitoring stable Hb little better today cont heparin gtt at low dose (4) NSTEMI (non-ST elevated myocardial infarction) Current Visit: No Status: Acute Assessment and plan: Elevated troponin due to demand ischemia with PE no acute EKG changes Troponin started trending down Card is on board (5) CAD (coronary artery disease) Current Visit: Yes Status: Acute Assessment and plan: recent LHC on 02/18/17 and selective angioplasty from 02/19/17- 40-50% stenosis in the LMCA. 80% stenosis in the Proximal LAD. 50% stenosis in the Mid LAD. 50% stenosis in the Mid Circumflex. There was 28mm long 99% stenosis of the mid RCA prior to JOSE being placed Cont ASA and Brilinta ( DAPT ) as per card recommendation he does have frequent PVC Currently on Metoprolol dose to 100mg cont close monitoring Qualifiers: Coronary Disease-Associated Artery/Lesion type: unspecified vessel or lesion type [place] vs. transplanted heart: unspecified whether [place] or transplanted heart Associated angina: angina presence unspecified Qualified Code(s): I25.10 - Atherosclerotic heart disease of [place] coronary artery without angina pectoris (6) Paroxysmal atrial fibrillation Current Visit: Yes Status: Chronic Assessment and plan: not in RVR rate controlled cont home med Metoprolol on heparin gtt for anticoag (7) COPD (chronic obstructive pulmonary disease) Current Visit: No Status: Chronic Assessment and plan: Pt might be in mild exacerbation with moderate wheezing will start him on IV steroids today for short course Qualifiers: COPD type: COPD with acute exacerbation Qualified Code(s): J44.1 - Chronic obstructive pulmonary disease with (acute) exacerbation (8) Systolic heart failure Current Visit: Yes Status: Chronic Assessment and plan: change to PO Lasix resumed other medications cont close monitoring Qualifiers: Heart failure chronicity: acute on chronic Qualified Code(s): I50.23 - Acute on chronic systolic (congestive) heart failure (9) DENNIS (acute kidney injury) Current Visit: Yes Status: Acute Assessment and plan: ?? Cardio renal syndrome started trending down switched to PO Lasix cont close monitoring - Subjective Interval history: Mr. Almendarez is a 86 year old male patient with history of coronary artery disease status post PCI most recent was a week ago with PCI to the RCA on dual anti platelet therapy aspirin and Brilinta, with eliquis for A fib recently discharged from the hospital 5 days ago, now he presented to emergency room on 02/25/17 with worsening shortness of breath, Left pleurisy chest pain and coughing up blood. He was admitted for b/l PE and elevated troponin. Pt denied any active chest pain at this moment. Pt is alert, awake and O x 3. Denied any leg pain b/l. He did have more frequent episodes of hemoptysis y/d, but since last night it got better. - Constitutional Vitals: Temp Pulse Resp BP Pulse Ox 97.7 F 74 17 122/50 97 02/28/17 07:31 02/28/17 07:48 02/28/17 07:41 02/28/17 07:31 02/28/17 07:41 General appearance: Present: A&O X 3, no acute distress, answers questions appropriately - Head Head exam: Present: atraumatic, normal inspection - Respiratory Respiratory exam: Present: decreased breath sounds, wheezes (moderate wheezing) . Absent: rales, respiratory distress, rhonchi - Cardiovascular Cardiovascular exam: Present: RRR, +S1, +S2. Absent: systolic murmur - GI/Abdominal GI/Abdominal exam: Present: soft. Absent: firm, rebound, rigid, tenderness - Extremities Exam Extremities exam: Absent: calf tenderness, pedal edema, tenderness - Neurological Exam Neurological exam: Present: alert, oriented X3 - Psychiatric Psychiatric exam: Present: normal affect, normal mood Internal Medicine: Result - Labs CBC & Chem 7: 02/28/17 07:50 02/28/17 07:50 Labs: Short CBC 02/28/17 Range/Units 07:50 WBC 7.8 (4.3-11.1) K/mcL Hgb 11.5 L (12.9-16.9) g/dL Hct 36.1 L (37.5-50.1) % Plt Count 200 (140-400) K/mcL Neutrophils # 5.7 (1.6-8.9) K/mcL BMP 02/28/17 07:50 Sodium 141 Potassium 4.1 Chloride 106 Carbon Dioxide 28 BUN 49 H Creatinine 1.36 H Glucose 101 H Calcium 9.2 - ABG Interpretation ABG results: PT/INR, D-dimer PT 13.6 Seconds (9.4-12.1) H 02/28/17 07:50 Consult Discharge Plan - Plan Referrals: Homero Love MD [Primary Care Provider] - 03/07/17 11:30 am
[2017-02-28] MEDS: MethylPREDNISolone 40 MG/ML VIAL IVP SCH ×2 (09:46→17:18)
--- NOTE | 2017-02-28 10:20 | Cardiology Progress Note ---
<Jose Guzmán - Last Filed: 02/28/17 13:07> Date of Encounter: 02/28/17 Time of Encounter: 09:10 Assessment and Plan (1) Pulmonary embolism Current Visit: Yes Status: Acute Imaging was reviewed again by pulmonology and radiology. Appears at this time that he dose in fact have bilateral basilar PEs. Currently he is hemodynamically stable. Currently he is comfortable on 4L of oxygen via NC. Echo reveals EF of 30 %. Normal size and function of the RV. troponins continue to trend down. Recomendations: currently on heparin gtt. 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 Appears that the patient had PE while on eliquis. May consider a different agent. We will defer choice of oral AC to primary and hematology. Recent JOSE placed. Recommend continuing DAPT. At this time Cardiology will sign off. Please call for any additional questions or if we can be of further assistance. Thank you for the consultation. Qualifiers: Qualified Code(s): I26.99 - Other pulmonary embolism without acute cor pulmonale (2) Hemoptysis Current Visit: Yes Status: Acute continues to have mild hemoptysis. improving. Hg trended down slightly. Hemodynamically stable. Continue to monitor closely. Would disontinue heparin and consider filter if patient develops worsening hemoptysis. continue DAPT. (3) Elevated troponin Current Visit: Yes Status: Acute Trending down significantly since last admission. Patient had recent admission for NSTEMI. Patient had recent PTCA on 02/18/17 with JOSE placed to RCA. This was followed by selective coronary angiography with IVUS on 02/19/17 Tn on 02/20/17 was 20.36. On readmission 02/25/17 it was 1.04 and continues to trend down. Patient has had no chest pain. I would not classify this as NSTEMI but rather his troponin elevation is from prior NSTEMI and trending down. Patient is asymptomatic. Patient declined cardiac rehab at last visit and continues to decline rehab at this time. (4) CAD (coronary artery disease) Current Visit: Yes Status: Acute From [facility] on 02/18/17 and selective angiography from 02/19/17 * Left Main Coronary Artery There is a 40-50% stenosis in the LMCA. * Left Anterior Descending There is a 80% stenosis in the Proximal LAD. There is a 50% stenosis in the Mid LAD. * Circumflex There is a 50% stenosis in the Mid Circumflex. There was 28mm long 99% stenosis of the mid RCA prior to JOSE being placed. YANETH flow was 3 after inervention. Recommend continuing DAPT. He will need at least a year prior to interruption. continue Lipitor. Qualifiers: Coronary Disease-Associated Artery/Lesion type: unspecified vessel or lesion type [place] vs. transplanted heart: unspecified whether [place] or transplanted heart Associated angina: angina presence unspecified Qualified Code(s): I25.10 - Atherosclerotic heart disease of [place] coronary artery without angina pectoris (5) Paroxysmal atrial fibrillation Current Visit: Yes Status: Chronic Currently patient is rate controlled. Continue Toprol. CHADSVASC score is 5 ( age, CHF, HTN, CAD) currently on heparin gtt. Will need residential for suspected PE. Possible failure on Eliquis. Will defer choice of oral AC to primary team and hematology. (6) Non-sustained ventricular tachycardia Current Visit: Yes Status: Acute Reviewed 24 hour Telemetry. patient continues to have numerous PVCs. He had just over [id number] in the past 24 hours. He did have some NSVT with longest run being 11 beats. This is in the setting of recent NSTEMI and PE. Recommendations: continue Toprol to 100 mg daily. continue to monitor and replace electrolytes as needed. continue telemetry. (7) Systolic heart failure Current Visit: Yes Status: Chronic HFrEF Last echo shows EF of 30%. Mildly volume overloaded with pleurel effusions seen on CTA. continue diuresis. He dose have a [employer] BVICD in place. continue beta dorian. continue lisinopril. renal function is improving. Qualifiers: Heart failure chronicity: acute on chronic Qualified Code(s): I50.23 - Acute on chronic systolic (congestive) heart failure (8) Acute on chronic respiratory failure with hypoxemia Current Visit: Yes Status: Acute patient is on chronic O2 at home for COPD. patient currently on 4L but saturating 100%. would recommend titrating O2 down if tolerated. continue diuresis. (9) Hyperkalemia Current Visit: Yes Status: Acute resolved (10) Presence of biventricular cardiac pacemaker Current Visit: Yes Status: Acute patient has BVICD This was interrogated at 1341 on 02/25/17. device appears to be functioning properly at this time. 43 episodes of NSVT were noted. Average rate was 100. Discussion w patient/family: The assessment and plan as outlined above was discussed with the patient and/or family members who expressed understanding and agreement. All questions were answered. Thank you for involving us in the care of your patient. Please call with any questions. Subjective Principal diagnosis: Acute Respiratory Failure Interval history: No major events overnight. Patient states that he is still coughing up blood but that it is very little now. His adult daughter is also present and agrees with this. He states that he is breathing easier. He denies any chest pain, syncope, presyncope. He denies any aches or pains He has no further complaints or concerns at this time. Objective Vital Signs, Last 4 Hours Temp Pulse Resp BP Pulse Ox 02/28/17 07:48 74 02/28/17 07:41 17 97 02/28/17 07:31 97.7 F 71 17 122/50 97 General: Conversant, No Apparent Distress HEENT: Atraumatic, Normocephaly, Mucus Membranes Moist Neck: No JVD, Normal carotid pulses Cardiac: Reg Rate and Rhythm, Normal S1 and S2, Other (2/6 systolic murmur heard at the left lower sternal border. Dose not radiate. ) Lungs: Normal Breath Sounds, No Wheeze, Rales, Rhonchi Neuro: Alert and responsive, No focal deficits noted Abdomen: Soft, Non-Tender Skin: No rashes noted on visualized skin, Other (ecchymosis of the bilateral upper extremitites. ) Extremities: No Clubbing, No Cyanosis, No Edema Results 02/28/17 07:50 02/28/17 07:50 Lab Results 02/28/17 02/28/17 02/28/17 00:35 07:50 07:50 WBC 7.8 Hgb 11.5 L Hct 36.1 L Plt Count 200 INR 1.3 APTT 58.3 H 72.1 H Sodium Potassium Chloride Carbon Dioxide BUN Creatinine Glucose Calcium Magnesium 02/28/17 07:50 WBC Hgb Hct Plt Count INR APTT Sodium 141 Potassium 4.1 Chloride 106 Carbon Dioxide 28 BUN 49 H Creatinine 1.36 H Glucose 101 H Calcium 9.2 Magnesium 2.0 Consult Discharge Plan - Plan Referrals: Homero Love MD [Primary Care Provider] - 03/07/17 11:30 am <Eva Escalera - Last Filed: 02/28/17 17:46> Date of Encounter: 02/28/17 Assessment and Plan Discussion w patient/family: I examined this patient and my medical decision-making was reviewed with the Resident Physician. I agree with the documented findings, disposition and treatment plan. Mr. Almendarez looks better today and reports feeling better. Reports less hemoptysis. Blood count stable. Imaging apparently reviewed by pulmonary and radiology - who are concerned for PE. Will defer recommendations regarding anticoagulation to them. From a cardiology standpoint, patient should remain on dual antiplatelet therapy (aspirin, brilinta) uninterrupted for at least 12 months given recent PCI. Otherwise, he diuresed with IV lasix and PO has been resumed. Recommend continuing toprol for heart failure, rate control of AFIB and PVCs. He would like to follow up with Dr. Mitchell in the outpatient cardiology office. We will sign off. Please call with questions. Objective Vital Signs, Last 4 Hours Temp Pulse Resp BP Pulse Ox 02/28/17 16:55 18 98 02/28/17 15:59 97.9 F 82 18 104/51 98 02/28/17 15:53 76 Results 02/28/17 07:50 02/28/17 07:50 Lab Results 02/28/17 02/28/17 02/28/17 00:35 07:50 07:50 WBC 7.8 Hgb 11.5 L Hct 36.1 L Plt Count 200 INR 1.3 APTT 58.3 H 72.1 H Sodium Potassium Chloride Carbon Dioxide BUN Creatinine Glucose Calcium Magnesium 02/28/17 02/28/17 07:50 14:17 WBC Hgb Hct Plt Count INR APTT 76.9 H Sodium 141 Potassium 4.1 Chloride 106 Carbon Dioxide 28 BUN 49 H Creatinine 1.36 H Glucose 101 H Calcium 9.2 Magnesium 2.0
[2017-02-28] MEDS: Furosemide 20 MG TABLET PO SCH (17:15)
[2017-02-28] MEDS: Heparin 25,000 UNIT/500 ML D5W 25,000 UNIT/500 ML MLS IVC SCH (23:53)
[2017-03-01 01:09] LABS: Hematocrit 35.3 % (37.5-50.1); Hemoglobin 11.5 g/dL (12.9-16.9); Immature Granulocytes % 0.7 % (0-4); Immature Platelets 3.6 % (1.1-6.1); Lymphocytes # 0.4 K/mcL (0.6-4.6); Lymphocytes % 3.9 %; Mean Corpuscular HGB Conc 32.6 g/dL (31.6-35.5); Mean Corpuscular Hemoglobin 31.5 pg (28.0-33.3); Mean Corpuscular Volume 96.7 fL (83.0-100.0); Mean Platelet Volume 10.1 fL (9.4-12.4); Monocytes # 0.1 K/mcL (0.0-1.3); Monocytes % 1.1 %; Neutrophils # 9.9 K/mcL (1.6-8.9); Platelet Count 216 K/mcL (140-400); Red Blood Count 3.65 M/mcL (4.19-5.50); Red Cell Distribution Width 11.6 % (11.5-14.5); Segmented Neutrophils % 94.3 %
[2017-03-01 01:23] LABS: Potassium 4.3 mEq/L (3.5-4.5)
[2017-03-01] MEDS: MethylPREDNISolone 40 MG/ML VIAL IVP SCH ×2 (05:51→16:45)
[2017-03-01] MEDS: Albuterol 2.5 MG/3 ML NEBULIZER IH SCH ×6 (06:26→23:27)
[2017-03-01 07:54] LABS: CK-MB (CK isoenzymes) 0 % (0-4); CK-MM (CK-isoenzymes) 100 % (96-100)
[2017-03-01 07:54] LABS: CK-MB (CK isoenzymes) 0 % (0-4); CK-MM (CK-isoenzymes) 100 % (96-100)
[2017-03-01] MEDS: Tiotropium 18 MCG inhalation IH SCH (07:56)
[2017-03-01] MEDS: Budesonide/Formoterol 160/4.5 MDI IH SCH ×2 (07:57→20:22)
[2017-03-01] MEDS: Aspirin Enteric Coated 81 MG Tablet PO SCH (08:41)
[2017-03-01] MEDS: Famotidine 20 MG TABLET PO SCH (08:42)
[2017-03-01] MEDS: *HR* Ticagrelor 90 MG TABLET PO SCH ×2 (08:42→19:56)
[2017-03-01] MEDS: Metoprolol XL (24 HR) Succ 50 MG TAB.ER.24H PO SCH (08:42)
[2017-03-01] MEDS: Furosemide 20 MG TABLET PO SCH (08:42)
--- NOTE | 2017-03-01 11:44 | Internal Med Progress Note ---
Date of Encounter: 03/01/17 Time of Encounter: 11:41 - Assessment and plan (1) Pulmonary embolism Current Visit: Yes Status: Acute Assessment and plan: Spoke to pulmonologst - who confirmed that pt did have Rt and Left lower lobe segmental and sub segmental PE His current hemoptysis also due to PE and possible pulmonary infarction So will cont heparin at low dose now..to keep PTT @ 50-60 Venous doppler in both legs -showed No DVT, however he does superficial thrombus in Rt lesser saphenous vein 2 D echo - severe LV systolic dysfunction, LVEF 30%. There is global hypokinesis with regional variations. Mild left ventricular diastolic dysfunction. cont duoneb and O2 cont pain meds PRN Spoke to Heme Onc - who suggested to send him home on PO Xarelto for anticoagulation possible d/c home in AM Met with pt's daughter at bed side and explained to her about current care and answered all her questions Qualifiers: Qualified Code(s): I26.99 - Other pulmonary embolism without acute cor pulmonale (2) Acute on chronic respiratory failure with hypoxemia Current Visit: Yes Status: Acute Assessment and plan: Improving no signs of inf - normal WBC, remained afebrile no need of abx Improved wheezing Cont him steroids..will switch to PO in AM cont duoneb and o2 will do over night pulse Oxy Home O2 eval in AM (3) Cough with hemoptysis Current Visit: Yes Status: Acute Assessment and plan: Cont close monitoring stable Hb improving cont heparin gtt at low dose (4) NSTEMI (non-ST elevated myocardial infarction) Current Visit: No Status: Acute Assessment and plan: Elevated troponin due to demand ischemia with PE no acute EKG changes Troponin started trending down Card is on board (5) CAD (coronary artery disease) Current Visit: Yes Status: Acute Assessment and plan: recent LHC on 02/18/17 and selective angioplasty from 02/19/17- 40-50% stenosis in the LMCA. 80% stenosis in the Proximal LAD. 50% stenosis in the Mid LAD. 50% stenosis in the Mid Circumflex. There was 28mm long 99% stenosis of the mid RCA prior to JOSE being placed Cont ASA and Brilinta ( DAPT ) as per card recommendation he does have frequent PVC Currently on Metoprolol dose to 100mg cont close monitoring Qualifiers: Coronary Disease-Associated Artery/Lesion type: unspecified vessel or lesion type [place] vs. transplanted heart: unspecified whether [place] or transplanted heart Associated angina: angina presence unspecified Qualified Code(s): I25.10 - Atherosclerotic heart disease of [place] coronary artery without angina pectoris (6) Paroxysmal atrial fibrillation Current Visit: Yes Status: Chronic Assessment and plan: not in RVR rate controlled cont home med Metoprolol on heparin gtt for anticoag (7) COPD (chronic obstructive pulmonary disease) Current Visit: No Status: Chronic Assessment and plan: Pt might be in mild exacerbation with moderate wheezing improving with Steroids and Duoneb Qualifiers: COPD type: COPD with acute exacerbation Qualified Code(s): J44.1 - Chronic obstructive pulmonary disease with (acute) exacerbation (8) Systolic heart failure Current Visit: Yes Status: Chronic Assessment and plan: change to PO Lasix resumed other medications cont close monitoring he does have AICD Qualifiers: Heart failure chronicity: acute on chronic Qualified Code(s): I50.23 - Acute on chronic systolic (congestive) heart failure (9) DENNIS (acute kidney injury) Current Visit: Yes Status: Acute Assessment and plan: He might have underline CKD started trending down Cont PO Lasix cont close monitoring - Subjective Interval history: Mr. Almendarez is a 86 year old male patient with history of coronary artery disease status post PCI most recent was a week ago with PCI to the RCA on dual anti platelet therapy aspirin and Brilinta, with eliquis for A fib recently discharged from the hospital 5 days ago, now he presented to emergency room on 02/25/17 with worsening shortness of breath, Left pleurisy chest pain and coughing up blood. He was admitted for b/l PE and elevated troponin. Pt denied any active chest pain at this moment. Pt is alert, awake and O x 3. Denied any leg pain b/l. He had only one episode of cough with light thin bloody secretions in sputum last night. Denied any new complaints. - Constitutional Vitals: Temp Pulse Resp BP Pulse Ox 98.0 F 69 18 134/53 99 03/01/17 10:36 03/01/17 11:09 03/01/17 10:36 03/01/17 10:58 03/01/17 08:05 General appearance: Present: A&O X 3, no acute distress, answers questions appropriately - Head Head exam: Present: atraumatic, normal inspection - Respiratory Respiratory exam: Present: decreased breath sounds, wheezes. Absent: rales, respiratory distress, rhonchi - Cardiovascular Cardiovascular exam: Present: +S1, +S2. Absent: systolic murmur - GI/Abdominal GI/Abdominal exam: Present: normal bowel sounds, soft. Absent: distended, firm , rebound, rigid, tenderness - Extremities Exam Extremities exam: Absent: calf tenderness, pedal edema, tenderness - Neurological Exam Neurological exam: Present: alert, oriented X3 - Psychiatric Psychiatric exam: Present: normal affect, normal mood Internal Medicine: Result - Labs CBC & Chem 7: 03/01/17 01:00 03/01/17 01:00 Labs: Short CBC 03/01/17 Range/Units 01:00 WBC 10.5 (4.3-11.1) K/mcL Hgb 11.5 L (12.9-16.9) g/dL Hct 35.3 L (37.5-50.1) % Plt Count 216 (140-400) K/mcL Neutrophils # 9.9 H (1.6-8.9) K/mcL BMP 03/01/17 01:00 Sodium 137 Potassium 4.3 Chloride 103 Carbon Dioxide 24 BUN 58 H Creatinine 1.44 H Glucose 201 H Calcium 9.0 - ABG Interpretation ABG results: PT/INR, D-dimer PT 13.6 Seconds (9.4-12.1) H 02/28/17 07:50 Consult Discharge Plan - Plan Referrals: Homero Love MD [Primary Care Provider] - 03/07/17 11:30 am
--- NOTE | 2017-03-01 12:59 | Pulmonology Progress Note ---
Date of Encounter: 03/01/17 Time of Encounter: 12:59 Assessment and Plan (1) Acute on chronic respiratory failure with hypoxemia Current Visit: Yes Status: Acute Impression: 1. Acute Hypoxic Respiratory Failure 2. Minor Hemoptysis 3. Acute Pulmonary Embolus 4. CAD with Recent PCI on DAPT 5. HFrEF 6. COPD with bronchitis Recs. 1. This is multifactorial continue to wean FiO2 to keep saturation around 89-92 % would encourage out of bed to chair and ambulation as the patient tolerates under monitored supervision 2. This is likely secondary to acute pulmonary embolus with possible infarct. It appears to have resolved 3. Continue heparin infusion; per Heme plan to d/c patient on Xarelto for LTA 4. Cardiology following the patient defer to their management for this issue 5. slight bump in creatinine during course of hospitalization given the stability of respiratory status would favor against ongoing aggressive diuresis 6. Recommend prednisone 5 days with antimicrobial for bronchitis for 5 days as outlined in previous note. Continue metered-dose inhalers as scheduled and as needed albuterol I answered all questions that he and his adult children had at bedside. I gave him my card and welcome him to follow with [facility] as an outpatient. Pulmonary Will Sign Off. Please call with any questions. (2) CAD (coronary artery disease) Current Visit: Yes Status: Acute Qualifiers: Coronary Disease-Associated Artery/Lesion type: unspecified vessel or lesion type [place] vs. transplanted heart: unspecified whether [place] or transplanted heart Associated angina: angina presence unspecified Qualified Code(s): I25.10 - Atherosclerotic heart disease of [place] coronary artery without angina pectoris (3) Cough with hemoptysis Current Visit: Yes Status: Acute (4) Pulmonary embolism Current Visit: Yes Status: Acute Qualifiers: Pulmonary embolism type: other Chronicity: acute Acute cor pulmonale presence: with acute cor pulmonale Qualified Code(s): I26.09 - Other pulmonary embolism with acute cor pulmonale (5) Paroxysmal atrial fibrillation Current Visit: Yes Status: Chronic (6) Systolic heart failure Current Visit: Yes Status: Chronic Qualifiers: Heart failure chronicity: acute on chronic Qualified Code(s): I50.23 - Acute on chronic systolic (congestive) heart failure (7) COPD (chronic obstructive pulmonary disease) Current Visit: No Status: Chronic Qualifiers: COPD type: COPD with acute exacerbation Qualified Code(s): J44.1 - Chronic obstructive pulmonary disease with (acute) exacerbation Subjective Principal diagnosis: Acute Respiratory Failure Interval history: Per patient and family he has not had significant hemoptysis overnight he is comfortable although he relates that he is "craving a chew" Objective PUL Vital signs: Last Vital Signs Temp 98.0 F 03/01/17 10:36 Pulse 69 03/01/17 11:09 Resp 18 03/01/17 10:36 BP 134/53 03/01/17 10:58 Pulse Ox 99 03/01/17 08:05 General appearance: no acute distress Auscultation: bilateral: rales Cardiovascular: regular rate and rhythm normal mental status, non-focal exam mood appropriate Results - Laboratory Findings CBC and BMP: 03/01/17 01:00 03/01/17 01:00 PT/INR, D-dimer PT 13.6 Seconds (9.4-12.1) H 02/28/17 07:50 Abnormal lab findings: Abnormal lab results RBC 3.65 M/mcL (4.19-5.50) L 03/01/17 01:00 Hgb 11.5 g/dL (12.9-16.9) L 03/01/17 01:00 Hct 35.3 % (37.5-50.1) L 03/01/17 01:00 Neutrophils # 9.9 K/mcL (1.6-8.9) H 03/01/17 01:00 Lymphocytes # 0.4 K/mcL (0.6-4.6) L 03/01/17 01:00 PT 13.6 Seconds (9.4-12.1) H 02/28/17 07:50 APTT 48.1 Seconds (26.0-36.0) H 03/01/17 06:20 BUN 58 mg/dL (8-26) H 03/01/17 01:00 Creatinine 1.44 mg/dL (0.72-1.25) H 03/01/17 01:00 Est GFR ( Amer) 56 (> 60) L 03/01/17 01:00 Est GFR (Non-Af Amer) 46 (> 60) L 03/01/17 01:00 BUN/Creatinine Ratio 40 (6-26) H 03/01/17 01:00 Glucose 201 mg/dL (70-99) H 03/01/17 01:00 Calculated Osmolality 306 (280-300) H 03/01/17 01:00 Troponin I 0.35 ng/mL (0-0.03) H* 02/27/17 00:28 B-Natriuretic Peptide 1947 pg/mL (0-100) H 02/25/17 14:06 - Clinical Findings Intake & Output: Intake & Output 02/28/17 03/01/17 03/01/17 23:59 07:59 15:59 Intake Total 740 / 740 70 / 70 120 / 120 Output Total 425 / 425 Balance 740 / 740 -355 / -355 120 / 120 Weight 75.7 kg Consult Discharge Plan - Plan Referrals: Homero Love MD [Primary Care Provider] - 03/07/17 11:30 am
[2017-03-01 13:14] LABS: CK Total (Ck Isoenzymes) 38 U/L (20-200); CK-BB (CK isoenzymes) 0 % (0-0)
[2017-03-01 13:15] LABS: CK Total (Ck Isoenzymes) 36 U/L (20-200); CK-BB (CK isoenzymes) 0 % (0-0)
[2017-03-01] MEDS ORDERED: *HR* Dextrose 50 % in Water (Syg) 50 ML SYRINGE IVP PRN (14:38)
[2017-03-01] MEDS ORDERED: D5% in Water 1,000 ML IVC PRN (14:38)
[2017-03-01] MEDS ORDERED: Dextrose Gel 15 GM PO PRN ×2 (14:38)
[2017-03-01] MEDS ORDERED: Insulin LISPRO 300 UNITS/3 ML VIAL SQ SCH ×2 (16:30→21:00)
[2017-03-02] MEDS: Albuterol 2.5 MG/3 ML NEBULIZER IH SCH ×3 (04:24→11:06)
[2017-03-02] MEDS: MethylPREDNISolone 40 MG/ML VIAL IVP SCH (05:24)
[2017-03-02 05:58] LABS: Basophils % 0.1 %; Hematocrit 34.9 % (37.5-50.1); Hemoglobin 11.3 g/dL (12.9-16.9); Immature Granulocytes % 1.4 % (0-4); Lymphocytes # 0.6 K/mcL (0.6-4.6); Mean Corpuscular HGB Conc 32.4 g/dL (31.6-35.5); Mean Corpuscular Hemoglobin 31.7 pg (28.0-33.3); Mean Corpuscular Volume 97.8 fL (83.0-100.0); Monocytes # 1.1 K/mcL (0.0-1.3); Monocytes % 5.8 %; Neutrophils # 16.8 K/mcL (1.6-8.9); Platelet Count 223 K/mcL (140-400); Red Blood Count 3.57 M/mcL (4.19-5.50); Red Cell Distribution Width 11.8 % (11.5-14.5); Segmented Neutrophils % 89.7 %
[2017-03-02 06:13] LABS: BUN/Creatinine Ratio 54 (6-26); Blood Urea Nitrogen 70 mg/dL (8-26); Calcium 9.2 mg/dL (8.6-10.8); Carbon Dioxide 22 mEq/L (19-29); Chloride 108 mEq/L (98-109); Glucose 154 mg/dL (70-99); Magnesium 2.3 mg/dL (1.6-2.6); Osmolality,Calculated 312 (280-300); Potassium 3.9 mEq/L (3.5-4.5); Sodium 139 mEq/L (136-145); eGFR For African Americans > 60 (> 60); eGFR For Non-African Americans 53 (> 60)
[2017-03-02] MEDS: Tiotropium 18 MCG inhalation IH SCH (08:10)
[2017-03-02] MEDS: Budesonide/Formoterol 160/4.5 MDI IH SCH (08:11)
[2017-03-02] MEDS: Famotidine 20 MG TABLET PO SCH (08:47)
[2017-03-02] MEDS: *HR* Ticagrelor 90 MG TABLET PO SCH (08:47)
[2017-03-02] MEDS: Metoprolol XL (24 HR) Succ 50 MG TAB.ER.24H PO SCH (08:48)
[2017-03-02] MEDS: Aspirin Enteric Coated 81 MG Tablet PO SCH (08:48)
[2017-03-02] MEDS ORDERED: Furosemide 20 MG TABLET PO SCH (09:00)
[2017-03-02] MEDS ORDERED: predniSONE 20 MG TABLET PO SCH (09:00)
[2017-03-02] MEDS ORDERED: *HR* Rivaroxaban 15 MG TABLET PO SCH (10:30)
--- NOTE | 2017-03-02 10:37 | Discharge Summary ---
Date of Encounter: 03/02/17 Time of Encounter: 08:30 - Discharge Diagnosis (1) Pulmonary embolism Priority: Primary Status: Acute Qualifiers: Qualified Code(s): I26.99 - Other pulmonary embolism without acute cor pulmonale (2) Acute on chronic respiratory failure with hypoxemia Priority: Primary Status: Acute (3) Cough with hemoptysis Priority: Primary Status: Resolved (4) NSTEMI (non-ST elevated myocardial infarction) Priority: Secondary Status: Acute (5) CAD (coronary artery disease) Priority: Secondary Status: Acute Qualifiers: Coronary Disease-Associated Artery/Lesion type: unspecified vessel or lesion type [place] vs. transplanted heart: unspecified whether [place] or transplanted heart Associated angina: angina presence unspecified Qualified Code(s): I25.10 - Atherosclerotic heart disease of [place] coronary artery without angina pectoris (6) Paroxysmal atrial fibrillation Priority: Secondary Status: Chronic (7) COPD (chronic obstructive pulmonary disease) Priority: Secondary Status: Chronic Qualifiers: COPD type: COPD with acute exacerbation Qualified Code(s): J44.1 - Chronic obstructive pulmonary disease with (acute) exacerbation (8) Systolic heart failure Priority: Secondary Status: Chronic Qualifiers: Heart failure chronicity: acute on chronic Qualified Code(s): I50.23 - Acute on chronic systolic (congestive) heart failure (9) DENNIS (acute kidney injury) Priority: Secondary Status: Acute - Discharge Medications Prescriptions: Metoprolol XL (24 HR) Succ [Toprol Xl] 100 mg PO DAILY 30 Days predniSONE [PredniSONE] 40 mg PO DAILY #2 tab Rivaroxaban [Xarelto] 15 mg PO BID 21 Days Rivaroxaban [Xarelto] 20 mg PO DAILY #30 tablet Home Medications: Albuterol Neb [Proventil Neb] 2.5 mg IH Q4HR 07/30/15 [History] Aspirin [Adult Low Dose Aspirin EC] 81 mg PO DAILY 07/30/15 [History] B2/Vits A,C,E/Lut/Zeaxanth/Min [Icaps Tablet] 1 tab PO DAILY 07/30/15 [History] Calcium Carbonate/Vitamin D3 [Calcium 600 + Vit D Tablet] 1 tab PO DAILY [History] Cyclobenzaprine [Flexeril] 10 mg PO HS 07/30/15 [History] Famotidine [Pepcid] 20 mg PO DAILY 07/30/15 [History] Gluc/Alan-MSM#1/C/Navdeep/Amandeep/Bor [Osteo Bi-Flex Caplet] 1 cap PO DAILY 07/30/15 [ History] [place]-3S/Dha/Epa/Fish Oil [Fish Oil 1,200 mg Softgel] 1,200 mg PO DAILY [History] Potassium Chloride [K-Tab ER] 20 meq PO DAILY 07/30/15 [History] Tiotropium [Spiriva] 18 mcg IH DAILY 07/30/15 [History] Acetaminophen [Tylenol] 500 mg PO BID PRN 02/19/17 [History] Lisinopril [Zestril] 5 mg PO DAILY 02/19/17 [History] Atorvastatin [Lipitor] 40 mg PO HS #30 tab 02/20/17 [Rx] Budesonide/Formoterol 160/4.5 [Symbicort 160/4.5] 2 puff IH BIDR 02/20/17 [Rx] Furosemide [Lasix] 20 mg PO DAILY #30 tablet 02/20/17 [Rx] Ticagrelor [Brilinta] 90 mg PO BID #60 tab 02/20/17 [Rx] Metoprolol XL (24 HR) Succ [Toprol Xl] 100 mg PO DAILY 30 Days 03/02/17 [Rx] Rivaroxaban [Xarelto] 15 mg PO BID 21 Days 03/02/17 [Rx] predniSONE [PredniSONE] 40 mg PO DAILY #2 tab 03/02/17 [Rx] Rivaroxaban [Xarelto] 20 mg PO DAILY #30 tablet 03/24/17 [Rx] Allergies/Adverse Reactions: Allergies No Known Allergies Allergy (Unverified 07/19/15 10:47) Date of admission: 02/25/17 16:03 Primary care physician: Homero Love MD Consults: 02/25/17 17:25 Consult to Cardiology [CONS] Routine Comment: Consulting Provider: Card[facility] [place] Reason for Consult: Frquent PVCs, couplets and NSVT Call Completed: No 02/25/17 18:06 Consult to Nutrition [CONS] Routine Comment: Consulting Provider: NUTRITION Reason for Dietary Consult: PO Supplementation Consult to [employer] [CONS] Routine Reason for SW Consult: PATIENT HELPS TAKE CARE OF SPOUSE. FROM HOME. NEED FOR BLOOD THINNERS AT DISCHARGE. 02/26/17 12:07 Consult to Pulmonology [CONS] Routine Consulting Provider: [facility] Reason for Consult: Acute hemoptysis and b/l PE Call Completed: Yes 02/26/17 12:12 Consult to Oncology Hematology [CONS] Routine Consulting Provider: Rose Guzman Reason for Consult: Acute PE.. failed the therapy on eliquis Call Completed: Yes 02/28/17 14:07 Consult to Occupational Therapy [CONS] Routine Comment: Evaluate, develop and implement POC Reason for Consult: discharge planning Consult to Physical Therapy [CONS] Routine Comment: Evaluate, develop and implement POC Reason for Consult: discharge planning - Patient Status Disposition: Home, Self-Care Condition: Good Overall status at discharge: patient is back to baseline - Discharge Instructions Follow Up With: Homero Love MD [Primary Care Provider] - 03/07/17 11:30 am Additional Instructions: Need to f/u with PCP in one week Need to f/u with Heme Onc Dr. Felix in 2-3 weeks Need to f/u with [place] [facility] in 2 weeks Need to f/u with [facility] as scheduled before stop taking Eliquis Start taking Xarelto 15mg PO BID x 21 days then continue taking 20mg PO Daily - Diet and Activity Activity: increase activity as tolerated Diet: low salt diet Hospital course: Mr. Almendarez is a 86 year old male patient with history of coronary artery disease status post PCI most recent was a week ago with PCI to the RCA on dual anti platelet therapy aspirin and Brilinta, with eliquis for A fib recently discharged from the hospital 5 days ago, now he presented to emergency room on 02/25/17 with worsening shortness of breath, Left pleurisy chest pain and coughing up blood. He was admitted for b/l PE with hemoptysis and elevated troponin. Pt was admitted to PCU and placed him on cardiac care nurse. His CTA of chest showed Rt and Left lower lobe segmental and sub segmental PE, so pt was started on heparin gtt. Regarding his NSTEMI we consulted cardiology who did evaluated the pt and did not recommend any further interventions other than increasing his Metoprolol xl to 100mg daily since he does have more frequent PVC's on monitor. We consulted records manager for further evaluation regarding his b/l PE and Hemoptysis. It looks like he might have mild pulmonary infraction with PE, which triggered his hemoptysis, recommend to continue him on low dose heparin gtt. Also asked for Heme Onc evaluation for out patient anticoagulation choice since he failed on Eliquis. We also did venous doppler of both legs - which came back as No DVT, however he does superficial thrombus in Rt lesser saphenous vein. He also had 2 D Echo done - severe LV systolic dysfunction, LVEF 30%. There is global hypokinesis with regional variations. Mild left ventricular diastolic dysfunction. Pt does have mild COPD exacerbation with wheezing, so started him on short course of steroid therapy and bronchodilator as needed. His symptoms started improving, he does not have any more hemoptysis for more than 36 hrs. At this point heme oncologist recommend to sent him home with PO Xarelto. Also we did home O2 evaluation, his SPo2 93 % with ambulation and does not required any O2. Pt did c/o diarrhea last night, but it was soft stool, so unable to sent for C. Diff. - Time Spent with Patient Total time spent providing and/or coordinating discharge services: Greater than 30 minutes (Spent 45 minutes on this patient's discharge summary due to complex medical problems and patient needed a lot of education regarding discharge instructions) - Constitutional Vitals: Temp Pulse Resp BP Pulse Ox 98.8 F 84 16 120/87 93 03/02/17 07:45 03/02/17 09:11 03/02/17 08:12 03/02/17 08:12 03/02/17 08:12 General appearance: Present: A&O X 3, no acute distress, answers questions appropriately - Head Head exam: Present: atraumatic, normal inspection - Neck Neck exam general surgery: Present: supple - Respiratory Respiratory exam: Present: decreased breath sounds, wheezes. Absent: rales, respiratory distress, rhonchi - Cardiovascular Cardiovascular exam: Present: RRR, +S1, +S2. Absent: systolic murmur - GI/Abdominal GI/Abdominal exam: Present: normal bowel sounds, soft. Absent: rebound, rigid - Extremities Exam Extremities exam: Absent: calf tenderness, pedal edema, tenderness - Psychiatric Psychiatric exam: Present: normal affect, normal mood
[2017-03-02 11:21] VITALS: BP 131/71
== END 2017-03-02 12:37 | disposition home or self-care (01) | DRG 175 ==
LOC: EMEROO 13:15 → 2ANU 16:03 → 2NNU 16:51
PROVIDERS: ADMIT Hospitalist; ATTEND Internal Medicine

== ENCOUNTER 2017-03-10 18:28 | Inpatient (IN) ==
[2017-03-10] MEDS ORDERED: Phenylephrine Nasal 0.5% 15 ML BOTTLE NS ONE (18:32)
[2017-03-10] MEDS ORDERED: Oxymetazoline Nasal SPRAY BOTTLE NS ONE (18:36)
--- NOTE | 2017-03-10 18:38 | Emergency Department Note ---
Disposition Clinical Impression: Nasal bleeding Disposition: Admitted As Inpatient Condition: Fair Referrals: NONE,PCP [Primary Care Provider] - Forms: ED Satisfaction Letter Time of Disposition: 21:01 General Adult HPI - General Chief complaint: ED Epistaxis Stated complaint: EPISTAXIS Time Seen by Provider: 03/10/17 18:30 Source: patient Limitations: no limitations Nursing Notes Reviewed: Yes Vital Signs Reviewed: Yes - History of Present Illness HPI Narrative: Patient is a 86-year-old male who presents with a complaint of a continuing nosebleed that is draining into the back of his throat. Patient was seen here on Sunday for nosebleed and he is seen by ENT and had a Rhino Rocket placed in his left nostril. The patient arrived by squad today because he has had bleeding in the back of his throat. He is on 3 different anticoagulation medications. Pain Scale: 0 - Related Data Home Medications Medication Instructions Recorded Confirmed Albuterol Neb [Proventil Neb] 2.5 mg IH Q4HR 07/30/15 03/07/17 Aspirin [Adult Low Dose Aspirin EC] 81 mg PO DAILY 07/30/15 03/07/17 B2/Vits A,C,E/Lut/Zeaxanth/Min 1 tab PO DAILY 07/30/15 03/07/17 [Icaps Tablet] Calcium Carbonate/Vitamin D3 1 tab PO DAILY 07/30/15 03/07/17 [Calcium 600 + Vit D Tablet] Cyclobenzaprine [Flexeril] 10 mg PO HS 07/30/15 03/07/17 Famotidine [Pepcid] 20 mg PO DAILY 07/30/15 03/07/17 Gluc/Alan-MSM#1/C/Navdeep/Amandeep/Bor 1 cap PO DAILY 07/30/15 03/07/17 [Osteo Bi-Flex Caplet] Potassium Chloride [K-Tab ER] 20 meq PO DAILY 07/30/15 03/07/17 Tiotropium [Spiriva] 18 mcg IH DAILY 07/30/15 03/07/17 Acetaminophen [Tylenol] 500 mg PO BID PRN 02/19/17 03/07/17 Bumetanide [Bumex] 1 mg PO DAILY 03/07/17 03/07/17 Clopidogrel [Plavix] 75 mg PO DAILY 03/07/17 03/07/17 Sacubitril/Valsartan 24/26 mg 1 tab PO DAILY 03/07/17 03/07/17 [Entresto 24 mg-26 mg Tablet] Previous Rx's Medication Instructions Recorded Atorvastatin [Lipitor] 40 mg PO HS #30 tab 02/20/17 Budesonide/Formoterol 160/4.5 2 puff IH BIDR 02/20/17 [Symbicort 160/4.5] Metoprolol XL (24 HR) Succ [Toprol 100 mg PO DAILY 30 Days 03/02/17 Xl] Rivaroxaban [Xarelto] 15 mg PO BID 21 Days 03/02/17 cephALEXin [Keflex] 500 mg PO TID #21 capsule 03/08/17 Allergies Allergy/AdvReac Type Severity Reaction Status Date / Time No Known Allergies Allergy Unverified 03/08/17 07:52 All systems ED: reviewed and negative except as stated. Hematological/Lymphatic: Reports: easy bleeding Past Medical History - Past Medical History Medical history: Reports: atrial fibrillation, CHF, COPD, coronary artery disease, GERD, hyperlipidemia, hypertension, myocardial infarction, other Surgical history: Reports: cholecystectomy, pacemaker/AICD Psychiatric history: Reports: no psych history - Social History Smoking Status: Former smoker Smokeless Tobacco Status: Yes (CHEW) Alcohol use: Reports: none Drug use: Reports: none Physical Exam Pt is in no acute distress. He is spitting blood out of his mouth into a bag. 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 Absent: tounge swelling - Neck Neck exam: Present: normal inspection, full ROM - Chest Chest inspection: Present: normal inspection, symmetric chest wall rise. Absent : tenderness - Respiratory Respiratory exam: Present: normal lung sounds bilaterally. Absent: respiratory distress, wheezes - Cardiovascular Cardiovascular exam: Present: regular rate, normal rhythm, normal heart sounds - Abdominal Exam Abdominal exam: Present: soft, Non-Tender, normal bowel sounds - Extremities Exam Extremities exam: Present: normal inspection, full ROM - Back Exam Back exam: Present: normal inspection, full ROM. Absent: tenderness - Neurological Exam Neurological exam: Present: alert, oriented X3 - Psychiatric Psychiatric exam: Present: normal affect, normal mood - Skin Skin exam: Present: warm, dry, intact, normal color, other (Patient has a skin tear that is bandaged on his right forearm. ) Course - Reevaluation(s) Reevaluation #1: Afrin - patient is presenting with a recurrent nosebleed after having a Rhino Rocket in place in his left naris. We took the Rhino Rocket out and had the patient blow his nose and I looked for a bleed I could not visualize a bleed however I did see blood coming just from the anterior portion of the bottom of the naris along the septum. The plan for now is to place one Afrin soaked cotton ball into his left nares with a nasal clamp and will recheck the patient in 15 minutes. Time: 19:00 Reevaluation #2: The patient was so actively bleeding after the nasal clamp and Afrin-soaked cotton ball was removed. Merocel sponge was applied to the nares and will recheck in 15 minutes. Time: 19:37 Reevaluation #3: The patient was rechecked and his murocel is now saturated with blood and it appears to have stopped dripping from the external nose and the patient believes it has stopped in the back of his throat. Due to the patient having a second bleed and being on 3 anticoagulants I will consult with ENT for further evaluation and treatment. Time: 20:04 - Consultations Consultation #1: Dr. Murray spoke with the monomer recovery operator ENT - see his note. States to administer a Rhino Rocket with TXA and admit the patient for observation. If necessary the hospitalist can call him and he will see the patient the hospital. Time: 20:50 Consultation #2: Patient is doing well. I applied some 2 mL of tea x-ray to the gauze in his nose. His bleeding seems to be improved. I discussed admission and possible further consult with ENT on house. Patient agrees patient Sukumar number degrees. Vital Signs Temperature 98 F 03/10/17 18:30 Pulse Rate 58 03/10/17 18:30 Respiratory Rate 16 03/10/17 18:30 Blood Pressure 124/113 03/10/17 18:30 O2 Sat by Pulse Oximetry 92 03/10/17 18:30 Temperature 98 F 03/10/17 18:30 Pulse Rate 62 03/10/17 20:23 Respiratory Rate 16 03/10/17 20:23 Blood Pressure 135/73 03/10/17 20:23 O2 Sat by Pulse Oximetry 92 03/10/17 20:23 Oxygen Delivery Oxygen Delivery Room Air Medical Decision Making - MDM Narrative Medical decision making narrative: I examined this patient and my medical decision-making was reviewed with the Resident Physician. I agree with the documented findings, disposition and treatment plan as described except to the extent set forth below. Patient evaluated and seen on arrival with EMS and Dr. Santoyo, I agree with his evaluation and management plan, supervised care the patient's stay. Patient presents today status post 3 days of nasal packing on the left for epistaxis was seen in the emergency department here and by ENT. Having some what he describes bleeding posterior from the area. He does have a little bit of blood draining in the back of his throat none outdate either nostril. He remains on Plavix and anticoagulants due to atrial fibrillation. We are going to remove this packing see what we can see in the and then reassess. 1908 hrs.: Patient's family comes in and states he has been on the on the anticoagulants due to the recent thromboembolism as well as a recent stent. So he can not go off those medicines at this time. We removed the packing from an RAC still has little bleeding anterior. We packed that with cotton balls and To-Synephrine. And then were going to check a CBC per the patient's family's request. We can compare that with one that was done on the and we will reassess. We will then determine if he needs more packing to the area. Daughter apparently talked to someone from ENT they said they would be in to see the patient. We told her the way things work in the ER, is that we see the patient, if we need them we can call them or update them on a status. She is in agreement with this plan. - Medical Records Medical records reviewed: Yes I reviewed the patient's medical records. - Lab Data Lab results reviewed: Yes I reviewed the patient's lab results. Result diagrams: 03/10/17 19:49 Lab Results 03/10/17 03/10/17 Range/Units 19:49 19:49 WBC 18.7 H (4.3-11.1) K/mcL RBC 3.89 L (4.19-5.50) M/mcL Hgb 12.3 L (12.9-16.9) g/dL Hct 39.5 (37.5-50.1) % MCV 101.5 H (83.0-100.0) fL MCH 31.6 (28.0-33.3) pg MCHC 31.1 L (31.6-35.5) g/dL RDW 12.2 (11.5-14.5) % Plt Count 257 (140-400) K/mcL MPV 9.7 (9.4-12.4) fL Immature Gran % 0.8 (0-4) % Seg Neutrophils % 80.4 % Lymphocytes % 9.2 % Monocytes % 8.5 % Eosinophils % 0.9 % Basophils % 0.2 % Neutrophils # 15.0 H (1.6-8.9) K/mcL Lymphocytes # 1.7 (0.6-4.6) K/mcL Monocytes # 1.6 H (0.0-1.3) K/mcL Eosinophils # 0.2 (0.0-0.6) K/mcL Basophils # 0.0 (0.0-0.2) K/mcL PT 22.6 H (9.4-12.1) Seconds INR 2.1 APTT 38.3 H (26.0-36.0) Seconds
--- NOTE | 2017-03-10 19:47 | Emergency Department Note ---
Disposition Clinical Impression: Nasal bleeding Disposition: Admitted As Inpatient Condition: Fair Referrals: NONE,PCP [Primary Care Provider] - Forms: ED Satisfaction Letter General Adult HPI - General Chief complaint: ED Epistaxis Stated complaint: EPISTAXIS Time Seen by Provider: 03/10/17 18:30 Source: patient Limitations: no limitations Nursing Notes Reviewed: Yes Vital Signs Reviewed: Yes - History of Present Illness Pain Scale: 0 - Related Data Home Medications Medication Instructions Recorded Confirmed Albuterol Neb [Proventil Neb] 2.5 mg IH Q4HR 07/30/15 03/07/17 Aspirin [Adult Low Dose Aspirin EC] 81 mg PO DAILY 07/30/15 03/07/17 B2/Vits A,C,E/Lut/Zeaxanth/Min 1 tab PO DAILY 07/30/15 03/07/17 [Icaps Tablet] Calcium Carbonate/Vitamin D3 1 tab PO DAILY 07/30/15 03/07/17 [Calcium 600 + Vit D Tablet] Cyclobenzaprine [Flexeril] 10 mg PO HS 07/30/15 03/07/17 Famotidine [Pepcid] 20 mg PO DAILY 07/30/15 03/07/17 Gluc/Alan-MSM#1/C/Navdeep/Amandeep/Bor 1 cap PO DAILY 07/30/15 03/07/17 [Osteo Bi-Flex Caplet] Potassium Chloride [K-Tab ER] 20 meq PO DAILY 07/30/15 03/07/17 Tiotropium [Spiriva] 18 mcg IH DAILY 07/30/15 03/07/17 Acetaminophen [Tylenol] 500 mg PO BID PRN 02/19/17 03/07/17 Bumetanide [Bumex] 1 mg PO DAILY 03/07/17 03/07/17 Clopidogrel [Plavix] 75 mg PO DAILY 03/07/17 03/07/17 Sacubitril/Valsartan 24/26 mg 1 tab PO DAILY 03/07/17 03/07/17 [Entresto 24 mg-26 mg Tablet] Previous Rx's Medication Instructions Recorded Atorvastatin [Lipitor] 40 mg PO HS #30 tab 02/20/17 Budesonide/Formoterol 160/4.5 2 puff IH BIDR 02/20/17 [Symbicort 160/4.5] Metoprolol XL (24 HR) Succ [Toprol 100 mg PO DAILY 30 Days 03/02/17 Xl] Rivaroxaban [Xarelto] 15 mg PO BID 21 Days 03/02/17 cephALEXin [Keflex] 500 mg PO TID #21 capsule 03/08/17 Allergies Allergy/AdvReac Type Severity Reaction Status Date / Time No Known Allergies Allergy Unverified 03/08/17 07:52 Past Medical History - Past Medical History Medical history: Reports: atrial fibrillation, CHF, COPD, coronary artery disease, GERD, hyperlipidemia, hypertension, myocardial infarction, other Surgical history: Reports: cholecystectomy, pacemaker/AICD Psychiatric history: Reports: no psych history - Social History Smoking Status: Former smoker Smokeless Tobacco Status: Yes (CHEW) Alcohol use: Reports: none Drug use: Reports: none Physical Exam - General Limitations: no limitations General appearance: alert Course Vital Signs Temperature 98 F 03/10/17 18:30 Pulse Rate 58 03/10/17 18:30 Respiratory Rate 16 03/10/17 18:30 Blood Pressure 124/113 03/10/17 18:30 O2 Sat by Pulse Oximetry 92 03/10/17 18:30 Temperature 98 F 03/10/17 18:30 Pulse Rate 62 03/10/17 20:23 Respiratory Rate 16 03/10/17 20:23 Blood Pressure 135/73 03/10/17 20:23 O2 Sat by Pulse Oximetry 92 03/10/17 20:23 Oxygen Delivery Oxygen Delivery Room Air Medical Decision Making - MDM Narrative Medical decision making narrative: 1944 hrs.: He still had some bleeding in the anterior right side of the nares , this is the medial aspect the left nare, so we went ahead and packed that with a Murocel. He continued to bleed despite pressure. Labs are drawn. I will speak with ENT to see if they have any other ideas that they can do for this also. Family is updated. Patient is stable at this time. 2022 hrs.: Spoke with Dr. Leal who is on for ENT. He recommended try the larger Rhino Rocket 7.5. I torments with dad in the past was still bleeding tried to see if we get some TXa in addition to this to work with this and then we will admit him with hospitalist with ENT consult in. He is in agreement with that plan total updating once we get this finished. 2057 hrs.: We were able to get TXa from pharmacy we kept the initial Murocel in place bleeding seems to be controlled at this time weight spoke with daughter about removing this placing a Rhino Rocket in place we agreed that we try this and see how this work. CBC is back and his hematocrit has not changed significantly. We will continue him in the plan for admission Yared watch him overnight ENT so they would be happy to consult so we will do that speaking with hospitalist this time for admission impression is left-sided epistaxis with failure of outpatient treatment. Patient's agreement family is in agreement. Patient's critical care time exclusive separately billable procedures is 32 minutes. - Lab Data Result diagrams: 03/10/17 19:49 Lab Results 03/10/17 03/10/17 Range/Units 19:49 19:49 WBC 18.7 H (4.3-11.1) K/mcL RBC 3.89 L (4.19-5.50) M/mcL Hgb 12.3 L (12.9-16.9) g/dL Hct 39.5 (37.5-50.1) % MCV 101.5 H (83.0-100.0) fL MCH 31.6 (28.0-33.3) pg MCHC 31.1 L (31.6-35.5) g/dL RDW 12.2 (11.5-14.5) % Plt Count 257 (140-400) K/mcL MPV 9.7 (9.4-12.4) fL Immature Gran % 0.8 (0-4) % Seg Neutrophils % 80.4 % Lymphocytes % 9.2 % Monocytes % 8.5 % Eosinophils % 0.9 % Basophils % 0.2 % Neutrophils # 15.0 H (1.6-8.9) K/mcL Lymphocytes # 1.7 (0.6-4.6) K/mcL Monocytes # 1.6 H (0.0-1.3) K/mcL Eosinophils # 0.2 (0.0-0.6) K/mcL Basophils # 0.0 (0.0-0.2) K/mcL PT 22.6 H (9.4-12.1) Seconds INR 2.1 APTT 38.3 H (26.0-36.0) Seconds
[2017-03-10 19:55] LABS: Basophils % 0.2 %; Eosinophils # 0.2 K/mcL (0.0-0.6); Eosinophils % 0.9 %; Hematocrit 39.5 % (37.5-50.1); Hemoglobin 12.3 g/dL (12.9-16.9); Immature Granulocytes % 0.8 % (0-4); Lymphocytes # 1.7 K/mcL (0.6-4.6); Lymphocytes % 9.2 %; Mean Corpuscular HGB Conc 31.1 g/dL (31.6-35.5); Mean Corpuscular Hemoglobin 31.6 pg (28.0-33.3); Mean Corpuscular Volume 101.5 fL (83.0-100.0); Mean Platelet Volume 9.7 fL (9.4-12.4); Monocytes # 1.6 K/mcL (0.0-1.3); Monocytes % 8.5 %; Platelet Count 257 K/mcL (140-400); Red Blood Count 3.89 M/mcL (4.19-5.50); Red Cell Distribution Width 12.2 % (11.5-14.5); Segmented Neutrophils % 80.4 %
[2017-03-10 20:02] LABS: INR 2.1; Prothrombin Time 22.6 Seconds (9.4-12.1)
[2017-03-10 20:04] LABS: Activated Partial Thrombo Time 38.3 Seconds (26.0-36.0)
[2017-03-10] MEDS ORDERED: Tranexamic Acid 1,000 MG/10 ML VIAL IV ONE (20:45)
[2017-03-11] MEDS ORDERED: Naloxone 0.4 MG/ML INJ IVP PRN (01:12)
[2017-03-11] MEDS ORDERED: *HR* Morphine 2 MG/ML SYRINGE IVP PRN (01:12)
[2017-03-11] MEDS ORDERED: Acetaminophen 325 MG TABLET PO PRN (01:12)
--- NOTE | 2017-03-11 01:28 | Internal Med History&Physical ---
Date of Encounter: 03/11/17 Time of Encounter: 00:50 Assessment and Plan (1) Acute blood loss anemia Current visit: Yes Status: Acute 1. Will monitor with frequent (Q8H) H/H. 2. Type and cross and hold 2 units PRBC's for possible transfusion. 3. Active bleeding currently controlled as per ER intervention. 4. Monitor on telemetry. (2) Epistaxis Current visit: No Status: Acute 1. ENT has been consulted. 2. Nasal packing and treatment per ER. 3. Will place on IV Ancef to cover nasal pathogens. 4. If patient re-bleeds significantly, will ask ENT to come in tonight; otherwise, ENT will see in morning. (3) Pulmonary embolism Current visit: No Status: Chronic 1. Continue Xarelto as currently prescribed. 2. No current pulmonary complaints. Qualifiers: Pulmonary embolism type: other Chronicity: chronic Acute cor pulmonale presence: without acute cor pulmonale Qualified Code(s): I27.82 - Chronic pulmonary embolism (4) CAD (coronary artery disease) Current visit: No Status: Chronic 1. Continue home meds, including dual anti-platelet therapy. 2. Monitor on telemetry and EKG. 3. No current anginal complaints. Qualifiers: Coronary Disease-Associated Artery/Lesion type: unspecified vessel or lesion type [place] vs. transplanted heart: unspecified whether [place] or transplanted heart Associated angina: angina presence unspecified Qualified Code(s): I25.10 - Atherosclerotic heart disease of [place] coronary artery without angina pectoris (5) DVT prophylaxis Current visit: Yes Status: Acute 1. On home dose of Xarelto. Internal Medicine - H&P: HPI Chief complaint: nosebleed Admitted From: Emergency Dept Plans for Post Hospital Care: Home History of present illness: Mr. Almendarez is a 86 year old male who [facility] failed outpatient treatment for severe epistaxis. He made 2 ER visits prior to [facility] and was treated conservatively and then aggressively with a Rhino Rocket. Despite such treatment, he continued to have worsening nosebleed and had difficulty controlling his bleeding. He therefore [facility] where [facility] had attempted repeat Rhino Rocket in the ER. This was unsuccessful, and then he had controlled bleeding performed by the ER staff as recommended by ENT physician production line mechanic. Once bleeding was controlled, patient was admitted to hospitalist service with ENT consultation. Upon my assessment of the patient, he has minimal blood oozing from his nose anteriorly and posteriorly now. Overall, he and his daughter state the bleeding has minimized now compared to earlier this evening. Complicating his nosebleed is the fact that he is on anticoagulation and dual antibiotic therapy for treatment of a recent STEMI and pulmonary embolus. As such, anti- coagulation and antiplatelet therapy cannot be discontinued at the present time. He does have some leukocytosis, but he denies any fevers, chills, or body aches. He had been on Keflex, but I will put him on IV cefazolin to help cover mucosal bacteria from his nose. Past Med Surg Social Fam HX - Past Medical History Attestation: Yes The following information was validated with the patient. Source: patient, old records reviewed, obtained from family Medical history: atrial fibrillation, CHF, COPD, coronary artery disease, GERD, hyperlipidemia, hypertension, myocardial infarction, pulmonary embolus Psychiatric history: no psych history - Past Surgical History Surgical History: cholecystectomy, hip replacement, pacemaker/AICD - Social History Smoking Status: Former smoker Smokeless Tobacco Status: No Alcohol use: none Drug use: none Current living situation: Home, With Family Activity Level: Independent ambulation - Family History Mother Hx Family Cancer: Yes Hx Family Neurologic Disorders: Yes (CVA) Brother Hx Family Cancer: Yes Internal Medicine - H&P: Meds Albuterol Neb [Proventil Neb] 2.5 mg IH Q4HR 07/30/15 [History] Aspirin [Adult Low Dose Aspirin EC] 81 mg PO DAILY 07/30/15 [History] B2/Vits A,C,E/Lut/Zeaxanth/Min [Icaps Tablet] 1 tab PO DAILY 07/30/15 [History] Calcium Carbonate/Vitamin D3 [Calcium 600 + Vit D Tablet] 1 tab PO DAILY [History] Cyclobenzaprine [Flexeril] 10 mg PO HS 07/30/15 [History] Famotidine [Pepcid] 20 mg PO DAILY 07/30/15 [History] Gluc/Alan-MSM#1/C/Navdeep/Amandeep/Bor [Osteo Bi-Flex Caplet] 1 cap PO DAILY 07/30/15 [ History] Potassium Chloride [K-Tab ER] 20 meq PO DAILY 07/30/15 [History] Tiotropium [Spiriva] 18 mcg IH DAILY 07/30/15 [History] Acetaminophen [Tylenol] 500 mg PO BID PRN 02/19/17 [History] Atorvastatin [Lipitor] 40 mg PO HS #30 tab 02/20/17 [Rx] Budesonide/Formoterol 160/4.5 [Symbicort 160/4.5] 2 puff IH BIDR 02/20/17 [Rx] Metoprolol XL (24 HR) Succ [Toprol Xl] 100 mg PO DAILY 30 Days 03/02/17 [Rx] Rivaroxaban [Xarelto] 15 mg PO BID 21 Days 03/02/17 [Rx] Bumetanide [Bumex] 1 mg PO DAILY 03/07/17 [History] Clopidogrel [Plavix] 75 mg PO DAILY 03/07/17 [History] Sacubitril/Valsartan 24/26 mg [Entresto 24 mg-26 mg Tablet] 1 tab PO DAILY 03/07 [History] cephALEXin [Keflex] 500 mg PO TID #21 capsule 03/08/17 [Rx] 3 Allergy/AdvReac Type Severity Reaction Status Date / Time No Known Allergies Allergy Unverified 03/08/17 07:52 - Constitutional Constitutional: no chills, no fever(s), no night sweats - EENT Eyes: no change in vision, no decreased night vision Ears: no ear pain, no tinnitus Nose, mouth and throat: epistaxis, no nasal congestion, no sinus pain, no sinus pressure, no sore throat - Cardiovascular Cardiovascular ROS IM: no chest pain, no dyspnea, no dyspnea on exertion, no palpitations - Respiratory Respiratory: hemoptysis (from nosebleed ), no cough, no dyspnea, no wheezing, no excessive phlegm production - Gastrointestinal Gastrointestinal: no abdominal pain, no diarrhea, no hematemesis, no hematochezia, no melena, no vomiting - Genitourinary Genitourinary ROS male: no dysuria, no flank pain, no hematuria - Musculoskeletal Musculoskeletal ROS IM: no arthralgias, no back pain - Integumentary Integumentary IM: no rash, no jaundice - Neurological Neurological ROS: no focal weakness, no frequent falls - Psychiatric Psychiatric: no anxiety, no depression - Endocrine Endocrine IM: no polydipsia, no polyuria - Hematologic/Lymphatic Hematologic/Lymphatic: easy bruising, no lymphadenopathy - Allergic/Immunologic Allergic/Immunologic: no GI upset with certain foods - Constitutional Vitals: Temp Pulse Resp BP Pulse Ox 98.3 F 62 18 122/70 93 03/10/17 22:49 03/10/17 22:49 03/10/17 22:49 03/10/17 22:49 03/10/17 22:49 General appearance: Present: cooperative, mild distress, A&O X 3, pleasant, answers questions appropriately - Head Head exam: Present: atraumatic, normal inspection - Eye Eye exam: Present: EOMI, normal appearance, PERRL. Absent: scleral icterus Pupils: Present: normal accommodation - ENT ENT exam: Present: mucous membranes dry, normal external ear exam Additional comments: left nares packed with no active bleeding or oozing; mild postnasal oozing of blood - Neck Neck exam general surgery: Present: full ROM, supple. Absent: lymphadenopathy, tenderness - Respiratory Respiratory exam: Present: CTAB. Absent: rales, respiratory distress, rhonchi, wheezes - Cardiovascular Cardiovascular exam: Present: distant heart sounds, RRR, +S1, +S2. Absent: diastolic murmur, systolic murmur - GI/Abdominal GI/Abdominal exam: Present: normal bowel sounds, soft. Absent: hepatomegaly, splenomegaly - Extremities Exam Extremities exam: Present: warm, radial pulses palpable and symmetrical. Absent : calf tenderness, joint swelling - Back Exam Back exam: Absent: CVA tenderness (L), CVA tenderness (R) - Neurological Exam Neurological exam: Present: alert, CN II-XII intact, oriented X3, no focal deficits - Psychiatric Psychiatric exam: Present: normal affect, normal mood - Skin Skin exam: Present: dry, warm. Absent: rash Internal Med - H&P Results - Labs CBC & Chem 7: 03/10/17 19:49 - VTE Reasons for not Prescribing Prophylaxis: Not indicated-Anticoagulated or INR therapeutic
[2017-03-11 01:52] LABS: Basophils % 0.2 %; Eosinophils # 0.1 K/mcL (0.0-0.6); Eosinophils % 0.6 %; Hematocrit 36.8 % (37.5-50.1); Hemoglobin 11.5 g/dL (12.9-16.9); Immature Granulocytes % 0.8 % (0-4); Lymphocytes # 1.6 K/mcL (0.6-4.6); Lymphocytes % 9.5 %; Mean Corpuscular HGB Conc 31.3 g/dL (31.6-35.5); Mean Corpuscular Hemoglobin 31.7 pg (28.0-33.3); Mean Corpuscular Volume 101.4 fL (83.0-100.0); Monocytes # 1.5 K/mcL (0.0-1.3); Monocytes % 8.7 %; Neutrophils # 13.7 K/mcL (1.6-8.9); Platelet Count 240 K/mcL (140-400); Red Blood Count 3.63 M/mcL (4.19-5.50); Red Cell Distribution Width 12.1 % (11.5-14.5); Segmented Neutrophils % 80.2 %
[2017-03-11 01:53] LABS: Activated Partial Thrombo Time 35.9 Seconds (26.0-36.0)
[2017-03-11 02:07] LABS: Alanine Aminotransferase 21 Units/L (0-55); Albumin 2.9 g/dL (3.5-5.0); Albumin/Globulin Ratio 0.9 (1.1-2.2); Alkaline Phosphatase 130 Units/L (38-126); Aspartate Amino Transferase 16 Units/L (5-34); BUN/Creatinine Ratio 38 (6-26); Bilirubin,Total 0.5 mg/dL (0.2-1.2); Blood Urea Nitrogen 51 mg/dL (8-26); Calcium 9.3 mg/dL (8.6-10.8); Carbon Dioxide 25 mEq/L (19-29); Chloride 107 mEq/L (98-109); Globulin 3.3 g/dL (2.4-3.5); Glucose 105 mg/dL (70-99); Magnesium 2.4 mg/dL (1.6-2.6); Osmolality,Calculated 304 (280-300); Potassium 5.2 mEq/L (3.5-4.5); Sodium 140 mEq/L (136-145); Total Protein 6.2 g/dL (6.0-8.3); eGFR For African Americans > 60 (> 60); eGFR For Non-African Americans 51 (> 60)
[2017-03-11] MEDS: *HR* Rivaroxaban 15 MG TABLET PO SCH ×3 (02:16→20:22)
[2017-03-11] MEDS: Famotidine 20 MG TABLET PO SCH ×2 (02:19→08:39)
[2017-03-11] MEDS: ICAPS PO SCH ×2 (02:57→08:39)
[2017-03-11] MEDS: (Osteo Bi-Flex Caplet) PO SCH ×2 (02:57→08:39)
[2017-03-11] MEDS: ceFAZolin 2,000 MG in D5% in Water 100 ML IVPB SCH ×3 (03:21→15:20)
[2017-03-11] MEDS: Albuterol 2.5 MG/3 ML NEBULIZER IH SCH ×5 (03:42→20:13)
[2017-03-11] MEDS: Ondansetron 4 MG/2 ML VIAL IVP PRN ×2 (04:19→12:29)
[2017-03-11] MEDS: Metoprolol XL (24 HR) Succ 50 MG TAB.ER.24H PO SCH (08:37)
[2017-03-11] MEDS: Bumetanide 1 MG TABLET PO SCH (08:37)
[2017-03-11] MEDS: Aspirin Enteric Coated 81 MG Tablet PO SCH (08:37)
[2017-03-11] MEDS ORDERED: Silver Nitrate Applicator 1 STICK..EA. TP STA (09:19)
[2017-03-11] MEDS ORDERED: Oxymetazoline Nasal SPRAY BOTTLE NS STA (09:19)
--- NOTE | 2017-03-11 09:24 | Internal Med Progress Note ---
<Darryl Fitzgerald - Last Filed: 03/11/17 09:32> Date of Encounter: 03/11/17 Time of Encounter: 09:22 - Assessment and plan (1) Epistaxis Status: Acute Assessment and plan: Multiple visits to ED for continuous epistaxis. anticoag cannot be discontinued due to recent PE and 2x stents placed - ENT will evaluate - continue ancef for nasal pathogens (2) Acute blood loss anemia Status: Acute Assessment and plan: Multiple visits to ED for continuous epistaxis. anticoag cannot be discontinued due to recent PE and 2x stents placed. type and cross A+. - ENT will evaluate - closely follow H+H - continue anti-coagulation - consider transfusion if hgb drops rapidly (3) Pulmonary embolism Status: Acute Assessment and plan: recent hx of PE - continue xarelto + Plavix as currently prescribed - continue to closely follow for sx Qualifiers: Pulmonary embolism type: other Chronicity: acute Acute cor pulmonale presence: with acute cor pulmonale Qualified Code(s): I26.09 - Other pulmonary embolism with acute cor pulmonale (4) CAD (coronary artery disease) Status: Chronic Assessment and plan: recent hx of 2x stent - continue xarelto + Plavix as currently prescribed - continue to closely follow for sx Qualifiers: Coronary Disease-Associated Artery/Lesion type: unspecified vessel or lesion type [place] vs. transplanted heart: unspecified whether [place] or transplanted heart Associated angina: angina presence unspecified Qualified Code(s): I25.10 - Atherosclerotic heart disease of [place] coronary artery without angina pectoris (5) DVT prophylaxis Status: Acute Assessment and plan: on home dose xarelto - Subjective Interval history: Mr Calix is an 86 yo M Day 1 of admission 2/2 severe epistaxis w/ 2 prev ED visits tx conservative, then with rhino rocket w/ hx of recent PE, 2 stents placed last week. Today he continues to have nose bleeds. denies n/v/f/c/abd pain. - Constitutional Vitals: Temp Pulse Resp BP Pulse Ox 97.7 F 64 16 111/57 93 03/11/17 06:36 03/11/17 06:36 03/11/17 08:06 03/11/17 06:36 03/11/17 08:06 General appearance: Present: cooperative, mild distress, A&O X 3, pleasant, answers questions appropriately - Head Head exam: Present: atraumatic, normocephalic - ENT Additional comments: continues to have epistaxis, no trauma to posterior oropharyngeal - Respiratory Respiratory exam: Present: CTAB. Absent: accessory muscle use, rales, rhonchi, wheezes - Cardiovascular Cardiovascular exam: Present: RRR, +S1, +S2. Absent: diastolic murmur, gallop, rubs, systolic murmur - GI/Abdominal GI/Abdominal exam: Present: normal bowel sounds, soft, no peritoneal signs. Absent: distended, tenderness Internal Medicine: Result - Labs CBC & Chem 7: 03/11/17 01:36 03/11/17 01:36 Labs: Short CBC 03/11/17 Range/Units 01:36 WBC 17.1 H (4.3-11.1) K/mcL Hgb 11.5 L (12.9-16.9) g/dL Hct 36.8 L (37.5-50.1) % Plt Count 240 (140-400) K/mcL Neutrophils # 13.7 H (1.6-8.9) K/mcL BMP 03/11/17 01:36 Sodium 140 Potassium 5.2 H Chloride 107 Carbon Dioxide 25 BUN 51 H Creatinine 1.33 H Glucose 105 H Calcium 9.3 Liver Function 03/11/17 Range/Units 01:36 Total Bilirubin 0.5 (0.2-1.2) mg/dL AST 16 (5-34) Units/L ALT 21 (0-55) Units/L Alkaline Phosphatase 130 H (38-126) Units/L Albumin 2.9 L (3.5-5.0) g/dL - ABG Interpretation ABG results: PT/INR, D-dimer PT 22.0 Seconds (9.4-12.1) H 03/11/17 01:36 - VTE Reasons for not Prescribing Prophylaxis: Not indicated-Anticoagulated or INR therapeutic Consult Discharge Plan - Plan Instructions: Amoxicillin (By mouth), Epistaxis (DC) Additional Instructions: F/U with ENT Dr. Sunshine within 1 week Referrals: Sky Leal MD [Partnered Physician] - 03/15/17 8:30 am Homero Love MD [Primary Care Provider] - 03/20/17 11:30 am ( ) <Ozzy So P - Last Filed: 03/27/17 08:45> Date of Encounter: 03/27/17 - Constitutional Vitals: Temp Pulse Resp BP Pulse Ox 97.6 F 56 17 109/57 96 03/13/17 10:58 03/13/17 10:58 03/13/17 11:34 03/13/17 10:58 03/13/17 11:34 Internal Medicine: Result - Labs CBC & Chem 7: 03/13/17 12:51 03/13/17 06:48 - ABG Interpretation ABG results: PT/INR, D-dimer PT 22.0 Seconds (9.4-12.1) H 03/11/17 01:36 - Attending Attestation I examined this patient and my medical decision-making was reviewed with the Resident Physician. I agree with the documented findings, disposition and treatment plan as described except to the extent set forth below. I was not able to send this note for many days due to technical error Please see event note from that date this progress note was generated.
--- NOTE | 2017-03-11 10:14 | ENT - Consult Note ---
Date of Encounter: 03/11/17 Time of Encounter: 10:11 Assessment and Plan (1) Epistaxis Current Visit: No Status: Acute L sided epistaxis, very likely as a result of multiple anti-coagulants and multiple repacking episodes to his nose. 5 packing episodes with cauterization in the last 4 days. Packing currently is Merocel and is in place and there is no active bleeding. There are no plans to reverse him or change his anti- coagulants per the IM resident. 1. Maintain current packing - instructed patient to not manipulate at all 2. Keep on Abx while the packing is in place 3. Saline to the anterior part of the packing for comfort and to help clean, and to the R nares for prophylaxis 4. Will continue to follow - call ENT if there is bright red blood from the anterior nares or that he spits up from the back of his mouth on a regular basis - he will always have mucus that his nose will produce, likely more since there is an irritating pack in his nose, and this will be blood-tinged. We are looking for bright red blood +/- clots History of Present Illness Consult date: 03/11/17 Reason for ENT Consult: epistaxis History of present illness: 86 y/o M here for epistaxis. He started having a L sided nosebleed earlier this week about 3-4 days ago. He had recently been started on Xarelto and is already on Plavix and ASA for A-fib. Xarelto was started for possible PE. Per daughter this dx was unclear but they wanted to air on the side of caution. He has underlying COPD and CHF as well and had presented w/ chest pain and SOB. He has been packed about 5 times with different packs since he started bleeding and was cauterized by Dr. Hackett. Last pack was last night in the ED with Merocel + TXA application. Appeared to have stopped but they admitted for formal control and see if his meds could be weaned. IM team has no plans to wean his meds. Has been spitting up blood-tinged material from the back of his mouth, otherwise no BRB from the front of the nose since the ER. Past Med Surg Social Fam HX - Past Medical History Medical history: atrial fibrillation, CHF, COPD, coronary artery disease, GERD, hyperlipidemia, hypertension, myocardial infarction, pulmonary embolus Psychiatric history: no psych history - Past Surgical History Surgical History: cholecystectomy, hip replacement, pacemaker/AICD - Social History Smoking Status: Former smoker Smokeless Tobacco Status: No Alcohol use: none Drug use: none - Family History Mother Hx Family Cancer: Yes Hx Family Neurologic Disorders: Yes (CVA) Brother Hx Family Cancer: Yes Medications and Allergies Albuterol Neb [Proventil Neb] 2.5 mg IH Q4HR 07/30/15 [History] Aspirin [Adult Low Dose Aspirin EC] 81 mg PO DAILY 07/30/15 [History] B2/Vits A,C,E/Lut/Zeaxanth/Min [Icaps Tablet] 1 tab PO DAILY 07/30/15 [History] Calcium Carbonate/Vitamin D3 [Calcium 600 + Vit D Tablet] 1 tab PO DAILY [History] Cyclobenzaprine [Flexeril] 10 mg PO HS 07/30/15 [History] Famotidine [Pepcid] 20 mg PO DAILY 07/30/15 [History] Gluc/Alan-MSM#1/C/Navdeep/Amandeep/Bor [Osteo Bi-Flex Caplet] 1 cap PO DAILY 07/30/15 [ History] Potassium Chloride [K-Tab ER] 20 meq PO DAILY 07/30/15 [History] Tiotropium [Spiriva] 18 mcg IH DAILY 07/30/15 [History] Acetaminophen [Tylenol] 500 mg PO BID PRN 02/19/17 [History] Atorvastatin [Lipitor] 40 mg PO HS #30 tab 02/20/17 [Rx] Budesonide/Formoterol 160/4.5 [Symbicort 160/4.5] 2 puff IH BIDR 02/20/17 [Rx] Metoprolol XL (24 HR) Succ [Toprol Xl] 100 mg PO DAILY 30 Days 03/02/17 [Rx] Rivaroxaban [Xarelto] 15 mg PO BID 21 Days 03/02/17 [Rx] Bumetanide [Bumex] 1 mg PO DAILY 03/07/17 [History] Clopidogrel [Plavix] 75 mg PO DAILY 03/07/17 [History] Sacubitril/Valsartan 24/26 mg [Entresto 24 mg-26 mg Tablet] 1 tab PO DAILY 03/07 [History] cephALEXin [Keflex] 500 mg PO TID #21 capsule 03/08/17 [Rx] 3 Allergy/AdvReac Type Severity Reaction Status Date / Time No Known Allergies Allergy Unverified 03/08/17 07:52 ENT Exam Initial Vital Signs Temp Pulse Resp BP Pulse Ox 98 F 58 16 124/113 92 03/10/17 18:30 03/10/17 18:30 03/10/17 18:30 03/10/17 18:30 03/10/17 18:30 - ENT dry mucosa, Other (No bright red blood from the anterior L nares where the packing (Merocel) is hanging out or from the from [employer] into the OP. Only old thick mucus that is blood-tinged in the back of the throat but no active bleeding) Exam Initial Vital Signs Temp Pulse Resp BP Pulse Ox 98 F 58 16 124/113 92 03/10/17 18:30 03/10/17 18:30 03/10/17 18:30 03/10/17 18:30 03/10/17 18:30 Results - Labs 03/11/17 01:36 03/11/17 01:36 Abnormal lab results WBC 17.1 K/mcL (4.3-11.1) H 03/11/17 01:36 RBC 3.63 M/mcL (4.19-5.50) L 03/11/17 01:36 Hgb 11.5 g/dL (12.9-16.9) L 03/11/17 01:36 Hct 36.8 % (37.5-50.1) L 03/11/17 01:36 MCV 101.4 fL (83.0-100.0) H 03/11/17 01:36 MCHC 31.3 g/dL (31.6-35.5) L 03/11/17 01:36 Neutrophils # 13.7 K/mcL (1.6-8.9) H 03/11/17 01:36 Monocytes # 1.5 K/mcL (0.0-1.3) H 03/11/17 01:36 PT 22.0 Seconds (9.4-12.1) H 03/11/17 01:36 Potassium 5.2 mEq/L (3.5-4.5) H 03/11/17 01:36 BUN 51 mg/dL (8-26) H 03/11/17 01:36 Creatinine 1.33 mg/dL (0.72-1.25) H 03/11/17 01:36 Est GFR (Non-Af Amer) 51 (> 60) L 03/11/17 01:36 BUN/Creatinine Ratio 38 (6-26) H 03/11/17 01:36 Glucose 105 mg/dL (70-99) H 03/11/17 01:36 Calculated Osmolality 304 (280-300) H 03/11/17 01:36 Alkaline Phosphatase 130 Units/L (38-126) H 03/11/17 01:36 Albumin 2.9 g/dL (3.5-5.0) L 03/11/17 01:36 Albumin/Globulin Ratio 0.9 (1.1-2.2) L 03/11/17 01:36 Diabetes panel 03/11/17 Range/Units 01:36 Sodium 140 (136-145) mEq/L Potassium 5.2 H (3.5-4.5) mEq/L Chloride 107 (98-109) mEq/L Carbon Dioxide 25 (19-29) mEq/L BUN 51 H (8-26) mg/dL Creatinine 1.33 H (0.72-1.25) mg/dL Glucose 105 H (70-99) mg/dL Calcium 9.3 (8.6-10.8) mg/dL AST 16 (5-34) Units/L ALT 21 (0-55) Units/L Alkaline Phosphatase 130 H (38-126) Units/L Albumin 2.9 L (3.5-5.0) g/dL Calcium panel 03/11/17 Range/Units 01:36 Calcium 9.3 (8.6-10.8) mg/dL Albumin 2.9 L (3.5-5.0) g/dL Pituitary panel 03/11/17 Range/Units 01:36 Sodium 140 (136-145) mEq/L Potassium 5.2 H (3.5-4.5) mEq/L Chloride 107 (98-109) mEq/L Carbon Dioxide 25 (19-29) mEq/L BUN 51 H (8-26) mg/dL Creatinine 1.33 H (0.72-1.25) mg/dL Glucose 105 H (70-99) mg/dL Calcium 9.3 (8.6-10.8) mg/dL Adrenal panel 03/11/17 Range/Units 01:36 Sodium 140 (136-145) mEq/L Potassium 5.2 H (3.5-4.5) mEq/L Chloride 107 (98-109) mEq/L Carbon Dioxide 25 (19-29) mEq/L BUN 51 H (8-26) mg/dL Creatinine 1.33 H (0.72-1.25) mg/dL Glucose 105 H (70-99) mg/dL Calcium 9.3 (8.6-10.8) mg/dL Total Bilirubin 0.5 (0.2-1.2) mg/dL AST 16 (5-34) Units/L ALT 21 (0-55) Units/L Alkaline Phosphatase 130 H (38-126) Units/L Albumin 2.9 L (3.5-5.0) g/dL All other labs normal. Consult Discharge Plan - Plan Referrals: NONE,PCP [Primary Care Provider] -
[2017-03-11] MEDS: Saline Nasal Spray 44 ML BOTTLE NS SCH ×7 (11:22→22:45)
[2017-03-11] MEDS: SACUBITRIL/VALSARTAN 24/26 MG TABLET PO SCH (12:06)
--- NOTE | 2017-03-11 12:22 | ENT - Procedure Note ---
Date of procedure: 03/08/17 Pre-op diagnosis: Left Posterior Epistaxis Post-op diagnosis: same Procedure: Procedure: Hemostasis of posterior epistasix with packing. Indications: Patient is an 86 year old male with a 3 day history of recurrent epistaxis. Patient with continued bleeding despite previous cauterization by ED staff. Attempt at packing the left naris was performed by ED staff but there was difficluty win placing the balloon posteriorly within the nasal cavity. ENT was consulted to assist in hemostasis. Procedure. Patient resting comfortably in a supine position in the ED. Verbal consent was obtained. Left 5cm rapid rhino was visualized in the left nasal cavity partially inserted with the balloon expelled from the nasal vesitbule. Balloon was deflated and removed from the left nasal cavity. Bilateral nasal cavity was sprayed with 50:50 mixture of oxymetazoline and 2% Topical lidocaine spray. Bilateral nasal cavities were examined with nasal speculum and headlight. Patient with deviated nasal septum and multiple areas of cauterization was visualized throughout the nasal cavity on the left on both the septum as well as the lateral nasal sidewall. 7.5 cm rapid rhino was then inserted within the left nasal cavity. Patient with septal devation in the posterior aspect of the left nasal cavity but balloon was able to be placed properly in the left nasal cavity. Balloon was inflated with 3cc of saline. Hemostasis was achieved. Post procedure instructions were discussed with patient as well as daughter at the bedside. Patient to return to clinic on Sunday for Balloon removal. Anesthesia: topical Surgeon: Patricia Hackett Estimated blood loss (cc): 5 Condition: stable
[2017-03-11 12:42] LABS: Bilirubin,Urine Negative (Negative); Blood,Urine Negative (Negative); Clarity,Urine Clear (Clear); Color,Urine Yellow (Yellow); Glucose,Urine (UA) Normal (Normal); Ketones,Urine Negative (Negative); Leukocyte Esterase,Urine Negative (Negative); Nitrite,Urine Negative (Negative); Protein,Urine Negative (Neg-Trace); Specific Gravity,Urine 1.019 (1.010-1.025); Urobilinogen,Urine Normal (Normal)
[2017-03-11 13:01] LABS: Hematocrit 34.5 % (37.5-50.1); Hemoglobin 10.7 g/dL (12.9-16.9)
--- NOTE | 2017-03-11 16:20 | Event Note ---
Date of Encounter: 03/11/17 Time of Encounter: 16:18 I have seen this patient independently and examined independently. I was unable to cosign the note of a resident as it was persistently showing me "updating progress and cannot assess the for any acute changes" Briefly, 86-year-old male admitted with the episode of epistaxis. ENT on board, Noted that ENT has done procedure. Patient is to follow-up with the ENT tomorrow in their office. Please see the note from the resident's charting today for further details regarding assessment/plan and management
[2017-03-11 20:35] LABS: Hematocrit 32.6 % (37.5-50.1); Hemoglobin 10.2 g/dL (12.9-16.9)
[2017-03-12] MEDS: Albuterol 2.5 MG/3 ML NEBULIZER IH SCH ×6 (00:15→20:19)
[2017-03-12] MEDS: ceFAZolin 2,000 MG in D5% in Water 100 ML IVPB SCH ×3 (00:25→16:40)
[2017-03-12] MEDS: Saline Nasal Spray 44 ML BOTTLE NS SCH ×11 (00:26→21:25)
[2017-03-12 04:38] LABS: Hematocrit 31.9 % (37.5-50.1); Hemoglobin 9.9 g/dL (12.9-16.9); Platelet Count 195 K/mcL (140-400); Red Blood Count 3.19 M/mcL (4.19-5.50)
[2017-03-12 04:39] LABS: Hematocrit 32.3 % (37.5-50.1)
[2017-03-12 04:46] LABS: Calcium 8.7 mg/dL (8.6-10.8); Potassium 4.7 mEq/L (3.5-4.5)
--- NOTE | 2017-03-12 08:00 | ENT - Progress Note ---
Date of Encounter: 03/12/17 Time of Encounter: 07:58 - Assessment and Plan (1) Epistaxis Current Visit: No Status: Acute No active bleeding today. Hb did drop but this may be dilutional or an equilibrium effect. Clots and mucus will continue to come from the PET AMBASS[employer]OR, but there doesn't appear to be active bleeding. Will keep pack in for now. Do not recommend transferring him to the ENT clinic today as we would not remove the pack today anyway. Continue Abx, saline application. Will continue to follow in house. Subjective Patient reports: other (no bleeding episodes yesterday or last night) Objective Initial Vital Signs Temp Pulse Resp BP Pulse Ox 98 F 58 16 124/113 92 03/10/17 18:30 03/10/17 18:30 03/10/17 18:30 03/10/17 18:30 03/10/17 18:30 - ENT Other (no active bleeding from the PET AMBASSADOR into the OP, suctioned some thinned old clot from the oropharynx (OP). Applied saline to the merocel and the anterior R nares; no active bleeding) - Labs 03/12/17 04:14 03/12/17 04:14 Diabetes panel 03/12/17 Range/Units 04:14 Sodium 138 (136-145) mEq/L Potassium 4.7 H (3.5-4.5) mEq/L Chloride 107 (98-109) mEq/L Carbon Dioxide 25 (19-29) mEq/L BUN 53 H (8-26) mg/dL Creatinine 1.54 H (0.72-1.25) mg/dL Glucose 100 H (70-99) mg/dL Calcium 8.7 (8.6-10.8) mg/dL Calcium panel 03/12/17 Range/Units 04:14 Calcium 8.7 (8.6-10.8) mg/dL Pituitary panel 03/12/17 Range/Units 04:14 Sodium 138 (136-145) mEq/L Potassium 4.7 H (3.5-4.5) mEq/L Chloride 107 (98-109) mEq/L Carbon Dioxide 25 (19-29) mEq/L BUN 53 H (8-26) mg/dL Creatinine 1.54 H (0.72-1.25) mg/dL Glucose 100 H (70-99) mg/dL Calcium 8.7 (8.6-10.8) mg/dL Adrenal panel 03/12/17 Range/Units 04:14 Sodium 138 (136-145) mEq/L Potassium 4.7 H (3.5-4.5) mEq/L Chloride 107 (98-109) mEq/L Carbon Dioxide 25 (19-29) mEq/L BUN 53 H (8-26) mg/dL Creatinine 1.54 H (0.72-1.25) mg/dL Glucose 100 H (70-99) mg/dL Calcium 8.7 (8.6-10.8) mg/dL - VTE Reasons for not Prescribing Prophylaxis: Not indicated-Anticoagulated or INR therapeutic Consult Discharge Plan - Plan Referrals: NONE,PCP [Non-Partnered Physician] - (most likely is going to [facility])
[2017-03-12] MEDS: Aspirin Enteric Coated 81 MG Tablet PO SCH (08:10)
[2017-03-12] MEDS: Famotidine 20 MG TABLET PO SCH (08:10)
[2017-03-12] MEDS: Bumetanide 1 MG TABLET PO SCH (08:10)
[2017-03-12] MEDS: *HR* Rivaroxaban 15 MG TABLET PO SCH ×2 (08:10→21:26)
[2017-03-12] MEDS: (Osteo Bi-Flex Caplet) PO SCH (08:11)
[2017-03-12] MEDS: ICAPS PO SCH (08:11)
[2017-03-12] MEDS: Metoprolol XL (24 HR) Succ 50 MG TAB.ER.24H PO SCH (09:51)
[2017-03-12] MEDS: SACUBITRIL/VALSARTAN 24/26 MG TABLET PO SCH (10:01)
--- NOTE | 2017-03-12 10:52 | Internal Med Progress Note ---
<Darryl Fitzgerald - Last Filed: 03/12/17 10:49> Date of Encounter: 03/12/17 Time of Encounter: 10:49 - Assessment and plan (1) Epistaxis Current Visit: No Status: Acute Assessment and plan: Multiple visits to ED for continuous epistaxis. anticoag cannot be discontinued due to recent PE and 2x stents placed - per ENT, contiue abx, saline application. - continue ancef for nasal pathogens (2) Acute blood loss anemia Current Visit: Yes Status: Acute Assessment and plan: Multiple visits to ED for continuous epistaxis. anticoag cannot be discontinued due to recent PE and 2x stents placed. type and cross A+. - ENT will evaluate - closely follow H+H - continue anti-coagulation - consider transfusion if hgb drops rapidly (3) Pulmonary embolism Current Visit: No Status: Acute Assessment and plan: recent hx of PE - continue xarelto + Plavix as currently prescribed - continue to closely follow for sx Qualifiers: Pulmonary embolism type: other Chronicity: acute Acute cor pulmonale presence: with acute cor pulmonale Qualified Code(s): I26.09 - Other pulmonary embolism with acute cor pulmonale (4) CAD (coronary artery disease) Current Visit: No Status: Chronic Assessment and plan: recent hx of 2x stent - continue xarelto + Plavix as currently prescribed - continue to closely follow for sx Qualifiers: Coronary Disease-Associated Artery/Lesion type: unspecified vessel or lesion type [place] vs. transplanted heart: unspecified whether [place] or transplanted heart Associated angina: angina presence unspecified Qualified Code(s): I25.10 - Atherosclerotic heart disease of [place] coronary artery without angina pectoris (5) DVT prophylaxis Current Visit: Yes Status: Acute Assessment and plan: on home dose xarelto - Subjective Interval history: Mr Calix is an 86 yo M Day 2 of admission 2/2 severe epistaxis w/ 2 prev ED visits tx conservative, then with rhino rocket w/ hx of recent PE, 2 stents placed last week. Today he continues to have blood running down the back of his throat. His daughter is concerned about the drop in hgb from yesterday, we reassured her that we would keep a close eye on h/h. denies n/v/f/c/abd pain. - Constitutional Vitals: Temp Pulse Resp BP Pulse Ox 97.5 F L 50 16 125/52 93 03/12/17 08:00 03/12/17 09:49 03/12/17 08:00 03/12/17 09:49 03/12/17 08:00 General appearance: Present: cooperative, mild distress, A&O X 3, pleasant, answers questions appropriately - Head Head exam: Present: atraumatic, normocephalic - ENT Additional comments: Epistaxis in Left nose. Posterior oropharynx has bright red blood in mucus running, no visible signs of trauma or localized bleeding. - Respiratory Respiratory exam: Present: CTAB. Absent: accessory muscle use, rales, rhonchi, wheezes - Cardiovascular Cardiovascular exam: Present: RRR, +S1, +S2. Absent: diastolic murmur, gallop, rubs, systolic murmur - GI/Abdominal GI/Abdominal exam: Present: normal bowel sounds, soft, no peritoneal signs. Absent: distended, tenderness Internal Medicine: Result - Labs CBC & Chem 7: 03/12/17 04:14 03/12/17 04:14 Labs: Short CBC 03/11/17 03/11/17 03/12/17 Range/Units 12:26 19:58 04:14 WBC (4.3-11.1) K/mcL Hgb 10.7 L 10.2 L 10.0 L (12.9-16.9) g/dL Hct 34.5 L 32.6 L 32.3 L (37.5-50.1) % Plt Count (140-400) K/mcL 03/12/17 Range/Units 04:14 WBC 11.6 H (4.3-11.1) K/mcL Hgb 9.9 L (12.9-16.9) g/dL Hct 31.9 L (37.5-50.1) % Plt Count 195 (140-400) K/mcL BMP 03/12/17 04:14 Sodium 138 Potassium 4.7 H Chloride 107 Carbon Dioxide 25 BUN 53 H Creatinine 1.54 H Glucose 100 H Calcium 8.7 Urine 03/11/17 Range/Units 12:05 Urine Color Yellow (Yellow) Urine Clarity Clear (Clear) Urine pH 6.0 (5.0-8.0) pH Units Ur Specific [place] 1.019 (1.010-1.025) Urine Protein Negative (Neg-Trace) mg/dL Urine Glucose (UA) Normal (Normal) mg/dL - ABG Interpretation ABG results: PT/INR, D-dimer PT 22.0 Seconds (9.4-12.1) H 03/11/17 01:36 - VTE Reasons for not Prescribing Prophylaxis: Not indicated-Anticoagulated or INR therapeutic Consult Discharge Plan - Plan Referrals: NONE,PCP [Non-Partnered Physician] - (most likely is going to [facility]) <Ozzy So - Last Filed: 03/12/17 16:50> Date of Encounter: 03/12/17 - Constitutional Vitals: Temp Pulse Resp BP Pulse Ox 98.0 F 56 16 106/58 95 03/12/17 15:42 03/12/17 15:42 03/12/17 16:17 03/12/17 16:04 03/12/17 16:17 Internal Medicine: Result - Labs CBC & Chem 7: 03/12/17 12:01 03/12/17 04:14 Labs: Short CBC 03/11/17 03/12/17 03/12/17 Range/Units 19:58 04:14 04:14 WBC 11.6 H (4.3-11.1) K/mcL Hgb 10.2 L 10.0 L 9.9 L (12.9-16.9) g/dL Hct 32.6 L 32.3 L 31.9 L (37.5-50.1) % Plt Count 195 (140-400) K/mcL 03/12/17 Range/Units 12:01 WBC (4.3-11.1) K/mcL Hgb 11.0 L (12.9-16.9) g/dL Hct 33.8 L (37.5-50.1) % Plt Count (140-400) K/mcL BMP 03/12/17 04:14 Sodium 138 Potassium 4.7 H Chloride 107 Carbon Dioxide 25 BUN 53 H Creatinine 1.54 H Glucose 100 H Calcium 8.7 - ABG Interpretation ABG results: PT/INR, D-dimer PT 22.0 Seconds (9.4-12.1) H 03/11/17 01:36 - Attending Attestation I examined this patient and my medical decision-making was reviewed with the Resident Physician. I agree with the documented findings, disposition and treatment plan as described except to the extent set forth below.
[2017-03-12 12:25] LABS: Hematocrit 33.8 % (37.5-50.1)
[2017-03-12] MEDS: 0.9 % Sodium Chloride 1,000 ML IVC SCH (15:07)
[2017-03-12] MEDS ORDERED: *HR* HYDROcodone/Acet 5/325 mg TABLET PO PRN (17:04)
[2017-03-12 19:33] LABS: Hemoglobin 10.4 g/dL (12.9-16.9)
[2017-03-13] MEDS: Albuterol 2.5 MG/3 ML NEBULIZER IH SCH ×4 (00:10→11:33)
[2017-03-13] MEDS: Saline Nasal Spray 44 ML BOTTLE NS SCH ×6 (00:36→11:06)
[2017-03-13] MEDS: ceFAZolin 2,000 MG in D5% in Water 100 ML IVPB SCH ×2 (01:18→08:11)
[2017-03-13] MEDS: 0.9 % Sodium Chloride 1,000 ML IVC SCH (02:36)
--- NOTE | 2017-03-13 07:37 | ENT - Progress Note ---
Date of Encounter: 03/13/17 Time of Encounter: 07:35 - Assessment and Plan (1) Epistaxis Current Visit: No Status: Acute No active bleeding today. Clots and mucus will continue to come from the CNA GNA, but there doesn't appear to be active bleeding, especially to the degree that would warrant packing removal after <3 days on three anticoagulants. Will keep pack in for now. Continue Abx, saline application. Will continue to follow in house. Subjective Patient reports: other (Still spitting up occasional clots, no other issues) Objective Initial Vital Signs Temp Pulse Resp BP Pulse Ox 98 F 58 16 124/113 92 03/10/17 18:30 03/10/17 18:30 03/10/17 18:30 03/10/17 18:30 03/10/17 18:30 - ENT Other (small clot from the CNA GNA into the OP, mild bright red blood surrounding the clot but after suctioning no bright red blood or active bleeding seen coming from the CNA GNA; packing still in place) - Labs 03/12/17 19:21 03/12/17 04:14 - VTE Reasons for not Prescribing Prophylaxis: Not indicated-Anticoagulated or INR therapeutic Consult Discharge Plan - Plan Referrals: NONE,PCP [Non-Partnered Physician] - (most likely is going to [facility])
[2017-03-13 07:40] LABS: Hematocrit 33.2 % (37.5-50.1); Hemoglobin 10.6 g/dL (12.9-16.9); Mean Corpuscular HGB Conc 31.9 g/dL (31.6-35.5); Mean Corpuscular Hemoglobin 31.7 pg (28.0-33.3); Mean Corpuscular Volume 99.4 fL (83.0-100.0); Mean Platelet Volume 9.8 fL (9.4-12.4); Platelet Count 192 K/mcL (140-400); Red Blood Count 3.34 M/mcL (4.19-5.50); Red Cell Distribution Width 12.1 % (11.5-14.5)
[2017-03-13 07:45] LABS: Hematocrit 33.9 % (37.5-50.1); Hemoglobin 10.5 g/dL (12.9-16.9)
[2017-03-13] MEDS: Aspirin Enteric Coated 81 MG Tablet PO SCH (08:08)
[2017-03-13] MEDS: Famotidine 20 MG TABLET PO SCH (08:08)
[2017-03-13] MEDS: Bumetanide 1 MG TABLET PO SCH (08:08)
[2017-03-13] MEDS: SACUBITRIL/VALSARTAN 24/26 MG TABLET PO SCH (08:08)
[2017-03-13] MEDS: *HR* Rivaroxaban 15 MG TABLET PO SCH (08:09)
[2017-03-13] MEDS: Metoprolol XL (24 HR) Succ 50 MG TAB.ER.24H PO SCH (08:09)
[2017-03-13 08:44] LABS: BUN/Creatinine Ratio 39 (6-26); Blood Urea Nitrogen 46 mg/dL (8-26); Calcium 8.5 mg/dL (8.6-10.8); Carbon Dioxide 22 mEq/L (19-29); Chloride 111 mEq/L (98-109); Glucose 95 mg/dL (70-99); Osmolality,Calculated 300 (280-300); Potassium 4.5 mEq/L (3.5-4.5); Sodium 139 mEq/L (136-145); eGFR For African Americans > 60 (> 60); eGFR For Non-African Americans 58 (> 60)
--- NOTE | 2017-03-13 08:50 | Discharge Summary ---
<Darryl Fitzgerald - Last Filed: 03/13/17 13:15> Date of Encounter: 03/13/17 Time of Encounter: 08:45 - Discharge Diagnosis (1) Epistaxis Priority: Primary Status: Acute (2) Acute blood loss anemia Priority: Secondary Status: Acute (3) Pulmonary embolism Priority: Secondary Status: Acute Qualifiers: Pulmonary embolism type: other Chronicity: acute Acute cor pulmonale presence: with acute cor pulmonale Qualified Code(s): I26.09 - Other pulmonary embolism with acute cor pulmonale (4) CAD (coronary artery disease) Priority: Secondary Status: Chronic Qualifiers: Coronary Disease-Associated Artery/Lesion type: unspecified vessel or lesion type [place] vs. transplanted heart: unspecified whether [place] or transplanted heart Associated angina: angina presence unspecified Qualified Code(s): I25.10 - Atherosclerotic heart disease of [place] coronary artery without angina pectoris (5) DVT prophylaxis Priority: Secondary Status: Acute - Discharge Medications Prescriptions: Amoxicillin/Clavulanate [Augmentin] 875 mg PO BIDWM #10 tablet Home Medications: Albuterol Neb [Proventil Neb] 2.5 mg IH Q4HR 07/30/15 [History] Aspirin [Adult Low Dose Aspirin EC] 81 mg PO DAILY 07/30/15 [History] B2/Vits A,C,E/Lut/Zeaxanth/Min [Icaps Tablet] 1 tab PO HS 07/30/15 [History] Calcium Carbonate/Vitamin D3 [Calcium 600 + Vit D Tablet] 1 tab PO DAILY [History] Cyclobenzaprine [Flexeril] 10 mg PO HS 07/30/15 [History] Famotidine [Pepcid] 20 mg PO BID 07/30/15 [History] Gluc/Alan-MSM#1/C/Navdeep/Amandeep/Bor [Osteo Bi-Flex Caplet] 1 cap PO HS 07/30/15 [ History] Potassium Chloride [K-Tab ER] 20 meq PO DAILY 07/30/15 [History] Tiotropium [Spiriva] 18 mcg IH DAILY 07/30/15 [History] Acetaminophen [Tylenol] 500 mg PO BID PRN 02/19/17 [History] Budesonide/Formoterol 160/4.5 [Symbicort 160/4.5] 2 puff IH BIDR 02/20/17 [Rx] Metoprolol XL (24 HR) Succ [Toprol Xl] 100 mg PO DAILY 30 Days 03/02/17 [Rx] Rivaroxaban [Xarelto] 15 mg PO BID 21 Days 03/02/17 [Rx] Bumetanide [Bumex] 1 mg PO DAILY 03/07/17 [History] Clopidogrel [Plavix] 75 mg PO DAILY 03/07/17 [History] Sacubitril/Valsartan 24/26 mg [Entresto 24 mg-26 mg Tablet] 1 tab PO DAILY 03/07 [History] cephALEXin [Keflex] 500 mg PO TID #21 capsule 03/08/17 [Rx] Atorvastatin Calcium [Lipitor] 80 mg PO HS 03/11/17 [History] Amoxicillin/Clavulanate [Augmentin] 875 mg PO BIDWM #10 tablet 03/13/17 [Rx] Atorvastatin [Lipitor] 40 mg PO HS tab 03/13/17 [Rx] Allergies/Adverse Reactions: 3 Allergy/AdvReac Type Severity Reaction Status Date / Time No Known Allergies Allergy Verified 03/11/17 15:42 Date of admission: 03/11/17 01:12 Primary care physician: Sandi Love Consults: 03/12/17 08:24 Consult to Occupational Therapy [CONS] Routine Comment: Evaluate, develop and implement POC Reason for Consult: weakness Consult to Physical Therapy [CONS] Routine Comment: Evaluate, develop and implement POC Reason for Consult: weakness - Patient Status Disposition: Home Health Service Condition: Fair Overall status at discharge: patient is progressing back to baseline - Discharge Instructions Instructions: Amoxicillin (By mouth), Epistaxis (DC) Follow Up With: Sky Leal MD [Partnered Physician] - 03/15/17 8:30 am Homero Love MD [Primary Care Provider] - 03/20/17 11:30 am ( ) Additional Instructions: F/U with ENT Dr. Sunshine within 1 week - Diet and Activity Activity: increase activity as tolerated Diet: other (cardiac diet) Interval History: Mr Almendarez is a 86 year old Male who was brought in for continuous epistaxis w/ multiple visits to ED for epistaxis, and PE and 2 stents placed in the last couple weeks and placed on ASA, Xarelto, and Plavix which were continued during hospital course due to risks. Hgb on admission was 12.3, and ranged between 9.9-10.6 during stay. ENT evaluated patient through out hospitalization, and pack left nostril with Rhino Rocket. Per ENT, packing was left in place and Augmentin 875 mg BID for 10 days on discharge. Hospital course: Mr. Almendarez is a 86 year old male - Time Spent with Patient Total time spent providing and/or coordinating discharge services: - Constitutional Vitals: Temp Pulse Resp BP Pulse Ox 97.4 F L 64 17 110/68 96 03/13/17 07:37 03/13/17 07:37 03/13/17 07:37 03/13/17 07:37 03/13/17 07:37 General appearance: Present: cooperative, mild distress, A&O X 3, pleasant, answers questions appropriately - Head Head exam: Present: atraumatic, normocephalic - ENT Additional comments: left nasal has packing with dry blood. Oropharynx has no active sign of bleeding, or trauma - Respiratory Respiratory exam: Present: CTAB. Absent: accessory muscle use, rales, rhonchi, wheezes - Cardiovascular Cardiovascular exam: Present: RRR, +S1, +S2. Absent: diastolic murmur, gallop, rubs, systolic murmur - GI/Abdominal GI/Abdominal exam: Present: normal bowel sounds, soft, no peritoneal signs. Absent: distended, tenderness - VTE Reasons for not Prescribing Prophylaxis: Not indicated-Anticoagulated or INR therapeutic <Ozzy So P - Last Filed: 03/13/17 18:34> Date of Encounter: 03/13/17 Date of admission: 03/11/17 01:12 Primary care physician: Homero Love MD Consults: 03/12/17 08:24 Consult to Occupational Therapy [CONS] Routine Comment: Evaluate, develop and implement POC Reason for Consult: weakness Consult to Physical Therapy [CONS] Routine Comment: Evaluate, develop and implement POC Reason for Consult: weakness Hospital course: Mr. Almendarez is a 86 year old male - Time Spent with Patient Total time spent providing and/or coordinating discharge services: - Constitutional Vitals: Temp Pulse Resp BP Pulse Ox 97.6 F 56 17 109/57 96 03/13/17 10:58 03/13/17 10:58 03/13/17 11:34 03/13/17 10:58 03/13/17 11:34 - Attending Attestation I examined this patient and my medical decision-making was reviewed with the Resident Physician. I agree with the documented findings, disposition and treatment plan as described except to the extent set forth below.
--- NOTE | 2017-03-13 08:53 | Physician Discharge Referral ---
<Darryl Fitzgerald - Last Filed: 03/13/17 09:23> Home Health/Hosp Referral Info Transfer to: Home Health (Home health continuity) Provider in Charge Post Discharge: PCP - Diagnosis (1) Epistaxis Priority: Primary Status: Acute (2) Acute blood loss anemia Priority: Secondary Status: Acute (3) Pulmonary embolism Priority: Secondary Status: Acute (4) CAD (coronary artery disease) Priority: Secondary Status: Chronic (5) DVT prophylaxis Priority: Secondary Status: Acute - Respiratory Orders Smoking Cessation: Smoking cessation has been advised. For more information, call the [place] Tobacco Quit Line at 9-424-OFRL-NOW. - Transfer Medications Prescriptions: Amoxicillin/Clavulanate [Augmentin] 875 mg PO BIDWM #10 tablet Home Medications: Albuterol Neb [Proventil Neb] 2.5 mg IH Q4HR 07/30/15 [History] Aspirin [Adult Low Dose Aspirin EC] 81 mg PO DAILY 07/30/15 [History] B2/Vits A,C,E/Lut/Zeaxanth/Min [Icaps Tablet] 1 tab PO HS 07/30/15 [History] Calcium Carbonate/Vitamin D3 [Calcium 600 + Vit D Tablet] 1 tab PO DAILY [History] Cyclobenzaprine [Flexeril] 10 mg PO HS 07/30/15 [History] Famotidine [Pepcid] 20 mg PO BID 07/30/15 [History] Gluc/Alan-MSM#1/C/Navdeep/Amandeep/Bor [Osteo Bi-Flex Caplet] 1 cap PO HS 07/30/15 [ History] Potassium Chloride [K-Tab ER] 20 meq PO DAILY 07/30/15 [History] Tiotropium [Spiriva] 18 mcg IH DAILY 07/30/15 [History] Acetaminophen [Tylenol] 500 mg PO BID PRN 02/19/17 [History] Budesonide/Formoterol 160/4.5 [Symbicort 160/4.5] 2 puff IH BIDR 02/20/17 [Rx] Metoprolol XL (24 HR) Succ [Toprol Xl] 100 mg PO DAILY 30 Days 03/02/17 [Rx] Rivaroxaban [Xarelto] 15 mg PO BID 21 Days 03/02/17 [Rx] Bumetanide [Bumex] 1 mg PO DAILY 03/07/17 [History] Clopidogrel [Plavix] 75 mg PO DAILY 03/07/17 [History] Sacubitril/Valsartan 24/26 mg [Entresto 24 mg-26 mg Tablet] 1 tab PO DAILY 03/07 [History] cephALEXin [Keflex] 500 mg PO TID #21 capsule 03/08/17 [Rx] Atorvastatin Calcium [Lipitor] 80 mg PO HS 03/11/17 [History] Amoxicillin/Clavulanate [Augmentin] 875 mg PO BIDWM #10 tablet 03/13/17 [Rx] Atorvastatin [Lipitor] 40 mg PO HS tab 03/13/17 [Rx] Allergies/Adverse Reactions: 3 Allergy/AdvReac Type Severity Reaction Status Date / Time No Known Allergies Allergy Verified 03/11/17 15:42 Certification: Further, I certify that my clinical findings support that this patient is homebound (i.e. absences from home require considerable and taxing effort and are for medical reasons or denominational services or infrequently or short duration when for other reasons) because: Homebound Reason: Patient requires assistance of a person or device to safely leave home Attestation: My signature below is to certify that this patient is under my care and that I, or nurse practitioner, or a physician's desk assistant working with me, has a face-to -face encounter with this patient. <Ozzy So P - Last Filed: 03/13/17 18:34> - Respiratory Orders Smoking Cessation: Smoking cessation has been advised. For more information, call the [place] Tobacco Quit Line at 4-771-PNVS-NOW. Certification: Further, I certify that my clinical findings support that this patient is homebound (i.e. absences from home require considerable and taxing effort and are for medical reasons or denominational services or infrequently or short duration when for other reasons) because: Attestation: My signature below is to certify that this patient is under my care and that I, or nurse practitioner, or a physician's desk assistant working with me, has a face-to -face encounter with this patient.
[2017-03-13] MEDS ORDERED: Multivit/Ca/Min/Fe/FA 1 TAB TABLET PO SCH (09:00)
[2017-03-13] MEDS ORDERED: MOM Conc 10 ML UD.LIQ PO ONE (10:52)
[2017-03-13 11:05] VITALS: BP 109/57
[2017-03-13 13:34] LABS: Hematocrit 31.6 % (37.5-50.1); Hemoglobin 10.3 g/dL (12.9-16.9)
== END 2017-03-13 14:00 | disposition home health service (06) | DRG 151 ==
LOC: 3ANU 18:28 → EMEROO 18:28 → 3ANU 22:31 → 2ANU 03-11 05:19
PROVIDERS: ADMIT Internal Medicine; ATTEND Internal Medicine

== ENCOUNTER 2017-03-14 04:41 | Inpatient (IN) ==
[2017-03-14] MEDS ORDERED: Oxymetazoline Nasal SPRAY BOTTLE NS ONE (04:58)
[2017-03-14] MEDS ORDERED: Lidocaine -MPF 4% 5 ML AMPUL INFILT ONE (05:02)
--- NOTE | 2017-03-14 05:25 | Emergency Department Note ---
Disposition Clinical Impression: Epistaxis Disposition: Admitted As Inpatient Condition: Fair Epistaxis HPI - General Chief complaint: ED Epistaxis Stated complaint: nose bleed Time Seen by Provider: 03/14/17 04:46 Source: patient, family Mode of arrival: private vehicle Limitations: no limitations Nursing Notes Reviewed: Yes Vital Signs Reviewed: Yes - History of Present Illness Pt Subjective Complaint: epistaxis Location: left nostril Onset (ago): hour(s) (8pm last night) Duration: constant Context: history of previous, aspirin use, other anticoagulant use Associated symptoms: Denies: fever, headache, sinus pain, syncope, weakness, vomiting, other Treatment prior to arrival: other (none) - Related Data Home Medications Medication Instructions Recorded Confirmed Albuterol Neb [Proventil Neb] 2.5 mg IH Q4HR 07/30/15 03/11/17 Aspirin [Adult Low Dose Aspirin EC] 81 mg PO DAILY 07/30/15 03/11/17 B2/Vits A,C,E/Lut/Zeaxanth/Min 1 tab PO HS 07/30/15 03/11/17 [Icaps Tablet] Calcium Carbonate/Vitamin D3 1 tab PO DAILY 07/30/15 03/11/17 [Calcium 600 + Vit D Tablet] Cyclobenzaprine [Flexeril] 10 mg PO HS 07/30/15 03/11/17 Famotidine [Pepcid] 20 mg PO BID 07/30/15 03/11/17 Gluc/Alan-MSM#1/C/Navdeep/Amandeep/Bor 1 cap PO HS 07/30/15 03/11/17 [Osteo Bi-Flex Caplet] Potassium Chloride [K-Tab ER] 20 meq PO DAILY 07/30/15 03/11/17 Tiotropium [Spiriva] 18 mcg IH DAILY 07/30/15 03/11/17 Acetaminophen [Tylenol] 500 mg PO BID PRN 02/19/17 03/11/17 Bumetanide [Bumex] 1 mg PO DAILY 03/07/17 03/11/17 Clopidogrel [Plavix] 75 mg PO DAILY 03/07/17 03/11/17 Sacubitril/Valsartan 24/26 mg 1 tab PO DAILY 03/07/17 03/11/17 [Entresto 24 mg-26 mg Tablet] Atorvastatin Calcium [Lipitor] 80 mg PO HS 03/11/17 03/11/17 Previous Rx's Medication Instructions Recorded Budesonide/Formoterol 160/4.5 2 puff IH BIDR 02/20/17 [Symbicort 160/4.5] Metoprolol XL (24 HR) Succ [Toprol 100 mg PO DAILY 30 Days 03/02/17 Xl] Rivaroxaban [Xarelto] 15 mg PO BID 21 Days 03/02/17 cephALEXin [Keflex] 500 mg PO TID #21 capsule 03/08/17 Amoxicillin/Clavulanate [Augmentin] 875 mg PO BIDWM #10 tablet 03/13/17 Atorvastatin [Lipitor] 40 mg PO HS tab 03/13/17 Allergies Allergy/AdvReac Type Severity Reaction Status Date / Time No Known Allergies Allergy Verified 03/11/17 15:42 All systems ED: reviewed and negative except as stated. Review of Systems: As Per HPI Constitutional: Denies: fever, chills, weakness Eyes: Denies: eye pain, eye discharge, vision change ENT ED: Reports: as per HPI, epistaxis. Denies: throat pain, dysphagia Cardiovascular: Denies: chest pain, palpitations Respiratory: Denies: cough, dyspnea, wheezes Gastrointestinal: Denies: abdominal pain, nausea, vomiting Neurological: Denies: headache, weakness, confusion, vertigo Endocrine: Denies: fatigue Hematological/Lymphatic: Reports: easy bleeding, easy bruising Past Medical History - Past Medical History Attestation: Yes The following information was validated with the patient. Source: patient Medical history: Reports: atrial fibrillation, CHF, COPD, coronary artery disease, GERD, hyperlipidemia, hypertension, myocardial infarction, pulmonary embolus Surgical history: Reports: cholecystectomy, hip replacement, pacemaker/AICD Psychiatric history: Reports: no psych history - Social History Smoking Status: Former smoker Smokeless Tobacco Status: No Alcohol use: Reports: none Drug use: Reports: none Physical Exam - General Limitations: no limitations General appearance: alert, in no apparent distress - Head Head exam: atraumatic, normocephalic, normal inspection - Eye Eye exam: Present: normal appearance, PERRL, EOMI. Absent: scleral icterus, conjunctival injection, periorbital swelling - ENT ENT exam: mucous membranes dry, other (blood in posterior pharynx - bright red and dark) - Expanded ENT Exam Nasal speculum exam: Bilateral: epistaxis (packing in left nostril) Mouth exam: Present: normal external inspection, tongue normal. Absent: drooling, trismus Throat exam: Present: other (blood in posterior pharynx) - Neck Neck exam: Present: normal inspection, full ROM, trachea midline - Chest Chest inspection: Present: normal inspection - Respiratory Respiratory exam: Absent: respiratory distress - Cardiovascular Cardiovascular exam: Present: regular rate, normal rhythm - Extremities Exam Extremities exam: Present: normal inspection - Neurological Exam Neurological exam: Present: alert, oriented X3, CN II-XII intact - Psychiatric Psychiatric exam: Present: normal affect, normal mood - Skin Skin exam: Present: warm, dry, intact, normal color Course Course Narrative: Patient presents from home with his daughter for evaluation of a nosebleed that began around 8 PM. He was recently admitted to the hospital for the same nosebleed. He was seen by Dr. De La Paz, who packed his nose. This resulted in hemostasis and the patient was able to go home. He did fine for a couple days and the bleeding resumed. He denies pain dizziness lightheadedness, vertigo, syncope. He is currently on Xarelto for bilateral pulmonary emboli as well as aspirin and Plavix for recent stent placement. Patient's daughter would like for Dr. De La Paz to be paged. Dr. De La Paz has been working two. Stop the nosebleed for over an hour. He has discussed other options with the patient and his daughter. Ultimately, the patient will require admission for observation or possibly longer, to ensure hemostasis continues. - Consultations Consultation #1: Case was discussed with Dr. De La Paz. He agreed to come and see the patient. Vital Signs Temperature 97.3 F L 03/14/17 04:42 Pulse Rate 94 03/14/17 04:42 Respiratory Rate 20 03/14/17 04:42 Blood Pressure 114/72 03/14/17 04:42 O2 Sat by Pulse Oximetry 95 03/14/17 04:42 Temperature 97.3 F L 03/14/17 04:42 Pulse Rate 94 03/14/17 04:42 Respiratory Rate 20 03/14/17 04:42 Blood Pressure 114/72 03/14/17 04:42 O2 Sat by Pulse Oximetry 95 03/14/17 04:42 Oxygen Delivery Oxygen Delivery Room Air Epistaxis - Medical Records Medical records reviewed: Yes I reviewed the patient's medical records. - Lab Data Lab results reviewed: Yes I reviewed the patient's lab results. Lab results narrative: Laboratory Last Values WBC 15.9 K/mcL (4.3-11.1) H 03/14/17 05:20 RBC 3.46 M/mcL (4.19-5.50) L 03/14/17 05:20 Hgb 11.0 g/dL (12.9-16.9) L 03/14/17 05:20 Hct 34.0 % (37.5-50.1) L 03/14/17 05:20 MCV 98.3 fL (83.0-100.0) 03/14/17 05:20 MCH 31.8 pg (28.0-33.3) 03/14/17 05:20 MCHC 32.4 g/dL (31.6-35.5) 03/14/17 05:20 RDW 12.0 % (11.5-14.5) 03/14/17 05:20 Plt Count 218 K/mcL (140-400) 03/14/17 05:20 MPV 9.7 fL (9.4-12.4) 03/14/17 05:20 Immature Gran % 0.5 % (0-4) 03/14/17 05:20 Seg Neutrophils % 86.6 % 03/14/17 05:20 Lymphocytes % 4.5 % 03/14/17 05:20 Monocytes % 6.8 % 03/14/17 05:20 Eosinophils % 1.3 % 03/14/17 05:20 Basophils % 0.3 % 03/14/17 05:20 Neutrophils # 13.8 K/mcL (1.6-8.9) H 03/14/17 05:20 Lymphocytes # 0.7 K/mcL (0.6-4.6) 03/14/17 05:20 Monocytes # 1.1 K/mcL (0.0-1.3) 03/14/17 05:20 Eosinophils # 0.2 K/mcL (0.0-0.6) 03/14/17 05:20 Basophils # 0.0 K/mcL (0.0-0.2) 03/14/17 05:20 PT 31.8 Seconds (9.4-12.1) H 03/14/17 05:20 INR 2.9 03/14/17 05:20 APTT 40.4 Seconds (26.0-36.0) H 03/14/17 05:20 Result diagrams: 03/14/17 05:20 Lab Results 03/14/17 03/14/17 Range/Units 05:20 05:20 WBC 15.9 H (4.3-11.1) K/mcL RBC 3.46 L (4.19-5.50) M/mcL Hgb 11.0 L (12.9-16.9) g/dL Hct 34.0 L (37.5-50.1) % MCV 98.3 (83.0-100.0) fL MCH 31.8 (28.0-33.3) pg MCHC 32.4 (31.6-35.5) g/dL RDW 12.0 (11.5-14.5) % Plt Count 218 (140-400) K/mcL MPV 9.7 (9.4-12.4) fL Immature Gran % 0.5 (0-4) % Seg Neutrophils % 86.6 % Lymphocytes % 4.5 % Monocytes % 6.8 % Eosinophils % 1.3 % Basophils % 0.3 % Neutrophils # 13.8 H (1.6-8.9) K/mcL Lymphocytes # 0.7 (0.6-4.6) K/mcL Monocytes # 1.1 (0.0-1.3) K/mcL Eosinophils # 0.2 (0.0-0.6) K/mcL Basophils # 0.0 (0.0-0.2) K/mcL PT 31.8 H (9.4-12.1) Seconds INR 2.9 APTT 40.4 H (26.0-36.0) Seconds Attestation Statement - Attestation Attestation: I, Fernando Valverde DO have provided [id number] time during the care of this patient. Detailed review the presentation, symptoms, medical history were discussed and reviewed with the mid-level provider Jana Espinoza PA-C/HI TEACHER. Medical intervention labs and imaging studies were reviewed in detail. See full documentation of physical exam and course of care in the mid-level provider 's note. I agree with the determined course of care, medical interventio,n and disposition put forth by the mid-level provider. See below documentation for changes or alterations in documentation. 86-year-old male with bleeding diaphysis secondary to Xarelto, Plavix, aspirin a 's presents to emergency room with emergence of epistaxis. He was treated for this earlier last week and discharged home. Patient had onset of bleeding again today. The physician who treated in the hospital Dr. de la paz was contacted at emergency room came into the ER to evaluate the patient. He is in the emergency room at this time Trying to cauterize the nose bleed at this time. Patient otherwise will potentially need admission to the hospital for definitive management or surgical intervention. Vital signs of unstable. Labs were ordered to address hemoglobin secondary to the bleeding. Patient's family is with him at the bedside and understands our concern and issue. Patient will be most likely admitted to the hospital. See detailed review physical exam completed by the mid-level provider. pt accepted by the hospitalist for evaluation of medical issues and then ENT consultation for epistaxis treatment.
[2017-03-14 05:30] LABS: Basophils % 0.3 %; Eosinophils # 0.2 K/mcL (0.0-0.6); Eosinophils % 1.3 %; Immature Granulocytes % 0.5 % (0-4); Lymphocytes # 0.7 K/mcL (0.6-4.6); Lymphocytes % 4.5 %; Mean Corpuscular HGB Conc 32.4 g/dL (31.6-35.5); Mean Corpuscular Hemoglobin 31.8 pg (28.0-33.3); Mean Corpuscular Volume 98.3 fL (83.0-100.0); Mean Platelet Volume 9.7 fL (9.4-12.4); Monocytes # 1.1 K/mcL (0.0-1.3); Monocytes % 6.8 %; Neutrophils # 13.8 K/mcL (1.6-8.9); Platelet Count 218 K/mcL (140-400); Red Blood Count 3.46 M/mcL (4.19-5.50); Segmented Neutrophils % 86.6 %
[2017-03-14] MEDS ORDERED: Tranexamic Acid 1,000 MG/10 ML VIAL NS ONE (05:30)
[2017-03-14 05:35] LABS: INR 2.9; Prothrombin Time 31.8 Seconds (9.4-12.1)
[2017-03-14 05:37] LABS: Activated Partial Thrombo Time 40.4 Seconds (26.0-36.0)
[2017-03-14] MEDS ORDERED: Silver Nitrate Applicator 1 STICK..EA. TP ONE (06:11)
[2017-03-14] MEDS ORDERED: Naloxone 0.4 MG/ML INJ IVP PRN ×2 (07:34→14:48)
[2017-03-14] MEDS ORDERED: Ondansetron 4 MG/2 ML VIAL IVP PRN (07:34)
--- NOTE | 2017-03-14 08:21 | Internal Med History&Physical ---
<GiselMiguelina aguilar - Last Filed: 03/14/17 11:00> Date of Encounter: 03/14/17 Time of Encounter: 08:18 Assessment and Plan (1) Epistaxis Current visit: No Status: Acute was discharged from hospital yesterday, re-admission for recurrent epistaxis despite hemostasis, failed treatment with rhino rocket. Patient is on Xarelto for history of PE Further, he is on dual antiplatelet therapy with aspirin and plavix for recent JOSE placed to mid RCA last month. Plan: Appreciate ENT recommendations. Patient is at high risk of bleeding given recurrent epistaxis in setting of acute blood loss anemia. stop Xarelto Continue ASA and plavix. NPO except medications. Consult to interventional radiology for IVC filter placement, as patient now has contraindication to [facility] anticoagulation. continue Augmentin that patient was discharged on. type and screen both of patient's daughters Karina and Kierra were updated on patient's plan of care. (2) Hyperkalemia Current visit: No Status: Acute potassium this morning 5.1 Hold Intresto for now and monitor. (3) Leukocytosis Current visit: Yes Status: Acute patient currently does not show signs of obvious infection or sepsis. will continue to monitor at this time and continue his home Augmentin. Qualifiers: Leukocytosis type: unspecified Qualified Code(s): D72.829 - Elevated white blood cell count, unspecified (4) Anemia Current visit: No Status: Acute likely secondary to acute blood loss Plan: continue to monitor. will do type and cross in case transfusion is required. Qualifiers: Anemia type: unspecified type Qualified Code(s): D64.9 - Anemia, unspecified (5) Pulmonary embolism Current visit: No Status: Acute patient has history of PE. plan as #1 above. Qualifiers: Pulmonary embolism type: other Chronicity: acute Acute cor pulmonale presence: with acute cor pulmonale Qualified Code(s): I26.09 - Other pulmonary embolism with acute cor pulmonale (6) CHF (congestive heart failure) Current visit: No Status: Chronic last echo from 02/26/17 showed LVEF 30%, global hypokinesis with regional variations, mild LV diastolic dysfunction, normal RV size and function, mild dilated left atrium, aortic stneosis, mild mitral regurg, no pulmonary hypertension s/p dual chamber pacemaker Plan: continue home meds. Qualifiers: Congestive heart failure type: systolic Congestive heart failure chronicity : chronic Qualified Code(s): I50.22 - Chronic systolic (congestive) heart failure (7) CKD (chronic kidney disease) stage 3, GFR 30-59 ml/min Current visit: No Status: Chronic (8) COPD (chronic obstructive pulmonary disease) Current visit: No Status: Chronic continue home meds. Qualifiers: COPD type: COPD with acute exacerbation Qualified Code(s): J44.1 - Chronic obstructive pulmonary disease with (acute) exacerbation (9) Coronary artery disease Current visit: No Status: Acute /s/p PCI on 02/18/17- JOSE to mid RCA Plan: continue dual antiplatelet therapy. Qualifiers: Coronary Disease-Associated Artery/Lesion type: unspecified vessel or lesion type [place] vs. transplanted heart: [place] heart Associated angina: with unspecified angina Qualified Code(s): I25.119 - Atherosclerotic heart disease of [place] coronary artery with unspecified angina pectoris (10) DVT prophylaxis Current visit: No Status: Acute Hold Xarelto. EPCD Internal Medicine - H&P: HPI Chief complaint: epistaxis Admitted From: Emergency Dept Plans for Post Hospital Care: Home History of present illness: Mr. Almendarez is a 86 year old male with PMHx of CKD, CAD (s/p PCI 02/19/17-had JOSE placed in mid RCA, currently on dual antiplatelet therapy), CHF (last echo EF 30%, global hypokinesis), [place], COPD, PE, Afib, GERD. Patient was just discharged from the hospital yesterday. He was here for severe epistaxis that failed outpatient treatment. He had failed prior treatment with Rhino Rocket as well. During his last hospital admission, patient was evaluated by ENT and he had hemostasis of posterior epistaxis with packing done. patient was discharged on Augmentin 875 BID for ten days, which we will continue here in the hospital. Patient was very tired and somnolent. Most of history was obtained from patient' s daughter Karina, who was in the room. She stated that ever since he was discharged yesterday, he had intermittent episodes of nose bleeding. Around 8pm last night when he started getting ready for bred, he started noticing small drops of blood and blood clots coming out of his nose. The bleeding slowly became more severe to the point where it could not be controlled, so patient and his came back to the emergency room. Patient admits to nausea with no vomiting, no diarrhea, no fever, chills, chest pain, or shortness of breath. patient has noticed dark stools but no obvious signs of blood in his stools, and denies hematuria. He denies any further complaints today. Past Med Surg Social Fam HX - Past Medical History Medical history: atrial fibrillation, CHF, COPD, coronary artery disease, GERD, hyperlipidemia, hypertension, myocardial infarction, pulmonary embolus Psychiatric history: no psych history - Past Surgical History Surgical History: cholecystectomy, hip replacement, pacemaker/AICD - Social History Smoking Status: Former smoker Smokeless Tobacco Status: No Alcohol use: none Drug use: none - Family History Mother Hx Family Cancer: Yes Hx Family Neurologic Disorders: Yes (CVA) Brother Hx Family Cancer: Yes Internal Medicine - H&P: Meds Albuterol Neb [Proventil Neb] 2.5 mg IH Q4HR 07/30/15 [History] Aspirin [Adult Low Dose Aspirin EC] 81 mg PO DAILY 07/30/15 [History] B2/Vits A,C,E/Lut/Zeaxanth/Min [Icaps Tablet] 1 tab PO HS 07/30/15 [History] Calcium Carbonate/Vitamin D3 [Calcium 600 + Vit D Tablet] 1 tab PO DAILY [History] Cyclobenzaprine [Flexeril] 10 mg PO HS 07/30/15 [History] Famotidine [Pepcid] 20 mg PO BID 07/30/15 [History] Gluc/Alan-MSM#1/C/Navdeep/Amandeep/Bor [Osteo Bi-Flex Caplet] 1 cap PO HS 07/30/15 [ History] Potassium Chloride [K-Tab ER] 20 meq PO DAILY 07/30/15 [History] Tiotropium [Spiriva] 18 mcg IH DAILY 07/30/15 [History] Acetaminophen [Tylenol] 500 mg PO BID PRN 02/19/17 [History] Budesonide/Formoterol 160/4.5 [Symbicort 160/4.5] 2 puff IH BIDR 02/20/17 [Rx] Metoprolol XL (24 HR) Succ [Toprol Xl] 100 mg PO DAILY 30 Days 03/02/17 [Rx] Rivaroxaban [Xarelto] 15 mg PO BID 21 Days 03/02/17 [Rx] Bumetanide [Bumex] 1 mg PO DAILY 03/07/17 [History] Clopidogrel [Plavix] 75 mg PO DAILY 03/07/17 [History] Sacubitril/Valsartan 24/26 mg [Entresto 24 mg-26 mg Tablet] 1 tab PO DAILY 03/07 [History] cephALEXin [Keflex] 500 mg PO TID #21 capsule 03/08/17 [Rx] Atorvastatin Calcium [Lipitor] 80 mg PO HS 03/11/17 [History] 3 Allergy/AdvReac Type Severity Reaction Status Date / Time No Known Allergies Allergy Verified 03/11/17 15:42 All Systems PM: A 10-system review of systems was performed and is negative for pertinent findings except as documented above in the HPI. - Constitutional Constitutional: as per HPI - EENT Eyes: as per HPI Ears: as per HPI Nose, mouth and throat: as per HPI - Breasts Breasts: as per HPI - Cardiovascular Cardiovascular ROS IM: as per HPI - Respiratory Respiratory: as per HPI - Gastrointestinal Gastrointestinal: as per HPI - Genitourinary Genitourinary ROS male: as per HPI - Musculoskeletal Musculoskeletal ROS IM: as per HPI - Integumentary Integumentary IM: as per HPI - Neurological Neurological ROS: as per HPI - Psychiatric Psychiatric: as per HPI - Endocrine Endocrine IM: as per HPI - Hematologic/Lymphatic Hematologic/Lymphatic: as per HPI - Allergic/Immunologic Allergic/Immunologic: as per HPI - Constitutional Vitals: Temp Pulse Resp BP Pulse Ox 97.3 F L 87 22 101/70 97 03/14/17 04:42 03/14/17 07:40 03/14/17 07:40 03/14/17 07:40 03/14/17 07:40 General appearance: Present: A&O X 3, pleasant, no acute distress, answers questions appropriately Exam: somnolent, sleepy. - Head Head exam: Present: atraumatic, normocephalic - ENT Additional comments: patient has gauze taped to his upper lip. gauze is partially saturated with blood, and he has intermittent episodes of blood coming out of his nose. - Respiratory Respiratory exam: Present: CTAB - Cardiovascular Cardiovascular exam: Present: RRR, +S1, +S2 Additional comments: patient has pacemaker in place. - GI/Abdominal GI/Abdominal exam: Present: normal bowel sounds, soft. Absent: distended, tenderness - Extremities Exam Extremities exam: Absent: cyanotic, pedal edema - Skin Additional comments: patient has significant bruising present throughout his body, more prominent on both arms and both shoulders. Internal Med - H&P Results - Labs CBC & Chem 7: 03/14/17 05:20 03/14/17 08:19 <Ozzy So P - Last Filed: 03/14/17 18:15> Date of Encounter: 03/14/17 Internal Medicine - H&P: HPI History of present illness: Mr. Almendarez is a 86 year old male All Systems PM: A 10-system review of systems was performed and is negative for pertinent findings except as documented above in the HPI. - Constitutional Vitals: Temp Pulse Resp BP Pulse Ox 97.3 F L 48 16 115/67 92 03/14/17 16:25 03/14/17 16:25 03/14/17 16:25 03/14/17 16:25 03/14/17 17:40 Internal Med - H&P Results - Labs CBC & Chem 7: 03/14/17 05:20 03/14/17 08:19 - Attending Attestation I examined this patient and my medical decision-making was reviewed with the Resident Physician. I agree with the documented findings, disposition and treatment plan as described except to the extent set forth below.
[2017-03-14 08:41] LABS: BUN/Creatinine Ratio 36 (6-26); Blood Urea Nitrogen 45 mg/dL (8-26); Calcium 9.1 mg/dL (8.6-10.8); Carbon Dioxide 23 mEq/L (19-29); Chloride 109 mEq/L (98-109); Glucose 118 mg/dL (70-99); Osmolality,Calculated 301 (280-300); Potassium 5.1 mEq/L (3.5-4.5); Sodium 139 mEq/L (136-145); eGFR For African Americans > 60 (> 60); eGFR For Non-African Americans 55 (> 60)
[2017-03-14] MEDS ORDERED: Acetaminophen 325 MG TABLET PO PRN (09:12)
[2017-03-14] MEDS ORDERED: SACUBITRIL/VALSARTAN 24/26 MG TABLET PO SCH (09:15)
[2017-03-14] MEDS: Budesonide/Formoterol 160/4.5 MDI IH SCH ×2 (10:54→20:18)
[2017-03-14] MEDS: Albuterol 2.5 MG/3 ML NEBULIZER IH SCH ×4 (10:54→22:58)
[2017-03-14] MEDS: Aspirin Enteric Coated 81 MG Tablet PO SCH (11:37)
[2017-03-14] MEDS: Metoprolol XL (24 HR) Succ 50 MG TAB.ER.24H PO SCH (11:37)
[2017-03-14] MEDS: Bumetanide 1 MG TABLET PO SCH (11:37)
[2017-03-14] MEDS ORDERED: Heparin 1,000 UNITS/500 mL NS 500 ML ONE (13:04)
--- NOTE | 2017-03-14 14:14 | IR Procedure Note ---
Date of procedure: 03/14/17 Consent Obtained: Written consent Timeout: Correct patient and procedure verified, Correct site verified, Time out performed, Skin prep completed Indications: DVT, Pulmonary Embolism Procedure Performed: IVC filter Site/Technique: rt femoral approach Results/Findings: infrarenal IVC filter Estimated blood loss (cc): 0 Complications: None; Tolerated procedure well Post Procedure Treatment Plan: Observation
[2017-03-14] MEDS ORDERED: Famotidine 20 MG TABLET PO SCH (21:00)
[2017-03-14] MEDS: Famotidine 20 MG TABLET PO SCH (22:10)
[2017-03-15] MEDS: Albuterol 2.5 MG/3 ML NEBULIZER IH SCH ×6 (04:55→22:52)
[2017-03-15 06:09] LABS: Basophils % 0.4 %; Eosinophils # 0.2 K/mcL (0.0-0.6); Eosinophils % 1.8 %; Hematocrit 28.9 % (37.5-50.1); Immature Granulocytes % 0.5 % (0-4); Lymphocytes % 11.6 %; Mean Corpuscular HGB Conc 31.5 g/dL (31.6-35.5); Mean Corpuscular Hemoglobin 30.7 pg (28.0-33.3); Mean Corpuscular Volume 97.6 fL (83.0-100.0); Mean Platelet Volume 9.7 fL (9.4-12.4); Monocytes # 0.8 K/mcL (0.0-1.3); Monocytes % 9.8 %; Neutrophils # 6.2 K/mcL (1.6-8.9); Platelet Count 203 K/mcL (140-400); Red Blood Count 2.96 M/mcL (4.19-5.50); Red Cell Distribution Width 12.1 % (11.5-14.5); Segmented Neutrophils % 75.9 %
[2017-03-15 06:13] LABS: BUN/Creatinine Ratio 38 (6-26); Blood Urea Nitrogen 48 mg/dL (8-26); Calcium 8.7 mg/dL (8.6-10.8); Carbon Dioxide 25 mEq/L (19-29); Chloride 109 mEq/L (98-109); Glucose 96 mg/dL (70-99); Magnesium 2.3 mg/dL (1.6-2.6); Osmolality,Calculated 300 (280-300); Phosphorous 3.3 mg/dL (2.3-4.7); Potassium 4.7 mEq/L (3.5-4.5); Sodium 139 mEq/L (136-145); eGFR For African Americans > 60 (> 60); eGFR For Non-African Americans 55 (> 60)
[2017-03-15 06:19] LABS: Hemoglobin 9.1 g/dL (12.9-16.9)
[2017-03-15] MEDS: Tiotropium 18 MCG inhalation IH SCH (07:49)
[2017-03-15] MEDS: Budesonide/Formoterol 160/4.5 MDI IH SCH ×2 (07:50→20:13)
--- NOTE | 2017-03-15 07:53 | ENT - Progress Note ---
Date of Encounter: 03/15/17 Time of Encounter: 07:50 - Assessment and Plan (1) Epistaxis Current Visit: No Status: Acute HD#2 for epistaxis requiring multiple admissions. Seems to have stopped w/ application of Surgiflo. Had IVC filter placed in order to stop Xarelto - will defer that decision making to IM and IR of course. 1. Will check later today - will probabl start up saline to the nose later as long as no bleeding occurs today Call with questions/concerns Subjective Patient reports: no new complaints, other (patient went to IR yesterday for IVC filter and stopped Xarelto. Bleeding had slowed/stopped after application of the Surgiflo to the L nares, no bleeding issues since) Objective Initial Vital Signs Temp Pulse Resp BP Pulse Ox 97.3 F L 94 20 114/72 95 03/14/17 04:42 03/14/17 04:42 03/14/17 04:42 03/14/17 04:42 03/14/17 04:42 - ENT Other (old dry clot from the [employer] to the OP, no active bleeding anteriorly w/ old surgiflo in place) - Labs 03/15/17 05:28 03/15/17 05:28 Diabetes panel 03/15/17 Range/Units 05:28 Sodium 139 (136-145) mEq/L Potassium 4.7 H (3.5-4.5) mEq/L Chloride 109 (98-109) mEq/L Carbon Dioxide 25 (19-29) mEq/L BUN 48 H (8-26) mg/dL Creatinine 1.25 (0.72-1.25) mg/dL Glucose 96 (70-99) mg/dL Calcium 8.7 (8.6-10.8) mg/dL Calcium panel 03/15/17 Range/Units 05:28 Calcium 8.7 (8.6-10.8) mg/dL Phosphorus 3.3 (2.3-4.7) mg/dL Pituitary panel 03/15/17 Range/Units 05:28 Sodium 139 (136-145) mEq/L Potassium 4.7 H (3.5-4.5) mEq/L Chloride 109 (98-109) mEq/L Carbon Dioxide 25 (19-29) mEq/L BUN 48 H (8-26) mg/dL Creatinine 1.25 (0.72-1.25) mg/dL Glucose 96 (70-99) mg/dL Calcium 8.7 (8.6-10.8) mg/dL Adrenal panel 03/15/17 Range/Units 05:28 Sodium 139 (136-145) mEq/L Potassium 4.7 H (3.5-4.5) mEq/L Chloride 109 (98-109) mEq/L Carbon Dioxide 25 (19-29) mEq/L BUN 48 H (8-26) mg/dL Creatinine 1.25 (0.72-1.25) mg/dL Glucose 96 (70-99) mg/dL Calcium 8.7 (8.6-10.8) mg/dL - VTE Documentation of Mechanical Device: Intermittent pneumatic compression device Consult Discharge Plan - Plan Referrals: Homero Love MD [Primary Care Provider] -
[2017-03-15] MEDS: Bumetanide 1 MG TABLET PO SCH (08:22)
[2017-03-15] MEDS: Aspirin Enteric Coated 81 MG Tablet PO SCH (08:23)
[2017-03-15] MEDS ORDERED: Aspirin Enteric Coated 81 MG Tablet PO SCH (09:00)
--- NOTE | 2017-03-15 12:26 | Internal Med Progress Note ---
Date of Encounter: 03/15/17 Time of Encounter: 12:23 - Assessment and plan (1) Epistaxis Current Visit: No Status: Acute Assessment and plan: Improving Nasal packing with Surgiflo + D/C Xarelto IVC filter placed in (2) Bradycardia Current Visit: No Status: Acute Assessment and plan: He does have bradycardia with A fib. HR in 40's Asymptomatic ..Denied any CP Held Metoprolol He does have Pacemaker.. Will consult Cardiology stat to interrogate pacemaker Keep him NPO for now (3) CAD (coronary artery disease) Current Visit: No Status: Chronic Assessment and plan: s/p recent cardiac stents cont DAP therapy with ASA + Plavix Held Metoprolol due to bradycardia Qualifiers: Coronary Disease-Associated Artery/Lesion type: [place] artery [place] vs. transplanted heart: [place] heart Associated angina: with unstable angina Qualified Code(s): I25.110 - Atherosclerotic heart disease of [place] coronary artery with unstable angina pectoris (4) COPD (chronic obstructive pulmonary disease) Current Visit: No Status: Chronic Assessment and plan: Not in exacerbation cont home regimen Duoneb and O2 Qualifiers: COPD type: COPD with acute exacerbation Qualified Code(s): J44.1 - Chronic obstructive pulmonary disease with (acute) exacerbation (5) Pulmonary embolism Current Visit: No Status: Acute Assessment and plan: Recent small PE Unable to anticoagulate him due to recurrent nose bleeds Had IVC filter placed in y/d Cont close monitoring Qualifiers: Pulmonary embolism type: other Chronicity: acute Acute cor pulmonale presence: with acute cor pulmonale Qualified Code(s): I26.09 - Other pulmonary embolism with acute cor pulmonale (6) Systolic heart failure Current Visit: No Status: Chronic Assessment and plan: Not in exacerbation last echo from 02/26/17 showed LVEF 30%, global hypokinesis with regional variations, mild LV diastolic dysfunction, normal RV size and function, mild dilated left atrium, aortic stneosis, mild mitral regurg, no pulmonary hypertension. s/p dual chamber pacemaker Resumed all home meds Qualifiers: Heart failure chronicity: acute on chronic Qualified Code(s): I50.23 - Acute on chronic systolic (congestive) heart failure (7) DVT prophylaxis Current Visit: No Status: Acute Assessment and plan: on SCD's - Subjective Interval history: Mr. Almendarez is a 86 year old male with PMHx of CKD, CAD (s/p PCI 02/19/17-had JOSE placed in mid RCA, currently on dual antiplatelet therapy), CHF (last echo EF 30%, global hypokinesis), [place], COPD, PE, Afib, GERD. Patient was just discharged from the hospital yesterday. He was here for severe epistaxis that failed outpatient treatment. He had failed prior treatment with Rhino Rocket as well. During his last hospital admission, patient was evaluated by ENT and he had hemostasis of posterior epistaxis with packing done. patient was discharged on Augmentin 875 BID for ten days. He came back to ER with intermittent nose bleed stiil. So at this point pt was admitted here for further work up. He did go for IVC filter and discontinued anticoagulation medicationn. He denied any CP / SOB. Had nose packed. Still spitting up some blood clots. - Constitutional Vitals: Temp Pulse Resp BP Pulse Ox 98.3 F 43 15 105/43 94 03/15/17 11:24 03/15/17 11:24 03/15/17 11:24 03/15/17 11:24 03/15/17 11:24 General appearance: Present: A&O X 3 (look weak and lethargic), pleasant, no acute distress, answers questions appropriately - Head Head exam: Present: atraumatic, normal inspection - Respiratory Respiratory exam: Present: decreased breath sounds, wheezes. Absent: rales, respiratory distress, rhonchi - Cardiovascular Cardiovascular exam: Present: bradycardia, +S1, +S2, systolic murmur - GI/Abdominal GI/Abdominal exam: Present: soft. Absent: rebound, rigid, tenderness - Extremities Exam Extremities exam: Absent: calf tenderness, pedal edema, tenderness - Neurological Exam Neurological exam: Present: alert, oriented X3 - Psychiatric Psychiatric exam: Present: normal affect, normal mood Internal Medicine: Result - Labs CBC & Chem 7: 03/15/17 05:28 03/15/17 05:28 Labs: Short CBC 03/15/17 Range/Units 05:28 WBC 8.2 (4.3-11.1) K/mcL Hgb 9.1 L D (12.9-16.9) g/dL Hct 28.9 L (37.5-50.1) % Plt Count 203 (140-400) K/mcL Neutrophils # 6.2 (1.6-8.9) K/mcL BMP 03/15/17 05:28 Sodium 139 Potassium 4.7 H Chloride 109 Carbon Dioxide 25 BUN 48 H Creatinine 1.25 Glucose 96 Calcium 8.7 - ABG Interpretation ABG results: PT/INR, D-dimer PT 31.8 Seconds (9.4-12.1) H 03/14/17 05:20 - VTE Documentation of Mechanical Device: Intermittent pneumatic compression device Consult Discharge Plan - Plan Referrals: Homero Love MD [Primary Care Provider] -
--- NOTE | 2017-03-15 15:27 | Cardiology Consult Note ---
Date of Encounter: 03/15/17 Time of Encounter: 14:00 Assessment and Plan (1) Epistaxis Current Visit: No Status: Acute Per cardiology: -Epistaxis on addmission. -Multiple episodes of epistaxis recently. 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 -Management per primary and ENT services. (2) Frequent PVCs Current Visit: Yes Status: Acute Per cardiology: -Concern for bradycardia from pulse oximetry. -Telemetry reviewed with average HR 74. Frequent PVCs noted. -Has history of frequent PVCs. -Device interrogated with HR 70, frequent PVCS, normal functioning device. 4 runs of non-sustained ventricular tachycardia, longest lasting 3 seconds on 03/12. -Was on beta dorian at home. -Will resume beta dorian. -Cardiology will sign off. Patient already has follow up appointment 04/03/17. (3) CAD (coronary artery disease) Current Visit: No Status: Chronic Per cardiology: -[place] CAD with recent NSTEMI 01/2017. -[facility] 02/18/17 with 40-50% left main stenosis, 80% proximal LAD, 50% mid LAD, 50% mid circumflex, 99% mid RCA with JOSE placed. -On asa, statin, plavix. Will resume beta dorian. -Denies chest pain. -Cardiology will continue to follow in outpatient setting. Qualifiers: Coronary Disease-Associated Artery/Lesion type: [place] artery [place] vs. transplanted heart: [place] heart Associated angina: without angina Qualified Code(s): I25.10 - Atherosclerotic heart disease of [place] coronary artery without angina pectoris Discussion w patient/family: The assessment and plan as outlined above was discussed with the patient and/or family members who expressed understanding and agreement. All questions were answered. Thank you for involving us in the care of your patient. Please call with any questions. Discussed and reviewed with . History of Present Illness Consult date: 03/15/17 Requesting physician: Polo Esposito Consult reason: bradycardia Chief complaint: nosebleed History of present illness: Mr. Almendarez is a 86 year old male with a relevant past medical history of COPD, ischemic cardiomyopathy, HTN, GERD, CAD, anemia, stomach ulcers, atrial fibrillation, NSTEMI, AICD, Patient with recent NSTEMI with JOSE placed 01/2017. Patient with recurrent admissions for nosebleeds. custodial anticoagulation was stopped this admisison and IVC filter was placed. Cardiology has been consulted for concerns regarding bradycardia. Patient denies dizziness, palpitations, or fluttering. Patient denies increased shortness of breath. Patient admits to fatigue. Patient denies chest pain. Past Med Surg Social Fam HX - Past Medical History Attestation: Yes The following information was validated with the patient. Source: patient, old records reviewed, obtained from family Medical history: atrial fibrillation, CHF, COPD, coronary artery disease, GERD, hyperlipidemia, hypertension, myocardial infarction, pulmonary embolus Psychiatric history: no psych history - Past Surgical History Surgical History: cholecystectomy, hip replacement, pacemaker/AICD - Social History Smoking Status: Former smoker Smokeless Tobacco Status: No Alcohol use: none Drug use: none - Family History Mother Hx Family Cancer: Yes Hx Family Neurologic Disorders: Yes (CVA) Brother Hx Family Cancer: Yes Medications and Allergies Albuterol Neb [Proventil Neb] 2.5 mg IH Q4HR 07/30/15 [History] Aspirin [Adult Low Dose Aspirin EC] 81 mg PO DAILY 07/30/15 [History] B2/Vits A,C,E/Lut/Zeaxanth/Min [Icaps Tablet] 1 tab PO HS 07/30/15 [History] Calcium Carbonate/Vitamin D3 [Calcium 600 + Vit D Tablet] 1 tab PO DAILY [History] Cyclobenzaprine [Flexeril] 10 mg PO HS 07/30/15 [History] Famotidine [Pepcid] 20 mg PO BID 07/30/15 [History] Gluc/Alan-MSM#1/C/Navdeep/Amandeep/Bor [Osteo Bi-Flex Caplet] 1 cap PO HS 07/30/15 [ History] Potassium Chloride [K-Tab ER] 20 meq PO DAILY 07/30/15 [History] Tiotropium [Spiriva] 18 mcg IH DAILY 07/30/15 [History] Acetaminophen [Tylenol] 500 mg PO BID PRN 02/19/17 [History] Budesonide/Formoterol 160/4.5 [Symbicort 160/4.5] 2 puff IH BIDR 02/20/17 [Rx] Metoprolol XL (24 HR) Succ [Toprol Xl] 100 mg PO DAILY 30 Days 03/02/17 [Rx] Rivaroxaban [Xarelto] 15 mg PO BID 21 Days 03/02/17 [Rx] Bumetanide [Bumex] 1 mg PO DAILY 03/07/17 [History] Clopidogrel [Plavix] 75 mg PO DAILY 03/07/17 [History] Sacubitril/Valsartan 24/26 mg [Entresto 24 mg-26 mg Tablet] 1 tab PO DAILY 03/07 [History] cephALEXin [Keflex] 500 mg PO TID #21 capsule 03/08/17 [Rx] Atorvastatin Calcium [Lipitor] 80 mg PO HS 03/11/17 [History] 3 Allergy/AdvReac Type Severity Reaction Status Date / Time No Known Allergies Allergy Verified 03/11/17 15:42 All Systems Review: A 10-system review of systems was performed and is negative for pertinent findings except as documented above in the HPI. - EENT Nose, mouth and throat: epistaxis - Cardiovascular Cardiovascular: as per HPI Physical Examination Vital Signs, Last 4 Hours Temp Pulse Resp BP Pulse Ox 03/15/17 11:24 98.3 F 43 15 105/43 94 General: Conversant, No Apparent Distress HEENT: Atraumatic, Normocephaly, Mucus Membranes Moist Neck: No JVD, Normal carotid pulses Cardiac: Normal S1 and S2, No Murmur, Other (Irregularly, irregular. ) Lungs: Normal Breath Sounds, No Wheeze, Rales, Rhonchi Neuro: Alert and responsive, No focal deficits noted Abdomen: Soft, Non-Tender Skin: No rashes noted on visualized skin Musculoskeletal: No Chest Wall Tenderness Extremities: No Clubbing, No Cyanosis, No Edema, Normal Pulses Results 03/15/17 05:28 03/15/17 05:28 Lab Results Active Medications Acetaminophen (Tylenol) 650 mg PO Q6HR PRN PRN Reason: Pain Stop: 09/13/17 09:13 Albuterol Sulfate (Proventil Neb) 2.5 mg IH Q4HR [facility] PRN Reason: Protocol Stop: 09/13/17 12:01 Last Admin: 03/15/17 11:35 Dose: Not Given Amoxicillin/Clavulanate Potassium (Augmentin) 875 mg PO BIDWM [facility] Stop: 09/13/17 08:09 Last Admin: 03/15/17 08:22 Dose: 875 mg Aspirin (Aspirin Ec) 81 mg PO DAILY [facility] Stop: 09/13/17 10:01 Last Admin: 03/15/17 08:23 Dose: 81 mg Atorvastatin Calcium (Lipitor) 80 mg PO HS [facility] Stop: 09/13/17 21:01 Last Admin: 03/14/17 22:10 Dose: 80 mg Budesonide/Formoterol Fumarate (Symbicort) 2 puff IH BIDR [facility] PRN Reason: Protocol Stop: 09/13/17 10:01 Last Admin: 03/15/17 07:50 Dose: 2 puff Bumetanide (Bumex) 1 mg PO DAILY [facility] Stop: 09/13/17 09:16 Last Admin: 03/15/17 08:22 Dose: 1 mg Clopidogrel Bisulfate (Plavix) 75 mg PO DAILY [facility] Stop: 09/13/17 09:16 Last Admin: 03/15/17 08:22 Dose: 75 mg Cyclobenzaprine HCl (Flexeril) 10 mg PO HS [facility] Stop: 09/13/17 21:01 Last Admin: 03/14/17 22:10 Dose: 10 mg Famotidine (Pepcid) 20 mg PO HS [facility] PRN Reason: Protocol Stop: 09/13/17 21:01 Last Admin: 03/14/17 22:10 Dose: 20 mg Metoprolol Succinate (Toprol Xl) 100 mg PO DAILY [facility] Stop: 09/13/17 09:16 Last Admin: 03/14/17 11:37 Dose: 100 mg Naloxone HCl (Narcan) 0.4 mg IVP Q2MIN PRN PRN Reason: Opioid Reversal Stop: 09/13/17 07:35 Naloxone HCl (Narcan) 0.4 mg IVP Q2MIN PRN PRN Reason: Opioid Reversal Stop: 09/13/17 14:49 Ondansetron HCl (Zofran) 4 mg IVP Q6HR PRN PRN Reason: Nausea And Vomiting Stop: 09/13/17 07:35 Sacubitril/Valsartan (Entresto 24 Mg-26 Mg Tablet) 1 tab PO DAILY [facility] Stop: 09/13/17 09:16 Last Admin: 03/14/17 11:39 Dose: Not Given Tiotropium [place] (Spiriva) 18 mcg IH DAILY [facility] Stop: 09/14/17 09:01 Last Admin: 03/15/17 07:49 Dose: 18 mcg Laboratory Tests 03/14/17 03/15/17 03/15/17 05:20 05:28 05:28 Hgb 11.0 L 9.1 L D Creatinine 1.25 - Imaging and Cardiology Echo: report reviewed Cardiac cath: report reviewed - EKG Interpretation EKG results cardiology: personally reviewed (ECG with atrial fibrillation, frequent PVCs.), other (Telemetry reviewed with average HR 74, intermittent atrial pacing with atrial fibrillation. Frequent PVCs, couplets, and triplets noted. Several runs of non-sustained ventricular tachycardia, longest 9 beats.) Consult Discharge Plan - Plan Referrals: Homero Love MD [Primary Care Provider] -
[2017-03-15] MEDS: Famotidine 20 MG TABLET PO SCH (19:57)
[2017-03-16 03:07] LABS: Basophils % 0.4 %; Eosinophils # 0.2 K/mcL (0.0-0.6); Eosinophils % 1.7 %; Hematocrit 30.1 % (37.5-50.1); Hemoglobin 9.5 g/dL (12.9-16.9); Immature Granulocytes % 0.6 % (0-4); Lymphocytes # 1.1 K/mcL (0.6-4.6); Mean Corpuscular HGB Conc 31.6 g/dL (31.6-35.5); Mean Corpuscular Hemoglobin 31.1 pg (28.0-33.3); Mean Corpuscular Volume 98.7 fL (83.0-100.0); Mean Platelet Volume 9.6 fL (9.4-12.4); Monocytes # 0.9 K/mcL (0.0-1.3); Monocytes % 9.8 %; Neutrophils # 7.3 K/mcL (1.6-8.9); Platelet Count 197 K/mcL (140-400); Red Blood Count 3.05 M/mcL (4.19-5.50); Red Cell Distribution Width 11.9 % (11.5-14.5); Segmented Neutrophils % 76.5 %
[2017-03-16 03:29] LABS: BUN/Creatinine Ratio 43 (6-26); Blood Urea Nitrogen 58 mg/dL (8-26); Calcium 8.6 mg/dL (8.6-10.8); Carbon Dioxide 24 mEq/L (19-29); Chloride 108 mEq/L (98-109); Glucose 128 mg/dL (70-99); Magnesium 2.6 mg/dL (1.6-2.6); Osmolality,Calculated 308 (280-300); Potassium 4.5 mEq/L (3.5-4.5); eGFR For African Americans > 60 (> 60); eGFR For Non-African Americans 50 (> 60)
[2017-03-16 03:32] LABS: Sodium 140 mEq/L (136-145)
[2017-03-16] MEDS: Albuterol 2.5 MG/3 ML NEBULIZER IH SCH ×6 (03:52→23:02)
[2017-03-16] MEDS: Budesonide/Formoterol 160/4.5 MDI IH SCH ×2 (07:48→20:11)
[2017-03-16] MEDS: Tiotropium 18 MCG inhalation IH SCH (07:48)
--- NOTE | 2017-03-16 08:45 | Electrocardiograph Report ---
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
[2017-03-16] MEDS: Aspirin Enteric Coated 81 MG Tablet PO SCH (09:17)
[2017-03-16] MEDS: Metoprolol XL (24 HR) Succ 50 MG TAB.ER.24H PO SCH (09:18)
[2017-03-16] MEDS: Bumetanide 1 MG TABLET PO SCH (09:18)
[2017-03-16] MEDS: Saline Nasal Spray 44 ML BOTTLE NS PRN (11:59)
--- NOTE | 2017-03-16 12:54 | Internal Med Progress Note ---
Date of Encounter: 03/16/17 Time of Encounter: 12:51 - Assessment and plan (1) Epistaxis Current Visit: No Status: Inactive Assessment and plan: Improving Nasal packing with Surgiflo + D/C Xarelto IVC filter + So far stable Hb (2) Bradycardia Current Visit: No Status: Acute Assessment and plan: Pacemaker got interoggated by Cardiology y/d He does not have bradycardia.. does have multiple PVC's Asymptomatic ..Denied any CP Card recommend to continue Metoprolol (3) CAD (coronary artery disease) Current Visit: No Status: Chronic Assessment and plan: s/p recent cardiac stents cont DAP therapy with ASA + Plavix Cont Metoprolol Qualifiers: Coronary Disease-Associated Artery/Lesion type: [place] artery [place] vs. transplanted heart: [place] heart Associated angina: with unstable angina Qualified Code(s): I25.110 - Atherosclerotic heart disease of [place] coronary artery with unstable angina pectoris (4) COPD (chronic obstructive pulmonary disease) Current Visit: No Status: Chronic Assessment and plan: Not in exacerbation cont home regimen Duoneb and O2 Qualifiers: COPD type: COPD with acute exacerbation Qualified Code(s): J44.1 - Chronic obstructive pulmonary disease with (acute) exacerbation (5) Pulmonary embolism Current Visit: No Status: Acute Assessment and plan: Recent small PE Unable to anticoagulate him due to recurrent nose bleeds Had IVC filter placed in y/d Cont close monitoring Qualifiers: Pulmonary embolism type: other Chronicity: acute Acute cor pulmonale presence: with acute cor pulmonale Qualified Code(s): I26.09 - Other pulmonary embolism with acute cor pulmonale (6) Systolic heart failure Current Visit: No Status: Chronic Assessment and plan: Not in exacerbation last echo from 02/26/17 showed LVEF 30%, global hypokinesis with regional variations, mild LV diastolic dysfunction, normal RV size and function, mild dilated left atrium, aortic stneosis, mild mitral regurg, no pulmonary hypertension. s/p dual chamber pacemaker Resumed all home meds Qualifiers: Heart failure chronicity: acute on chronic Qualified Code(s): I50.23 - Acute on chronic systolic (congestive) heart failure (7) DVT prophylaxis Current Visit: No Status: Acute Assessment and plan: on SCD's - Subjective Interval history: Mr. Almendarez is a 86 year old male with PMHx of CKD, CAD (s/p PCI 02/19/17-had JOSE placed in mid RCA, currently on dual antiplatelet therapy), CHF (last echo EF 30%, global hypokinesis), [place], COPD, PE, Afib, GERD. Patient was just discharged from the hospital yesterday. He was here for severe epistaxis that failed outpatient treatment. He had failed prior treatment with Rhino Rocket as well. During his last hospital admission, patient was evaluated by ENT and he had hemostasis of posterior epistaxis with packing done. patient was discharged on Augmentin 875 BID for ten days. He came back to ER with intermittent nose bleed stiil. So at this point pt was admitted here for further work up. He did go for IVC filter and discontinued anticoagulation medication. He denied any CP / SOB. Still having mild Nose bleed from Left nostril. Had nose repacked by ENT again today. - Constitutional Vitals: Temp Pulse Resp BP Pulse Ox 97.4 F L 67 16 129/68 96 03/16/17 11:22 03/16/17 11:22 03/16/17 11:22 03/16/17 11:22 03/16/17 11:22 General appearance: Present: A&O X 3 (look weak and lethargic), pleasant, no acute distress, answers questions appropriately - Head Head exam: Present: atraumatic, normal inspection - ENT Additional comments: Nasal packing in Left nostril - Respiratory Respiratory exam: Present: decreased breath sounds, wheezes. Absent: rales, respiratory distress, rhonchi - Cardiovascular Cardiovascular exam: Present: irregular rhythm, +S1, +S2. Absent: systolic murmur - Extremities Exam Extremities exam: Absent: calf tenderness, pedal edema, tenderness - Psychiatric Psychiatric exam: Present: normal affect, normal mood Internal Medicine: Result - Labs CBC & Chem 7: 03/16/17 02:46 03/16/17 02:46 Labs: Short CBC 03/16/17 Range/Units 02:46 WBC 9.6 (4.3-11.1) K/mcL Hgb 9.5 L (12.9-16.9) g/dL Hct 30.1 L (37.5-50.1) % Plt Count 197 (140-400) K/mcL Neutrophils # 7.3 (1.6-8.9) K/mcL BMP 03/16/17 02:46 Sodium 140 Potassium 4.5 Chloride 108 Carbon Dioxide 24 BUN 58 H Creatinine 1.36 H Glucose 128 H Calcium 8.6 - ABG Interpretation ABG results: PT/INR, D-dimer PT 31.8 Seconds (9.4-12.1) H 03/14/17 05:20 - VTE Documentation of Mechanical Device: Intermittent pneumatic compression device Consult Discharge Plan - Plan Referrals: Homero Love MD [Primary Care Provider] -
--- NOTE | 2017-03-16 13:03 | ENT - Progress Note ---
Date of Encounter: 03/16/17 Time of Encounter: 13:01 - Assessment and Plan (1) Nasal bleeding Current Visit: Yes Status: Acute Pt with recent PE and DVT with ASA, Plavix, and Xarelto anticoagulation and subsequent nose bleed for which ENT is consulted. Hemostatic now. S/p IVC filter placement yesterday and DC of Xarelto s/p nasal packings, multiple rounds of instrumentation this week, and most recently floseal placement. Minimal ooze on exam today, forming clot present. Surgicel gauze placed over irritated left septum today during exam. Continue frequent use of nasal saline and [place] gel OK to discharge from ENT standpoint with continue use of nasal saline spray and [place] Gel. RTC if bleeding occurs. Will continue to round on while in house. Subjective Patient reports: no new complaints (stable, no bleeding overnight. Slight blood tinged sputum when coughed.) Objective Initial Vital Signs Temp Pulse Resp BP Pulse Ox 97.3 F L 94 20 114/72 95 03/14/17 04:42 03/14/17 04:42 03/14/17 04:42 03/14/17 04:42 03/14/17 04:42 - General physical appearance well developed, no distress - ENT Other (Clots and crusting along left nare, left surface of septum with excoriations - Surgicel placed over wound during exam along with AYR ointment. Hemostatic on exam. Right nare patent without bleeding. Minimal blood or clot in OP.) - Labs 03/16/17 02:46 03/16/17 02:46 Diabetes panel 03/16/17 Range/Units 02:46 Sodium 140 (136-145) mEq/L Potassium 4.5 (3.5-4.5) mEq/L Chloride 108 (98-109) mEq/L Carbon Dioxide 24 (19-29) mEq/L BUN 58 H (8-26) mg/dL Creatinine 1.36 H (0.72-1.25) mg/dL Glucose 128 H (70-99) mg/dL Calcium 8.6 (8.6-10.8) mg/dL Calcium panel 03/16/17 Range/Units 02:46 Calcium 8.6 (8.6-10.8) mg/dL Pituitary panel 03/16/17 Range/Units 02:46 Sodium 140 (136-145) mEq/L Potassium 4.5 (3.5-4.5) mEq/L Chloride 108 (98-109) mEq/L Carbon Dioxide 24 (19-29) mEq/L BUN 58 H (8-26) mg/dL Creatinine 1.36 H (0.72-1.25) mg/dL Glucose 128 H (70-99) mg/dL Calcium 8.6 (8.6-10.8) mg/dL Adrenal panel 03/16/17 Range/Units 02:46 Sodium 140 (136-145) mEq/L Potassium 4.5 (3.5-4.5) mEq/L Chloride 108 (98-109) mEq/L Carbon Dioxide 24 (19-29) mEq/L BUN 58 H (8-26) mg/dL Creatinine 1.36 H (0.72-1.25) mg/dL Glucose 128 H (70-99) mg/dL Calcium 8.6 (8.6-10.8) mg/dL - VTE Documentation of Mechanical Device: Intermittent pneumatic compression device Consult Discharge Plan - Plan Referrals: Homero Love MD [Primary Care Provider] -
[2017-03-16] MEDS: Famotidine 20 MG TABLET PO SCH (20:35)
[2017-03-16] MEDS: Oxymetazoline Nasal SPRAY BOTTLE NS SCH ×2 (21:11→21:14)
[2017-03-17] MEDS: Oxymetazoline Nasal SPRAY BOTTLE NS SCH ×3 (00:15→03:07)
[2017-03-17] MEDS: Albuterol 2.5 MG/3 ML NEBULIZER IH SCH ×6 (03:36→23:47)
[2017-03-17 04:45] LABS: Basophils % 0.3 %; Eosinophils # 0.3 K/mcL (0.0-0.6); Eosinophils % 2.2 %; Hematocrit 28.1 % (37.5-50.1); Hemoglobin 9.1 g/dL (12.9-16.9); Immature Granulocytes % 0.3 % (0-4); Lymphocytes # 1.1 K/mcL (0.6-4.6); Lymphocytes % 9.6 %; Mean Corpuscular HGB Conc 32.4 g/dL (31.6-35.5); Mean Corpuscular Hemoglobin 31.8 pg (28.0-33.3); Mean Corpuscular Volume 98.3 fL (83.0-100.0); Mean Platelet Volume 10.1 fL (9.4-12.4); Monocytes % 8.6 %; Neutrophils # 9.1 K/mcL (1.6-8.9); Platelet Count 210 K/mcL (140-400); Red Blood Count 2.86 M/mcL (4.19-5.50); Red Cell Distribution Width 11.9 % (11.5-14.5)
[2017-03-17 04:57] LABS: BUN/Creatinine Ratio 41 (6-26); Blood Urea Nitrogen 50 mg/dL (8-26); Calcium 8.4 mg/dL (8.6-10.8); Carbon Dioxide 22 mEq/L (19-29); Chloride 111 mEq/L (98-109); Glucose 104 mg/dL (70-99); Osmolality,Calculated 306 (280-300); Sodium 141 mEq/L (136-145); eGFR For African Americans > 60 (> 60); eGFR For Non-African Americans 57 (> 60)
[2017-03-17 05:06] LABS: Potassium 4.2 mEq/L (3.5-4.5)
[2017-03-17] MEDS: Budesonide/Formoterol 160/4.5 MDI IH SCH ×2 (08:11→20:27)
[2017-03-17] MEDS: Tiotropium 18 MCG inhalation IH SCH (08:11)
[2017-03-17] MEDS: Metoprolol XL (24 HR) Succ 50 MG TAB.ER.24H PO SCH (08:21)
[2017-03-17] MEDS: Bumetanide 1 MG TABLET PO SCH (08:22)
[2017-03-17] MEDS: Aspirin Enteric Coated 81 MG Tablet PO SCH (08:22)
--- NOTE | 2017-03-17 10:53 | ENT - Progress Note ---
Date of Encounter: 03/17/17 Time of Encounter: 10:51 - Assessment and Plan (1) Nasal bleeding Current Visit: Yes Status: Acute Pt with recent PE and DVT with ASA, Plavix, and Xarelto anticoagulation and subsequent nose bleed for which ENT is consulted. Hemostatic now. S/p IVC filter placement yesterday and DC of Xarelto s/p nasal packings, multiple rounds of instrumentation this week, and floseal placement. No bleeding now New piece of absorbable Surgicel was placed during exam today. Continue frequent use of nasal saline and [place] gel, Afrin spray prn for bleeding. OK to discharge from ENT standpoint with continue use of nasal saline spray and [place] Gel. Anticipate continued improvement of clotting capacity as Xarelto is cleared. Hgb stable 9.1 today Subjective Patient reports: no new complaints (No current bleeding, daughter reports some mild oozing last night that improved with Afrin. No bleeding now.) Objective Initial Vital Signs Temp Pulse Resp BP Pulse Ox 97.3 F L 94 20 114/72 95 03/14/17 04:42 03/14/17 04:42 03/14/17 04:42 03/14/17 04:42 03/14/17 04:42 - General physical appearance no distress - ENT Other (clot and prior surgicel removed from right nare. No active bleeding, no blood in oropharynx. New piece of surgicel was placed during the exam on the left.) - Respiratory normal expansion, normal respiratory effort - Labs 03/17/17 03:38 03/17/17 03:38 Diabetes panel 03/17/17 Range/Units 03:38 Sodium 141 (136-145) mEq/L Potassium 4.2 (3.5-4.5) mEq/L Chloride 111 H (98-109) mEq/L Carbon Dioxide 22 (19-29) mEq/L BUN 50 H (8-26) mg/dL Creatinine 1.21 (0.72-1.25) mg/dL Glucose 104 H (70-99) mg/dL Calcium 8.4 L (8.6-10.8) mg/dL Calcium panel 03/17/17 Range/Units 03:38 Calcium 8.4 L (8.6-10.8) mg/dL Pituitary panel 03/17/17 Range/Units 03:38 Sodium 141 (136-145) mEq/L Potassium 4.2 (3.5-4.5) mEq/L Chloride 111 H (98-109) mEq/L Carbon Dioxide 22 (19-29) mEq/L BUN 50 H (8-26) mg/dL Creatinine 1.21 (0.72-1.25) mg/dL Glucose 104 H (70-99) mg/dL Calcium 8.4 L (8.6-10.8) mg/dL Adrenal panel 03/17/17 Range/Units 03:38 Sodium 141 (136-145) mEq/L Potassium 4.2 (3.5-4.5) mEq/L Chloride 111 H (98-109) mEq/L Carbon Dioxide 22 (19-29) mEq/L BUN 50 H (8-26) mg/dL Creatinine 1.21 (0.72-1.25) mg/dL Glucose 104 H (70-99) mg/dL Calcium 8.4 L (8.6-10.8) mg/dL - VTE Documentation of Mechanical Device: Intermittent pneumatic compression device Consult Discharge Plan - Plan Referrals: Homero Love MD [Primary Care Provider] -
[2017-03-17] MEDS: Oxymetazoline Nasal SPRAY BOTTLE NS PRN ×2 (11:15→19:12)
--- NOTE | 2017-03-17 12:38 | Internal Med Progress Note ---
Date of Encounter: 03/17/17 Time of Encounter: 12:35 - Assessment and plan (1) Epistaxis Current Visit: No Status: Inactive Assessment and plan: Improving Nasal packing with absorbable Surgicel done today by ENT Off the Xarelto > 3 days s/p IVC filter + So far stable Hb Due to multiple recent readmisisons and recurrent nose bleed, he wants to wait and get observed here closely in the hospital for another day (2) Bradycardia Current Visit: No Status: Acute Assessment and plan: Pacemaker got interrogated by Cardiology y/d He does not have bradycardia.. does have multiple PVC's Asymptomatic ..Denied any CP Card recommend to continue Metoprolol (3) CAD (coronary artery disease) Current Visit: No Status: Chronic Assessment and plan: s/p recent cardiac stents cont DAP therapy with ASA + Plavix Cont Metoprolol Qualifiers: Coronary Disease-Associated Artery/Lesion type: [place] artery [place] vs. transplanted heart: [place] heart Associated angina: with unstable angina Qualified Code(s): I25.110 - Atherosclerotic heart disease of [place] coronary artery with unstable angina pectoris (4) COPD (chronic obstructive pulmonary disease) Current Visit: No Status: Chronic Assessment and plan: Not in exacerbation cont home regimen Duoneb and O2 Qualifiers: COPD type: COPD with acute exacerbation Qualified Code(s): J44.1 - Chronic obstructive pulmonary disease with (acute) exacerbation (5) Pulmonary embolism Current Visit: No Status: Acute Assessment and plan: Recent small PE Unable to anticoagulate him due to recurrent nose bleeds Had IVC filter placed in y/d Cont close monitoring Qualifiers: Pulmonary embolism type: other Chronicity: acute Acute cor pulmonale presence: with acute cor pulmonale Qualified Code(s): I26.09 - Other pulmonary embolism with acute cor pulmonale (6) Systolic heart failure Current Visit: No Status: Chronic Assessment and plan: Not in exacerbation last echo from 02/26/17 showed LVEF 30%, global hypokinesis with regional variations, mild LV diastolic dysfunction, normal RV size and function, mild dilated left atrium, aortic stneosis, mild mitral regurg, no pulmonary hypertension. s/p dual chamber pacemaker Resumed all home meds Qualifiers: Heart failure chronicity: acute on chronic Qualified Code(s): I50.23 - Acute on chronic systolic (congestive) heart failure (7) DVT prophylaxis Current Visit: No Status: Acute Assessment and plan: on SCD's - Subjective Interval history: Mr. Almendarez is a 86 year old male with PMHx of CKD, CAD (s/p PCI 02/19/17-had JOSE placed in mid RCA, currently on dual antiplatelet therapy), CHF (last echo EF 30%, global hypokinesis), [place], COPD, PE, Afib, GERD. Patient was just discharged from the hospital yesterday. He was here for severe epistaxis that failed outpatient treatment. He had failed prior treatment with Rhino Rocket as well. During his last hospital admission, patient was evaluated by ENT and he had hemostasis of posterior epistaxis with packing done. patient was discharged on Augmentin 875 BID for ten days. He came back to ER with intermittent nose bleed stiil. So at this point pt was admitted here for further work up. He did go for IVC filter and discontinued anticoagulation medication. He denied any CP / SOB. His Nose bleed from Left nostril improved. Had nose repacked by ENT again today. - Constitutional Vitals: Temp Pulse Resp BP Pulse Ox 97.4 F L 55 18 131/55 94 03/17/17 11:27 03/17/17 11:27 03/17/17 11:27 03/17/17 11:27 03/17/17 11:27 General appearance: Present: A&O X 3 (look weak and lethargic), pleasant, no acute distress, answers questions appropriately - Head Head exam: Present: atraumatic, normal inspection - ENT ENT exam: Present: mucous membranes moist Additional comments: no active bleeding - Respiratory Respiratory exam: Present: decreased breath sounds, wheezes. Absent: rales, respiratory distress, rhonchi - Cardiovascular Cardiovascular exam: Present: irregular rhythm, +S1, +S2. Absent: systolic murmur - GI/Abdominal GI/Abdominal exam: Present: normal bowel sounds, soft. Absent: rebound, rigid, tenderness - Extremities Exam Extremities exam: Absent: calf tenderness, pedal edema, tenderness - Psychiatric Psychiatric exam: Present: normal affect, normal mood Internal Medicine: Result - Labs CBC & Chem 7: 03/17/17 03:38 03/17/17 03:38 Labs: Short CBC 03/17/17 Range/Units 03:38 WBC 11.5 H (4.3-11.1) K/mcL Hgb 9.1 L (12.9-16.9) g/dL Hct 28.1 L (37.5-50.1) % Plt Count 210 (140-400) K/mcL Neutrophils # 9.1 H (1.6-8.9) K/mcL BMP 03/17/17 03:38 Sodium 141 Potassium 4.2 Chloride 111 H Carbon Dioxide 22 BUN 50 H Creatinine 1.21 Glucose 104 H Calcium 8.4 L - ABG Interpretation ABG results: PT/INR, D-dimer PT 31.8 Seconds (9.4-12.1) H 03/14/17 05:20 - VTE Documentation of Mechanical Device: Intermittent pneumatic compression device Consult Discharge Plan - Plan Referrals: Homero Love MD [Primary Care Provider] -
[2017-03-17] MEDS: Saline Nasal Spray 44 ML BOTTLE NS PRN ×3 (15:22→19:12)
[2017-03-17] MEDS: Famotidine 20 MG TABLET PO SCH (20:06)
[2017-03-18] MEDS: Albuterol 2.5 MG/3 ML NEBULIZER IH SCH ×2 (04:15→08:00)
[2017-03-18 07:13] VITALS: BP 130/68
[2017-03-18] MEDS: Budesonide/Formoterol 160/4.5 MDI IH SCH (08:01)
[2017-03-18] MEDS: Tiotropium 18 MCG inhalation IH SCH (08:01)
[2017-03-18] MEDS: Metoprolol XL (24 HR) Succ 50 MG TAB.ER.24H PO SCH (08:39)
[2017-03-18] MEDS: Bumetanide 1 MG TABLET PO SCH (08:40)
[2017-03-18] MEDS: Aspirin Enteric Coated 81 MG Tablet PO SCH (08:40)
--- NOTE | 2017-03-18 10:18 | ENT - Progress Note ---
Date of Encounter: 03/18/17 Time of Encounter: 10:15 - Assessment and Plan (1) Nasal bleeding Current Visit: Yes Status: Acute Pt with recent PE and DVT with ASA, Plavix, and Xarelto anticoagulation and subsequent nose bleed for which ENT is consulted. Hemostatic now. S/p IVC filter placement yesterday and DC of Xarelto s/p nasal packings, multiple rounds of instrumentation this week, and floseal placement. No bleeding now Continue frequent use of nasal saline and Lorton gel, Afrin spray prn for bleeding. OK to discharge from ENT standpoint with continue use of nasal saline spray and Lorton Gel. Anticipate continued improvement of clotting capacity as Xarelto is cleared. ENT to sign off, available as needed Subjective Patient reports: no new complaints (no bleeding overnight or currently) Objective Initial Vital Signs Temp Pulse Resp BP Pulse Ox 97.3 F L 94 20 114/72 95 03/14/17 04:42 03/14/17 04:42 03/14/17 04:42 03/14/17 04:42 03/14/17 04:42 - ENT normal pinna, normal nares, Other (No bleeding from nose or in oropharynx, left nare with absorbing surgicel.) - Neck no masses, trachea midline - Labs 03/17/17 03:38 03/17/17 03:38 - VTE Documentation of Mechanical Device: Intermittent pneumatic compression device Consult Discharge Plan - Plan Additional Instructions: ENT discharge instructions: Continue Nasal saline spray 2 sprays 4-5 times daily both nostrils at home. Continue Lorton saline gel to front of nose twice daily May use Afrin spray as needed for bleeding along with pressure. Avoid nose blowing for 10 more days Follow up with ENT as needed Referrals: Homero Love MD [Primary Care Provider] - Sky Smith DO [Partnered Physician] - (Call ENT office for follow up as needed after discharge.)
--- NOTE | 2017-03-18 10:41 | Discharge Summary ---
Date of Encounter: 03/18/17 Time of Encounter: 10:36 - Discharge Diagnosis (1) Epistaxis Priority: Primary Status: Inactive (2) CAD (coronary artery disease) Priority: Secondary Status: Chronic Qualifiers: Coronary Disease-Associated Artery/Lesion type: [place] artery [place] vs. transplanted heart: [place] heart Associated angina: with unstable angina Qualified Code(s): I25.110 - Atherosclerotic heart disease of [place] coronary artery with unstable angina pectoris (3) COPD (chronic obstructive pulmonary disease) Priority: Secondary Status: Chronic Qualifiers: COPD type: COPD with acute exacerbation Qualified Code(s): J44.1 - Chronic obstructive pulmonary disease with (acute) exacerbation (4) Pulmonary embolism Priority: Secondary Status: Acute Qualifiers: Pulmonary embolism type: other Chronicity: acute Acute cor pulmonale presence: with acute cor pulmonale Qualified Code(s): I26.09 - Other pulmonary embolism with acute cor pulmonale (5) Systolic heart failure Priority: Secondary Status: Chronic Qualifiers: Heart failure chronicity: acute on chronic Qualified Code(s): I50.23 - Acute on chronic systolic (congestive) heart failure (6) DVT prophylaxis Priority: Secondary Status: Acute - Discharge Medications Prescriptions: Saline Nasal [place] [[place] Nasal [place]] 2 spray NS Q2H PRN #2 bottle PRN Reason: Congestion Sodium Chloride/Aloe Nasal Gel [Freeman Saline Nasal Gel] 1 appl NS Q2H PRN #30 PRN Reason: dryness or bleeding Home Medications: Albuterol Neb [Proventil Neb] 2.5 mg IH Q4HR 07/30/15 [History] Aspirin [Adult Low Dose Aspirin EC] 81 mg PO DAILY 07/30/15 [History] B2/Vits A,C,E/Lut/Zeaxanth/Min [Icaps Tablet] 1 tab PO HS 07/30/15 [History] Calcium Carbonate/Vitamin D3 [Calcium 600 + Vit D Tablet] 1 tab PO DAILY [History] Cyclobenzaprine [Flexeril] 10 mg PO HS 07/30/15 [History] Famotidine [Pepcid] 20 mg PO BID 07/30/15 [History] Gluc/Alan-MSM#1/C/Navdeep/Amandeep/Bor [Osteo Bi-Flex Caplet] 1 cap PO HS 07/30/15 [ History] Potassium Chloride [K-Tab ER] 20 meq PO DAILY 07/30/15 [History] Tiotropium [Spiriva] 18 mcg IH DAILY 07/30/15 [History] Acetaminophen [Tylenol] 500 mg PO BID PRN 02/19/17 [History] Budesonide/Formoterol 160/4.5 [Symbicort 160/4.5] 2 puff IH BIDR 02/20/17 [Rx] Metoprolol XL (24 HR) Succ [Toprol Xl] 100 mg PO DAILY 30 Days 03/02/17 [Rx] Bumetanide [Bumex] 1 mg PO DAILY 03/07/17 [History] Clopidogrel [Plavix] 75 mg PO DAILY 03/07/17 [History] Sacubitril/Valsartan 24/26 mg [Entresto 24 mg-26 mg Tablet] 1 tab PO DAILY 03/07 [History] Atorvastatin Calcium [Lipitor] 80 mg PO HS 03/11/17 [History] Oxymetazoline [Afrin] 2 spray NS TID PRN #0 bottle 03/18/17 [Rx] Saline Nasal [place] [[place] Nasal [place]] 2 spray NS Q2H PRN #2 bottle 03/18/17 [Rx ] Sodium Chloride/Aloe Nasal Gel [Freeman Saline Nasal Gel] 1 appl NS Q2H PRN #30 [Rx] Allergies/Adverse Reactions: 3 Allergy/AdvReac Type Severity Reaction Status Date / Time No Known Allergies Allergy Verified 03/11/17 15:42 Date of admission: 03/14/17 08:19 Primary care physician: Homero Love MD Consults: 03/14/17 09:05 Consult to Interventional Radiology [CONS] Routine Consulting Provider: Radiology Interventional Cols Reason for Consult: recurrent epistaxis with Hx of PE, needs IVC filter Call Completed: Yes 03/14/17 10:26 Consult to [employer] [CONS] Routine Reason for SW Consult: follow up 03/15/17 11:31 Consult to Physical Therapy [CONS] Routine Comment: Evaluate, develop and implement POC Reason for Consult: was discharged to with last hospital admission 03/15/17 11:32 Consult to Occupational Therapy [CONS] Routine Comment: Evaluate, develop and implement POC Reason for Consult: with last hospital discharged 03/15/17 12:35 Consult to Cardiology [CONS] Stat Comment: Consulting Provider: Cardiology Lilia Reason for Consult: Severe bradycardia.. s/p pacemaker..Need pacemaker interogation Call Completed: Yes - Patient Status Disposition: Home Health Service Condition: Good Overall status at discharge: patient is back to baseline - Discharge Instructions Follow Up With: Sky Smith DO [Partnered Physician] - (Call ENT office for follow up as needed after discharge.) Homero Love MD [Primary Care Provider] - Additional Instructions: ENT discharge instructions: Continue Nasal saline spray 2 sprays 4-5 times daily both nostrils at home. Continue Freeman saline gel to front of nose twice daily May use Afrin spray as needed for bleeding along with pressure. Avoid nose blowing for 10 more days Follow up with ENT as needed - Diet and Activity Activity: increase activity as tolerated Diet: low salt diet Hospital course: Mr. Almendarez is a 86 year old male with PMHx of CKD, CAD (s/p PCI 02/19/17-had JOSE placed in mid RCA, currently on dual antiplatelet therapy), CHF (last echo EF 30%, global hypokinesis), [place], COPD, PE, Afib, GERD. Patient was just discharged from the hospital yesterday. He was here for severe epistaxis that failed outpatient treatment. He had failed prior treatment with [facility] as well. During his last hospital admission, patient was evaluated by ENT and he had hemostasis of posterior epistaxis with packing done. patient was discharged on Augmentin 875 BID for ten days. He came back to ER with intermittent nose bleed stiil. So at this point pt was admitted here for further work up. He did go for IVC filter and discontinued anticoagulation medication. Pt was seen by ENT, who did changed frequent nasal packing here. His bleeding stopped finally now, and his Hb stayed stable around 9.0. Pt also happened to have bradycardia spells on vehicle monitor technician, we consulted Cardiology. Cardiology interoggated his pacemaker, which seems to be working well and noticed his HR stayed in 70's all the time, no bradycardic spells noticed. However he does have multiple PVC's, so recommend to continue using Metoprolol . Will d/c the pt home in stable condition with home PT / OT - Time Spent with Patient Total time spent providing and/or coordinating discharge services: - Constitutional Vitals: Temp Pulse Resp BP Pulse Ox 98.0 F 59 18 130/68 97 03/18/17 07:10 03/18/17 07:10 03/18/17 07:10 03/18/17 07:10 03/18/17 07:10 General appearance: Present: A&O X 3 (look weak and lethargic), pleasant, no acute distress, answers questions appropriately - Head Head exam: Present: atraumatic, normal inspection - ENT ENT exam: Present: mucous membranes moist Additional comments: nasal packing with surgicel on Left nostril - Respiratory Respiratory exam: Present: decreased breath sounds, wheezes. Absent: rales, respiratory distress, rhonchi - Cardiovascular Cardiovascular exam: Present: irregular rhythm, +S1, +S2. Absent: systolic murmur - GI/Abdominal GI/Abdominal exam: Present: soft. Absent: rebound, rigid, tenderness - Extremities Exam Extremities exam: Absent: calf tenderness, pedal edema, tenderness - Psychiatric Psychiatric exam: Present: normal affect, normal mood - VTE Documentation of Mechanical Device: Intermittent pneumatic compression device
--- NOTE | 2017-03-18 11:12 | Physician Discharge Referral ---
Home Health/Hosp Referral Info Transfer to: Home Health Provider in Charge Post Discharge: PCP - Diagnosis (1) Epistaxis Status: Inactive (2) CAD (coronary artery disease) Status: Chronic (3) COPD (chronic obstructive pulmonary disease) Status: Chronic (4) Pulmonary embolism Status: Acute (5) Systolic heart failure Status: Chronic (6) DVT prophylaxis Status: Acute - Respiratory Orders Smoking Cessation: Smoking cessation has been advised. For more information, call the [place] Tobacco Quit Line at 2-142-FIYN-NOW. - Services Needed Following services are medically necessary services: Physical Therapy, Occupational Therapy - Transfer Medications Prescriptions: Saline Nasal [place] [[place] Nasal [place]] 2 spray NS Q2H PRN #2 bottle PRN Reason: Congestion Sodium Chloride/Aloe Nasal Gel [[place] Saline Nasal Gel] 1 appl NS Q2H PRN #30 PRN Reason: dryness or bleeding Home Medications: Albuterol Neb [Proventil Neb] 2.5 mg IH Q4HR 07/30/15 [History] Aspirin [Adult Low Dose Aspirin EC] 81 mg PO DAILY 07/30/15 [History] B2/Vits A,C,E/Lut/Zeaxanth/Min [Icaps Tablet] 1 tab PO HS 07/30/15 [History] Calcium Carbonate/Vitamin D3 [Calcium 600 + Vit D Tablet] 1 tab PO DAILY [History] Cyclobenzaprine [Flexeril] 10 mg PO HS 07/30/15 [History] Famotidine [Pepcid] 20 mg PO BID 07/30/15 [History] Gluc/Alan-MSM#1/C/Navdeep/Amandeep/Bor [Osteo Bi-Flex Caplet] 1 cap PO HS 07/30/15 [ History] Potassium Chloride [K-Tab ER] 20 meq PO DAILY 07/30/15 [History] Tiotropium [Spiriva] 18 mcg IH DAILY 07/30/15 [History] Acetaminophen [Tylenol] 500 mg PO BID PRN 02/19/17 [History] Budesonide/Formoterol 160/4.5 [Symbicort 160/4.5] 2 puff IH BIDR 02/20/17 [Rx] Metoprolol XL (24 HR) Succ [Toprol Xl] 100 mg PO DAILY 30 Days 03/02/17 [Rx] Bumetanide [Bumex] 1 mg PO DAILY 03/07/17 [History] Clopidogrel [Plavix] 75 mg PO DAILY 03/07/17 [History] Sacubitril/Valsartan 24/26 mg [Entresto 24 mg-26 mg Tablet] 1 tab PO DAILY 03/07 [History] Atorvastatin Calcium [Lipitor] 80 mg PO HS 03/11/17 [History] Oxymetazoline [Afrin] 2 spray NS TID PRN #0 bottle 03/18/17 [Rx] Saline Nasal [place] [[place] Nasal [place]] 2 spray NS Q2H PRN #2 bottle 03/18/17 [Rx ] Sodium Chloride/Aloe Nasal Gel [[place] Saline Nasal Gel] 1 appl NS Q2H PRN #30 [Rx] Allergies/Adverse Reactions: 3 Allergy/AdvReac Type Severity Reaction Status Date / Time No Known Allergies Allergy Verified 03/11/17 15:42 Certification: Further, I certify that my clinical findings support that this patient is homebound (i.e. absences from home require considerable and taxing effort and are for medical reasons or [employer] services or infrequently or short duration when for other reasons) because: Homebound Reason: Patient requires assistance of a person or device to safely leave home Attestation: My signature below is to certify that this patient is under my care and that I, or nurse practitioner, or a physician's physician assistant primary care working with me, has a face-to -face encounter with this patient.
--- NOTE | 2017-03-19 08:40 | Electrocardiograph Report ---
[address] [address] Test Date: 2017-03-15 Pat Name: Enmanuel Almendarez Department: 115 Room: 3A45 Gender: Scientific Manager: BARBARA : 1930 Requested By: David Shepherd Order Number: [id number] Reading MD: Onel Gonzalez DO Measurements Intervals [place] Rate: 74 P: 113 [place]: 180 QRS: -16 QRSD: 102 T: 42 QT: 379 QTc: 406 Interpretive Statements Intermittent atrial pacemaker PVCs Electronically Signed On 03-18-2017 22:38:22 EDT by Onel Gonzalez DO
--- NOTE | 2017-03-19 09:01 | Electrocardiograph Report ---
[address] [address] Test Date: 2017-03-15 Pat Name: Enmanuel Almendarez Department: 115 Room: 3A45 Gender: M Director Digital: BARBARA : 1930 Requested By: Polo Esposito Order Number: [id number] Reading MD: Bacilio Daley MD Measurements Intervals [place] Rate: 80 P: 105 [place]: 179 QRS: -7 QRSD: 108 T: 80 QT: 369 QTc: 405 Interpretive Statements ELECTRONIC ATRIAL PACEMAKER UNCERTAIN UNDERLYING RHYTHM APPEARS TO BE MULTIFOCAL PVC Electronically Signed On 03-19-2017 8:59:31 EDT by Bacilio Daley MD
== END 2017-03-18 12:00 | disposition home health service (06) | DRG 981 ==
LOC: EMEROO 04:41 → 3ANU 04:41 → SUATTDRO 08:19 → 3ANU 08:55
PROVIDERS: ADMIT Student in an Organized Health Care Education/Training Program; ATTEND Family Medicine

== ENCOUNTER 2017-11-17 13:14 | Inpatient (IN) ==
--- NOTE | 2017-11-17 16:16 | Internal Med History&Physical ---
Date of Encounter: 11/17/17 Time of Encounter: 16:07 Internal Medicine - H&P: HPI Chief complaint: RLQ pain Admitted From: Home Plans for Post Hospital Care: Home History of present illness: Mr. Almendarez is a 87 year old male who has hx of CHF, COPD, A. fib, CAD, GERD and hypertension. He has a pacemaker defibrillator. He wears 2 L of oxygen at home for COPD, presenting to ER for intermittent lower abdominal, scrotal and penile swelling for few months. Patient reported he has on and woff scrotal swelling lfor few month , has been seen by PCP, but he develped RLQ pain for few weeks as well. This morning, he woke up at 3 a.m. developed severe right low quadrant abdominal pain, sharp constant 6 out of 10 associated was nausea no vomiting. He also complains fever and chills headache. In the emergency room he had a CAT scan which showed acute appendicitis. Surgery was called, due to medical comorbidities Dr. Parkinson recommended IV antibiotic conservative treatemnt. Lab showed a white count setting 13.2. On physical examination he does have mild the right low quadrant tenderness, no rebound. Bilateral groin have no hernia. Patient is going to be admitted for acute appendicitis, surgery was consulted, Dr Parkinson recommended conservative treatment with IV antibiotics Past Med Surg Social Fam HX - Past Medical History Medical history: atrial fibrillation, CHF, COPD, coronary artery disease, GERD, hyperlipidemia, hypertension, myocardial infarction, pulmonary embolus Psychiatric history: no psych history - Past Surgical History Surgical History: cholecystectomy, hip replacement, pacemaker/AICD - Social History Smoking Status: Former smoker Smokeless Tobacco Status: Yes Alcohol use: none Drug use: none - Family History Mother Hx Family Cancer: Yes Hx Family Neurologic Disorders: Yes (CVA) Brother Hx Family Cancer: Yes Internal Medicine - H&P: Meds Albuterol Neb [Proventil Neb] 2.5 mg IH Q4HR 07/30/15 [History] Aspirin [Adult Low Dose Aspirin EC] 81 mg PO DAILY 07/30/15 [History] B2/Vits A,C,E/Lut/Zeaxanth/Min [Icaps Tablet] 1 tab PO HS 07/30/15 [History] Famotidine [Pepcid] 20 mg PO BID 07/30/15 [History] Gluc/Alan-MSM#1/C/Navdeep/Amandeep/Bor [Osteo Bi-Flex Caplet] 1 cap PO HS 07/30/15 [ History] Potassium Chloride [K-Tab ER] 20 meq PO DAILY 07/30/15 [History] Tiotropium [Spiriva] 18 mcg IH DAILY 07/30/15 [History] Acetaminophen [Tylenol] 500 mg PO BID PRN 02/19/17 [History] Budesonide/Formoterol 160/4.5 [Symbicort 160/4.5] 2 puff IH BIDR 02/20/17 [Rx] Metoprolol XL (24 HR) Succ [Toprol Xl] 100 mg PO DAILY 30 Days 03/02/17 [Rx] Bumetanide [Bumex] 1 mg PO DAILY 03/07/17 [History] Clopidogrel [Plavix] 75 mg PO DAILY 03/07/17 [History] Sacubitril/Valsartan 24/26 mg [Entresto 24 mg-26 mg Tablet] 1 tab PO DAILY 03/07 [History] Atorvastatin Calcium [Lipitor] 80 mg PO HS 03/11/17 [History] Mirtazapine [Remeron] 15 mg PO DAILY 05/07/17 [History] Omeprazole [PriLOSEC] 20 mg PO DAILY 05/07/17 [History] Cyclobenzaprine [Flexeril] 10 mg PO HS PRN 11/17/17 [History] Oxycodone HCl/Acetaminophen [Percocet 10-325 mg Tablet] 1 each PO Q4H PRN [History] 3 Allergy/AdvReac Type Severity Reaction Status Date / Time No Known Allergies Allergy Verified 11/17/17 09:55 All Systems PM: A 10-system review of systems was performed and is negative for pertinent findings except as documented above in the HPI. - Constitutional General appearance: Present: cooperative, A&O X 3, answers questions appropriately Exam: CONSTITUTIONAL: Patient appears as an age appropriate male well developed, in no acute distress. EYES Clear sclerae, bilateral pupils are equal, reactive to light and accommodation. Extraocular movements are intact RESPIRATORY: No accessory muscle use, bilateral clear to auscultation, no wheezing, no crackles/rales. CARDIOVASCULAR: Regular heart rate, normal S1 and S2, no murmurs GASTROINTESTINAL: bowel sounds present, soft, RLQ tenderness. No hepatosplenomegaly. No bilateral CVA tenderness MUSCULOSKELETAL: Joints in normal range of motion, no clubbing, no edema, no cyanosis. Bilateral peripheral pulses 2+ LYMPHATIC no lymphadenopathy in neck, groin and axilla bilaterally, no thyromegaly. NEUROLOGIC: CN II to XII are grossly intact, no focal neurological deficit. Deep tendon reflexes 2+ bilaterally. Normal light touch sensation to upper and lower extremity PSYCHIATRIC: Oriented x3, with good insight, mood is euthymic. No hallucinations or delusions. SKIN: Skin warm and dry, no rashes, no open wound. - Assessment and plan (1) Acute appendicitis Current Visit: Yes Status: Acute Assessment and plan: Acute appendicitis, Dr. Parkinson recommended a conservative treatment due to multiple comorbidities we will continue IV antibiotics. mayank Olivo will see the patient tomorrow Qualifiers: Acute appendicitis type: with localized peritonitis Qualified Code(s): K35.3 - Acute appendicitis with localized peritonitis (2) CKD (chronic kidney disease) stage 3, GFR 30-59 ml/min Current Visit: Yes Status: Chronic Assessment and plan: Avoid nephrotoxin, Cr stable, (3) Coronary artery disease Current Visit: Yes Status: Chronic Assessment and plan: CAD stated post stents, continue home medications Qualifiers: Coronary Disease-Associated Artery/Lesion type: unspecified vessel or lesion type [place] vs. transplanted heart: [place] heart Associated angina: with unspecified angina Qualified Code(s): I25.119 - Atherosclerotic heart disease of [place] coronary artery with unspecified angina pectoris (4) Pulmonary embolism Current Visit: Yes Status: Chronic Assessment and plan: s/p filter Qualifiers: Pulmonary embolism type: other Chronicity: acute Acute cor pulmonale presence: with acute cor pulmonale Qualified Code(s): I26.09 - Other pulmonary embolism with acute cor pulmonale (5) Systolic heart failure Current Visit: Yes Status: Chronic Assessment and plan: Chronic systolic CHF with EF 35%, well compensated Qualifiers: Heart failure chronicity: acute on chronic Qualified Code(s): I50.23 - Acute on chronic systolic (congestive) heart failure (6) CAD (coronary artery disease) Current Visit: Yes Status: Chronic Qualifiers: Coronary Disease-Associated Artery/Lesion type: [place] artery [place] vs. transplanted heart: [place] heart Associated angina: without angina Qualified Code(s): I25.10 - Atherosclerotic heart disease of [place] coronary artery without angina pectoris (7) Paroxysmal atrial fibrillation Current Visit: Yes Status: Chronic (8) Presence of biventricular cardiac pacemaker Current Visit: Yes Status: Chronic (9) Leukocytosis Current Visit: Yes Status: Acute Assessment and plan: Likely from appendicitis Qualifiers: Leukocytosis type: unspecified Qualified Code(s): D72.829 - Elevated white blood cell count, unspecified - Time Spent With Patient Total time spent is greater than 50% in coordination of care (as documented) at patient's floor/unit and/or counseling patient: Greater than 35 minutes
[2017-11-17] MEDS ORDERED: Acetaminophen 325 MG TABLET PO PRN (16:27)
[2017-11-17] MEDS ORDERED: Naloxone 0.4 MG/ML INJ IVP PRN (16:27)
[2017-11-17] MEDS ORDERED: *HR* OxyCODONE/APAP 10/325 TABLET PO PRN (16:31)
[2017-11-17] MEDS ORDERED: Ondansetron 4 MG/2 ML VIAL IVP PRN (16:33)
[2017-11-17] MEDS: Piperacillin/Tazobactam 3.375 GM in 0.9 % Sodium Chloride Mini Bag 100 ML IVPB SCH ×2 (18:13→23:38)
[2017-11-17] MEDS: Albuterol 2.5 MG/3 ML NEBULIZER IH SCH ×2 (20:28→23:16)
[2017-11-17] MEDS: Budesonide/Formoterol 160/4.5 MDI IH SCH (20:28)
[2017-11-17] MEDS: (B2/Vits A,C,E/Lut/Zeaxanth/Min [Icaps Tablet] 1 TAB) PO SCH (20:47)
[2017-11-17] MEDS: *HR* Heparin 5,000 UNIT/ML VIAL SQ SCH (23:43)
[2017-11-18] MEDS: Albuterol 2.5 MG/3 ML NEBULIZER IH SCH ×5 (03:03→19:38)
[2017-11-18 05:30] LABS: Basophils % 0.3 %; Eosinophils # 0.2 K/mcL (0.0-0.6); Eosinophils % 2.2 %; Hematocrit 33.2 % (37.5-50.1); Hemoglobin 10.6 g/dL (12.9-16.9); Immature Granulocytes % 0.4 % (0-4); Lymphocytes # 0.9 K/mcL (0.6-4.6); Lymphocytes % 9.8 %; Mean Corpuscular HGB Conc 31.9 g/dL (31.6-35.5); Mean Corpuscular Hemoglobin 32.2 pg (28.0-33.3); Mean Corpuscular Volume 100.9 fL (83.0-100.0); Mean Platelet Volume 9.8 fL (9.4-12.4); Monocytes # 0.9 K/mcL (0.0-1.3); Monocytes % 9.4 %; Neutrophils # 7.5 K/mcL (1.6-8.9); Platelet Count 174 K/mcL (140-400); Red Blood Count 3.29 M/mcL (4.19-5.50); Red Cell Distribution Width 11.4 % (11.5-14.5); Segmented Neutrophils % 77.9 %
[2017-11-18 05:57] LABS: Calcium 8.6 mg/dL (8.6-10.3); Chol/HDL Ratio 2.9 (0-4.9); Magnesium 2.4 mg/dL (1.6-2.6); Potassium 4.6 mEq/L (3.5-5.1)
[2017-11-18] MEDS: *HR* Heparin 5,000 UNIT/ML VIAL SQ SCH (08:21)
[2017-11-18] MEDS: Mirtazapine 15 MG TABLET PO SCH (08:21)
[2017-11-18] MEDS: Famotidine 20 MG TABLET PO SCH (08:21)
[2017-11-18] MEDS: Piperacillin/Tazobactam 3.375 GM in 0.9 % Sodium Chloride Mini Bag 100 ML IVPB SCH ×2 (08:21→20:41)
[2017-11-18] MEDS: Metoprolol XL (24 HR) Succ 50 MG TAB.ER.24H PO SCH (08:22)
[2017-11-18] MEDS: SACUBITRIL/VALSARTAN 24/26 MG TABLET PO SCH (08:22)
[2017-11-18] MEDS: Aspirin Enteric Coated 81 MG Tablet PO SCH (08:22)
--- NOTE | 2017-11-18 08:36 | General Surgery Consult Note ---
Date of Encounter: 11/18/17 Time of Encounter: 08:20 Assessment and Plan (1) Acute appendicitis Current Visit: Yes Status: Acute The patient has prohibitive risk factors and comorbidities for immediate surgery. I have recommended conservative management with IV antibiotic therapy surgery will be reserved for treatment failure. We will be glad to follow along with you. Qualifiers: Acute appendicitis type: with localized peritonitis Qualified Code(s): K35.3 - Acute appendicitis with localized peritonitis History of Present Illness Consult date: 11/18/17 Reason for consult: abdominal pain History of present illness: The patient is an 87-year-old male who is been in very poor health for the last 5 months. He had myocardial infarction several months ago. He has AICD pacemaker. He has a personal history of congestive heart failure. He was recently diagnosed with pulmonary embolism. He is on anticoagulation. He presented with acute onset right lower quadrant abdominal pain. The pain is localized to one area. He has pain with motion. He sought evaluation in the emergency room. CAT scan demonstrated findings consistent with acute appendicitis. Today on history the patient continues to complain of right lower quadrant abdominal pain. His white blood cell count is normal. On physical examination he is tender in the right lower quadrant with guarding but no rebound. I personally reviewed the CAT scan. Findings are consistent with acute appendicitis. Because of his extensive comorbidities, I favor treatment with antibiotics rather than surgery. We will reserve surgery only for conservative management failure Past Med Surg Social Fam HX - Past Medical History Medical history: atrial fibrillation, CHF, COPD, coronary artery disease, GERD, hyperlipidemia, hypertension, myocardial infarction, pulmonary embolus Psychiatric history: no psych history - Past Surgical History Surgical History: cholecystectomy, hip replacement, pacemaker/AICD - Social History Smoking Status: Former smoker Smokeless Tobacco Status: Yes Alcohol use: none Drug use: none - Family History Mother Hx Family Cancer: Yes Hx Family Neurologic Disorders: Yes (CVA) Brother Hx Family Cancer: Yes Medications and Allergies Albuterol Neb [Proventil Neb] 2.5 mg IH Q4HR 07/30/15 [History] Aspirin [Adult Low Dose Aspirin EC] 81 mg PO DAILY 07/30/15 [History] B2/Vits A,C,E/Lut/Zeaxanth/Min [Icaps Tablet] 1 tab PO HS 07/30/15 [History] Famotidine [Pepcid] 20 mg PO BID 07/30/15 [History] Gluc/Alan-MSM#1/C/Navdeep/Amandeep/Bor [Osteo Bi-Flex Caplet] 1 cap PO HS 07/30/15 [ History] Potassium Chloride [K-Tab ER] 20 meq PO DAILY 07/30/15 [History] Tiotropium [Spiriva] 18 mcg IH DAILY 07/30/15 [History] Acetaminophen [Tylenol] 500 mg PO BID PRN 02/19/17 [History] Budesonide/Formoterol 160/4.5 [Symbicort 160/4.5] 2 puff IH BIDR 02/20/17 [Rx] Metoprolol XL (24 HR) Succ [Toprol Xl] 100 mg PO DAILY 30 Days 03/02/17 [Rx] Bumetanide [Bumex] 1 mg PO DAILY 03/07/17 [History] Clopidogrel [Plavix] 75 mg PO DAILY 03/07/17 [History] Sacubitril/Valsartan 24/26 mg [Entresto 24 mg-26 mg Tablet] 1 tab PO DAILY 03/07 [History] Atorvastatin Calcium [Lipitor] 80 mg PO HS 03/11/17 [History] Mirtazapine [Remeron] 15 mg PO DAILY 05/07/17 [History] Omeprazole [PriLOSEC] 20 mg PO DAILY 05/07/17 [History] Cyclobenzaprine [Flexeril] 10 mg PO HS PRN 11/17/17 [History] Oxycodone HCl/Acetaminophen [Percocet 10-325 mg Tablet] 1 each PO Q4H PRN [History] 3 Allergy/AdvReac Type Severity Reaction Status Date / Time No Known Allergies Allergy Verified 11/17/17 09:55 Review of Systems All systems PM: The remainder of the systems were reviewed and are negative General Surgery Exam Initial Vital Signs Temp Pulse Resp BP Pulse Ox 98.4 F 38 16 106/56 98 11/17/17 16:27 11/17/17 16:27 11/17/17 16:27 11/17/17 16:27 11/17/17 16:27 - General physical appearance well developed, well nourished, no distress - Neck no masses, no bruits, trachea midline, no lymphadectomy, no venous distension - Respiratory normal expansion, normal respiratory effort crackles: bilateral - Cardiovascular Cardiovascular exam: Present: no murmurs/rubs/gallops - Abdomen Abdomen general surgery: Present: tender Abdominal Tenderness: Present: RLQ - Integumentary Integumentary general surgery: Present: warm and dry, no abnormal pigmentation - Neurologic Present: CN 2-12 grossly intact, normal coordination, normal sensation - Psychiatric Psychiatric general surgery: Present: appropriate, oriented to person, oriented to place, oriented to time, speech is normal, memory intact Exam Initial Vital Signs Temp Pulse Resp BP Pulse Ox 98.4 F 38 16 106/56 98 11/17/17 16:27 11/17/17 16:27 11/17/17 16:27 11/17/17 16:27 11/17/17 16:27 Results - Labs 11/18/17 05:13 11/18/17 05:13 Abnormal lab results RBC 3.29 M/mcL (4.19-5.50) L 11/18/17 05:13 Hgb 10.6 g/dL (12.9-16.9) L D 11/18/17 05:13 Hct 33.2 % (37.5-50.1) L 11/18/17 05:13 MCV 100.9 fL (83.0-100.0) H 11/18/17 05:13 RDW 11.4 % (11.5-14.5) L 11/18/17 05:13 Sodium 135 mEq/L (136-145) L 11/18/17 05:13 BUN 53 mg/dL (8-23) H 11/18/17 05:13 Creatinine 2.45 mg/dL (0.70-1.30) H 11/18/17 05:13 Est GFR ( Amer) 30 (> 60) L 11/18/17 05:13 Est GFR (Non-Af Amer) 25 (> 60) L 11/18/17 05:13 B-Natriuretic Peptide 338 pg/mL (Less than 100) H 11/18/17 05:13 HDL Cholesterol 34 mg/dL (40-59) L 11/18/17 05:13 Diabetes panel 11/18/17 Range/Units 05:13 Sodium 135 L (136-145) mEq/L Potassium 4.6 (3.5-5.1) mEq/L Chloride 103 (98-107) mEq/L Carbon Dioxide 25 (23-29) mEq/L BUN 53 H (8-23) mg/dL Creatinine 2.45 H (0.70-1.30) mg/dL Glucose 95 (70-105) mg/dL Calcium 8.6 (8.6-10.3) mg/dL Triglycerides 66 (< 150) mg/dL HDL Cholesterol 34 L (40-59) mg/dL Calcium panel 11/18/17 Range/Units 05:13 Calcium 8.6 (8.6-10.3) mg/dL Pituitary panel 11/18/17 Range/Units 05:13 Sodium 135 L (136-145) mEq/L Potassium 4.6 (3.5-5.1) mEq/L Chloride 103 (98-107) mEq/L Carbon Dioxide 25 (23-29) mEq/L BUN 53 H (8-23) mg/dL Creatinine 2.45 H (0.70-1.30) mg/dL Glucose 95 (70-105) mg/dL Calcium 8.6 (8.6-10.3) mg/dL Adrenal panel 11/18/17 Range/Units 05:13 Sodium 135 L (136-145) mEq/L Potassium 4.6 (3.5-5.1) mEq/L Chloride 103 (98-107) mEq/L Carbon Dioxide 25 (23-29) mEq/L BUN 53 H (8-23) mg/dL Creatinine 2.45 H (0.70-1.30) mg/dL Glucose 95 (70-105) mg/dL Calcium 8.6 (8.6-10.3) mg/dL All other labs normal. - Imaging CT scan - abdomen: image reviewed (I personally reviewed the CAT scan of the abdomen. Findings are consistent with acute appendicitis. I do not see evidence of discrete abscess.) Consult Discharge Plan - Plan Referrals: Homero Love MD [Primary Care Provider] -
[2017-11-18] MEDS ORDERED: Heparin 25,000 UNIT/500 ML D5W 25,000 UNIT/500 ML BAG IVC SCH (09:00)
[2017-11-18] MEDS ORDERED: Bumetanide 1 MG TABLET PO SCH (09:00)
--- NOTE | 2017-11-18 09:29 | Internal Med Progress Note ---
Addendum entered and electronically signed by Pauline Bergman DO 11/18/17 15:27: Had a discussion with the patient and his daughter about code status. The patient stated that he wanted his code status to be DNR CCA DNI. The daughter reported that the patient is currently hospice care. Original Note: <Pauline Bergman - Last Filed: 11/18/17 14:27> Date of Encounter: 11/18/17 Time of Encounter: 09:26 - Assessment and plan (1) Acute appendicitis Current Visit: Yes Status: Acute Assessment and plan: Acute appendicitis demonstrated by abdominal CT along with patient symptoms. CT also showed possible small developing abscess at the tip however neoplasm should be excluded. -The patient reported that his right lower quadrant pain started on and continued to worsen. He saw his PCP and he recommended that showed the pain worsen he should go to the ED. The patient developed nausea and vomiting prior to going to ED. WBC 11.1 (13.2) afebrile -patient reports that abdominal pain has significantly improved and is only tender to palpation. -Abdominal exam: soft, minimal right lower quadrant tenderness, no rebound tenderness plan -surgery following and recommended conservative management with IV antibiotics due to patients significant PMH was comorbidities. Surgery for treatment failure. -pharmacy to renally dose IV Zosyn -serial abdominal exams -continue to monitor WBC Qualifiers: Acute appendicitis type: with localized peritonitis Qualified Code(s): K35.3 - Acute appendicitis with localized peritonitis (2) CAD (coronary artery disease) Current Visit: No Status: Chronic Assessment and plan: History of no CAD. Stents placed January 2017. Follows with Dr. Mitchell -continue home medications of Entresto, Toprol, Lipitor, aspirin -holding home Plavix and starting heparin in place for now in case there is need for surgery. Per surgical request Qualifiers: Coronary Disease-Associated Artery/Lesion type: [place] artery [place] vs. transplanted heart: [place] heart Associated angina: with unstable angina Qualified Code(s): I25.110 - Atherosclerotic heart disease of [place] coronary artery with unstable angina pectoris (3) DENNIS (acute kidney injury) Current Visit: No Status: Acute Assessment and plan: DENNIS on CKD stage 3. Likely prerenal secondary to dehydration, Bumex, vomiting. Creatinine 2.45 (baseline 1.2- 1.5) -Gentle IVF due to cardiomyopathy -hold home Bumex -avoid nephrotoxic agents -monitor I&O -continue to monitor serum creatinine (4) CKD (chronic kidney disease) stage 3, GFR 30-59 ml/min Current Visit: Yes Status: Chronic Assessment and plan: Management as above (5) Nodule of kidney Current Visit: Yes Status: Acute Assessment and plan: Abdominal CT demonstrated a 1.7 cm exophytic intermediate density nodule in the medial mid to lower pole left kidney previously 1.2 cm. Probably cyst with debris nonetheless initial evaluation with ultrasound was recommended. Renal ultrasound was ordered however daughter stated that the left kidney nodule is known to them and the patient's PCP has been following it. They requested that the renal ultrasound be canceled. (6) Systolic heart failure Current Visit: Yes Status: Chronic Assessment and plan: History of known systolic heart failure 08/30/2017 limited echo: EF 35% Qualifiers: Heart failure chronicity: acute on chronic Qualified Code(s): I50.23 - Acute on chronic systolic (congestive) heart failure (7) COPD (chronic obstructive pulmonary disease) Current Visit: No Status: Chronic Assessment and plan: History of known COPD controlled with Spiriva and Symbicort SPO2 96% on 3L -continue home inhalers Qualifiers: COPD type: COPD with acute exacerbation Qualified Code(s): J44.1 - Chronic obstructive pulmonary disease with (acute) exacerbation (8) Presence of biventricular cardiac pacemaker Current Visit: Yes Status: Chronic Assessment and plan: Follows with his design quality engineer Dr. Mitchell whom he last saw in office recently (9) DVT prophylaxis Current Visit: No Status: Acute Assessment and plan: On heparin (10) History of pulmonary embolus (PE) Current Visit: Yes Status: Acute Assessment and plan: History of PE diagnosed in February 2017. His daughter reported that he was started on Xarelto however this was discontinued due to continued nosebleeds. He is currently not on anticoagulation for PE but he does have an IVC filter in place. - Time Spent With Patient Total time spent is greater than 50% in coordination of care (as documented) at patient's floor/unit and/or counseling patient: - Subjective Interval history: 87yo Male PMH CAD, A.fib, COPD, pacemaker/ defibrillator, CHF, NM who presented to ED complaining of right lower quadrant pain that began . He also had nausea and vomiting. Abdominal CT demonstrated acute appendicitis with possible abscess vs neoplasm. Upon my examination the patient he is alert and oriented no acute distress. His daughters at bedside. He reports the right lower quadrant pain is significantly improved and is only tender with palpation. He denies nausea, vomiting, fever, chills. - Constitutional Vitals: Temp Pulse Resp BP Pulse Ox 98.2 F 54 14 94/38 99 11/18/17 08:15 11/18/17 08:15 11/18/17 08:15 11/18/17 08:15 11/18/17 08:15 General appearance: Present: cooperative, A&O X 3, answers questions appropriately Exam: Gen.: Vitals noted. No acute distress. AAOx3 HEENT: oropharynx clear, Normocephalic, atraumatic Cardiac: RRR, no murmur, +S1/S2 Pulmonary: CTA bilaterally, no wheezes, rales or rhonchi, equal chest expansion Abdomen: soft, minimal right lower quadrant tender, Bowel sounds noted, no guarding, no Rovsings MSK: ROM intact, no joint swelling noted Extremities: no BLE edema, nontender calf, no cyanosis or clubbing Neuro: A&Ox3, moves all extremities, no focal deficits Psych: Appropriate mood and behavior Internal Medicine: Result - Labs CBC & Chem 7: 11/18/17 11:53 11/18/17 05:13 Labs: Short CBC 11/18/17 Range/Units 05:13 WBC 9.6 (4.3-11.1) K/mcL Hgb 10.6 L D (12.9-16.9) g/dL Hct 33.2 L (37.5-50.1) % Plt Count 174 (140-400) K/mcL Neutrophils # 7.5 (1.6-8.9) K/mcL BMP 11/18/17 05:13 Sodium 135 L Potassium 4.6 Chloride 103 Carbon Dioxide 25 BUN 53 H Creatinine 2.45 H Glucose 95 Calcium 8.6 Cardiac Enzymes 11/17/17 11/17/17 11/18/17 Range/Units 16:43 22:27 05:13 Troponin I 0.03 0.03 0.03 (< 0.04) ng/mL Consult Discharge Plan - Plan Referrals: Homero Love MD [Primary Care Provider] - <Riya Grey - Last Filed: 11/18/17 16:37> Date of Encounter: 11/18/17 - Assessment and plan (1) CKD (chronic kidney disease) stage 3, GFR 30-59 ml/min Current Visit: Yes Status: Chronic (2) CAD (coronary artery disease) Current Visit: No Status: Chronic Qualifiers: Coronary Disease-Associated Artery/Lesion type: [place] artery [place] vs. transplanted heart: [place] heart Associated angina: with unstable angina Qualified Code(s): I25.110 - Atherosclerotic heart disease of [place] coronary artery with unstable angina pectoris (3) COPD (chronic obstructive pulmonary disease) Current Visit: No Status: Chronic Qualifiers: COPD type: COPD with acute exacerbation Qualified Code(s): J44.1 - Chronic obstructive pulmonary disease with (acute) exacerbation (4) DVT prophylaxis Current Visit: No Status: Acute (5) Systolic heart failure Current Visit: Yes Status: Chronic Qualifiers: Heart failure chronicity: acute on chronic Qualified Code(s): I50.23 - Acute on chronic systolic (congestive) heart failure (6) Presence of biventricular cardiac pacemaker Current Visit: Yes Status: Chronic (7) DENNIS (acute kidney injury) Current Visit: No Status: Acute (8) Acute appendicitis Current Visit: Yes Status: Acute Qualifiers: Acute appendicitis type: with localized peritonitis Qualified Code(s): K35.3 - Acute appendicitis with localized peritonitis (9) Nodule of kidney Current Visit: Yes Status: Acute (10) History of pulmonary embolus (PE) Current Visit: Yes Status: Acute - Time Spent With Patient Total time spent is greater than 50% in coordination of care (as documented) at patient's floor/unit and/or counseling patient: - Constitutional Vitals: Temp Pulse Resp BP Pulse Ox 98.3 F 63 15 92/51 97 11/18/17 15:00 11/18/17 15:00 11/18/17 15:00 11/18/17 15:00 11/18/17 15:00 Internal Medicine: Result - Labs CBC & Chem 7: 11/18/17 11:53 11/18/17 05:13 Labs: Short CBC 11/18/17 11/18/17 Range/Units 05:13 11:53 WBC 9.6 11.1 (4.3-11.1) K/mcL Hgb 10.6 L D 11.5 L (12.9-16.9) g/dL Hct 33.2 L 36.1 L (37.5-50.1) % Plt Count 174 171 (140-400) K/mcL Neutrophils # 7.5 (1.6-8.9) K/mcL BMP 11/18/17 05:13 Sodium 135 L Potassium 4.6 Chloride 103 Carbon Dioxide 25 BUN 53 H Creatinine 2.45 H Glucose 95 Calcium 8.6 Cardiac Enzymes 11/17/17 11/17/17 11/18/17 Range/Units 16:43 22:27 05:13 Troponin I 0.03 0.03 0.03 (< 0.04) ng/mL - ABG Interpretation ABG results: PT/INR, D-dimer PT 12.8 Seconds (9.4-12.1) H 11/18/17 11:53 - Attending Attestation I performed a history and physical examination of the patient and discussed his/ her management with the resident. I reviewed the residents note and agree with the documented findings and plan of care.
[2017-11-18] MEDS: Budesonide/Formoterol 160/4.5 MDI IH SCH ×2 (10:27→19:39)
[2017-11-18] MEDS: Tiotropium 18 MCG inhalation IH SCH (10:34)
[2017-11-18] MEDS ORDERED: Artificial Tears SOLN 15 ML BOTTLE BOTH EYES PRN (10:36)
[2017-11-18 12:27] LABS: Hematocrit 36.1 % (37.5-50.1); Hemoglobin 11.5 g/dL (12.9-16.9); Mean Corpuscular HGB Conc 31.9 g/dL (31.6-35.5); Mean Corpuscular Hemoglobin 32.3 pg (28.0-33.3); Mean Corpuscular Volume 101.4 fL (83.0-100.0); Platelet Count 171 K/mcL (140-400); Red Blood Count 3.56 M/mcL (4.19-5.50); Red Cell Distribution Width 11.5 % (11.5-14.5)
[2017-11-18 12:33] LABS: INR 1.2; Prothrombin Time 12.8 Seconds (9.4-12.1)
[2017-11-18] MEDS: 0.9 % Sodium Chloride 1,000 ML IVC SCH (12:33)
[2017-11-18] MEDS: (B2/Vits A,C,E/Lut/Zeaxanth/Min [Icaps Tablet] 1 TAB) PO SCH (20:40)
[2017-11-19] MEDS: Albuterol 2.5 MG/3 ML NEBULIZER IH SCH ×4 (00:12→11:28)
[2017-11-19] MEDS: 0.9 % Sodium Chloride 1,000 ML IVC SCH (00:40)
[2017-11-19 05:24] LABS: Basophils % 0.3 %; Eosinophils # 0.2 K/mcL (0.0-0.6); Eosinophils % 2.8 %; Hematocrit 33.1 % (37.5-50.1); Hemoglobin 10.4 g/dL (12.9-16.9); Immature Granulocytes % 0.3 % (0-4); Lymphocytes # 0.8 K/mcL (0.6-4.6); Lymphocytes % 9.4 %; Mean Corpuscular HGB Conc 31.4 g/dL (31.6-35.5); Mean Corpuscular Hemoglobin 32.2 pg (28.0-33.3); Mean Corpuscular Volume 102.5 fL (83.0-100.0); Mean Platelet Volume 9.8 fL (9.4-12.4); Monocytes # 0.8 K/mcL (0.0-1.3); Monocytes % 9.1 %; Neutrophils # 6.7 K/mcL (1.6-8.9); Platelet Count 165 K/mcL (140-400); Red Blood Count 3.23 M/mcL (4.19-5.50); Red Cell Distribution Width 11.5 % (11.5-14.5); Segmented Neutrophils % 78.1 %
[2017-11-19 05:48] LABS: Calcium 8.2 mg/dL (8.6-10.3); Potassium 4.6 mEq/L (3.5-5.1)
--- NOTE | 2017-11-19 07:34 | General Surgery Progress Note ---
<Sha Bustillo - Last Filed: 11/19/17 07:47> Date of Encounter: 11/19/17 Time of Encounter: 06:30 - Assessment and Plan (1) Acute appendicitis Current Visit: Yes Status: Acute Marked improvement on exam; no tenderness to palpation, no involuntary guarding or rigidity. Afebrile, systolic 90s to 130s Wt ct 8.6 (11.1) Creat 2.34 (2.45); baseline 2.0 Plan: Continue conservative management with IV antibiotics--on Zosyn Pain management and supportive care Cardiac diet, po omeprazole Currently on NS 75cc/hr, trending kidney function Qualifiers: Acute appendicitis type: with localized peritonitis Qualified Code(s): K35.3 - Acute appendicitis with localized peritonitis Subjective Patient reports: no new complaints Narrative: Mr. Almendarez is conversant and sitting comfortably. He denies abdominal pain, fever , nausea, vomiting, shortness of breath, chest discomfort, or difficulty voiding. Objective Vital Signs - Last 8 Hours Temp Pulse Resp BP Pulse Ox 11/19/17 06:32 97.5 F L 58 15 92/40 96 11/19/17 04:34 98.2 F 75 16 128/66 94 Intake and Output 11/18/17 11/18/17 11/19/17 15:59 23:59 07:59 Intake Total 100 / 100 440 / 440 1100 / 1100 Output Total 650 / 650 250 / 250 225 / 225 Balance -550 / -550 190 / 190 875 / 875 Intake: IV Fluids 100 / 100 1000 / 1000 0.9 % Sodium Chloride 1,000 ML 1000 / 1000 @ 75 mls/hr IVC .[id number] [facility] Rx #:[id number] Zosyn 3.375 GM In 0.9 % Sodium 100 / 100 Chloride (Mini-Bag +) 100 ML @ 25 mls/hr IVPB Q8HR [facility] Rx#: [id number] Oral 0 / 0 440 / 440 100 / 100 Output: Urine 650 / 650 250 / 250 225 / 225 Other: Meal NPO Lunch Percent of Meal Consumed 0% 25% Weight 79 kg Patient Weight 11/19/17 23:59 Weight 79 kg - General physical appearance well developed, well nourished, no distress - Eyes normal ocular movement - ENT normal mucosa - Neck Neck exam: no lymphadectomy - Respiratory normal expansion, normal respiratory effort, clear to auscultation - Abdomen Abdomen: Present: bowel sounds present, soft, non tender. Absent: guarding, rebound, rigid - Integumentary no abnormal pigmentation - Neurologic normal sensation - Psychiatric speech is normal, memory intact - Labs 11/19/17 04:25 11/19/17 04:25 Diabetes panel 11/19/17 Range/Units 04:25 Sodium 139 (136-145) mEq/L Potassium 4.6 (3.5-5.1) mEq/L Chloride 108 H (98-107) mEq/L Carbon Dioxide 26 (23-29) mEq/L BUN 51 H (8-23) mg/dL Creatinine 2.34 H (0.70-1.30) mg/dL Glucose 109 H (70-105) mg/dL Calcium 8.2 L (8.6-10.3) mg/dL Calcium panel 11/19/17 Range/Units 04:25 Calcium 8.2 L (8.6-10.3) mg/dL Pituitary panel 11/19/17 Range/Units 04:25 Sodium 139 (136-145) mEq/L Potassium 4.6 (3.5-5.1) mEq/L Chloride 108 H (98-107) mEq/L Carbon Dioxide 26 (23-29) mEq/L BUN 51 H (8-23) mg/dL Creatinine 2.34 H (0.70-1.30) mg/dL Glucose 109 H (70-105) mg/dL Calcium 8.2 L (8.6-10.3) mg/dL Adrenal panel 11/19/17 Range/Units 04:25 Sodium 139 (136-145) mEq/L Potassium 4.6 (3.5-5.1) mEq/L Chloride 108 H (98-107) mEq/L Carbon Dioxide 26 (23-29) mEq/L BUN 51 H (8-23) mg/dL Creatinine 2.34 H (0.70-1.30) mg/dL Glucose 109 H (70-105) mg/dL Calcium 8.2 L (8.6-10.3) mg/dL Consult Discharge Plan - Plan Referrals: Homero Love MD [Primary Care Provider] - 11/26/17 3:30 pm <Jude Parkinson - Last Filed: 11/19/17 16:50> Date of Encounter: 11/19/17 - Assessment and Plan (1) Acute appendicitis Current Visit: Yes Status: Acute Qualifiers: Acute appendicitis type: with localized peritonitis Qualified Code(s): K35.3 - Acute appendicitis with localized peritonitis Objective Vital Signs - Last 8 Hours Temp Pulse Resp BP Pulse Ox 11/19/17 14:58 99 F 43 15 108/53 94 11/19/17 11:01 97.9 F 49 16 108/49 96 Intake and Output 11/19/17 11/19/17 11/19/17 07:59 15:59 23:59 Intake Total 1260 / 1260 1200 / 1200 Output Total 225 / 225 400 / 400 Balance 1035 / 1035 800 / 800 Intake: IV Fluids 1100 / 1100 600 / 600 0.9 % Sodium Chloride 1,000 ML 1000 / 1000 500 / 500 @ 75 mls/hr IVC .[id number] [facility] Rx #:[id number] Zosyn 3.375 GM In 0.9 % Sodium 100 / 100 100 / 100 Chloride (Mini-Bag +) 100 ML @ 25 mls/hr IVPB Q12H [facility] Rx#: [id number] Oral 160 / 160 600 / 600 Output: Urine 225 / 225 400 / 400 Other: Meal family brought food in Percent of Meal Consumed 25% Weight 79 kg Patient Weight 11/19/17 23:59 Weight 79 kg - Labs 11/19/17 04:25 11/19/17 04:25 Diabetes panel 11/19/17 Range/Units 04:25 Sodium 139 (136-145) mEq/L Potassium 4.6 (3.5-5.1) mEq/L Chloride 108 H (98-107) mEq/L Carbon Dioxide 26 (23-29) mEq/L BUN 51 H (8-23) mg/dL Creatinine 2.34 H (0.70-1.30) mg/dL Glucose 109 H (70-105) mg/dL Calcium 8.2 L (8.6-10.3) mg/dL Calcium panel 11/19/17 Range/Units 04:25 Calcium 8.2 L (8.6-10.3) mg/dL Pituitary panel 11/19/17 Range/Units 04:25 Sodium 139 (136-145) mEq/L Potassium 4.6 (3.5-5.1) mEq/L Chloride 108 H (98-107) mEq/L Carbon Dioxide 26 (23-29) mEq/L BUN 51 H (8-23) mg/dL Creatinine 2.34 H (0.70-1.30) mg/dL Glucose 109 H (70-105) mg/dL Calcium 8.2 L (8.6-10.3) mg/dL Adrenal panel 11/19/17 Range/Units 04:25 Sodium 139 (136-145) mEq/L Potassium 4.6 (3.5-5.1) mEq/L Chloride 108 H (98-107) mEq/L Carbon Dioxide 26 (23-29) mEq/L BUN 51 H (8-23) mg/dL Creatinine 2.34 H (0.70-1.30) mg/dL Glucose 109 H (70-105) mg/dL Calcium 8.2 L (8.6-10.3) mg/dL - Attending Attestation I examined this patient and my medical decision-making was reviewed with the Resident Physician. I agree with the documented findings, disposition and treatment plan as described except to the extent set forth below. The patient is seen and evaluated on morning rounds with resident. His abdominal examination has dramatically improved on antibiotic therapy. He appears to be clinically responding to conservative antibiotic therapy of acute Appendicitis in this patient with multiple comorbid conditions. Continue IV antibiotics. Jude Parkinson MD FACS
[2017-11-19] MEDS: Tiotropium 18 MCG inhalation IH SCH (07:58)
[2017-11-19] MEDS: Budesonide/Formoterol 160/4.5 MDI IH SCH ×2 (07:58→20:20)
[2017-11-19] MEDS: Piperacillin/Tazobactam 3.375 GM in 0.9 % Sodium Chloride Mini Bag 100 ML IVPB SCH (08:05)
[2017-11-19] MEDS: Mirtazapine 15 MG TABLET PO SCH (08:08)
[2017-11-19] MEDS: Famotidine 20 MG TABLET PO SCH (08:08)
[2017-11-19] MEDS: Metoprolol XL (24 HR) Succ 50 MG TAB.ER.24H PO SCH (08:09)
[2017-11-19] MEDS: Aspirin Enteric Coated 81 MG Tablet PO SCH (08:09)
[2017-11-19] MEDS: SACUBITRIL/VALSARTAN 24/26 MG TABLET PO SCH (08:09)
--- NOTE | 2017-11-19 08:58 | Internal Med Progress Note ---
<Pauline Bergman - Last Filed: 11/19/17 13:31> Date of Encounter: 11/19/17 Time of Encounter: 08:45 - Assessment and plan (1) Acute appendicitis Current Visit: Yes Status: Acute Assessment and plan: Acute appendicitis demonstrated by abdominal CT along with patient symptoms. CT also showed possible small developing abscess at the tip however neoplasm should be excluded. -The patient reported that his right lower quadrant pain started on and continued to worsen. He saw his PCP and he recommended that showed the pain worsen he should go to the ED. The patient developed nausea and vomiting prior to going to ED. WBC 8.6 (13.2) afebrile -patient reports that abdominal pain has resolved -Abdominal exam: soft, no tenderness, no rebound tenderness plan -surgery following and recommended conservative management with antibiotics due to patients significant PMH was comorbidities. Surgery for treatment failure. -Possible discharge tomorrow -Stop IV Zosyn day 2 -started PO ciprofloxacin renal dosing -started PO Flagyl -serial abdominal exams -continue to monitor WBC Qualifiers: Acute appendicitis type: with localized peritonitis Qualified Code(s): K35.3 - Acute appendicitis with localized peritonitis (2) CAD (coronary artery disease) Current Visit: No Status: Chronic Assessment and plan: History of no CAD. Stents placed January 2017. Follows with Dr. Mitchell -continue home medications of Entresto, Toprol, Lipitor, aspirin -stopped heparin in place patient back on home Plavix since surgery is unlikely to be needed Qualifiers: Coronary Disease-Associated Artery/Lesion type: [place] artery [place] vs. transplanted heart: [place] heart Associated angina: with unstable angina Qualified Code(s): I25.110 - Atherosclerotic heart disease of [place] coronary artery with unstable angina pectoris (3) DENNIS (acute kidney injury) Current Visit: No Status: Acute Assessment and plan: DENNIS on CKD stage 3. Likely prerenal secondary to dehydration, Bumex, vomiting. Creatinine 2.34 improving (baseline ~ 1.5- 1.8) patient had gentle IV fluid hydration -hold home Bumex -avoid nephrotoxic agents -monitor I&O -continue to monitor serum creatinine (4) CKD (chronic kidney disease) stage 3, GFR 30-59 ml/min Current Visit: Yes Status: Chronic Assessment and plan: Management as above (5) Nodule of kidney Current Visit: Yes Status: Acute Assessment and plan: Abdominal CT demonstrated a 1.7 cm exophytic intermediate density nodule in the medial mid to lower pole left kidney previously 1.2 cm. Probably cyst with debris nonetheless initial evaluation with ultrasound was recommended. Renal ultrasound was ordered however daughter stated that the left kidney nodule is known to them and the patient's PCP has been following it. They requested that the renal ultrasound be canceled. (6) Systolic heart failure Current Visit: Yes Status: Chronic Assessment and plan: History of known systolic heart failure 08/30/2017 limited echo: EF 35% Qualifiers: Heart failure chronicity: acute on chronic Qualified Code(s): I50.23 - Acute on chronic systolic (congestive) heart failure (7) COPD (chronic obstructive pulmonary disease) Current Visit: No Status: Chronic Assessment and plan: History of known COPD controlled with Spiriva and Symbicort SPO2 96% on 3L -continue home inhalers Qualifiers: COPD type: COPD with acute exacerbation Qualified Code(s): J44.1 - Chronic obstructive pulmonary disease with (acute) exacerbation (8) Presence of biventricular cardiac pacemaker Current Visit: Yes Status: Chronic Assessment and plan: 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 Mitchell whom he last saw in office recently (9) DVT prophylaxis Current Visit: No Status: Acute Assessment and plan: On heparin (10) History of pulmonary embolus (PE) Current Visit: Yes Status: Acute Assessment and plan: History of PE diagnosed in February 2017. His daughter reported that he was started on Xarelto however this was discontinued due to continued nosebleeds. He is currently not on anticoagulation for PE but he does have an IVC filter in place. - Time Spent With Patient Total time spent is greater than 50% in coordination of care (as documented) at patient's floor/unit and/or counseling patient: - Subjective Interval history: 87yo Male PMH CAD, A.fib, COPD, pacemaker/ defibrillator, CHF, [place] who presented to ED complaining of right lower quadrant pain that began . He also had nausea and vomiting. Abdominal CT demonstrated acute appendicitis with possible abscess vs neoplasm. Upon my examination the patient he is alert and oriented no acute distress. He reports the right lower quadrant pain has resolved. He denies nausea, vomiting, fever, chills. Tolerating cardiac diet well. - Constitutional Vitals: Temp Pulse Resp BP Pulse Ox 97.5 F L 58 16 92/40 95 11/19/17 06:32 11/19/17 06:32 11/19/17 07:58 11/19/17 06:32 11/19/17 07:58 General appearance: Present: cooperative, A&O X 3, answers questions appropriately Exam: Gen.: Vitals noted. No acute distress. AAOx3 HEENT: oropharynx clear, Normocephalic, atraumatic Cardiac: RRR, no murmur, +S1/S2 Pulmonary: CTA bilaterally with rales, no wheezes or rhonchi, equal chest expansion Abdomen: soft, nontender, Bowel sounds noted, no guarding MSK: ROM intact, no joint swelling noted Extremities: no BLE edema, nontender calf, no cyanosis or clubbing Neuro: A&Ox3, moves all extremities, no focal deficits Psych: Appropriate mood and behavior Internal Medicine: Result - Labs CBC & Chem 7: 11/19/17 04:25 11/19/17 04:25 Labs: Short CBC 11/18/17 11/19/17 Range/Units 11:53 04:25 WBC 11.1 8.6 (4.3-11.1) K/mcL Hgb 11.5 L 10.4 L (12.9-16.9) g/dL Hct 36.1 L 33.1 L (37.5-50.1) % Plt Count 171 165 (140-400) K/mcL Neutrophils # 6.7 (1.6-8.9) K/mcL BMP 11/19/17 04:25 Sodium 139 Potassium 4.6 Chloride 108 H Carbon Dioxide 26 BUN 51 H Creatinine 2.34 H Glucose 109 H Calcium 8.2 L - ABG Interpretation ABG results: PT/INR, D-dimer PT 12.8 Seconds (9.4-12.1) H 11/18/17 11:53 Consult Discharge Plan - Plan Referrals: Homero Love MD [Primary Care Provider] - 11/26/17 3:30 pm <Riya Grey - Last Filed: 11/19/17 17:17> Date of Encounter: 11/19/17 - Assessment and plan (1) CKD (chronic kidney disease) stage 3, GFR 30-59 ml/min Current Visit: Yes Status: Chronic (2) CAD (coronary artery disease) Current Visit: No Status: Chronic Qualifiers: Coronary Disease-Associated Artery/Lesion type: [place] artery [place] vs. transplanted heart: [place] heart Associated angina: with unstable angina Qualified Code(s): I25.110 - Atherosclerotic heart disease of [place] coronary artery with unstable angina pectoris (3) COPD (chronic obstructive pulmonary disease) Current Visit: No Status: Chronic Qualifiers: COPD type: COPD with acute exacerbation Qualified Code(s): J44.1 - Chronic obstructive pulmonary disease with (acute) exacerbation (4) DVT prophylaxis Current Visit: No Status: Acute (5) Systolic heart failure Current Visit: Yes Status: Chronic Qualifiers: Heart failure chronicity: acute on chronic Qualified Code(s): I50.23 - Acute on chronic systolic (congestive) heart failure (6) Presence of biventricular cardiac pacemaker Current Visit: Yes Status: Chronic (7) DENNIS (acute kidney injury) Current Visit: No Status: Acute (8) Acute appendicitis Current Visit: Yes Status: Acute Qualifiers: Acute appendicitis type: with localized peritonitis Qualified Code(s): K35.3 - Acute appendicitis with localized peritonitis (9) Nodule of kidney Current Visit: Yes Status: Acute (10) History of pulmonary embolus (PE) Current Visit: Yes Status: Acute - Time Spent With Patient Total time spent is greater than 50% in coordination of care (as documented) at patient's floor/unit and/or counseling patient: - Constitutional Vitals: Temp Pulse Resp BP Pulse Ox 99 F 43 15 108/53 94 11/19/17 14:58 11/19/17 14:58 11/19/17 14:58 11/19/17 14:58 11/19/17 14:58 Internal Medicine: Result - Labs CBC & Chem 7: 11/19/17 04:25 11/19/17 04:25 Labs: Short CBC 11/19/17 Range/Units 04:25 WBC 8.6 (4.3-11.1) K/mcL Hgb 10.4 L (12.9-16.9) g/dL Hct 33.1 L (37.5-50.1) % Plt Count 165 (140-400) K/mcL Neutrophils # 6.7 (1.6-8.9) K/mcL BMP 11/19/17 04:25 Sodium 139 Potassium 4.6 Chloride 108 H Carbon Dioxide 26 BUN 51 H Creatinine 2.34 H Glucose 109 H Calcium 8.2 L - ABG Interpretation ABG results: PT/INR, D-dimer PT 12.8 Seconds (9.4-12.1) H 11/18/17 11:53 - Attending Attestation I performed a history and physical examination of the patient and discussed his/ her management with the resident. I reviewed the residents note and agree with the documented findings and plan of care.
[2017-11-19] MEDS ORDERED: Albuterol 2.5 MG/3 ML NEBULIZER IH PRN (13:45)
[2017-11-19] MEDS: metroNIDAZOLE 500 MG TABLET PO SCH ×2 (15:24→21:15)
[2017-11-19] MEDS: *HR* Heparin 5,000 UNIT/ML VIAL SQ SCH (18:39)
[2017-11-20 04:35] LABS: Hematocrit 33.2 % (37.5-50.1); Hemoglobin 10.7 g/dL (12.9-16.9); Mean Corpuscular HGB Conc 32.2 g/dL (31.6-35.5); Mean Corpuscular Hemoglobin 32.3 pg (28.0-33.3); Mean Corpuscular Volume 100.3 fL (83.0-100.0); Mean Platelet Volume 9.5 fL (9.4-12.4); Platelet Count 167 K/mcL (140-400); Red Blood Count 3.31 M/mcL (4.19-5.50); Red Cell Distribution Width 11.4 % (11.5-14.5)
[2017-11-20 04:54] LABS: Calcium 8.6 mg/dL (8.6-10.3); Potassium 4.3 mEq/L (3.5-5.1)
[2017-11-20] MEDS: *HR* Heparin 5,000 UNIT/ML VIAL SQ SCH (06:14)
[2017-11-20 06:46] VITALS: BP 130/50
[2017-11-20] MEDS: Tiotropium 18 MCG inhalation IH SCH (07:25)
[2017-11-20] MEDS: Budesonide/Formoterol 160/4.5 MDI IH SCH (07:25)
--- NOTE | 2017-11-20 08:35 | General Surgery Progress Note ---
Date of Encounter: 11/20/17 Time of Encounter: 06:45 - Assessment and Plan (1) Acute appendicitis Current Visit: Yes Status: Acute Has continued to have no tenderness to palpation, no involuntary guarding or rigidity. Afebrile, normotensive, no wt ct, Creatinine under baseline, good UOP Plan: Patient is ready to return home from surgery's standpoint; to continue his po antibiotics of cipro/flagyl (5d) Thank you for the consult, will sign-out. Qualifiers: Acute appendicitis type: with localized peritonitis Qualified Code(s): K35.3 - Acute appendicitis with localized peritonitis Subjective Patient reports: no new complaints, feels better, tolerating a regular diet, voiding w/o difficulty, flatus, afebrile Objective Vital Signs - Last 8 Hours Temp Pulse Resp BP Pulse Ox 11/20/17 06:39 98.4 F 80 16 130/50 94 11/20/17 03:31 98.4 F 41 15 135/56 93 Intake and Output 11/19/17 11/20/17 11/20/17 23:59 07:59 15:59 Intake Total 0 / 0 120 / 120 Output Total 200 / 200 225 / 225 Balance -200 / -200 -105 / -105 Intake: Oral 0 / 0 120 / 120 Output: Urine 200 / 200 225 / 225 Other: Stool Size Moderate Stool Consistency formed Stool Characteristics Normal for Patient Stool Color Brown Green # Bowel Movements 1 Weight 98 kg Patient Weight 11/20/17 23:59 Weight 98 kg - General physical appearance well developed, well nourished, no distress - Eyes normal ocular movement - ENT normal mucosa - Neck Neck exam: no lymphadectomy - Respiratory normal expansion, normal respiratory effort, clear to auscultation - Cardiovascular Cardiovascular exam: Present: RRR, no murmurs/rubs/gallops. Absent: JVD - Abdomen Abdomen: Present: soft, non tender. Absent: guarding, rigid, peritoneal Hernia: none - Integumentary no abnormal pigmentation - Neurologic normal coordination, normal sensation - Musculoskeletal normal posture - Psychiatric speech is normal, memory intact - Labs 11/20/17 04:09 11/20/17 04:09 Diabetes panel 11/20/17 Range/Units 04:09 Sodium 141 (136-145) mEq/L Potassium 4.3 (3.5-5.1) mEq/L Chloride 112 H (98-107) mEq/L Carbon Dioxide 22 L (23-29) mEq/L BUN 40 H (8-23) mg/dL Creatinine 1.59 H (0.70-1.30) mg/dL Glucose 110 H (70-105) mg/dL Calcium 8.6 (8.6-10.3) mg/dL Calcium panel 11/20/17 Range/Units 04:09 Calcium 8.6 (8.6-10.3) mg/dL Pituitary panel 11/20/17 Range/Units 04:09 Sodium 141 (136-145) mEq/L Potassium 4.3 (3.5-5.1) mEq/L Chloride 112 H (98-107) mEq/L Carbon Dioxide 22 L (23-29) mEq/L BUN 40 H (8-23) mg/dL Creatinine 1.59 H (0.70-1.30) mg/dL Glucose 110 H (70-105) mg/dL Calcium 8.6 (8.6-10.3) mg/dL Adrenal panel 11/20/17 Range/Units 04:09 Sodium 141 (136-145) mEq/L Potassium 4.3 (3.5-5.1) mEq/L Chloride 112 H (98-107) mEq/L Carbon Dioxide 22 L (23-29) mEq/L BUN 40 H (8-23) mg/dL Creatinine 1.59 H (0.70-1.30) mg/dL Glucose 110 H (70-105) mg/dL Calcium 8.6 (8.6-10.3) mg/dL Consult Discharge Plan - Plan Referrals: Homero Love MD [Primary Care Provider] - 11/26/17 3:30 pm
[2017-11-20] MEDS: Metoprolol XL (24 HR) Succ 50 MG TAB.ER.24H PO SCH (09:08)
[2017-11-20] MEDS: Aspirin Enteric Coated 81 MG Tablet PO SCH (09:08)
[2017-11-20] MEDS: Famotidine 20 MG TABLET PO SCH (09:08)
[2017-11-20] MEDS: SACUBITRIL/VALSARTAN 24/26 MG TABLET PO SCH (09:08)
[2017-11-20] MEDS: metroNIDAZOLE 500 MG TABLET PO SCH (09:08)
[2017-11-20] MEDS: Mirtazapine 15 MG TABLET PO SCH (09:08)
--- NOTE | 2017-11-20 09:25 | Discharge Summary ---
<Royce Lee - Last Filed: 11/20/17 12:37> - NOTES TO OUTPATIENT PROVIDER Notes to Outpatient Provider: Pt had acute appendicitis managed conservatively. Completing a course of abx and following up with surgery. Date of Encounter: 11/20/17 - Discharge Diagnosis (1) Acute appendicitis Status: Acute Qualifiers: Acute appendicitis type: with localized peritonitis Qualified Code(s): K35.3 - Acute appendicitis with localized peritonitis (2) CKD (chronic kidney disease) stage 3, GFR 30-59 ml/min Status: Chronic (3) CAD (coronary artery disease) Status: Chronic Qualifiers: Coronary Disease-Associated Artery/Lesion type: [place] artery [place] vs. 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 Almendarez is a 87 year old male - Time Spent with Patient Total time spent providing and/or coordinating discharge services: 38min - Discharge Medications Prescriptions: Ciprofloxacin HCl [Cipro] 250 mg PO BID #10 tab metroNIDAZOLE [Flagyl] 500 mg PO BID 5 Days #10 tablet Home Medications: Albuterol Neb [Proventil Neb] 2.5 mg IH Q4HR 07/30/15 [History] Aspirin [Adult Low Dose Aspirin EC] 81 mg PO DAILY 07/30/15 [History] B2/Vits A,C,E/Lut/Zeaxanth/Min [Icaps Tablet] 1 tab PO HS 07/30/15 [History] Famotidine [Pepcid] 20 mg PO BID 07/30/15 [History] Gluc/Alan-MSM#1/C/Navdeep/Amandeep/Bor [Osteo Bi-Flex Caplet] 1 cap PO HS 07/30/15 [ History] Potassium Chloride [K-Tab ER] 20 meq PO DAILY 07/30/15 [History] Tiotropium [Spiriva] 18 mcg IH DAILY 07/30/15 [History] Acetaminophen [Tylenol] 500 mg PO BID PRN 02/19/17 [History] Budesonide/Formoterol 160/4.5 [Symbicort 160/4.5] 2 puff IH BIDR 02/20/17 [Rx] Metoprolol XL (24 HR) Succ [Toprol Xl] 100 mg PO DAILY 30 Days 03/02/17 [Rx] Bumetanide [Bumex] 1 mg PO DAILY 03/07/17 [History] Clopidogrel [Plavix] 75 mg PO DAILY 03/07/17 [History] Sacubitril/Valsartan 24/26 mg [Entresto 24 mg-26 mg Tablet] 1 tab PO DAILY 03/07 [History] Atorvastatin Calcium [Lipitor] 80 mg PO HS 03/11/17 [History] Mirtazapine [Remeron] 15 mg PO DAILY 05/07/17 [History] Omeprazole [PriLOSEC] 20 mg PO DAILY 05/07/17 [History] Cyclobenzaprine [Flexeril] 10 mg PO HS PRN 11/17/17 [History] Oxycodone HCl/Acetaminophen [Percocet 10-325 mg Tablet] 1 each PO Q4H PRN [History] Ciprofloxacin HCl [Cipro] 250 mg PO BID #10 tab 11/20/17 [Rx] metroNIDAZOLE [Flagyl] 500 mg PO BID 5 Days #10 tablet 11/20/17 [Rx] Allergies/Adverse Reactions: 3 Allergy/AdvReac Type Severity Reaction Status Date / Time No Known Allergies Allergy Verified 11/18/17 14:12 Date of admission: 11/17/17 16:27 Primary care physician: Homero Love MD - Constitutional Vitals: Temp Pulse Resp BP Pulse Ox 98.4 F 80 16 130/50 94 11/20/17 06:39 11/20/17 06:39 11/20/17 06:39 11/20/17 06:39 11/20/17 06:39 - Patient Status Disposition: Hospice - Home Condition: Good - Discharge Instructions Instructions: Appendicitis (DC) Follow Up With: Jdue Parkinson MD [Partnered Physician] - 12/04/17 10:10 am Nik Mitchell MD [Partnered Physician] - 12/20/17 11:00 am Additional Instructions: Finish antibiotics to completion follow-up with Dr. Parkinson outpatient return to hospital should you develop fever, chills, worsen abdominal pain - Attending Attestation I examined this patient and my medical decision-making was reviewed with the Resident Physician on 11/20/17. I agree with the documented findings, disposition and treatment plan as described except to the extent set forth below. Mr. Almendarez has been admitted for acute appendicitis. Due to overall surgical risks he was managed conservatively with abx. He is doing better and is currently afebrile. He is ready for discharge home. Exam alert Comfortable Mucus membranes dry Heart reg No wheeze Abd soft and nontender today Plan D/C home today Complete abx Follow up with PCP and surgery Resume prior support services at home. <Pauline Bergman - Last Filed: 11/20/17 14:34> Date of Encounter: 11/20/17 Time of Encounter: 09:23 - Discharge Diagnosis (1) Acute appendicitis Priority: Primary Status: Acute Qualifiers: Acute appendicitis type: with localized peritonitis Qualified Code(s): K35.3 - Acute appendicitis with localized peritonitis (2) CAD (coronary artery disease) Priority: Secondary Status: Chronic Qualifiers: Coronary Disease-Associated Artery/Lesion type: [place] artery [place] vs. transplanted heart: [place] heart Associated angina: without angina Qualified Code(s): I25.10 - Atherosclerotic heart disease of [place] coronary artery without angina pectoris (3) DENNIS (acute kidney injury) Priority: Secondary Status: Acute (4) CKD (chronic kidney disease) stage 3, GFR 30-59 ml/min Priority: Secondary Status: Chronic (5) Nodule of kidney Priority: Secondary Status: Chronic (6) Systolic heart failure Priority: Secondary Status: Chronic Qualifiers: Heart failure chronicity: chronic Qualified Code(s): I50.22 - Chronic systolic (congestive) heart failure (7) COPD (chronic obstructive pulmonary disease) Priority: Secondary Status: Chronic Qualifiers: COPD type: emphysema Emphysema type: other (8) Presence of biventricular cardiac pacemaker Priority: Secondary Status: Chronic (9) History of pulmonary embolus (PE) Priority: Secondary Status: Chronic (10) DVT prophylaxis Priority: Secondary Status: Acute Hospital course: Mr. Almendarez is a 87 year old male who has hx of CHF, COPD, A. fib, CAD, GERD and hypertension. He has a pacemaker defibrillator. He wears 2 L of oxygen at home for COPD, presenting to ER for intermittent lower abdominal, scrotal and penile swelling for few months. Patient reported he has on and off scrotal swelling for few month , has been seen by PCP, but he developed RLQ pain for few weeks as well. This morning, he woke up at 3 a.m. developed severe right low quadrant abdominal pain, sharp constant 6 out of 10 associated was nausea no vomiting. He also complains fever and chills headache. In the emergency room he had a CAT scan which showed acute appendicitis. Surgery was called, due to medical comorbidities Dr. Parkinson recommended IV antibiotic conservative treatment. Lab showed a white count setting 13.2. The patient was admitted and started on IV Zosyn renally dosed because it was noted that he had an DENNIS. From his admission his white blood cell count returned to normal and his kidney injury was returning to baseline. He remained afebrile and he reported that right lower quadrant pain was improving. His antibiotics were changed to oral Cipro and Flagyl. The Cipro was renally dosed. Upon discharge his brother quadrant pain had completely resolved. He remained afebrile with white blood cell count within normal limits. He is currently on hospice and would be returning home upon discharge. He was alert and oriented times 3 with full capacity instated a clear understanding of treatment and plan. He is to finish his antibiotics into follow-up with his PCP in 1 to 2 weeks. He was also given an appointment to follow up with Dr. Parkinson of general surgery. Discharge discussed with: patient, nurse - Time Spent with Patient Total time spent providing and/or coordinating discharge services: Greater than 30 minutes Date of admission: 11/17/17 16:27 Primary care physician: Homero Love MD Discharging clinician: Royce Lee Anticipated date of discharge: 11/20/17 - Constitutional Vitals: Temp Pulse Resp BP Pulse Ox 98.4 F 80 16 130/50 94 11/20/17 06:39 11/20/17 06:39 11/20/17 06:39 11/20/17 06:39 05/01/18 06:39 General appearance: Present: cooperative, A&O X 3, answers questions appropriately Exam: Gen.: Vitals noted. No acute distress. AAOx3 HEENT: oropharynx clear, Normocephalic, atraumatic Cardiac: irregular, no murmur, +S1/S2 Pulmonary: CTA bilaterally, no wheezes, rales or rhonchi, equal chest expansion Abdomen: soft, nontender, Bowel sounds noted, no guarding MSK: ROM intact, no joint swelling noted Extremities: no BLE edema, nontender calf, no cyanosis or clubbing Neuro: A&Ox3, moves all extremities, no focal deficits Psych: Appropriate mood and behavior - Patient Status Functional capacity at discharge: independent ambulation Overall status at discharge: patient is back to baseline - Diet and Activity Activity: resume usual activities as tolerated Diet: advance to your usual diet
--- NOTE | 2017-11-20 11:53 | Physician Discharge Referral ---
Home Health/Hosp Referral Info Transfer to: Home Health Provider in Charge Post Discharge: PCP - Diagnosis (1) Acute appendicitis Status: Acute (2) CAD (coronary artery disease) Status: Chronic (3) DENNIS (acute kidney injury) Status: Acute (4) CKD (chronic kidney disease) stage 3, GFR 30-59 ml/min Status: Chronic (5) Nodule of kidney Status: Chronic (6) Systolic heart failure Status: Chronic (7) COPD (chronic obstructive pulmonary disease) Status: Chronic (8) Presence of biventricular cardiac pacemaker Status: Chronic (9) History of pulmonary embolus (PE) Status: Chronic (10) DVT prophylaxis Status: Acute - Respiratory Orders None Smoking Cessation: Smoking cessation has been advised. For more information, call the [employer] Tobacco Quit Line at 6-923-GWWH-NOW. - Diet/Nutrition Diet/Nutrition Orders: Cardiac - Activity Activity Orders: Ambulate - Services Needed Following services are medically necessary services: Nursing, Home Health Aide - Transfer Medications Prescriptions: Ciprofloxacin HCl [Cipro] 250 mg PO BID #10 tab metroNIDAZOLE [Flagyl] 500 mg PO BID 5 Days #10 tablet Home Medications: Albuterol Neb [Proventil Neb] 2.5 mg IH Q4HR 07/30/15 [History] Aspirin [Adult Low Dose Aspirin EC] 81 mg PO DAILY 07/30/15 [History] B2/Vits A,C,E/Lut/Zeaxanth/Min [Icaps Tablet] 1 tab PO HS 07/30/15 [History] Famotidine [Pepcid] 20 mg PO BID 07/30/15 [History] Gluc/Alan-MSM#1/C/Navdeep/Amandeep/Bor [Osteo Bi-Flex Caplet] 1 cap PO HS 07/30/15 [ History] Potassium Chloride [K-Tab ER] 20 meq PO DAILY 07/30/15 [History] Tiotropium [Spiriva] 18 mcg IH DAILY 07/30/15 [History] Acetaminophen [Tylenol] 500 mg PO BID PRN 02/19/17 [History] Budesonide/Formoterol 160/4.5 [Symbicort 160/4.5] 2 puff IH BIDR 02/20/17 [Rx] Metoprolol XL (24 HR) Succ [Toprol Xl] 100 mg PO DAILY 30 Days 03/02/17 [Rx] Bumetanide [Bumex] 1 mg PO DAILY 03/07/17 [History] Clopidogrel [Plavix] 75 mg PO DAILY 03/07/17 [History] Sacubitril/Valsartan 24/26 mg [Entresto 24 mg-26 mg Tablet] 1 tab PO DAILY 03/07 [History] Atorvastatin Calcium [Lipitor] 80 mg PO HS 03/11/17 [History] Mirtazapine [Remeron] 15 mg PO DAILY 05/07/17 [History] Omeprazole [PriLOSEC] 20 mg PO DAILY 05/07/17 [History] Cyclobenzaprine [Flexeril] 10 mg PO HS PRN 11/17/17 [History] Oxycodone HCl/Acetaminophen [Percocet 10-325 mg Tablet] 1 each PO Q4H PRN [History] Ciprofloxacin HCl [Cipro] 250 mg PO BID #10 tab 11/20/17 [Rx] metroNIDAZOLE [Flagyl] 500 mg PO BID 5 Days #10 tablet 11/20/17 [Rx] Allergies/Adverse Reactions: 3 Allergy/AdvReac Type Severity Reaction Status Date / Time No Known Allergies Allergy Verified 11/18/17 14:12 Certification: Further, I certify that my clinical findings support that this patient is homebound (i.e. absences from home require considerable and taxing effort and are for medical reasons or cheondoism services or infrequently or short duration when for other reasons) because: Homebound Reason: Leaving home requires considerable and taxing effort due to condition Attestation: My signature below is to certify that this patient is under my care and that I, or nurse practitioner, or a physician's certified registered dental assistant working with me, has a face-to -face encounter with this patient. Dr. Bergman
--- NOTE | 2017-11-20 16:01 | Electrocardiograph Report ---
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
== END 2017-11-20 11:47 | disposition hospice, home (50) | DRG 372 ==
LOC: 3ANU → SUATTDRO 16:27
PROVIDERS: ADMIT Hospitalist; ATTEND Internal Medicine